=== PATIENT | male | born 1945 | race Caucasian/White ===

== ENCOUNTER 2018-07-12 11:50 | Inpatient (IN) | payer OTHER ==
[~2018-07-12] VITALS: Ht 177.8 cm; Wt 88.6 kg
--- NOTE | ~2018-07-12 | MORECARE ---
CASE MANAGEMENT DISCHARGE SUMMARY PATIENT: LIAM ACOSTA UNIT: [id number] ADM DATE: 07/12/18 AGE: 73 : 45 SEX: M ROOM/BED: D.2133 AUTHOR: EDUARDO DENNY PHYSICIAN: REFERRING PHYSICIAN: RYAN RAMIREZ MD DATE OF SERVICE: 07/15/18 Discharge Plan Patient Name: LIAM ACOSTA Facility: [facility]:[place] : 1945 Planned Disposition: Home with Home Health Anticipated Discharge Date: 07/15/18 Discharge Date: Expected LOS: 3 Initial Reviewer: [id number] Initial Review Date: 07/15/2018 Generated: 07/15/18 5:29 pm Comments DCP- Discharge Planning Updated by [email or web address]: Viviana Keyes on 07/15/18 3:[address] Patient Name: LIAM ACOSTA Admission Status: ER Accout number: [id number] Admission Date: 07-12-2018 : 1945 Admission Diagnosis:CEREBRAL INFARCTION, UNSPECIFIED Attending: RYAN RAMIREZ Current LOS: 3 Anticipated DC Date: 07-15-2018 Planned Disposition: Home with Home Health Primary Insurance: [employer] Discharge Planning Comments: CM MET WITH PATIENT AND (JULIEN) REGARDING D/C NEEDS AND PLANS. STATED THEY ARE DISCHARGING TODAY AND THEIR DAUGHTER IN LAW (BEVERLEY) WILL BE DRIVING THEM HOME. STATED THEY LIVE IN A CAM[place] AND THAT THEY ARE NO STEPS TO ENTER IT. PATIENT HAS A WHEELCHAIR AND WALKER AT HOME. PATIENTS PCP IS DR. RAMIREZ AND PHARMACY IS [facility]. PATIENTS SIGNED THE SYED FORM FOR [facility]. CM CONTACTED [facility] AND THEY STATED THEY WOULD ACCEPT PATIENT. THE [facility] WAS SERVED. CM WILL CONTINUE TO FOLLOW PATIENT WITH D/C NEEDS AND PLANS. [facility]CP [facility] [address] () [phone] Bilingual Case Manager: Viviana Keyes DCPIA - Discharge Planning Initial Assessment Updated by [id number]: Viviana Keyes on 07/15/18 4:07 pm * Is the patient Alert and Oriented? Yes * How many steps to enter\exit or inside your home? * PCP DR. RAMIREZ * Pharmacy [facility] * Preadmission Environment Home with Family * ADLs Partial Dependent * Partial ADLs (Assistance needed) Medication Management * Equipment Shower Chair Walker Wheelchair * List name and contact numbers for known caregivers / representatives who currently or will assist patient after discharge: JULIEN () [phone] * Verbal permission to speak to the caregivers and representatives has been obtained from the patient. Yes * Community resources currently utilized None * Additional services required to return to the preadmission environment? Yes * Can the patient safely return to the preadmission environment? Yes * Has this patient been hospitalized within the prior 30 days at any hospital? No Last DP export: 07/15/18 3:15 Patient Name: LIAM ACOSTA Page 85768 at 1629 All edits/amendments must be made on the electronic document DICTATION DATE: 07/15/181628 SPECIAL DIET COOK: ANTONELLA 07/15/181628 RPT#: [id number] PA DATE: STATUS: ADM IN [facility] [address] [place] [address] END OF REPORT
--- NOTE | ~2018-07-12 | MORECARE ---
CASE MANAGEMENT DISCHARGE SUMMARY PATIENT: LIAM ACOSTA UNIT: [id number] ADM DATE: 07/12/18 AGE: 73 : 45 SEX: M ROOM/BED: D.2133 AUTHOR: DENISHA,DOC PHYSICIAN: REFERRING PHYSICIAN: RYAN RAMIREZ MD DATE OF SERVICE: 07/16/18 Discharge Plan Patient Name: LIAM ACOSTA Facility: [facility]:[place] : 1945 Planned Disposition: Home with Home Health Anticipated Discharge Date: 07/15/18 Discharge Date: 07/15/2018 Expected LOS: 3 Initial Reviewer: [email or web address] Initial Review Date: 07/15/2018 Generated: 07/16/18 11:10 am Comments DCP- Discharge Planning Updated by [id number]: Darrius Vivar on 07/15/18 3:[address] Patient Name: LIAM ACOSTA Admission Status: ER Accout number: [id number] Admission Date: 07-12-2018 : 1945 Admission Diagnosis:CEREBRAL INFARCTION, UNSPECIFIED Attending: RYAN RAMIREZ Current LOS: 3 Anticipated DC Date: 07-15-2018 Planned Disposition: Home with Home Health Primary Insurance: [employer] Discharge Planning Comments: CM MET WITH PATIENT AND (JULIEN) REGARDING D/C NEEDS AND PLANS. STATED THEY ARE DISCHARGING TODAY AND THEIR DAUGHTER IN LAW (BEVERLEY) WILL BE DRIVING THEM HOME. STATED THEY LIVE IN A [place] AND THAT THEY ARE NO STEPS TO ENTER IT. PATIENT HAS A WHEELCHAIR AND WALKER AT HOME. PATIENTS PCP IS DR. RAMIREZ AND PHARMACY IS [facility]. PATIENTS SIGNED THE SYED FORM FOR [facility]. CM CONTACTED [facility] AND THEY STATED THEY WOULD ACCEPT PATIENT. THE [facility] WAS SERVED. CM WILL CONTINUE TO FOLLOW PATIENT WITH D/C NEEDS AND PLANS. [facility] [address] () [phone] Material Requisitioner: Viviana Keyes Appended by Darrius Vivar on 07/15/2018 16:49 CLOTHING PRESSER: CM FAXED HOME HEALTH REFERRAL AND DISCHARGE INFORMATION TO [facility] AT [phone]. TRAY CULVER MANAGEMENT DCPIA - Discharge Planning Initial Assessment Updated by [id number]: Viviana Keyes on 07/15/18 4:07 pm * Is the patient Alert and Oriented? Yes * How many steps to enter\exit or inside your home? * PCP DR. RAMIREZ * Pharmacy [facility] [address] * Preadmission Environment Home with Family * ADLs Partial Dependent * Partial ADLs (Assistance needed) Medication Management * Equipment Shower Chair Walker Wheelchair * List name and contact numbers for known caregivers / representatives who currently or will assist patient after discharge: JULIEN () [phone] * Verbal permission to speak to the caregivers and representatives has been obtained from the patient. Yes * Community resources currently utilized None * Additional services required to return to the preadmission environment? Yes * Can the patient safely return to the preadmission environment? Yes * Has this patient been hospitalized within the prior 30 days at any hospital? No Coverage Notice Reviewer: [id number] - Viviana Keyes Notice Issued Date-Time: 07/15/2018 16:25 Notice Type: IM Discharge Notice Notice Delivered To: Patient Relationship to Patient: Investigation Lieutenant Name: Delivery Method: HAND - Hand Delivered Pao Days: Prior Verbal Notification: Recipient Understood Notice: Yes Recipient Signature: Yes Med Rec Note Co-signed by Attending: Coverage Notice Comment: Last DP export: 07/15/18 3:51 Patient Name: LIAM ACOSTA Page 10601 at 1010 All edits/amendments must be made on the electronic document DICTATION DATE: 07/16/18 1009 DIVE SUPERINTENDENT: ANTONELLA 07/16/18 1009 RPT#: [id number] DC DATE:07/15/18 STATUS: DIS IN [facility] [address] [place] [address] END OF REPORT
--- NOTE | ~2018-07-12 | MORECARE ---
CASE MANAGEMENT DISCHARGE SUMMARY PATIENT: LIAM ACOSTA UNIT: [id number] ADM DATE: 07/12/18 AGE: 73 : 45 SEX: M ROOM/BED: D.2133 AUTHOR: DENISHA,DOC PHYSICIAN: REFERRING PHYSICIAN: RYAN RAMIREZ MD DATE OF SERVICE: 07/16/18 Discharge Plan Patient Name: LIAM ACOSTA Facility: [facility]:[place] : 1945 Planned Disposition: Home with Home Health Anticipated Discharge Date: 07/15/18 Discharge Date: 07/15/2018 Expected LOS: 3 Initial Reviewer: [email or web address] Initial Review Date: 07/15/2018 Generated: 07/16/18 2:28 pm Comments DCP- Discharge Planning Updated by [email or web address]: Darrius Vivar on 07/16/18 12:[address] Patient Name: LIAM ACOSTA Encounter No: [id number] : 1945 Primary Insurance: [email or web address] Anticipated DC Date: 07-15-2018 Planned Disposition: Home with Home Health External Planned Provider: [facility] DCP follow-up note: CM RECEIVED CALL FROM BRIAN OF [facility] WHO INFORMED THEY ARE GOING TO ADMIT PT FOR HOME HEALTH TODAY AND THAT THE PTS' SPOUSE CALLED AND INFORMED THEM THAT SHE CANNOT TAKE CARE OF PT AT HOME AND WANTS PT IN REHAB. BRIAN WILL CALL AND NOTIFY DR. RAMIREZ. CM CALLED PT'S , JULIEN, , WHO INFORMED CM THAT SHE NEEDS PT TO GO TO [facility] UNTIL HE IS STRONG ENOUGH TO GO HOME AND THAT SHE DID NOT UNDERSTAND THAT LAST NIGHT WHEN SHE BROUGHT PT HOME. JULIEN HAS NO PREFERENCE ON NURSING REHAB FACILITY IN [place]. CM EXPLAINED THAT PT HAS MANAGED MEDICARE AND CM WOULD SEND TO FACILITIES THAT MAY BE IN INSURANCE NETWORK AND HAVE THEM CONTACT HER AT HOME. CM CALLED NELLA OF [facility], THEY ARE NOT IN NETWORK WITH PT'S INSURANCE. CM FAXED REFERRALS TO [facility], [facility] AND [facility] CM NOTIFIED BRIAN AT [facility] TO CONTACT PT AND SPOUSE AT HOME TO DISCUSS REHAB ADMISSION. HOME HEALTH TO ADMIT PT TODAY AND WILL FOLLOW UP WITH PCP, DR. RAMIREZ. TRAY Culver DCP- Discharge Planning Updated by [email or web address]: Darrius Vivar on 07/15/18 3:[address] Patient Name: LIAM ACOSTA Admission Status: ER Accout number: [id number] Admission Date: 07-12-2018 : 1945 Admission Diagnosis:CEREBRAL INFARCTION, UNSPECIFIED Attending: RYAN RAMIREZ Current LOS: 3 Anticipated DC Date: 07-15-2018 Planned Disposition: Home with Home Health Primary Insurance: [employer] Discharge Planning Comments: CM MET WITH PATIENT AND (JULIEN) REGARDING D/C NEEDS AND PLANS. STATED THEY ARE DISCHARGING TODAY AND THEIR DAUGHTER IN LAW (EBVERLEY) WILL BE DRIVING THEM HOME. STATED THEY LIVE IN A [place] AND THAT THEY ARE NO STEPS TO ENTER IT. PATIENT HAS A WHEELCHAIR AND WALKER AT HOME. PATIENTS PCP IS DR. RAMIREZ AND PHARMACY IS [facility]. PATIENTS SIGNED THE SYED FORM FOR [facility]. CM CONTACTED [facility] AND THEY STATED THEY WOULD ACCEPT PATIENT. THE [facility] WAS SERVED. CM WILL CONTINUE TO FOLLOW PATIENT WITH D/C NEEDS AND PLANS. [facility]CP [facility] [address] () [phone] Drywall Worker: Viivana Keyes Appended by Darrius Vivar on 07/15/2018 16:49 ACCESS NURSE: CM FAXED HOME HEALTH REFERRAL AND DISCHARGE INFORMATION TO [facility] AT [phone]. TRAY CULVER DCPIA - Discharge Planning Initial Assessment Updated by [id number]: Viviana Keyes on 07/15/18 4:07 pm * Is the patient Alert and Oriented? Yes * How many steps to enter\exit or inside your home? * PCP DR. RAMIREZ * Pharmacy [facility] [address] * Preadmission Environment Home with Family * ADLs Partial Dependent * Partial ADLs (Assistance needed) Medication Management * Equipment Shower Chair Walker Wheelchair * List name and contact numbers for known caregivers / representatives who currently or will assist patient after discharge: JULIEN () [phone] * Verbal permission to speak to the caregivers and representatives has been obtained from the patient. Yes * Community resources currently utilized None * Additional services required to return to the preadmission environment? Yes * Can the patient safely return to the preadmission environment? Yes * Has this patient been hospitalized within the prior 30 days at any hospital? No Coverage Notice Reviewer: [id number] Lissa Keyes Notice Issued Date-Time: 07/15/2018 16:25 Notice Type: IM Discharge Notice Notice Delivered To: Patient Relationship to Patient: Size Worker Name: Delivery Method: HAND - Hand Delivered Pao Days: Prior Verbal Notification: Recipient Understood Notice: Yes Recipient Signature: Yes Med Rec Note Co-signed by Attending: Coverage Notice Comment: Last DP export: 07/16/18 12:12 Patient Name: LIAM ACOSTA Page 49549 at 1328 All edits/amendments must be made on the electronic document DICTATION DATE: 07/16/18 1327 SPIRITUAL COUNSELOR: ANTONELLA 07/16/18 1327 RPT#: [id number] DC DATE:07/15/18 STATUS: DIS IN [facility] [address] [place] [address] END OF REPORT
--- NOTE | ~2018-07-12 | HP ---
PATIENT: LIAM ACOSTA MEDICAL RECORD: [id number] ACCOUNT: [id number] LOCATION:[address] : [birth year] ADMISSION DATE: 07/12/18 PCP: RYAN RAMIREZ HISTORY AND PHYSICAL EXAMINATION DATE OF ADMISSION: 07/12/2018 CHIEF COMPLAINT: Weakness, slurred speech, difficulty holding things in the left hand. HISTORY OF PRESENT ILLNESS: This is a 73-year-old white male with a history of hypertension and some reflux and prostate cancer who was just seen by Dr. Ramirez for a physical last Friday. He then left there and went to [facility] and got a flu shot 2 days later. Family noticed that he was having accidents with loss of bowel and bladder. He had generalized weakness. He was slurring his speech and had difficulty holding things in his left hand (he is left handed), had increased confusion and difficulty following commands. They brought him into the hospital today where his lab was fairly unremarkable. A CT of the head showed a small area of attenuation in the right parietal lobe consistent with a possible stroke of undetermined age. MRI of the brain showed multiple small foci of acute to subacute ischemic areas in the right frontal, parietal, and temporal lobes. He is admitted for stroke. PAST MEDICAL AND SURGICAL HISTORY: Hypertension, reflux, prostate cancer, traumatic loss of right thumb due to an old field injury at age 18. PAST SURGICAL HISTORY: Left total hip arthroplasty. ALLERGIES: None. HOME MEDICATIONS: Lasix 40 mg a day, metoprolol 50 mg twice a day, losartan 100 mg a day, aspirin 81 mg but not taking regularly. HABITS: No tobacco, alcohol or drugs. SOCIAL HISTORY: and retired. FAMILY HISTORY: Father in his early 70s of prostate cancer. Mother around age 70 due to cirrhosis. REVIEW OF SYSTEMS: GENERAL: states he has lost 5 or 6 pounds over the last few weeks to months. HEENT: No particular sinus or allergy problems. RESPIRATORY: No history of emphysema or asthma. CARDIAC: No known coronary artery disease. GASTROINTESTINAL: He has had some reflux. GENITOURINARY: History of prostate cancer treated with radiation therapy many years ago. MUSCULOSKELETAL: He has had arthritis and replacement of left hip. NEUROLOGIC: No migraines or seizures. No history of strokes. PSYCHIATRIC: Denies depression or melancholia. PHYSICAL EXAMINATION: VITAL SIGNS: Temperature 99.2, pulse 68, respirations 14, blood pressure HISTORY AND PHYSICAL [id number] LIAM ACOSTA 132/81, and O2 sat 99%. GENERAL: He is awake and alert. Family at bedside. SKIN: Warm and dry. HEENT: Generally unremarkable. NECK: Supple. No JVD or bruit. HEART: Regular rate and rhythm without murmur. LUNGS: Fairly clear. ABDOMEN: Soft. EXTREMITIES: No edema. NEUROLOGIC: He has a little weakness in the left hand and arm. There is no pronator drift to the left arm but does have decreased cartographic drafter compared to the right hand, left leg is a little weak compared to the right on his tested by straight leg raises versus resistance. LABORATORY DATA: CBC with a white count of 5600, hemoglobin 14.3, platelets number 151,000. Basic metabolic panel is all okay except potassium a little low at 3.2, glucose is 96, total bilirubin 1.89. Otherwise, other liver functions are all normal. CT of the head, small area of attenuation in the right parietal lobe. MRI of the brain shows multiple small foci of acute/subacute ischemic areas in the right frontal, parietal, and temporal lobes. Carotid ultrasound showed no significant stenosis over 50%. ASSESSMENT: 1. Would be right-sided stroke with embolic shower with multiple areas of ischemia. 2. History of hypertension. PLAN: We will check echocardiogram, will check lipid profile, clear him on telemetry. Order physical therapy, occupational therapy, and speech therapy. Will start a full aspirin every day. Other tests and procedures as warranted. TRANSINT:[id number] Voice Confirmation ID: [id number] DOCUMENT ID: [id number] BLANCA RANGEL MD at 0856 CC: [id number] DICTATION DATE: 07/12/18 184 RAIL FILLER: 07/12/182058 ADM IN [facility] [address] [facility] [place] [address]
--- NOTE | ~2018-07-12 | MORECARE ---
CASE MANAGEMENT DISCHARGE SUMMARY PATIENT: LIAM ACOSTA DOYLE UNIT: [id number] ADM DATE: 07/12/18 AGE: 73 : 45 SEX: M ROOM/BED: D.2133 AUTHOR: EDUARDO DENNY PHYSICIAN: REFERRING PHYSICIAN: RYAN RAMIREZ MD DATE OF SERVICE: 07/15/18 Discharge Plan Patient Name: LIAM ACOSTA [facility] [facility] 1945 Planned Disposition: Home with Home Health Anticipated Discharge Date: 07/15/18 Discharge Date: Expected LOS: 3 Initial Reviewer: [email or web address] Initial Review Date: 07/15/2018 Generated: 07/15/18 5:14 pm DCPIA - Discharge Planning Initial Assessment Updated by [email or web address]: Viviana Keyes on 07/15/18 4:07 pm * Is the patient Alert and Oriented? Yes * How many steps to enter\exit or inside your home? * PCP DR. RAMIREZ * Pharmacy [facility] [address] * Preadmission Environment Home with Family * ADLs Partial Dependent * Partial ADLs (Assistance needed) Medication Management * Equipment Shower Chair Walker Wheelchair * List name and contact numbers for known caregivers / representatives who currently or will assist patient after discharge: JULIEN () [phone] * Verbal permission to speak to the caregivers and representatives has been obtained from the patient. Yes * Community resources currently utilized None * Additional services required to return to the preadmission environment? Yes * Can the patient safely return to the preadmission environment? Yes * Has this patient been hospitalized within the prior 30 days at any hospital? No Patient Name: LIAM ACOSTA Page 58258 at 1615 All edits/amendments must be made on the electronic document DICTATION DATE: 07/15/181613 AUTOMOBILE REPOSSESSOR: ANTONELLA 07/15/181613 RPT#: [id number] DC DATE: STATUS: ADM IN [facility] [address] [place] [address] END OF REPORT
--- NOTE | ~2018-07-12 | MORECARE ---
CASE MANAGEMENT DISCHARGE SUMMARY PATIENT: LIAM ACOSTA UNIT: [id number] ADM DATE: 07/12/18 AGE: 73 : 45 SEX: M ROOM/BED: D.2133 AUTHOR: DENISHA,DOC PHYSICIAN: REFERRING PHYSICIAN: RYAN RAMIREZ MD DATE OF SERVICE: 07/16/18 Discharge Plan Patient Name: LIAM ACOSTA Facility: [facility]:[place] : 1945 Planned Disposition: Home with Home Health Anticipated Discharge Date: 07/15/18 Discharge Date: 07/15/2018 Expected LOS: 3 Initial Reviewer: [email or web address] Initial Review Date: 07/15/2018 Generated: 07/16/18 2:12 pm Comments DCP- Discharge Planning Updated by [email or web address]: Darrius Vivar on 07/15/18 3:[address] Patient Name: LIAM ACOSTA Admission Status: ER Accout number: [id number] Admission Date: 07-12-2018 : 1945 Admission Diagnosis:CEREBRAL INFARCTION, UNSPECIFIED Attending: RYAN RAMIREZ Current LOS: 3 Anticipated DC Date: 07-15-2018 Planned Disposition: Home with Home Health Primary Insurance: [employer] Discharge Planning Comments: CM MET WITH PATIENT AND (JULIEN) REGARDING D/C NEEDS AND PLANS. STATED THEY ARE DISCHARGING TODAY AND THEIR DAUGHTER IN LAW (BEVERLEY) WILL BE DRIVING THEM HOME. STATED THEY LIVE IN A [place] AND THAT THEY ARE NO STEPS TO ENTER IT. PATIENT HAS A WHEELCHAIR AND WALKER AT HOME. PATIENTS PCP IS DR. RAMIREZ AND PHARMACY IS [facility]. PATIENTS SIGNED THE SYED FORM FOR [facility]. CM CONTACTED [facility] AND THEY STATED THEY WOULD ACCEPT PATIENT. THE [facility] WAS SERVED. CM WILL CONTINUE TO FOLLOW PATIENT WITH D/C NEEDS AND PLANS. [facility] [address] () [phone] Title Insurance Agent: Viviana Keyes Appended by Darrius Vivar on 07/15/2018 16:49 STEAMTABLE WORKER: CM FAXED HOME HEALTH REFERRAL AND DISCHARGE INFORMATION TO [facility] AT [phone]. TRAY CULVER MANAGEMENT DCPIA - Discharge Planning Initial Assessment Updated by [id number]: Viviana Keyes on 07/15/18 4:07 pm * Is the patient Alert and Oriented? Yes * How many steps to enter\exit or inside your home? * PCP DR. RAMIREZ * [facility]acy [facility] [address] * Preadmission Environment Home with Family * ADLs Partial Dependent * Partial ADLs (Assistance needed) Medication Management * Equipment Shower Chair Walker Wheelchair * List name and contact numbers for known caregivers / representatives who currently or will assist patient after discharge: JULIEN () [phone] * Verbal permission to speak to the caregivers and representatives has been obtained from the patient. Yes * Community resources currently utilized None * Additional services required to return to the preadmission environment? Yes * Can the patient safely return to the preadmission environment? Yes * Has this patient been hospitalized within the prior 30 days at any hospital? No External Providers External Provider: [facility] Next Contact Date: 07/16/2018 Service Request Date: Service Type: Resolution: Reviewer: Comments: External Provider[facility] Next Contact Date: 07/16/2018 Service Request Date: Service Type: Resolution: Reviewer: Comments: External Provider: [facility] Next Contact Date: 07/16/2018 Service Request Date: Service Type: Resolution: Reviewer: Comments: Coverage Notice Reviewer: [email or web address] Lissa Keyes Notice Issued Date-Time: 07/15/2018 16:25 Notice Type: IM Discharge Notice Notice Delivered To: Patient Relationship to Patient: Senior Investigator Name: Delivery Method: HAND - Hand Delivered Pao Days: Prior Verbal Notification: Recipient Understood Notice: Yes Recipient Signature: Yes Med Rec Note Co-signed by Attending: Coverage Notice Comment: Last DP export: 07/16/18 9:10 Patient Name: LIAM ACOSTA Page 11666 at 1312 All edits/amendments must be made on the electronic document DICTATION DATE: 07/16/18 1312 CREDIT COLLECTIONS ANALYST: ANTONELLA 07/16/18 1312 RPT#: [id number] DC DATE:07/15/18 STATUS: DIS IN [facility] [address] [facility] [place] [address] END OF REPORT
--- NOTE | ~2018-07-12 | MORECARE ---
CASE MANAGEMENT DISCHARGE SUMMARY PATIENT: LIAM ACOSTA UNIT: [id number] ADM DATE: 07/12/18 AGE: 73 : [birth year] SEX: M ROOM/BED: D.2133 AUTHOR: EDUARDO DENNY PHYSICIAN: REFERRING PHYSICIAN: RYAN RAMIREZ MD DATE OF SERVICE: 07/15/18 Discharge Plan Patient Name: LIAM ACOSTA Facility: [facility]:[place] : 1945 Planned Disposition: Home with Home Health Anticipated Discharge Date: 07/15/18 Discharge Date: Expected LOS: 3 Initial Reviewer: [email or web address] Initial Review Date: 07/15/2018 Generated: 07/15/18 5:51 pm Comments DCP- Discharge Planning Updated by [email or web address]: Darrius Gonzalez on 07/15/18 3:[address] Patient Name: LIAM ACOSTA Admission Status: ER Accout number: [id number] Admission Date: 07-12-2018 : 1945 Admission Diagnosis:CEREBRAL INFARCTION, UNSPECIFIED Attending: RYAN RAMIREZ Current LOS: 3 Anticipated DC Date: 07-15-2018 Planned Disposition: Home with Home Health Primary Insurance: [employer] Discharge Planning Comments: CM MET WITH PATIENT AND (JULIEN) REGARDING D/C NEEDS AND PLANS. STATED THEY ARE DISCHARGING TODAY AND THEIR DAUGHTER IN LAW (BEVERLEY) WILL BE DRIVING THEM HOME. STATED THEY LIVE IN A [place] AND THAT THEY ARE NO STEPS TO ENTER IT. PATIENT HAS A WHEELCHAIR AND WALKER AT HOME. PATIENTS PCP IS DR. RAMIREZ AND PHARMACY IS [facility]. PATIENTS SIGNED THE SYED FORM FOR [facility]. CM CONTACTED [facility] AND THEY STATED THEY WOULD ACCEPT PATIENT. THE [facility] WAS SERVED. CM WILL CONTINUE TO FOLLOW PATIENT WITH D/C NEEDS AND PLANS. PCP [facility] [address] JULIEN () [phone] Drilling Inspector: Viviana Keyes Appended by Darrius Gonzalez on 07/15/2018 16:49 TECHNICAL SUPPORT PROFESSIONAL: CM FAXED HOME HEALTH REFERRAL AND DISCHARGE INFORMATION TO [facility] AT [phone]. DARRIUS GONZALEZ, CASE MANAGEMENT DCPIA - Discharge Planning Initial Assessment Updated by [email or web address]: Viviana Keyes on 07/15/18 4:07 pm * Is the patient Alert and Oriented? Yes * How many steps to enter\exit or inside your home? * PCP DR. RAMIREZ * Pharmacy [facility] [address] * Preadmission Environment Home with Family * ADLs Partial Dependent * Partial ADLs (Assistance needed) Medication Management * Equipment Shower Chair Walker Wheelchair * List name and contact numbers for known caregivers / representatives who currently or will assist patient after discharge: JULIEN () [phone] * Verbal permission to speak to the caregivers and representatives has been obtained from the patient. Yes * Community resources currently utilized None * Additional services required to return to the preadmission environment? Yes * Can the patient safely return to the preadmission environment? Yes * Has this patient been hospitalized within the prior 30 days at any hospital? No External Providers [facility] Next Contact Date: 07/15/2018 Service Request Date: Service Type: Resolution: Reviewer: Comments: Coverage Notice Reviewer: [email or web address] Lissa Keyes Notice Issued Date-Time: 07/15/2018 16:25 Notice Type: IM Discharge Notice Notice Delivered To: Patient Relationship to Patient: Supervisor Model Making Name: Delivery Method: HAND - Hand Delivered Pao Days: Prior Verbal Notification: Recipient Understood Notice: Yes Recipient Signature: Yes Med Rec Note Co-signed by Attending: Coverage Notice Comment: Last DP export: 07/15/18 3:29 Patient Name: LIAM ACOSTA Page 19644 at 1652 All edits/amendments must be made on the electronic document DICTATION DATE: 07/15/181650 CARRIAGE DOGGER: ANTONELLA 07/15/181650 RPT#: [id number] DC DATE: STATUS: ADM IN [facility] [address] [place] [address] END OF REPORT
--- NOTE | ~2018-07-12 | EC ---
PATIENT:LIAM ACOSTA DATE OF SERVICE: 07/12/18 SEX: M MEDICAL RECORD: [id number] DATE OF : [birth year] LOCATION:D.M2 D.213 AGE OF PATIENT: 73 ADMISSION DATE: 07/12/18 REFERRING PHYSICIAN: INTERPRETING PHYSICIAN: JARED HARDY MD ECHOCARDIOGRAM REPORT ECHO CHARGES 4 ECHO COMPLETE Date: 07/12/18 CLINICAL DIAGNOSIS: CVA HX OF AFIB/HTN ECHOCARDIOGRAPHIC MEASUREMENTS (adult normal given) AC root (d.<3.7cm) 4.0 cm LV Septum d (<1.2 cm> 1.5 cm Valve Excursion 1.9 cm LV Septum (systole) 2.4 cm Left Atria (s.<4.0cm> 4.4 cm LVPW d(<1.2cm) 1.9 cm RV (d.<2.3cm) 3.9 cm LVPW (sytole) 2.5 cm LV diastole(<5.6CM) 5.3 cm MV E-F(>70mm/sec) cm LV systole 3.3 cm LVOT Diameter 1.8 cm MV exc.(>10mm) cm Est.ejection fraction (50-75%) % DOPPLER: LVIT cm/sec A 110 cm/sec E 58.0 cm/sec LA cm/sec RVSP 20 mmHg LVOT 129 cm/sec AOP1/2T m/s Asc. Ao 180 cm/sec RVOT 60 cm/sec RA cm/sec PA 107 cm/sec AV Gradient Peak 12.98mmHg AV Mean 7.62 mmHg AV Area 2.2 cm MV Gradient Peak 6.63 mmHg MV Mean 1.65 mmHg MV Area cm COMMENTS: Specimen Accessioner: 2 [facility] [employer] [place] Technician: 3 Dr. Jaime TAPE# PACS Pericardial Effusion N DATE OF SERVICE: Adequate 2D, color flow, spectral Doppler, and M-Mode. LVH is present. LV internal dimension is normal. Wall motion is normal. EF is greater than or equal to 55%. Aortic valve is tricuspid. No evidence of stenosis by Doppler interrogation. Left atrium is dilated at 4.4 cm. Mitral valve shows no prolapse. Trace MR. Right sided chambers grossly normal. Trace TR. TRANSINT:[id number] Voice Confirmation ID: [id number] DOCUMENT ID: [id number] ECHOCARDIOGRAM REPORT [id number] LIAM ACOSTA GREGORY A MD at 1546 CC: [id number] DICTATION DATE: 07/13/18 1012 DIRECTOR OF LABOR AND DELIVERY: 07/13/18 1054 ADM IN [facility] [address] [place] [place] [id number]
[2018-07-12] MEDS ORDERED: COZAAR100 MG PO (11:54)
[2018-07-12] MEDS ORDERED: LASIX40 MG (11:54)
[2018-07-12] MEDS ORDERED: METOPROLOL TART50 MG PO (11:55)
[2018-07-12 12:49] LABS: BASOPHILS 0.9 % (0-2); EOSINOPHILS 3.6 % (0-7); HEMATOCRIT 40.6 % (42.0-54.0); HEMOGLOBIN 14.3 g/dL (13.5-17.5); IMMATURE GRANULOCYTES 0.2 % (0-5); LYMPHOCYTES 23.4 % (15-50); MCH 30.8 pg (26.0-34.0); MCHC 35.2 g/dL (31.0-37.0); MCV 87.5 fL (80.0-100.0); MEAN PLATELET VOLUME 10.3 fL (7.4-10.4); MONOCYTES 8.7 % (2-11); NEUTROPHILS 63.2 % (40-80); PLATELET COUNT 151 10x3/uL (130-400); RBC 4.64 10x6/uL (4.20-6.10); RDW 12.7 % (11.5-14.5); WBC 5.6 10x3/uL (4.8-10.8)
[2018-07-12 13:15] VITALS: BP 130/88
[2018-07-12 13:35] LABS: ALBUMIN 3.1 g/dL (3.4-5.0); ANION GAP 13.4 mmol/L (8-16); BILIRUBIN - TOTAL 1.89 mg/dL (0.2-1.3); CALCIUM 8.7 mg/dL (8.5-10.1); CARBON DIOXIDE 26.8 mmol/L (21.0-32.0); CREATININE - SERUM 1.2 mg/dL (0.6-1.3); POTASSIUM - SERUM 3.2 mmol/L (3.5-5.1); PROTEIN - SERUM 6.6 g/dL (6.4-8.2)
[2018-07-12 17:20] VITALS: BMI 27.3
[2018-07-12 20:30] VITALS: BP 130/89
[2018-07-13 00:30] VITALS: BP 156/102
[2018-07-13 04:30] VITALS: BP 134/79
[2018-07-13 06:07] LABS: EOSINOPHILS 3.7 % (0-7); HEMATOCRIT 38.6 % (42.0-54.0); HEMOGLOBIN 13.2 g/dL (13.5-17.5); IMMATURE GRANULOCYTES 0.2 % (0-5); LYMPHOCYTES 30.2 % (15-50); MCHC 34.2 g/dL (31.0-37.0); MCV 87.7 fL (80.0-100.0); MEAN PLATELET VOLUME 10.8 fL (7.4-10.4); MONOCYTES 10.6 % (2-11); NEUTROPHILS 54.3 % (40-80); PLATELET COUNT 143 10x3/uL (130-400); RDW 12.7 % (11.5-14.5); WBC 5.9 10x3/uL (4.8-10.8)
[2018-07-13 06:37] LABS: ANION GAP 12.7 mmol/L (8-16); CALCIUM 8.7 mg/dL (8.5-10.1); CARBON DIOXIDE 27.3 mmol/L (21.0-32.0); CHOL - HDL RATIO 5.6 ratio (2.3-4.9); CREATININE - SERUM 1.1 mg/dL (0.6-1.3); LDL-HDL RATIO 3.7 ratio (1.5-3.5)
[2018-07-13 08:24] VITALS: BP 118/58
[2018-07-13 10:59] VITALS: BP 123/64
[2018-07-13 13:42] VITALS: Ht 177.8 cm; Wt 88.6 kg
[2018-07-13 15:55] VITALS: BP 118/62
[2018-07-13 20:00] VITALS: BP 121/67
[2018-07-13] MEDS ORDERED: LASIX40 MG PO (21:01)
[2018-07-14] VITALS: BP 131/90
[2018-07-14 04:00] VITALS: BP 152/90
[2018-07-14 05:32] LABS: BASOPHILS 1.2 % (0-2); EOSINOPHILS 4.1 % (0-7); HEMATOCRIT 37.7 % (42.0-54.0); HEMOGLOBIN 13.6 g/dL (13.5-17.5); IMMATURE GRANULOCYTES 0.2 % (0-5); LYMPHOCYTES 33.3 % (15-50); MCH 32.1 pg (26.0-34.0); MCHC 36.1 g/dL (31.0-37.0); MCV 88.9 fL (80.0-100.0); MEAN PLATELET VOLUME 10.6 fL (7.4-10.4); MONOCYTES 9.3 % (2-11); NEUTROPHILS 51.9 % (40-80); PLATELET COUNT 131 10x3/uL (130-400); RBC 4.24 10x6/uL (4.20-6.10); RDW 12.9 % (11.5-14.5); WBC 5.6 10x3/uL (4.8-10.8)
[2018-07-14 05:56] LABS: ANION GAP 12.3 mmol/L (8-16); BILIRUBIN - TOTAL 0.92 mg/dL (0.2-1.3); CALCIUM 8.2 mg/dL (8.5-10.1); CARBON DIOXIDE 28.9 mmol/L (21.0-32.0); CREATININE - SERUM 1.1 mg/dL (0.6-1.3); POTASSIUM - SERUM 3.2 mmol/L (3.5-5.1); PROTEIN - SERUM 6.4 g/dL (6.4-8.2)
[2018-07-14 08:05] VITALS: BP 147/84
[2018-07-14 11:21] VITALS: BP 142/78
[2018-07-14 16:50] VITALS: BP 138/74
[2018-07-14 21:02] VITALS: BP 137/80
[2018-07-15 01:14] VITALS: BP 137/94
[2018-07-15 05:42] LABS: BASOPHILS 0.5 % (0-2); EOSINOPHILS 5.1 % (0-7); HEMATOCRIT 38.8 % (42.0-54.0); HEMOGLOBIN 13.3 g/dL (13.5-17.5); IMMATURE GRANULOCYTES 0.2 % (0-5); LYMPHOCYTES 30.9 % (15-50); MCH 30.4 pg (26.0-34.0); MCHC 34.3 g/dL (31.0-37.0); MCV 88.8 fL (80.0-100.0); MEAN PLATELET VOLUME 10.6 fL (7.4-10.4); MONOCYTES 8.3 % (2-11); PLATELET COUNT 142 10x3/uL (130-400); RBC 4.37 10x6/uL (4.20-6.10); RDW 12.6 % (11.5-14.5); WBC 6.3 10x3/uL (4.8-10.8)
[2018-07-15 05:54] VITALS: BP 156/92
[2018-07-15 06:42] LABS: ALKALINE PHOSPHATASE 96 U/L (46-116); CALC OSMOLALITY 281 mosm/kg (275-300); CALCIUM 8.6 mg/dL (8.5-10.1); CARBON DIOXIDE 26.9 mmol/L (21.0-32.0); CHLORIDE - SERUM 106 mmol/L (98-107); CREATININE - SERUM 0.9 mg/dL (0.6-1.3); GLUCOSE 88 mg/dL (74-106); POTASSIUM - SERUM 3.5 mmol/L (3.5-5.1); PROTEIN - SERUM 6.2 g/dL (6.4-8.2); SODIUM 142 mmol/L (136-145); UREA NITROGEN 13 mg/dL (7-18); eGFR NON AFRICAN AMERICAN 88 mL/min (90-120)
[2018-07-15 06:43] LABS: ALT (SGPT) 9 U/L (10-68)
[2018-07-15 08:44] VITALS: BP 141/87
[2018-07-15 13:07] VITALS: BP 145/95
[2018-07-15] MEDS ORDERED: ASPIRIN325 MG PO (14:08)
[2018-07-15] MEDS ORDERED: COZAAR50 MG PO (14:08)
== END 2018-07-15 19:40 | disposition home health service (06) | DRG 65 ==
LOC: D.ER 11:50 → D.M2 13:14 → D.EDHOLD 13:14 → D.M2 14:12
PROVIDERS: Emergency Medicine; Family Medicine
DX: I63.9 Cerebral infarction, unspecified (principal); G81.94 Hemiplegia, unspecified affecting left nondominant side; K52.0 Gastroenteritis and colitis due to radiation; R47.81 Slurred speech; K21.9 Gastro-esophageal reflux disease without esophagitis; I10 Essential (primary) hypertension; Z85.46 Personal history of malignant neoplasm of prostate; R40.2363 Coma scale, best motor response, obeys commands, at hospital admission; R40.2143 Coma scale, eyes open, spontaneous, at hospital admission; R40.2243 Coma scale, best verbal response, confused conversation, at hospital admission

== ENCOUNTER 2018-07-17 17:54 | Inpatient (IN) | payer MEDICARE ==
[~2018-07-17] VITALS: Ht 177.8 cm; Wt 83.9 kg
[~2018-07-17 17:54] MED LIST: ASPIRIN325 MG PO; COZAAR100 MG PO; COZAAR50 MG PO; LASIX40 MG; LASIX40 MG PO; METOPROLOL TART50 MG PO
[2018-07-17 18:13] VITALS: BP 182/101; BMI 26.6
[2018-07-17 19:00] VITALS: BP 182/101
[2018-07-18 07:10] LABS: BASOPHILS 0.6 % (0-2); EOSINOPHILS 4.3 % (0-7); HEMATOCRIT 44.6 % (42.0-54.0); HEMOGLOBIN 15.5 g/dL (13.5-17.5); IMMATURE GRANULOCYTES 0.3 % (0-5); LYMPHOCYTES 20.6 % (15-50); MCH 30.8 pg (26.0-34.0); MCHC 34.8 g/dL (31.0-37.0); MCV 88.5 fL (80.0-100.0); MEAN PLATELET VOLUME 10.4 fL (7.4-10.4); MONOCYTES 10.3 % (2-11); NEUTROPHILS 63.9 % (40-80); PLATELET COUNT 153 10x3/uL (130-400); RBC 5.04 10x6/uL (4.20-6.10); RDW 12.8 % (11.5-14.5); WBC 7.9 10x3/uL (4.8-10.8)
[2018-07-18 07:27] LABS: CALC OSMOLALITY 282 mosm/kg (275-300); CALCIUM 9.1 mg/dL (8.5-10.1); CARBON DIOXIDE 27.5 mmol/L (21.0-32.0); CHLORIDE - SERUM 106 mmol/L (98-107); CREATININE - SERUM 0.8 mg/dL (0.6-1.3); GLUCOSE 99 mg/dL (74-106); POTASSIUM - SERUM 3.8 mmol/L (3.5-5.1); SODIUM 141 mmol/L (136-145); UREA NITROGEN 17 mg/dL (7-18); eGFR NON AFRICAN AMERICAN > 90 mL/min (90-120)
[2018-07-18 08:44] VITALS: BP 169/98
[2018-07-18 09:32] VITALS: Ht 177.8 cm; Wt 83.9 kg
[2018-07-18 12:39] VITALS: BP 153/94
[2018-07-18 21:55] VITALS: BP 131/76
[2018-07-19 08:00] VITALS: BP 136/73
[2018-07-19 20:38] VITALS: BP 138/75
[2018-07-20 06:55] LABS: BASOPHILS 0.7 % (0-2); EOSINOPHILS 6.4 % (0-7); HEMATOCRIT 40.5 % (42.0-54.0); HEMOGLOBIN 13.7 g/dL (13.5-17.5); IMMATURE GRANULOCYTES 0.2 % (0-5); MCH 30.2 pg (26.0-34.0); MCHC 33.8 g/dL (31.0-37.0); MCV 89.4 fL (80.0-100.0); MEAN PLATELET VOLUME 10.7 fL (7.4-10.4); MONOCYTES 13.9 % (2-11); NEUTROPHILS 56.8 % (40-80); PLATELET COUNT 134 10x3/uL (130-400); RBC 4.53 10x6/uL (4.20-6.10); RDW 12.8 % (11.5-14.5); WBC 4.5 10x3/uL (4.8-10.8)
[2018-07-20 07:15] LABS: CALC OSMOLALITY 292 mosm/kg (275-300); CALCIUM 8.5 mg/dL (8.5-10.1); CARBON DIOXIDE 26.2 mmol/L (21.0-32.0); CHLORIDE - SERUM 111 mmol/L (98-107); CREATININE - SERUM 0.9 mg/dL (0.6-1.3); GLUCOSE 92 mg/dL (74-106); POTASSIUM - SERUM 3.7 mmol/L (3.5-5.1); SODIUM 146 mmol/L (136-145); UREA NITROGEN 17 mg/dL (7-18); eGFR NON AFRICAN AMERICAN 88 mL/min (90-120)
[2018-07-20 08:00] VITALS: BP 147/98
[2018-07-20 19:02] VITALS: BP 161/85
[2018-07-21 07:55] VITALS: BP 175/98
[2018-07-21 19:42] VITALS: BP 153/86
[2018-07-22 06:10] LABS: BASOPHILS 0.6 % (0-2); EOSINOPHILS 5.8 % (0-7); HEMATOCRIT 39.8 % (42.0-54.0); HEMOGLOBIN 13.5 g/dL (13.5-17.5); IMMATURE GRANULOCYTES 0.2 % (0-5); LYMPHOCYTES 25.4 % (15-50); MCH 30.4 pg (26.0-34.0); MCHC 33.9 g/dL (31.0-37.0); MCV 89.6 fL (80.0-100.0); MEAN PLATELET VOLUME 10.3 fL (7.4-10.4); MONOCYTES 10.9 % (2-11); NEUTROPHILS 57.1 % (40-80); PLATELET COUNT 145 10x3/uL (130-400); RBC 4.44 10x6/uL (4.20-6.10); RDW 12.8 % (11.5-14.5); WBC 5.3 10x3/uL (4.8-10.8)
[2018-07-22 07:45] LABS: CHLORIDE - SERUM 110 mmol/L (98-107); POTASSIUM - SERUM 3.6 mmol/L (3.5-5.1); SODIUM 145 mmol/L (136-145)
[2018-07-22 08:00] VITALS: BP 141/86
[2018-07-22 08:00] LABS: CALC OSMOLALITY 289 mosm/kg (275-300); CALCIUM 8.4 mg/dL (8.5-10.1); CARBON DIOXIDE 24.4 mmol/L (21.0-32.0); CREATININE - SERUM 0.9 mg/dL (0.6-1.3); GLUCOSE 96 mg/dL (74-106); UREA NITROGEN 14 mg/dL (7-18); eGFR NON AFRICAN AMERICAN 88 mL/min (90-120)
[2018-07-22 19:45] VITALS: BP 138/83
[2018-07-23 08:00] VITALS: BP 150/74
[2018-07-23 20:18] VITALS: BP 152/87
[2018-07-24 07:19] LABS: BASOPHILS 0.6 % (0-2); EOSINOPHILS 4.8 % (0-7); HEMATOCRIT 39.2 % (42.0-54.0); HEMOGLOBIN 13.4 g/dL (13.5-17.5); LYMPHOCYTES 22.2 % (15-50); MCH 30.4 pg (26.0-34.0); MCHC 34.2 g/dL (31.0-37.0); MCV 88.9 fL (80.0-100.0); MEAN PLATELET VOLUME 9.7 fL (7.4-10.4); MONOCYTES 9.1 % (2-11); NEUTROPHILS 63.3 % (40-80); PLATELET COUNT 143 10x3/uL (130-400); RBC 4.41 10x6/uL (4.20-6.10); RDW 12.8 % (11.5-14.5); WBC 5.4 10x3/uL (4.8-10.8)
[2018-07-24 07:33] LABS: CALC OSMOLALITY 287 mosm/kg (275-300); CALCIUM 8.5 mg/dL (8.5-10.1); CHLORIDE - SERUM 109 mmol/L (98-107); CREATININE - SERUM 0.9 mg/dL (0.6-1.3); GLUCOSE 94 mg/dL (74-106); POTASSIUM - SERUM 3.7 mmol/L (3.5-5.1); SODIUM 144 mmol/L (136-145); UREA NITROGEN 15 mg/dL (7-18); eGFR NON AFRICAN AMERICAN 88 mL/min (90-120)
[2018-07-24 08:00] VITALS: BP 152/101
[2018-07-24 19:24] VITALS: BP 145/86
[2018-07-25 08:16] VITALS: BP 141/75
[2018-07-25 20:00] VITALS: BP 153/78
[2018-07-26 08:00] VITALS: BP 156/82
[2018-07-26 21:17] VITALS: BP 138/69
[2018-07-27 06:05] LABS: BASOPHILS 0.3 % (0-2); EOSINOPHILS 5.2 % (0-7); HEMOGLOBIN 13.6 g/dL (13.5-17.5); IMMATURE GRANULOCYTES 0.2 % (0-5); LYMPHOCYTES 18.8 % (15-50); MCH 30.2 pg (26.0-34.0); MCV 88.9 fL (80.0-100.0); MEAN PLATELET VOLUME 10.1 fL (7.4-10.4); MONOCYTES 8.5 % (2-11); PLATELET COUNT 159 10x3/uL (130-400); RDW 12.8 % (11.5-14.5); WBC 6.5 10x3/uL (4.8-10.8)
[2018-07-27 06:14] LABS: CALC OSMOLALITY 287 mosm/kg (275-300); CALCIUM 8.4 mg/dL (8.5-10.1); CARBON DIOXIDE 27.2 mmol/L (21.0-32.0); CHLORIDE - SERUM 108 mmol/L (98-107); CREATININE - SERUM 0.9 mg/dL (0.6-1.3); GLUCOSE 102 mg/dL (74-106); POTASSIUM - SERUM 3.5 mmol/L (3.5-5.1); SODIUM 144 mmol/L (136-145); UREA NITROGEN 16 mg/dL (7-18); eGFR NON AFRICAN AMERICAN 88 mL/min (90-120)
[2018-07-27 08:22] VITALS: BP 142/84
[2018-07-27 19:44] VITALS: BP 151/74
[2018-07-28 07:05] LABS: BASOPHILS 0.3 % (0-2); EOSINOPHILS 5.3 % (0-7); HEMATOCRIT 40.4 % (42.0-54.0); HEMOGLOBIN 13.7 g/dL (13.5-17.5); IMMATURE GRANULOCYTES 0.2 % (0-5); LYMPHOCYTES 22.4 % (15-50); MCH 30.3 pg (26.0-34.0); MCHC 33.9 g/dL (31.0-37.0); MCV 89.4 fL (80.0-100.0); MEAN PLATELET VOLUME 10.1 fL (7.4-10.4); MONOCYTES 8.8 % (2-11); PLATELET COUNT 168 10x3/uL (130-400); RBC 4.52 10x6/uL (4.20-6.10); RDW 12.8 % (11.5-14.5); WBC 6.4 10x3/uL (4.8-10.8)
[2018-07-28 07:12] LABS: CALC OSMOLALITY 291 mosm/kg (275-300); CALCIUM 8.3 mg/dL (8.5-10.1); CARBON DIOXIDE 26.7 mmol/L (21.0-32.0); CHLORIDE - SERUM 110 mmol/L (98-107); CREATININE - SERUM 0.8 mg/dL (0.6-1.3); GLUCOSE 85 mg/dL (74-106); POTASSIUM - SERUM 3.4 mmol/L (3.5-5.1); SODIUM 146 mmol/L (136-145); UREA NITROGEN 18 mg/dL (7-18); eGFR NON AFRICAN AMERICAN > 90 mL/min (90-120)
[2018-07-28 08:00] VITALS: BP 151/96
[2018-07-28 19:00] VITALS: BP 168/91
[2018-07-29 08:00] VITALS: BP 154/82
[2018-07-29 22:22] VITALS: BP 151/79
[2018-07-30 08:21] VITALS: BP 134/77
[2018-07-30 20:00] VITALS: BP 149/76
[2018-07-31 07:10] LABS: BASOPHILS 0.4 % (0-2); EOSINOPHILS 4.8 % (0-7); HEMATOCRIT 37.9 % (42.0-54.0); IMMATURE GRANULOCYTES 0.1 % (0-5); LYMPHOCYTES 21.4 % (15-50); MCH 30.4 pg (26.0-34.0); MCHC 34.3 g/dL (31.0-37.0); MCV 88.8 fL (80.0-100.0); MEAN PLATELET VOLUME 10.4 fL (7.4-10.4); MONOCYTES 10.6 % (2-11); NEUTROPHILS 62.7 % (40-80); PLATELET COUNT 142 10x3/uL (130-400); RBC 4.27 10x6/uL (4.20-6.10); RDW 12.9 % (11.5-14.5); WBC 6.9 10x3/uL (4.8-10.8)
[2018-07-31 07:23] LABS: CALC OSMOLALITY 284 mosm/kg (275-300); CALCIUM 8.2 mg/dL (8.5-10.1); CHLORIDE - SERUM 108 mmol/L (98-107); CREATININE - SERUM 0.9 mg/dL (0.6-1.3); GLUCOSE 96 mg/dL (74-106); POTASSIUM - SERUM 3.7 mmol/L (3.5-5.1); SODIUM 142 mmol/L (136-145); UREA NITROGEN 19 mg/dL (7-18); eGFR NON AFRICAN AMERICAN 88 mL/min (90-120)
[2018-07-31 20:45] VITALS: BP 129/79
[2018-08-01 23:17] VITALS: BP 144/83
[2018-08-02 08:09] VITALS: BP 149/79
[2018-08-03 00:16] VITALS: BP 149/89
[2018-08-03 07:40] LABS: EOSINOPHILS 5.5 % (0-7); HEMOGLOBIN 13.4 g/dL (13.5-17.5); IMMATURE GRANULOCYTES 0.2 % (0-5); LYMPHOCYTES 22.7 % (15-50); MCH 29.9 pg (26.0-34.0); MCHC 33.5 g/dL (31.0-37.0); MCV 89.3 fL (80.0-100.0); MEAN PLATELET VOLUME 10.5 fL (7.4-10.4); MONOCYTES 10.9 % (2-11); NEUTROPHILS 59.7 % (40-80); PLATELET COUNT 156 10x3/uL (130-400); RBC 4.48 10x6/uL (4.20-6.10); RDW 12.8 % (11.5-14.5)
[2018-08-03 07:45] LABS: CALC OSMOLALITY 285 mosm/kg (275-300); CALCIUM 8.2 mg/dL (8.5-10.1); CARBON DIOXIDE 24.6 mmol/L (21.0-32.0); CHLORIDE - SERUM 108 mmol/L (98-107); CREATININE - SERUM 0.9 mg/dL (0.6-1.3); GLUCOSE 95 mg/dL (74-106); POTASSIUM - SERUM 3.4 mmol/L (3.5-5.1); SODIUM 143 mmol/L (136-145); UREA NITROGEN 15 mg/dL (7-18); eGFR NON AFRICAN AMERICAN 88 mL/min (90-120)
[2018-08-03 07:58] VITALS: BP 135/67
[2018-08-03 19:00] VITALS: BP 159/74
[2018-08-04 08:00] VITALS: BP 130/90
[2018-08-04] MEDS ORDERED: PROTONIX40 MG PO (09:08)
[2018-08-04] MEDS ORDERED: MUCINEX600 MG PO (09:08)
[2018-08-04] MEDS ORDERED: NORVASC5 MG PO (09:08)
[2018-08-04] MEDS ORDERED: K-DUR20 MEQ PO (09:09)
--- NOTE | 2018-08-05 19:53 | RHP ---
PATIENT: LIAM ACOSTA MEDICAL RECORD: [id number] ACCOUNT: [id number] LOCATION:[facility] : [birth year] ADMISSION DATE: 07/17/18 REHABILITATION HISTORY AND PHYSICAL EXAMINATION POST ADMISSION PHYSICIAN EXAMINATION POST-ADMISSION PHYSICAL EXAMINATION AND HISTORY AND PHYSICAL DATE OF ADMISSION: 07/17/2018 ADMITTING DIAGNOSIS: CVA with right brain involvement, left body involvement with multiple small foci of subacute ischemia in the right frontal, parietal, and temporal lobes. HISTORY OF PRESENT ILLNESS: The patient admitted to inpatient rehab for a CVA with ucxxysal-ua-yztkj ischemia in the right frontal, parietal, and temporal lobes. He has got dysarthria. 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 He is a 73-year-old gentleman with hypertension, reflux, and prostate cancer. He was seen by his PCP after acute hospitalization on 07/12. He was having no complications. He had a flu shot a couple days later. The family had been noticing that he was having some bowel and bladder incontinence, it was a new issue, slurred speech and having difficulty with his dominant left hand, starting having some increased confusion, difficulty following commands. He was brought to the ED. He did have an MRI that showed multiple small foci of vmmet-iy-fegllqrr ischemia in the right frontal, parietal, and temporal lobes. He was placed in the hospital. He was receiving PT and OT services, he was noted to continue this. The patient's wanted to have the patient discharged home and they did on 07/16. On 07/17, the patient's contacted her physician's office and said that was a mistake. He was unable to get around. He really needed some type of therapy before returning home. He was moderately independent with the use of a single point cane for mobility and was independent with ADLs prior to his CVA. He is currently mod assist to max assist with ADLs and mod assist to total assist for mobility. He has dysarthria, left hand apraxia, new-onset bowel and bladder incontinence, weakness left more than right, impaired mobility. He is a high fall risk and has self-care deficits. These are all barriers for him going home with home health at this time. He and his plan on him to return home hopefully at his prior level of functioning or better if possible. Comorbidities in this patient include CVA, dysarthria, left hand apraxia, hypertension, CVA, colitis, history of prostate cancer, radiation therapy in the past, and prostatectomy. PAST MEDICAL HISTORY: Significant for hypertension, irregular heartbeat at times, acid reflux, prostate cancer, traumatic loss of the right thumb due to an old field injury, and chronic back pain. PAST SURGICAL HISTORY: Includes a left hip total arthroscopy. ALLERGIES: He has got no known drug allergies. CURRENT MEDICATIONS: Include Cozaar 100 mg daily, furosemide 40 mg daily, aspirin 325 mg daily, and metoprolol 50 mg b.i.d. HABITS: No current alcohol or tobacco use. FAMILY HISTORY: Noncontributory. HISTORY AND PHYSICAL [id number] LIAM ACOSTA SOCIAL HISTORY: The patient hopes to return back home and get back to his prior level of functioning. REVIEW OF SYSTEMS: GENERAL: Does complain of weakness, mainly one sided. HEENT: Denies cold, cough, or congestion. CARDIOVASCULAR: Denies chest pain. PHYSICAL EXAMINATION: VITAL SIGNS: Stable, afebrile. GENERAL: A very friendly gentleman, in no acute distress, alert upon exam. HEENT: Normocephalic and atraumatic. Mucosa moist. NECK: Supple. No lymphadenopathy. LUNGS: Clear at this time. HEART: Regular rate and rhythm. No murmurs, rubs, or gallops. ABDOMEN: Benign. NEUROLOGIC: He does have noted weakness on the left compared to right. LABORATORY DATA: His sodium is 141, potassium is 3.8, BUN and creatinine of 17 and 0.8, and blood sugar is noted to be 99. White count 7.9, H&H of 15 and 45, and platelet count is 153. ASSESSMENT: This is a 73-year-old gentleman admitted with a CVA with noted left body involvement. The patient has potential to make improvement. We will institute the following multidisciplinary therapies including, but not limited to physical, occupational, respiratory, speech, nutritional services, prosthetics and orthotics. Given his complex medical conditions and risks for more complications, rehabilitation services cannot be provided at a low level of care such as a long term facility. PLAN: 1. Admit to [facility] for intensive inpatient therapy to include the following disciplines: A. Physical therapy to improve gait, all transfer skills and bed mobility to a modified independent level. B. Occupational therapy to improve activities of daily living to a modified independent level. C. Case management to assist with discharge planning and placement options. D. Nutrition to assist with nutritional needs. E. Rehabilitation nursing to assist in monitoring the patient's underlying medical conditions and to assist with any type of bowel or bladder management. 2. The patient's current medications and medical care will be continued. 3. The patient will be placed on standard fall precautions. 4. I am going to go ahead and add some Norvasc to his current medications along with his losartan because of his elevated blood pressures. 5. I am going to follow him up in the a.m. or Friday a.m. We will watch his blood pressures closely. TRANSINT:[id number] Voice Confirmation ID: [id number] DOCUMENT ID: [id number] 07/30/2018 Edited for celine SALAS. JOSUE notes whether there has been none or any medical/functional change since admission: HISTORY AND PHYSICAL [id number] LIAM ACOSTA - No chance since preadmission screen. JOSUE attests patient continues to be appropriate for IRF: - Continues to be appropriate. KALLI DIANA MD at 1953 CC: [id number] DICTATION DATE: 07/18/18 1220 BALLOON TESTER: 07/18/18 1320 DIS IN 08/04/[id number] [place] [address]
== END 2018-08-04 17:37 | disposition home health service (06) | DRG 57 ==
LOC: D.REHAB 17:54
PROVIDERS: ADMIT Emergency Medicine
DX: I69.90 Unspecified sequelae of unspecified cerebrovascular disease (principal); I10 Essential (primary) hypertension; R47.1 Dysarthria and anarthria; R48.2 Apraxia; K52.9 Noninfective gastroenteritis and colitis, unspecified; K21.9 Gastro-esophageal reflux disease without esophagitis; Z85.46 Personal history of malignant neoplasm of prostate

== ENCOUNTER 2018-11-17 11:17 | Outpatient (CLI) | payer OTHER, MEDICAID ==
[~2018-11-17] VITALS: Ht 175.3 cm; Wt 85.5 kg
--- NOTE | ~2018-11-17 | HEMODYNAMI ---
PATIENT:LIAM ACOSTA SR MEDICAL RECORD: [id number] : 45 LOCATION:[facility] ADMISSION DATE: 11/17/18 Generatedon:11/17/201814:31 Patient name: LIAM ACOSTA Patient #: [id number] SSN: : 1945 Date of study: 11/17/2018 Page: Of Hemodynamic Procedure Report Patient Data Patient Demographics Procedure consent was obtained First Name: LIAM Gender: Male Last Name: DAVE Suffix: [facility] Initial: D : 1945 Patient #: [id number] Age: 73 year(s) Race: Unknown Additional ID: [id number] Contact details Address: [address] [place] [address] [place] State: [place] City: [facility] Zip code: [address] Past Medical History Allergies: No known allergies Admission Admission Data Admission Date: 11/17/2018 Admission Time: 11:17 Admit Source: Other Procedure Procedure Types Cath Procedure Diagnostic Procedure LHC LHC w/Coronaries Sedation Charges Moderate Sedation up to 45 minutes PCI Procedure PTCA PTCA Initial Procedure Description Procedure Date Procedure Date: 11/17/2018 Procedure Start Time: 13:37 Procedure End Time: 14:31 Procedure Staff Name Function Charlie Olivares MD Performing Physician Kiya Mariscal RT Monitor Dion Alejandra RT Scrub Edin Lawson RN Concrete Buildings Assembler Lisa Cid RN Concrete Buildings Assembler Delilah Rizvi RT Monitor Procedure Data Cath Procedure Fluoroscopy Diagnostic fluoroscopy Total fluoroscopy Time: time: 17.4 min 17.4 min Diagnostic fluoroscopy Total fluoroscopy dose: dose: 1935 mGy 1935 mGy Contrast Material Contrast Material Type Amount (ml) Isovue 300 115 Entry Location Entry Primary Successful Side Size Upsize 1 Upsize Entry Closure Russell ccessful Closure Location (Fr) (Fr) 2 (Fr) Remarks Device Remarks Femoral Right 5 Fr 6 Fr 7 Fr Exoseal artery Mid-Length Long Estimated blood loss: 10 ml Diagnostic catheters Device Type Used For End Catheter Placement MULTIPACK JL 4.0 5Fr Left Coronary catheter Angiography MULTIPACK 3DRC 5Fr Right Coronary catheter Angiography MULTIPACK Pigtail 5 Fr LV Angiography catheter MULTIPACK 3DRC 5Fr Right Coronary catheter Angiography Procedure Complications No complications Procedure Medications Medication Administration Route Dosage Oxygen etCO2 Nasal cannula 2 l/min Lidocaine 2% added to field 20 Heparin Flush Bag added to field 2 bags (1000units/500ml NS) 0.9% NaCl I.V. 100 ml/hr Versed I.V. 1 mg Fentanyl I.V. 50 mcg Versed I.V. 0.5 mg Fentanyl I.V. 25 mcg Heparin Bolus I.V. 5000 units Integrilin (Bolus I.V. 7.9 ml 2mg/ml) Integrilin (Bolus wasted 2.1 ml 2mg/ml) Plavix P.O. 600 mg Hemodynamics Rest Heart Rate: 71 (bpm) Snapshots Pre Cath Intra NCS Post Cath Vital Signs Time Heart Resp SPO2 etCO2 NIBP (mmHg) Rhythm Pain Sedation Rate (ipm) (%) (mmHg) Status Level (bpm) 13:16:26 67 21 98 19.5 155/100(133) NSR 0 (11) 10(A) , No pain 13:20:42 78 11 97 24 149/93(109) NSR 0 (11) 10(A) , No pain 13:24:54 70 33 98 0 142/99(114) NSR 0 (11) 10(A) , No pain 13:29:07 69 13 98 27.7 138/88(125) NSR 0 (11) 10(A) , No pain 13:33:21 67 18 99 0 141/81(100) NSR 0 (11) 9(A) , No pain 13:37:38 62 10 99 27.7 136/78(112) NSR 0 (11) 9(A) , No pain 13:41:52 64 11 100 17.2 132/77(102) NSR 0 (11) 9(A) , No pain 13:46:06 64 10 100 27.7 130/70(107) NSR 0 (11) 9(A) , No pain 13:50:19 65 11 100 16.5 131/68(116) NSR 0 (11) 9(A) , No pain 13:54:32 66 10 100 26.2 123/77(98) NSR 0 (11) 9(A) , No pain 13:58:41 64 11 100 12 122/75(103) NSR 0 (11) 9(A) , No pain 14:02:51 62 17 100 11.2 127/73(103) NSR 0 (11) 9(A) , No pain 14:07:01 62 11 100 23.2 130/81(101) NSR 0 (11) 9(A) , No pain 14:11:11 66 15 100 9.7 131/82(98) NSR 0 (11) 9(A) , No pain 14:15:23 60 11 100 24.7 131/80(97) NSR 0 (11) 9(A) , No pain 14:19:35 61 12 100 0 123/79(94) NSR 0 (11) 9(A) , No pain 14:23:42 61 12 100 18.7 135/82(99) NSR 0 (11) 9(A) , No pain 14:27:52 63 11 100 19.5 133/90(107) NSR 0 (11) 10(A) , No pain Medications Time Medication Route Dose Verified Delivered Reason Notes Effectiveness by by 13:16:42 Oxygen etCO2 2 Charlie Gonzalez used for Nasal l/min St Lonnie Cid RN procedure cannula 13:16:49 Lidocaine 2% added 20ml Charlie Guerra for local to vial [facility] anesthetic field MD DIMAS 13:16:56 Heparin Flush added 2 Charlie Charlie used for Bag to bags [facility] procedure (1000units/500ml field MD DIMAS NS) 13:17:04 0.9% NaCl I.V. 100 Charlie Gonzalez Per physician ml/hr St Lonnie Cid RN, MD 13:29:36 Versed I.V. 1 mg Edin Edin for sedation Renny Lawson RN RN 13:29:46 Fentanyl I.V. 50 Edin Edin for sedation mcg Renny Lawson RN RN 13:39:23 Versed I.V. 0.5 Edin Edin for sedation mg Lorjeramie Lawson RN RN 13:39:32 Fentanyl I.V. 25 Edin Edin for sedation mcg Lorjeramie Lawson RN RN 13:49:08 Heparin Bolus I.V. 5000 Edin Edin for units Lorigan Renny anticoagulation RN RN 13:49:28 Integrilin I.V. 7.9 Edin Edin for (Bolus 2mg/ml) ml Renny Lawson antiplatelet RN RN therapy 13:49:45 Integrilin wasted 2.1 Edin Edin to sharp's (Bolus 2mg/ml) ml Renny Lawson RN RN 14:28:03 Plavix P.O. 600 Edin Edin for mg Renny Lawson antiplatelet RN RN therapy Procedure Log Time Note 12:56:02 Informed consent obtained and on chart 12:56:07 Admit Source: Other 12:56:34 Diagnostic Cath status Elective 12:56:35 Time tracking: Regular hours (M-F 7:00 - 5:00) 12:56:38 Plan of Care:Hemodynamics will remain stable., Cardiac rhythm will remain stable., Comfort level will be maintained., Respiratory function will remain adequate., Patient/ family verbilizes understanding of procedure., Procedure tolerated without complication., Recovers from procedure without complications.. 12:57:06 H&P Date Dictated: 11/04/2018 Within 30 days and on chart., H&P Addendum completed by physician on day of procedure. (MUST COMPLETE FOR ALL OUTPATIENTS). 13:02:10 Dion Alejandra RT(R) sent for patient. Start room use. 13:08:59 Patient received from Pre/Post Procedure Room to CCL 2 Alert and oriented. Tansferred to table in Supine position. 13:09:00 Warm blankets applied, and luis hugger turned on for patient comfort. 13:09:01 Correct patient and procedure confirmed by team. 13:09:02 ECG and BP/O2 sat monitors applied to patient. 13:15:14 Vital chart was started 13:15:18 Rhythm: sinus rhythm 13:15:19 Full Disclosure recording started 13:15:21 Pre-procedure instructions explained to patient. 13:15:22 Pre-op teaching completed and patient verbalized understanding. 13:15:25 Family in patients room. 13:15:28 Patient NPO since Midnight. 13:15:40 Patient allergic to No known allergies 13:15:43 Is the patient allergic to Iodine/contrast media? No. 13:16:21 Is patient on blood thinner?No 13:16:29 Patient diabetic? No. 13:16:35 Previous problem with sedation/anesthesia? No ? 13:16:39 Snore? No 13:16:40 Sleep apnea? No 13:16:41 Deviated septum? No 13:16:42 Oxygen 2 l/min etCO2 Nasal cannula was administered by Lisa Cid RN; used for procedure; 13:16:42 Opens mouth fully? Yes 13:16:43 Sticks out tongue? Yes 13:16:45 Airway obstruction? No ? 13:16:49 Lidocaine 2% 20ml vial added to field was administered by Charlie Olivares MD; for local anesthetic; 13:16:49 Dentures? Yes In 13:16:53 Pre procedure: right dorsailis pedis pulse 1+ Palpable, but thready & weak; easily obliterated 13:16:56 Heparin Flush Bag (1000units/500ml NS) 2 bags added to field was administered by Charlie Olivares MD; used for procedure; 13:16:57 Patient pain scale 0/10 ?. 13:17:04 0.9% NaCl 100 ml/hr I.V. was administered by Lisa Cid RN; Per physician; 13:17:05 IV patent on arrival in left forearm with 0.9% NaCl at [facility]. 13:17:07 Lab results completed and on chart. 13:17:10 Right groin area was prepped with chlora-prep and draped in sterile fashion 13:17:24 Alarms reviewed by R. N. 13:17:25 Sharps counted by scrub and verified by R.N. 13:17:27 Use device set Femoral Dx 13:17:28 ACIST Syringe (40647) opened to sterile field. 13:17:29 Bag Decanter (2002) opened to sterile field. 13:17:29 Medline Cath Pack ([id number]) opened to sterile field. 13:17:30 DIAGNOSTIC WIRE .035 260cm J wire (680042) opened to sterile field. 13:17:31 ACIST Hand Control (87461) opened to sterile field. 13:17:32 ACIST Manifold (54210) opened to sterile field. 13:17:32 DIAGNOSTIC Multipack 5Fr catheter set (IN4661) opened to sterile field. 13:17:34 Tegaderm 4 x 4 (1626W) opened to sterile field. 13:17:35 SHEATH 5FR Carson (FXH427) opened to sterile field. 13:21:33 Baseline sample Acquired. 13:27:49 Final Timeout: patient, procedure, and site verified with staff and physician. All members of the team are in agreement. 13:27:51 Right groin site verified by team. 13:27:56 Maximum allowable Isovue 300 dose 300ml. Physician notified. (300ml for normal creatinines. For patients with creatinine of 1.7 or higher multiply weight(kg) x 5 divided by creatinine.) 13:27:59 Fire Safety Assessment: A--An alcohol-based skin anteseptic being used preoperatively., C--Open oxygen or nitrous oxide is being used., D--An ESU, laser, or fiber-optic light is being used. 13:28:03 Physical assessment completed. ASA score P 3 - A patient with severe systemic disease as per Charlie Olivares MD. 13:28:06 Sedation plan: IV Moderate Sedation Medication:Versed, Fentanyl 13:29:36 Versed 1 mg I.V. was administered by Edin Lawson RN; for sedation; 13:29:46 Fentanyl 50 mcg I.V. was administered by Edin Lawson RN; for sedation; 13:31:13 Zero performed for pressure channel P1 13:37:14 Procedure started. 13:37:18 Local anesthetic to right femoral artery with Lidocaine 2% by Charlie Olivares MD.INITIAL ACCESS ONLY 13:38:09 A 5 Fr sheath was inserted into the Right Femoral artery 13:38:44 SHEATH 6FR Brite Tip 35cm ([id number]) opened to sterile field. 13:39:18 Sheath upsized to a 6 Fr Mid-Length. 13:39:23 Versed 0.5 mg I.V. was administered by Edin Lawson RN; for sedation; 13:39:32 Fentanyl 25 mcg I.V. was administered by Edin Lawson RN; for sedation; 13:40:03 A MULTIPACK JL 4.0 5Fr catheter was advanced over the wire and used for Left Coronary Angiography. 13:42:58 Catheter removed. 13:43:07 A MULTIPACK 3DRC 5Fr catheter was advanced over the wire and used for Right Coronary Angiography. 13:43:52 Catheter removed. 13:43:56 Use device set ANTONY PCI 13:43:57 SHEATH 6FR Carson (NNN674) opened to sterile field. 13:44:02 INFLATOR Merit Ishmaelk (TP9253) opened to sterile field. 13:44:05 WHISPER 300cm guide wire ([id number]) opened to sterile field. 13:44:10 GUIDE 6FR HS I catheter (LA6HSI) opened to sterile field. 13:44:23 A MULTIPACK Pigtail 5 Fr catheter was advanced over the wire and used for LV Angiography. removed; unable to cross valve 13:48:38 6 Fr HS I guide catheter was inserted over the wire 13:49:08 Heparin Bolus 5000 units I.V. was administered by Edin Lawson RN; for anticoagulation; 13:49:28 Integrilin (Bolus 2mg/ml) 7.9 ml I.V. was administered by Edin Lawson RN; for antiplatelet therapy; 13:49:45 Integrilin (Bolus 2mg/ml) 2.1 ml wasted was administered by Edin Lawson RN; to sharp's; 13:51:16 WHISPER wire advanced. 13:54:01 The EMERGE OTW 3.0 x 15 balloon ([id number]) was advanced and then removed because of failure to cross lesion 13:58:03 The EMERGE OTW 1.5 x 15 balloon ([id number]) was advanced and then removed because of failure to cross lesion 13:58:33 Wire removed. 13:58:34 Guide catheter removed. 13:58:48 Sheath upsized to a 7 Fr Long. 14:00:34 SHEATH 7FR Destination (RSR04) opened to sterile field. 14:01:23 CHOICE PT Extra Support J 300cm guide wire ([id number]) opened to sterile field. 14:01:41 GUIDE 7FR AR 1.0 catheter (GI0RZ39) opened to sterile field. 14:01:52 7 Fr AR 1.0 guide catheter was inserted over the wire 14:04:51 CHOICE PT ES wire advanced. 14:06:55 The EMERGE OTW 1.5 x 15 balloon ([id number]) was advanced and then removed because of failure to cross lesion 14:07:00 Wire removed. 14:07:01 Guide catheter removed. 14:07:52 7 Fr HS II guide catheter was inserted over the wire 14:09:18 CHOICE PT ES wire advanced. 14:12:19 Inflate balloon Inflation number: 1 A EUPHORA 1.5 x 20 Balloon ([id number]) was prepped and advanced across the Mid RCA, then inflated to 12 BEATRICE for 0:17 (min:sec). 14:12:43 Inflation number: 2 The EUPHORA 1.5 x 20 Balloon ([id number]) was reinflated across the Mid RCA, to 12 BEATRICE for 0:08 (min:sec). 14:13:23 Inflation number: 3 The EUPHORA 1.5 x 20 Balloon ([id number]) was reinflated across the Mid RCA, to 12 BEATRICE for 0:26 (min:sec). 14:14:07 Inflation number: 4 The EUPHORA 1.5 x 20 Balloon ([id number]) was reinflated across the Mid RCA, to 12 BEATRICE for 0:27 (min:sec). 14:14:29 Balloon removed over the wire. 14:17:29 Inflate balloon Inflation number: 5 A EMERGE OTW 3.0 x 15 balloon ([id number]) was prepped and advanced across the Mid RCA, then inflated to 10 BEATRICE for 0:24 (min:sec). 14:17:56 Inflation number: 6 The EMERGE OTW 3.0 x 15 balloon ([id number]) was reinflated across the Mid RCA, to 10 BEATRICE for 0:15 (min:sec). 14:18:53 Balloon removed over the wire. 14:18:53 Wire removed. 14:19:01 Guide catheter removed. 14:19:33 A MULTIPACK 3DRC 5Fr catheter was advanced over the wire and used for Right Coronary Angiography. 14:21:19 Catheter removed. 14:21:25 SHEATH 7FR Carson (YRL770) opened to sterile field. 14:21:27 EXOSEAL 7Fr (EX700) opened to sterile field. 14:21:42 Sheath removed intact; hemostasis achieved with Exoseal to the Right Femoral artery. 14:21:54 Procedure ended.(Physican Out) 14:22:01 Fluoroscopy time 17.40 minutes. 14:22:06 Flurop Dose total: 1935 14:22:06 Fluoroscopy dose: 1935 mGy 14:22:15 Contrast amount:Isovue 300 115ml. 14:22:16 Sharps counted by scrub and verified by R.N. 14:22:19 Insertion/operative site no bleeding no hematoma. 14:22: Post-op/insertion site Right Femoral artery dressed using a 4 x 4 and Tegaderm. 14:22:25 Post right femoral artery:stable, clean and dry 14:22: Post Procedure Pulses reassessed and unchanged 14::28 Post-procedure physical assessment completed. ASA score P 3 - A patient with severe systemic disease as per Charlie Olivares MD. 14:: Post procedure rhythm: unchanged. 14::37 Estimated blood loss: 10 ml 14::38 Post procedure instruction explained to patient.Patient verbalizes understanding. 14::38 Patient needs reinforcement of post procedure teaching. 14:23:23 Procedure type changed to Cath procedure, Diagnostic procedure, LHC, LHC w/Coronaries, Sedation Charges, Moderate Sedation up to 45 minutes, PCI procedure, PTCA, PTCA Initial 14::28 Procedure Complication : No complications 14:24:02 See physician's report for complete and final results. 14:26: Procedure and supply charges have been captured, reviewed, submitted and are correct. 14:28:03 Plavix 600 mg P.O. was administered by Edin Lawson RN; for antiplatelet therapy; 14:31: Vital chart was stopped 14:31:03 Report given to Pre/Post Procedure Room. 14:31:06 Patient transfered to Pre/Post Procedure Room with Stretcher. 14:31:17 Procedure ended. 14:31:17 Full Disclosure recording stopped 14:31:21 End room use (Document Last) Intervention Summary Intervention Notes Time ActionType Lesion and Equipment Action# Pressure Duration Attributes Used 13:54:01 Discard EMERGE OTW Balloon 3.0 x 15 balloon ([id number]) 13:58:03 Discard EMERGE OTW Balloon 1.5 x 15 balloon ([id number]) 14:06:55 Discard EMERGE OTW Balloon 1.5 x 15 balloon ([id number]) 14:12:19 Inflate Mid RCA EUPHORA 1.5 1 12 00:17 balloon x 20 Balloon ([id number]) 14:12:43 Reinflate Mid RCA EUPHORA 1.5 2 12 00:08 balloon x 20 Balloon ([id number]) 14:13:23 Reinflate Mid RCA EUPHORA 1.5 3 12 00:26 balloon x 20 Balloon ([id number]) 14:14:07 Reinflate Mid RCA EUPHORA 1.5 4 12 00:27 balloon x 20 Balloon ([id number]) 14:17:29 Inflate Mid RCA EMERGE OTW 5 10 00:24 balloon 3.0 x 15 balloon ([id number]) 14:17:56 Reinflate Mid RCA EMERGE OTW 6 10 00:15 balloon 3.0 x 15 balloon ([id number]) Device Usage Item Name Manufacture Quantity Catalog Number Hospital Part Current Min imal Lot# / Charge Number Stock Stock Serial# Code ACIST Acist 1 13755 350524 481112 551701 20 Syringe Medical (90818) Systems Inc Bag Decanter Microtek 1 037796 86640 378106 5 () Medical Inc. Medline Cath Medline 1 [id number] 930838 55724 860056 5 Pack ([id number]) DIAGNOSTIC St Farooq 1 646775 539026 519304 316695 30 WIRE .035 260cm J wire (167066) ACIST Hand Acist 1 26415 806419 469895 117043 5 Control Medical (62354) Systems Inc ACIST Acist 1 26921 679975 187391 053805 5 Manifold Medical (07000) Systems Inc DIAGNOSTIC Cardinal 1 AR6341 286744 84458 475294 30 Multipack Health 5Fr catheter set (CH4031) Tegaderm 4 x 3M 1 1626W 786551 506269 392502 5 4 (1626W) SHEATH 5FR Terumo 1 GAH743 022223 572195 527336 5 Carson (SDH661) SHEATH 6FR Cardinal 1 [id number] 206330 295965 531520 1 Brite Tip Health 35cm (844249K) MULTIPACK JL Cardinal 1 775828 5 4.0 5Fr Health catheter MULTIPACK Cardinal 1 994152 5 3DRC 5Fr Health catheter SHEATH 6FR Terumo 1 DPN957 387365 136658 353300 40 Carson (TDE180) INFLATOR Merit 1 DY2825 989689 706175 475990 15 [facility] Medical BasixCompak (ME3873) WHISPER Raymundo 1 [id number] 142739 001830 965963 5 300cm guide Vascular wire (9349366RS) GUIDE 6FR HS Medtronic 1 LA6HSI 299812 34709 614696 1 I catheter (LA6HSI) MULTIPACK Cardinal 1 001240 5 Pigtail 5 Fr Health catheter EMERGE OTW Holland 1 [id number] 736857 571146 379239 5 [id number] 3.0 x 15 Scientific balloon ([id number]) EMERGE OTW Holland 1 [id number] 241915 118655 276455 5 [id number] 1.5 x 15 Scientific balloon ([id number]) SHEATH 7FR Terumo 1 RSR04 260522 765145 313925 5 Destination (RSR04) CHOICE PT Holland 1 [id number] 675064 281447 442070 5 Extra Scientific Support J 300cm guide wire ([id number]) GUIDE 7FR AR Medtronic 1 QB3RT69 850735 064422 273845 0 1.0 catheter (GT8JK19) EUPHORA 1.5 Medtronic 1 VSS3139V 319942 198686 435563 5 [id number] x 20 Balloon ([id number]) SHEATH 7FR Terumo 1 DQD418 155676 458535 886481 5 Carson (COP945) EXOSEAL 7Fr Cardinal 1 EX700 831237 031087 692116 5 (EX700) Health Signature Audit [place] Stage Time Signature Unsigned Intra-Procedure 11/17/2018 Delilah 2:31:33 PM Counts RT(R) Signatures Monitor : Kiya Mariscal Signature : RT Date : Time : Monitor : Delilah Signature : Counts RT Date : Time : [place] [address] [place] [address]
[~2018-11-17 11:17] MED LIST changes: +K-DUR20 MEQ PO; +MUCINEX600 MG PO; +NORVASC5 MG PO; +PROTONIX40 MG PO
[2018-11-17 11:51] VITALS: BP 145/78; Ht 175.3 cm; Wt 85.5 kg
[2018-11-17 12:07] LABS: BASOPHILS 0.9 % (0-2); EOSINOPHILS 4.5 % (0-7); HEMATOCRIT 43.7 % (42.0-54.0); HEMOGLOBIN 15.1 g/dL (13.5-17.5); IMMATURE GRANULOCYTES 0.1 % (0-5); LYMPHOCYTES 24.3 % (15-50); MCHC 34.6 g/dL (31.0-37.0); MCV 89.7 fL (80.0-100.0); MEAN PLATELET VOLUME 10.6 fL (7.4-10.4); MONOCYTES 8.5 % (2-11); NEUTROPHILS 61.7 % (40-80); PLATELET COUNT 185 10x3/uL (130-400); RBC 4.87 10x6/uL (4.20-6.10); RDW 13.2 % (11.5-14.5); WBC 7.8 10x3/uL (4.8-10.8)
[2018-11-17 12:53] LABS: CALC OSMOLALITY 279 mosm/kg (275-300); CALCIUM 8.9 mg/dL (8.5-10.1); CHLORIDE - SERUM 107 mmol/L (98-107); CREATININE - SERUM 0.9 mg/dL (0.6-1.3); GLUCOSE 87 mg/dL (74-106); POTASSIUM - SERUM 5.7 mmol/L (3.5-5.1); SODIUM 140 mmol/L (136-145); UREA NITROGEN 17 mg/dL (7-18); eGFR NON AFRICAN AMERICAN 88 mL/min (90-120)
[2018-11-17] MEDS ORDERED: BAYER CHEWABLE81 MG PO (14:40)
[2018-11-17] MEDS ORDERED: PLAVIX75 MG PO (14:40)
--- NOTE | 2018-11-17 14:43 | NUR ---
PT ARRIVED BY STRETCHER. PLACED ON MONITOR. RIGHT GROIN DRESSING C/D/I. NO S/S OF HEMATOMA NOTED. FAMILY AT BEDSIDE. DR. JUAREZ ROUNDED AND SPOKE WITH PT'S FAMILY. UPDATED THEM ON PT'S STATUS.
--- NOTE | 2018-11-17 15:00 | NUR ---
RIGHT GROIN DRESSING C/D/I. NO S/S OF HEMATOMA NOTED. VSS. FAMILY AT BEDSIDE. PT RESTING COMFORTABLY.
--- NOTE | 2018-11-17 15:30 | NUR ---
PT RESTING COMFORTABLY. RIGHT GROIN DRESSING C/D/I. NO S/S OF HEMATOMA NOTED. VSS. DENIES PAIN/NAUSEA AT THIS TIME.
--- NOTE | 2018-11-17 16:01 | NUR ---
PT RESTING COMFORTABLY AT THIS TIME. VSS. RIGHT GROIN DRESSING C/D/I. NO S/S OF HEMATOMA NOTED. FAMILY AT BEDSIDE. CALL LIGHT WITHIN REACH.
--- NOTE | 2018-11-17 16:30 | NUR ---
RIGHT GROIN DRESSING C/D/I. NO S/S OF HEMATOMA NOTED. VSS. FAMILY AT BEDSIDE.
--- NOTE | 2018-11-17 17:00 | NUR ---
PT VOIDED IN URINAL WITHOUT DIFFICULTY. CLEAR YELLOW URINE NOTED. RIGHT GROIN DRESSING C/D/I. NO S/S OF HEMATOMA NOTED. VSS.
--- NOTE | 2018-11-17 17:40 | NUR ---
PT'S HEAD OF BED INC TO 30 DEGREES. PT TOLERATED WELL. RIGHT GROIN DRESSING C/D/I. NO S/S OF HEMATOMA NOTED. PT SET UP WITH SANDWICH TRAY AND DRINK. DENIES NAUSEA AND PAIN. VSS. WILL CONTINUE TO MONITOR.
--- NOTE | 2018-11-17 18:20 | NUR ---
LEFT FA PIV D/C'D WITH CATH TIP INTACT. PT TOLERATED WELL. FAMILY AT BEDSIDE. PT INSTRUCTED TO GET DRESSED. RIGHT GROIN DRESSING C/D/I. NO S/S OF HEMATOMA NOTED.
--- NOTE | 2018-11-17 18:30 | NUR ---
DISCUSSED DISCHARGE INSTRUCTIONS WITH PT AND PT'S FAMILY. THEY VOICED UNDERSTANDING. RIGHT GROIN DRESSING C/D/I. NO S/S OF HEMATOMA NOTED.
--- NOTE | 2018-11-17 18:35 | NUR ---
PT TAKEN OUT TO VEHICLE BY WHEELCHAIR. NO S/S OF DISTRESS NOTED. ALL BELONGINGS AND PAPERWORK IN HAND.
--- NOTE | 2018-11-18 13:33 | OP ---
PATIENT NAME: LIAM ACOSTA SR MEDICAL RECORD: [id number] :45 LOCATION:[facility] ADMISSION DATE: SURGEON: JARED HARDY MD DATE OF OPERATION: 11/17/2018 PROCEDURE: Left heart catheterization, selective coronary angiography plus PTCA, right femoral artery approach. CATHETERS: A 5-Turkish sheath, 5/4 left and right Hitesh, we used also 6-Turkish sheath and 7-Turkish sheath, 7-Turkish and 6-Turkish guides. FINDINGS: Left ventriculography in 30-degree DUVAL view not performed. Unable to perform due to secondary to tortuosity across the valve. LEFT MAIN: Left main is free of disease. LAD: Has a diffuse distal stenosis not amenable to percutaneous intervention. CIRCUMFLEX: Circumflex codominant system, free of disease. RIGHT CORONARY ARTERY: Has a highly calcific subtotal area in its mid portion, attempt intervention momentarily. DESCRIPTION OF PROCEDURE: A 5-Turkish sheath was exchanged for a 6- and 7-Turkish sheath. Guide catheter, due to tortuosity, despite using a long sheath, was suboptimal at best. We were able to place a wire across the tightly occluded area and inflate with a 1.5 Euphora, 3.0 Riverside balloon; however, unable to deploy stent due to calcification likely guide support. Residual will be managed medically. TRANSINT:[id number] Voice Confirmation ID: [id number] DOCUMENT ID: [id number] JARED HARDY MD at 1333 CC: [id number] DICTATION DATE: 11/17/18 1422 LPC: 11/17/18 1544 [facility] CLI 11/17/18 [place] [address] [place] [address]
== END 2018-11-17 18:35 | disposition home or self-care (01) ==
LOC: D.CATH 11:17
PROVIDERS: ATTEND Internal Medicine Interventional Cardiology
DX: I25.110 Atherosclerotic heart disease of native coronary artery with unstable angina pectoris (principal)

== ENCOUNTER 2019-07-04 08:21 | Inpatient (IN) | payer OTHER, MEDICAID ==
[~2019-07-04] VITALS: Ht 175.3 cm; Wt 75.2 kg
[~2019-07-04 08:21] MED LIST changes: +BAYER CHEWABLE81 MG PO; +PLAVIX75 MG PO
[2019-07-04 08:46] LABS: BASOPHILS 0.1 % (0-2); EOSINOPHILS 0.1 % (0-7); HEMATOCRIT 42.4 % (42.0-54.0); HEMOGLOBIN 14.5 g/dL (13.5-17.5); IMMATURE GRANULOCYTES 0.3 % (0-5); MCH 30.5 pg (26.0-34.0); MCHC 34.2 g/dL (31.0-37.0); MCV 89.1 fL (80.0-100.0); MEAN PLATELET VOLUME 9.9 fL (7.4-10.4); MONOCYTES 11.2 % (2-11); NEUTROPHILS 79.3 % (40-80); PLATELET COUNT 174 10x3/uL (130-400); RBC 4.76 10x6/uL (4.20-6.10); RDW 12.8 % (11.5-14.5); WBC 16.6 10x3/uL (4.8-10.8)
--- NOTE | 2019-07-04 08:52 | NUR ---
RETURNED FROM CT;
[2019-07-04] MEDS ORDERED: BAYER CHEWABLE81 MG PO (08:53)
[2019-07-04 08:54] LABS: APTT 34.6 SECONDS (22.8-39.4); INR 1.16 (0.85-1.17); PROTIME 14.3 SECONDS (11.6-15.0)
[2019-07-04] MEDS ORDERED: OXYBUTYNIN CHLOR5 M1 PO (08:54)
[2019-07-04 08:57] LABS: CALC OSMOLALITY 280 mosm/kg (275-300); CALCIUM 9.6 mg/dL (8.5-10.1); CHLORIDE - SERUM 102 mmol/L (98-107); CREATININE - SERUM 1.2 mg/dL (0.6-1.3); GLUCOSE 116 mg/dL (74-106); POTASSIUM - SERUM 3.7 mmol/L (3.5-5.1); SODIUM 139 mmol/L (136-145); UREA NITROGEN 18 mg/dL (7-18); eGFR NON AFRICAN AMERICAN 63 mL/min (90-120)
[2019-07-04 09:17] LABS: ALBUMIN 3.3 g/dL (3.4-5.0); ALKALINE PHOSPHATASE 140 U/L (46-116); ALT (SGPT) 16 U/L (10-68); BILIRUBIN - TOTAL 2.65 mg/dL (0.2-1.3); CKMB 0.1 U/L (0.0-3.6); CREATINE KINASE 47 UL (21-232); MAGNESIUM - SERUM 1.8 mg/dL (1.8-2.4); PROTEIN - SERUM 7.3 g/dL (6.4-8.2); THYROID STIMULATING HORMONE 1.43 uIU/mL (0.36-3.74)
[2019-07-04 09:19] LABS: APPEARANCE HAZY (CLEAR); BILIRUBIN NEGATIVE (NEGATIVE); COLOR YELLOW (YELLOW); GLUCOSE NEGATIVE (NEGATIVE); KETONE NEGATIVE (NEGATIVE); NITRITE NEGATIVE (NEGATIVE); PROTEIN 2+ mg/dL (NEGATIVE); SPECIFIC GRAVITY 1.025 (1.005-1.020); UROBILINOGEN NORMAL (NORMAL)
[2019-07-04 09:22] LABS: RED CELLS - URINE 0-5 /hpf (0-5); WHITE CELLS - URINE 0-5 /hpf (NEGATIVE)
[2019-07-04 09:23] LABS: TROPONIN-I < 0.017 ng/mL (0.000-0.060)
[2019-07-04 09:23] LABS: AMORPHOUS SEDIMENT >1+ /lpf (NONE SEEN); BACTERIA FEW /hpf (NEGATIVE); EPITHELIAL CELLS 0-5 /hpf (0-5)
[2019-07-04 09:54] VITALS: BP 104/68
[2019-07-04 19:29] VITALS: BP 147/83; BMI 17.7
[2019-07-04 20:00] VITALS: BP 126/84
[2019-07-05 04:00] VITALS: BP 121/40
--- NOTE | 2019-07-05 07:10 | NUR ---
PT RESTING IN BED. NO SIGNS OF DISTRESS. IV TO LEFT AC PATENT NO REDNESS OR TENDERNESS. ON 2L NC. ON TELEMETRY [address] ST. ALL FALL PRECAUTIONS IN PLACE. DENIES ANY FURTHER NEED AT THIS TIME. CALL LIGHT IN REACH. BED LOW POSITION. FAMILY AT BEDSIDE ATH THIS TIME.
[2019-07-05 08:20] VITALS: BP 133/83
[2019-07-05 12:03] VITALS: BP 115/85
--- NOTE | 2019-07-05 12:51 | NUR ---
I have reviewed this patient and I concur with the Shift Assessment completed by the Licensed Practical Nurse today this shift.
[2019-07-05 13:16] VITALS: BMI 17.7
[2019-07-05 17:04] VITALS: BP 116/86
[2019-07-05 20:00] VITALS: BP 140/65
[2019-07-05 21:22] VITALS: Ht 175.3 cm; Wt 75.2 kg
[2019-07-06] VITALS (11 sets, daily range): BP systolic 95–123; BP diastolic 52–85
--- NOTE | 2019-07-06 02:54 | NUR ---
PT RESTING IN BED. EYES CLOSED. NO SIGNS OF DISTRESS. BREATHING EVEN AND UNLABORED. IV SITE. LT FA DRESSING CLEAN DRY AND ITNACT. NO SIGNS OF INFECTION. BOWEL SOUNDS ACTIVE. LUNG SOUNDS WHEEZING EXPIRATORY. TELE MONTIOR ON 160 WITH PACS. NO LOWER LEG SWELLING PESENT. WILL CONTINUE PLAN OF CARE. CALL LIGHT IN REACH. BED LOWERED AND LOCKED. BREEZY ALARM ON. BED RAILS UPX2.
--- NOTE | 2019-07-06 05:50 | NUR ---
I have reviewed this patient and I concur with the Shift Assessment completed by the Licensed Practical Nurse today this shift.
--- NOTE | 2019-07-06 07:05 | NUR ---
PATIENT CONFUSED, RESTING IN BED. FAMILY AT BEDSIDE. BREEZY ALARM ON. NPO AFTER MIDNIGHT, SCHEDULED FOR LAP LESA THIS AM. RIGHT SIDED WEAKNESS. HICCUPS FREQUENTLY. ON 2L O2, NC. IV TO LEFT FOREARM, D5 1/2NS @ 30ML/HR. SITE PATENT WITHOUT REDNESS OR SWELLING. ON TELEMETRY SR 92 WITH PACS. DENIES ANY NEEDS AT THIS TIME. CALL LIGHT IN REACH. WILL CONTINUE TO MONITOR.
--- NOTE | 2019-07-06 12:56 | NUR ---
I have reviewed this patient and I concur with the Shift Assessment completed by the Licensed Practical Nurse today this shift.
[2019-07-06 14:50] LABS: BASOPHILS 0.2 % (0-2); EOSINOPHILS 2.4 % (0-7); HEMATOCRIT 35.8 % (42.0-54.0); HEMOGLOBIN 12.1 g/dL (13.5-17.5); IMMATURE GRANULOCYTES 0.4 % (0-5); LYMPHOCYTES 7.6 % (15-50); MCH 29.9 pg (26.0-34.0); MCHC 33.8 g/dL (31.0-37.0); MCV 88.4 fL (80.0-100.0); MEAN PLATELET VOLUME 10.5 fL (7.4-10.4); MONOCYTES 9.9 % (2-11); NEUTROPHILS 79.5 % (40-80); RBC 4.05 10x6/uL (4.20-6.10); RDW 12.9 % (11.5-14.5); WBC 9.4 10x3/uL (4.8-10.8)
[2019-07-06 14:51] LABS: PLATELET COUNT 116 10x3/uL (130-400)
[2019-07-06 15:02] LABS: ANION GAP 5.6 mmol/L (8-16); CARBON DIOXIDE 31.9 mmol/L (21.0-32.0); CREATININE - SERUM 1.1 mg/dL (0.6-1.3)
[2019-07-06 15:05] LABS: POTASSIUM - SERUM 2.5 mmol/L (3.5-5.1)
--- NOTE | 2019-07-06 17:52 | NUR ---
ALERT AND ORIENTED, RESTING IN BED WITH EYES OPEN. NO C/O PAIN. NO S/S OF ACUTE DISTRESS NOTED. DENIES ANY NEEDS AT THIS TIME. CALL LIGHT IN REACH. WILL CONTINUE TO MONITOR.
--- NOTE | 2019-07-06 18:39 | NUR ---
CHANGED DRESSINGS TO BLE PER PHYSICIAN ORDERS.
--- NOTE | 2019-07-06 22:00 | NUR ---
PT ARRIVED BACK TO THE FLOOR FROM SURGERY. ALERT WITH SOME CONFUSION. VITAL SIGNS STABLE. WILL CONTINUE PLAN OF CARE. CALL LIGHT IN REACH. BED LOWERED AND LOCKED. BED RAILS UPX3. BREEZY ALARM ON.
[2019-07-06 22:54] LABS: BASOPHILS 0.1 % (0-2); EOSINOPHILS 2.8 % (0-7); HEMATOCRIT 34.5 % (42.0-54.0); HEMOGLOBIN 11.4 g/dL (13.5-17.5); IMMATURE GRANULOCYTES 0.3 % (0-5); LYMPHOCYTES 3.4 % (15-50); MCH 29.8 pg (26.0-34.0); MCV 90.1 fL (80.0-100.0); MEAN PLATELET VOLUME 10.6 fL (7.4-10.4); MONOCYTES 13.3 % (2-11); NEUTROPHILS 80.1 % (40-80); PLATELET COUNT 115 10x3/uL (130-400); RBC 3.83 10x6/uL (4.20-6.10); WBC 7.4 10x3/uL (4.8-10.8)
[2019-07-07] VITALS (7 sets, daily range): BP systolic 107–183; BP diastolic 56–97
--- NOTE | 2019-07-07 01:49 | NUR ---
PT RESTING IN BED. EYES CLOSED. NO SIGNS OF DISTRESS. BREATHING EVEN AND UNLABORED. IV SITE LT FA DRESSING CLEAN DRY AND INTACT. IV SITE RT HAND DRESSING CLEAN DRY AND INTACT. BOWEL SOUNDS ACTIVE. ABD INCISIONS PRESENT. CLEAN DRY AND INTACT. CHERYL DRAIN RT LOWER ABD. NO LOWER LEG SWELLING PRESENT. WILL CONTINUE PLAN OF CARE. CALL LIGHT IN REACH. BED RAILS UPX3. BREEZY ALARM ON.
[2019-07-07 04:44] LABS: BASOPHILS 0 % (0-2); EOSINOPHILS 0.7 % (0-7); HEMATOCRIT 33.8 % (42.0-54.0); HEMOGLOBIN 11.4 g/dL (13.5-17.5); IMMATURE GRANULOCYTES 0.4 % (0-5); LYMPHOCYTES 4.8 % (15-50); MCH 29.8 pg (26.0-34.0); MCHC 33.7 g/dL (31.0-37.0); MCV 88.5 fL (80.0-100.0); MEAN PLATELET VOLUME 10.6 fL (7.4-10.4); MONOCYTES 12.7 % (2-11); NEUTROPHILS 81.4 % (40-80); PLATELET COUNT 117 10x3/uL (130-400); RBC 3.82 10x6/uL (4.20-6.10); WBC 7.2 10x3/uL (4.8-10.8)
[2019-07-07 05:16] LABS: ALBUMIN 1.8 g/dL (3.4-5.0); BILIRUBIN - TOTAL 1.36 mg/dL (0.2-1.3); CALCIUM 7.9 mg/dL (8.5-10.1); CREATININE - SERUM 1.1 mg/dL (0.6-1.3); MAGNESIUM - SERUM 1.8 mg/dL (1.8-2.4); PHOSPHOROUS 1.6 mg/dL (2.5-4.9); PROTEIN - SERUM 5.8 g/dL (6.4-8.2)
[2019-07-07 05:35] LABS: ANION GAP 9.3 mmol/L (8-16); POTASSIUM - SERUM 3.3 mmol/L (3.5-5.1)
[2019-07-07 05:37] LABS: TROPONIN-I 0.701 ng/mL (0.000-0.060)
--- NOTE | 2019-07-07 06:50 | NUR ---
ALERT AND RESTING IN BED WITH EYES OPEN. NO C/O PAIN. NO S/S OF ACUTE DISTRESS NOTED. POD #1 LAP LESA, 4 LAP SITES WITH BANDAIDS, CHERYL DRAIN TO RIGHT SIDE. ON 2L O2, NC. IV'S TO RIGHT HAND AND LEFT WRIST, NS INFUSING @ 100ML/HR. ON TELEMETRY 127 ST. ELEVATED TROPONIN THIS AM, POTASSIUM 3.3 AND PHOSPHORUS 1.6. FOLLOWING ELECTROLYTE PROTOCOL. DENIES ANY NEEDS AT THIS TIME. CALL LIGHT IN REACH. WILL CONTINUE TO MONITOR.
--- NOTE | 2019-07-07 07:30 | NUR ---
I have reviewed this patient and I concur with the Shift Assessment completed by the Licensed Practical Nurse today this shift.
--- NOTE | 2019-07-07 07:43 | HP ---
PATIENT: LIAM ACOSTA MEDICAL RECORD: [id number] ACCOUNT: [id number] LOCATION:D.MS Reid2218 : 45 ADMISSION DATE: 07/04/19 PCP: RYAN RAMIREZ HISTORY AND PHYSICAL EXAMINATION REASON FOR ADMISSION: Vomiting, abdominal pain. HISTORY OF PRESENT ILLNESS: The patient is a 74-year-old male who is followed by Dr. Gonzalez Ramirez. The patient's said that he saw his urologist, Dr. Jj at [facility] on 07/02/2019 for in-office cystoscopy. He has been evaluating his bladder for carcinoma in situ and he has been completing a BCG chemotherapy regimen. One day before admission, the patient developed onset of nausea and recurrent vomiting. He complained of upper and lower abdominal pain as well. He had no diarrhea, hematemesis, or hematochezia. His said he did not have fever or cough. He presented to the Emergency Room today for these symptoms. The patient also incurred a CVA in June of last year with right-sided CVA, dysarthria, left hand apraxia, lower extremity weakness on the left. CT at that time showed ischemia in the right frontal, parietal, and temporal lobes. Echo showed dilated left atrium with a 4.4 cm diameter. The patient as well has history of heart disease, had a cardiac cath in October of this year showing diffuse distal stenosis, not amiable to PTCA and LAD and a calcified subtotal mid RCA lesion that could not be seen due to calcification. He has been treated medically. The patient's says that he has some dementia since his stroke and confusion, but that she has noticed if he eats anything fried or greasy, he develops some nausea and bloating. PAST MEDICAL HISTORY: Two-vessel CAD treated medically, LAE, right frontoparietal temporal lobe infarct in June of 2018, left-sided weakness. He passed a swallow eval at that time. 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 History of prostate cancer approximately 15 years ago post-radiation therapy, essential hypertension, traumatic loss of his right thumb during an old field injury at age 18, osteoarthritis, dementia, headaches. PAST SURGICAL HISTORY: He had left total hip arthroplasty remotely. FAMILY HISTORY: Father in his early 70s from prostate cancer. One brother with prostate cancer. Mother around age 70 due to cirrhosis of the liver, cause unknown. SOCIAL HISTORY: He is and has a daughter living here with him. He is originally from [place] and he worked at [employer] for years. REVIEW OF SYSTEMS: CONSTITUTIONAL: No recent fever, fatigue, or weight loss. HEENT: No recent visual change, sinus congestion, sore throat. Does have trouble hearing. Has intermittent headaches since his stroke. RESPIRATORY: Has intermittent cough, nothing productive and has not noted to have productive sputum recently. CARDIAC: No exertional rest chest pain, claudication, or edema. GASTROINTESTINAL: Has nausea intermittently after eating, has had vomiting several times yesterday without obvious aspiration or choking. No change in stools or blood per rectum. HISTORY AND PHYSICAL [id number] LIAM ACOSTA SR GENITOURINARY: He has mild incontinence. He has had an E. coli UTI earlier this year that was sensitive to cephalexin and Rocephin. MUSCULOSKELETAL: Chronic arthritis of hips and knees. NEUROLOGIC: Still has trouble with some left-sided weakness, confusion, and headaches. Does not have to walk with assisting device. PSYCHIATRIC: Denies depression. HOME MEDICATIONS: Cozaar 100 mg a day, Lopressor 50 mg b.i.d., Norvasc 5 mg a day, aspirin 81 mg a day, Lasix 40 mg p.o. q.a.m., potassium chloride, K-Dur 20 mEq p.o. b.i.d., Protonix 40 mg a day, oxybutynin ER 10 mg daily. Also, recent BCG bladder treatments. ALLERGIES: None mentioned. PHYSICAL EXAMINATION: GENERAL: A 74-year-old male at this time, in no acute distress, but mildly confused, which is his baseline. VITAL SIGNS: Heart rate 113 and regular, respirations are 18, blood pressure 104/60 with a sat of 96% on room air, temperature 98 degrees Fahrenheit. GENERAL: The patient is alert and oriented. HEENT: Eyes are clear. Oropharynx unremarkable. No icterus noted. NECK: Supple, without bruits or masses. CHEST: Distant breath sounds bilaterally. No wheeze or rales. HEART: Regular rate and rhythm. ABDOMEN: Soft, minimally tender right lower and 2+ in the right upper quadrant without rebound. Bowel sounds are active. GENITOURINARY: Deferred. EXTREMITIES: A scar over his left hip from previous replacement. Crepitus in both knees. No peripheral edema. INTEGUMENT: No rash. LABORATORY DATA: Urinalysis shows a pH of 5, specific gravity 1.025, 2+ protein, few bacteria. CBC: White count 30043 with left shift, H&H 14.5 and 42.4 respectively. INR is 1.16. Electrolytes are normal. Creatinine is 1.2. Glucose 116, nonfasting. Bilirubin is 2.65, AST and ALT are normal. Alkaline phosphatase mildly elevated at 140. Cardiac enzymes are negative PSA 0.29. TSH 1.43. DIAGNOSTIC DATA: CT of the abdomen and pelvis showed ill-defined basilar reticular opacities in the lower lobes, but no pleural effusion. Gallbladder is mildly hydropic and stranding in the right upper quadrant, common bile duct was not dilated. There is 8 x 10 cm cyst in the superior pole of the right kidney without septation, marked sigmoid diverticulosis without diverticulitis noted. ASSESSMENT: 1. Abdominal pain, probable acalculous cholecystitis. 2. Leukocytosis secondary to 1. 3. Carcinoma in situ of the bladder under BCG treatment currently. 4. Remote prostate cancer post-radiation therapy. 4. Essential hypertension. 5. Coronary artery disease, treated medically, asymptomatic. 6. Essential hypertension, GERD, remote CVA with mild left-sided weakness and dementia. PLAN: The patient will be admitted on clear liquid diet. His blood and urine HISTORY AND PHYSICAL [id number] LIAM ACOSTA SR has been cultured in the ED. He has been placed on IV Rocephin and Zithromax. The chest x-ray does not clinically suggestive of pneumonia, but will reevaluate. Dr. Rosas from general surgery has been consulted concerning his potential cholecystitis. We will obtain ultrasound of the gallbladder and if unremarkable, bifida scan. I discussed diagnosis, treatment plans with the patient's spouse and daughter. TRANSINT:[id number] Voice Confirmation ID: [id number] DOCUMENT ID: [id number] ZARA WHITMORE MD at 0743 CC: [id number] DICTATION DATE: 07/04/19 1311 HOME PERFORMANCE CONSULTANT: 07/04/19 1456 ADM IN [place] [id number] [place] [address]
--- NOTE | 2019-07-07 10:26 | NUR ---
I have reviewed this patient and I concur with the Shift Assessment completed by the Licensed Practical Nurse today this shift.
--- NOTE | 2019-07-07 10:38 | NUR ---
TRANSFER FROM MS. GR GTT STARTED. TELEMETRY UCAF, HR 118. WILL CONT. PLAN OF CARE.
--- NOTE | 2019-07-07 11:05 | OP ---
PATIENT NAME: LIAM ACOSTA SR MEDICAL RECORD: [id number] :45 LOCATION:D.M2 D.2119 ADMISSION DATE:07/04/19 SURGEON: BARBER CONDE MD DATE OF OPERATION: 07/06/2019 PREOPERATIVE DIAGNOSES: 1. Acute cholecystitis. 2. Abnormal liver function tests. POSTOPERATIVE DIAGNOSES: 1. Acute gangrenous cholecystitis. 2. Elevated liver function tests. PROCEDURES: 1. Laparoscopic cholecystectomy. 2. A 14-gauge core needle liver biopsy. SURGEON: Barber Conde MD SANDSTONE INSPECTOR REPAIRER: None. BLOOD LOSS: 200 cc. ANESTHESIA: General. COMPLICATIONS: None. The risks, possible complications, and alternatives to the procedure were explained to the patient. He elects to proceed. The discussion specifically included, but was not limited to, bleeding requiring an emergency reoperation, infection, intestinal injury, and the possibility of an open procedure. The indication for the liver biopsy was elevated liver function tests. OPERATIVE COURSE: The patient was conveyed to the operating room electively on 07/06/2019. General anesthesia was induced by the anesthesia staff. The abdomen was sterilely prepped and draped. A transverse incision was accomplished in the left upper quadrant. A Veress needle was inserted through the skin abrahan into the peritoneal cavity. CO2 insufflation was begun. Once a sufficient pneumoperitoneum had been achieved, a 5-mm trocar was inserted in the right upper quadrant. Under direct internal vision utilizing a television camera, a 5-mm trocar was inserted in the left upper quadrant and another 5-mm trocar was inserted far laterally in the right upper quadrant. A 12-mm trocar was inserted through an incision at the umbilicus. During insertion of the Veress needle and all trocars, there appeared to have been no injury to the bowels, any intraperitoneal or retroperitoneal structures. An abdominal survey was undertaken. There was omentum overlying the gallbladder in the right upper quadrant and I was able to bluntly dissect this away from a gangrenous gallbladder. I grasped the gallbladder and retracted it cephalad and it tore immediately. This was going to prevent me from performing an intraoperative cholangiogram, which I had planned on. I then percutaneously accessed the right upper quadrant utilizing a 14-gauge core biopsy device. Cores were obtained over the convexity of the liver. The OPERATIVE REPORT [id number] LIAM ACOSTA SR biopsy sites were made hemostatic with electrocautery. I grasped the gallbladder and retracted it cephalad. Blunt dissection was begun in the triangle of Calot. Two cystic arteries and one cystic duct were identified. These were clipped multiply and divided between clips. I then excised the gallbladder from its bed in the liver. It was placed within a bag retrieval device and was withdrawn through the umbilical fascia defect. The 12-mm trocar was placed and the abdomen reinsufflated. I irrigated and aspirated the right upper quadrant. There was no bleeding. I added fibrillar as well as Toñito to the gallbladder fossa for additional hemostasis. Due to the amount of inflammation and due to the operative findings, I placed a 10-Mauritanian fully fluted closed suction drainage system through the lateral most trocar site. The 12-mm trocar was removed and the fascia there was closed with a Doe-Mynor suture closure device and 0 Vicryl sutures. All trocars were removed and the abdomen desufflated. The drain was sutured to skin with 4-0 nylon. The skin at the umbilicus was closed with interrupted 4-0 Vicryl Rapide sutures. The other skin incisions were closed with interrupted intracuticular 3-0 Vicryls. Benzoin and Steri-Strips were applied. The patient was then extubated and conveyed to post-anesthesia care unit where he was in stable condition. He will be continued on intravenous antibiotics. TRANSINT:[id number] Voice Confirmation ID: [id number] DOCUMENT ID: [id number] BARBER CONDE MD at 1105 CC: [id number] DICTATION DATE: 07/06/192151 REGISTERED NURSE CARDIAC: 07/07/19 0009 ADM IN [facility] [address] [id number]
--- NOTE | 2019-07-07 19:24 | NUR ---
RECEIVED BEDSIDE REPORT. PATIENT IS PLEASANTLY CONFUSED, RESTING COMFORTABLY IN BED. RESPIRATIONS ARE EVEN AND UNLABORED. PATIENT IS CURRENTLY RECEIVING SCHEDULED BREATHING TREATMENT. NO S/S OF DISTRESS. NO C/O PAIN. CALL LIGHT WITHIN REACH. WILL CPOC.
--- NOTE | 2019-07-07 22:30 | NUR ---
PATIENT GIVEN BATH AND LINENS CHANGED.
[2019-07-08] VITALS: BP 133/80
--- NOTE | 2019-07-08 02:24 | NUR ---
PATIENT RESTING IN BED. RESPIRATIONS AR EVEN AND UNLABORED. NO S/S OF DISTRESS. NO C/O PAIN. CALL LIGHT WITHIN REACH. WILL CPOC.
[2019-07-08 05:50] LABS: BASOPHILS 0.1 % (0-2); EOSINOPHILS 1.1 % (0-7); HEMATOCRIT 37.8 % (42.0-54.0); HEMOGLOBIN 12.8 g/dL (13.5-17.5); IMMATURE GRANULOCYTES 0.4 % (0-5); LYMPHOCYTES 6.8 % (15-50); MCH 29.9 pg (26.0-34.0); MCHC 33.9 g/dL (31.0-37.0); MCV 88.3 fL (80.0-100.0); MEAN PLATELET VOLUME 10.2 fL (7.4-10.4); NEUTROPHILS 76.6 % (40-80); RBC 4.28 10x6/uL (4.20-6.10)
[2019-07-08 06:07] LABS: PLATELET COUNT 172 10x3/uL (130-400); WBC 11.6 10x3/uL (4.8-10.8)
[2019-07-08 06:20] LABS: ALBUMIN 1.9 g/dL (3.4-5.0); ALKALINE PHOSPHATASE 102 U/L (46-116); ALT (SGPT) 28 U/L (10-68); BILIRUBIN - TOTAL 1.03 mg/dL (0.2-1.3); CALC OSMOLALITY 274 mosm/kg (275-300); CALCIUM 8.5 mg/dL (8.5-10.1); CARBON DIOXIDE 27.2 mmol/L (21.0-32.0); CHLORIDE - SERUM 101 mmol/L (98-107); CREATININE - SERUM 0.9 mg/dL (0.6-1.3); GLUCOSE 106 mg/dL (74-106); POTASSIUM - SERUM 3.4 mmol/L (3.5-5.1); PROTEIN - SERUM 6.3 g/dL (6.4-8.2); SODIUM 137 mmol/L (136-145); UREA NITROGEN 14 mg/dL (7-18); eGFR NON AFRICAN AMERICAN 88 mL/min (90-120)
--- NOTE | 2019-07-08 06:31 | NUR ---
PAGED DR. CONDE D/T PATIENT PARTIALLY PULLING OUT CHERYL DRAIN. DR. CONDE RETURNED PAGE AND IS GOING TO COME LOOK AT IT.
[2019-07-08 08:19] VITALS: BP 129/74
--- NOTE | 2019-07-08 10:40 | EC ---
PATIENT:LIAM ACOSTA SR DATE OF SERVICE: 07/04/19 SEX: M MEDICAL RECORD: [id number] DATE OF : 45 LOCATION:D. D.211 AGE OF PATIENT: 74 ADMISSION DATE: 07/04/19 REFERRING PHYSICIAN: INTERPRETING PHYSICIAN: SARAH VELAZQUEZ MD ECHOCARDIOGRAM REPORT ECHO CHARGES 4 ECHO COMPLETE Date: 07/07/19 CLINICAL DIAGNOSIS: AFIB ECHOCARDIOGRAPHIC MEASUREMENTS (adult normal given) AC root (d.<3.7cm) 4.0 cm LV Septum d (<1.2 cm> 1.6 cm Valve Excursion 1.5 cm LV Septum (systole) 1.6 cm Left Atria (s.<4.0cm> 3.8 cm LVPW d(<1.2cm) 1.9 cm RV (d.<2.3cm) 3.9 cm LVPW (sytole) 1.9 cm LV diastole(<5.6CM) 4.1 cm MV E-F(>70mm/sec) cm LV systole 2.7 cm LVOT Diameter 1.7 cm MV exc.(>10mm) cm Est.ejection fraction (50-75%) % DOPPLER: LVIT cm/sec A 154.0cm/sec E cm/sec LA cm/sec RVSP 24 mmHg LVOT 97.0 cm/sec AOP1/2T m/s Asc. Ao 153 cm/sec RVOT 98 cm/sec RA cm/sec PA 132 cm/sec AV Gradient Peak 9.41 mmHg AV Mean 6.13 mmHg AV Area 1.0 cm MV Gradient Peak 9.77 mmHg MV Mean 3.24 mmHg MV Area cm COMMENTS: Remelt Furnace Expediter: Elza MOY Structural Steel Worker Helper: 1 Dr. Velazquez TAPE# PACS Pericardial Effusion N DATE OF SERVICE: 07/07/2019 FINDINGS: 1. Left ventricular chamber size is within normal limits. Left ventricular systolic function is normal. Overall ejection fraction estimated at 60%. 2. Left atrium, right atrium and right ventricular chamber sizes are within normal limits. 3. Valvular structures have normal structure and motion. 4. Doppler interrogation reveals mild mitral regurgitation, mild tricuspid regurgitation, no other valvular insufficiency or stenosis. Pulmonary systolic ECHOCARDIOGRAM REPORT [id number] LIAM ACOSTA SR pressure is normal estimated at 24 mmHg. 5. No evidence of pericardial effusion or left ventricular thrombus. 6. The patient was in atrial fibrillation during the study. TRANSINT:[id number] Voice Confirmation ID: [id number] DOCUMENT ID: [id number] SARAH VELAZQUEZ MD at 1040 CC: [id number] DICTATION DATE: 07/07/191704 SUPERVISOR ROD PLACING: 07/08/19 0237 ADM IN [facility] [address] [id number]
[2019-07-08 12:30] VITALS: BP 124/84
--- NOTE | 2019-07-08 13:35 | NUR ---
Nutrition Follow-up: Family reports that he ate fairly well this AM; she assists in feeding him and believes he could benefit from ST/PT. Thickened liquids at home. POD 2 lap w[place]ka. Diet: Regular, Thickened Liquids No new wt (last wt - 120# on 07/05) Last recorded BM: 07/05 Labs noted: K+ 3.4, Alb 1.9 Meds noted: Lasix, KCl, Pepcid -Rec ST/PT eval. -Offer nutrition supplements. -Need new wt. -RD following.
--- NOTE | 2019-07-08 15:10 | NUR ---
NUHAG CHANGED TO SITE.
[2019-07-08 15:31] VITALS: BP 115/81
--- NOTE | 2019-07-08 19:16 | NUR ---
RECEIVED BEDSIDE REPORT. PATIENT IS RESTING COMFORTABLY IN BED. RESPIRATIONS ARE EVEN AND UNLABVORED. NO S/S OF DISTRESS. NO C/O PAIN. CALL LIGHT WITHIN REACH. DENIES NEEDS AT THIS TIME. WILL CPOC.
[2019-07-08 20:00] VITALS: BP 106/76
[2019-07-08 23:00] VITALS: BP 121/82
--- NOTE | 2019-07-09 02:27 | NUR ---
PATIENT APPEARS TO BE SLEEPING. RESPIRATIONS ARE EVEN ANDUNLABORED. NO S/S OF DISTRESS. NO C/OPAIN. CALL LIGHT WITHIN REACH. WILL CPOC.
[2019-07-09 04:00] VITALS: BP 103/72
[2019-07-09 06:39] LABS: ALBUMIN 1.7 g/dL (3.4-5.0); ALKALINE PHOSPHATASE 94 U/L (46-116); ALT (SGPT) 27 U/L (10-68); BILIRUBIN - TOTAL 0.52 mg/dL (0.2-1.3); CALC OSMOLALITY 283 mosm/kg (275-300); CARBON DIOXIDE 27.5 mmol/L (21.0-32.0); CHLORIDE - SERUM 101 mmol/L (98-107); CREATININE - SERUM 0.9 mg/dL (0.6-1.3); GLUCOSE 108 mg/dL (74-106); POTASSIUM - SERUM 3.4 mmol/L (3.5-5.1); PROTEIN - SERUM 5.1 g/dL (6.4-8.2); SODIUM 138 mmol/L (136-145); eGFR NON AFRICAN AMERICAN 88 mL/min (90-120)
[2019-07-09 06:51] LABS: BASOPHILS 0.2 % (0-2); EOSINOPHILS 1.4 % (0-7); HEMATOCRIT 34.8 % (42.0-54.0); HEMOGLOBIN 11.6 g/dL (13.5-17.5); IMMATURE GRANULOCYTES 0.5 % (0-5); LYMPHOCYTES 12.3 % (15-50); MCH 29.4 pg (26.0-34.0); MCHC 33.3 g/dL (31.0-37.0); MCV 88.3 fL (80.0-100.0); MEAN PLATELET VOLUME 10.8 fL (7.4-10.4); NEUTROPHILS 71.6 % (40-80); RBC 3.94 10x6/uL (4.20-6.10); RDW 13.1 % (11.5-14.5); WBC 13.1 10x3/uL (4.8-10.8)
[2019-07-09 06:58] LABS: PLATELET COUNT 252 10x3/uL (130-400)
[2019-07-09 07:00] LABS: UREA NITROGEN 33 mg/dL (7-18)
--- NOTE | 2019-07-09 07:43 | NUR ---
ASSESSMENT DONE. DENIES NEEDS
[2019-07-09 09:13] VITALS: BP 117/67
[2019-07-09 09:39] VITALS: BP 123/65
--- NOTE | 2019-07-09 14:13 | NUR ---
I have reviewed this patient and I concur with the Shift Assessment completed by the Licensed Practical Nurse today this shift.
--- NOTE | 2019-07-09 14:18 | MORECARE ---
CASE MANAGEMENT DISCHARGE SUMMARY PATIENT: LIAM ACOSTA UNIT: [id number] ADM DATE: 07/04/19 AGE: 74 : 45 SEX: M ROOM/BED: D.2119 AUTHOR: EDUARDO DENNY PHYSICIAN: REFERRING PHYSICIAN: RYAN RAMIREZ MD DATE OF SERVICE: 07/09/19 Discharge Plan Patient Name: LIAM ACOSTA [facility] [facility] 1945 Planned Disposition: Inpatient Rehab Anticipated Discharge Date: Discharge Date: Expected LOS: Initial Reviewer: [email or web address] Initial Review Date: 07/09/2019 Generated: 07/09/19 3:18 pm Patient Name: LIAM ACOSTA Page [id number] at 1418 All edits/amendments must be made on the electronic document DICTATION DATE: 07/09/191417 BUSINESS RISK CONSULTANT: ANTONELLA 07/09/191417 RPT#: [id number] DC DATE: STATUS: ADM IN [facility] [address] [place] [address] END OF REPORT
--- NOTE | 2019-07-09 14:28 | MORECARE ---
CASE MANAGEMENT DISCHARGE SUMMARY PATIENT: LIAM ACOSTA UNIT: [id number] ADM DATE: 07/04/19 AGE: 74 : 45 SEX: M ROOM/BED: D.2119 AUTHOR: EDUARDO DENNY PHYSICIAN: REFERRING PHYSICIAN: RYAN RAMIREZ MD DATE OF SERVICE: 07/09/19 Discharge Plan Patient Name: LIAM ACOSTA Facility: [facility]:[place] : 1945 Planned Disposition: Inpatient Rehab Anticipated Discharge Date: Discharge Date: Expected LOS: Initial Reviewer: [email or web address] Initial Review Date: 07/09/2019 Generated: 07/09/19 3:28 pm DCPIA - Discharge Planning Initial Assessment Updated by [email or web address]: Darrius Vivar on 07/09/19 2:25 pm * Is the patient Alert and Oriented? Yes * How many steps to enter\exit or inside your home? * PCP DR. RAMIREZ * Pharmacy [facility] [address] * Preadmission Environment Home with Family * ADLs Partial Dependent * Partial ADLs (Assistance needed) Medication Management * Equipment Cane Walker * Other Equipment NO MEDICAL EQUIPMENT PROVIDER * List name and contact numbers for known caregivers / representatives who currently or will assist patient after discharge: ZIGGY ACOSTA, SON, UJLIEN ACOSTA, , * Verbal permission to speak to the caregivers and representatives has been obtained from the patient. N/A * Community resources currently utilized None * Please name any agencies selected above. NONE * Additional services required to return to the preadmission environment? Yes * Can the patient safely return to the preadmission environment? Yes * Has this patient been hospitalized within the prior 30 days at any hospital? No Coverage Notice Reviewer: [id number] - Darrius Vivar Notice Issued Date-Time: 07/09/2019 9:10 Notice Type: IM Discharge Notice Notice Delivered To: Patient Relationship to Patient: Diamond Powder Mixer Name: Delivery Method: HAND - Hand Delivered Pao Days: Prior Verbal Notification: Recipient Understood Notice: Yes Recipient Signature: Yes Med Rec Note Co-signed by Attending: Coverage Notice Comment: Last DP export: 07/09/19 1:18 Patient Name: LIAM ACOSTA Page [phone] at 1428 All edits/amendments must be made on the electronic document DICTATION DATE: 07/09/191427 ELECTRONIC SYSTEMS TECHNICIAN: ANTONELLA 07/09/191427 RPT#: [id number] DC DATE: STATUS: ADM IN [facility] [address] [place] [address] END OF REPORT
--- NOTE | 2019-07-09 14:28 | NUR ---
Rehab Note- Acute Inpatient Rehab prescreen order received. The patient has [employer] insurance and will require a PreAuth prior to an inpatient acute rehab stay. He has a pending OT & PT Eval that will be needed for the PReAuth process. Will follow at this time, will begin PreAuth when evals are completed to see the patient's physical mobility. Thank you for this referral! Cary Faria RN Clinical Liaison, [facility] Rehab
--- NOTE | 2019-07-09 14:38 | MORECARE ---
CASE MANAGEMENT DISCHARGE SUMMARY PATIENT: LIAM ACOSTA UNIT: [id number] ADM DATE: 07/04/19 AGE: 74 : 45 SEX: M ROOM/BED: D.2119 AUTHOR: DENISHADOC PHYSICIAN: REFERRING PHYSICIAN: RYAN RAMIREZ MD DATE OF SERVICE: 07/09/19 Discharge Plan Patient Name: LIAM ACOSTA Facility: [facility]:[place] : 1945 Planned Disposition: Inpatient Rehab Anticipated Discharge Date: Discharge Date: Expected LOS: Initial Reviewer: [email or web address] Initial Review Date: 07/09/2019 Generated: 07/09/19 3:38 pm DCPIA - Discharge Planning Initial Assessment Updated by GEORGE: Darrius Vivar on 07/09/19 2:32 pm * Is the patient Alert and Oriented? Yes * How many steps to enter\exit or inside your home? * PCP DR. RAMIREZ * Pharmacy [facility] ON [address] * Preadmission Environment Home with Family * ADLs Partial Dependent * Partial ADLs (Assistance needed) Medication Management * Equipment Cane Walker * Other Equipment NO MEDICAL EQUIPMENT PROVIDER * List name and contact numbers for known caregivers / representatives who currently or will assist patient after discharge: ZIGGY ACOSTA, SON, JULIEN ACOSTA, , * Verbal permission to speak to the caregivers and representatives has been obtained from the patient. N/A * Community resources currently utilized Private Duty Care * Please name any agencies selected above. [facility], SAF[employer]Y DEPOSIT BOXES CUSTODIAN, 5 DAYS 2 HOURS PER DAY; WEEKENDS 5 HOURS PER DAY * Additional services required to return to the preadmission environment? Yes * Can the patient safely return to the preadmission environment? Yes * Has this patient been hospitalized within the prior 30 days at any hospital? No Coverage Notice Reviewer: [id number] - Darrius Vivar Notice Issued Date-Time: 07/09/2019 9:10 Notice Type: IM Discharge Notice Notice Delivered To: Patient Relationship to Patient: Home Aide Name: Delivery Method: HAND - Hand Delivered Pao Days: Prior Verbal Notification: Recipient Understood Notice: Yes Recipient Signature: Yes Med Rec Note Co-signed by Attending: Coverage Notice Comment: Last DP export: 07/09/19 1:28 Patient Name: LIAM ACOSTA Page 92710 at 1438 All edits/amendments must be made on the electronic document DICTATION DATE: 07/09/191437 PSYCHOPAEDIC NURSE: ANTONELLA 07/09/191437 RPT#: [id number] DC DATE: STATUS: ADM IN [facility] [address] [place] [address] END OF REPORT
--- NOTE | 2019-07-09 14:48 | MORECARE ---
CASE MANAGEMENT DISCHARGE SUMMARY PATIENT: LIAM ACOSTA UNIT: [id number] ADM DATE: 07/04/19 AGE: 74 : 45 SEX: M ROOM/BED: D.6247 AUTHOR: EDUARDO DENNY PHYSICIAN: REFERRING PHYSICIAN: RYAN RAMIREZ MD DATE OF SERVICE: 07/09/19 Discharge Plan Patient Name: LIAM ACOSTA [facility] : 1945 Planned Disposition: Inpatient Rehab Anticipated Discharge Date: Discharge Date: Expected LOS: Initial Reviewer: [id number] Initial Review Date: 07/09/2019 Generated: 07/09/19 3:48 pm Comments DCP- Discharge Planning Updated by [id number]: Darrius Vivar on 07/09/19 1:[address] Patient Name: LIAM ACOSTA Admission Status: ER Accout number: [id number] Admission Date: 07-04-2019 : 1945 Admission Diagnosis: Attending: RYAN RAMIREZ Current LOS: 5 Anticipated DC Date: Planned Disposition: Inpatient Rehab Primary Insurance: [employer] PLANNED EXTERNAL PROVIDER: [facility] Discharge Planning Comments: CM MET WITH PT AND SPOUSE IN ROOM TO DISCUSS DISCHARGE PLANNING AND NEEDS. PT DID NOT SPEAK BUT WAS AWAKE DURING MEETING. PT'S SPOUSE PT LIVING AT HOME DEPENDENTLY WITH SPOUSE WHO ASSISTS WITH MEDICATIONS. PT HAS BEEN BECOMING INCREASINGLY WEAK AT HOME AND SPOUSE REPORTS PT WILL NEED REHAB TO GO HOME. PT HAS CANE AND STANDARD WALKER WITH NO MEDICAL EQUIPMENT PROVIDER PREFERENCE. PT HAS [facility] THROUGH MEDICAID 2 HOURS ON WEEKDAYS AND 5 HOURS ON WEEKEND DAYS. CM DISCUSSED AVAILABILITY OF HOME HEALTH, REHAB SERVICES AND MEDICAL EQUIPMENT. PT'S SPOUSE WOULD KLIKE PT CONSIDERED FOR REHAB AT [place] HE HAS BEEN THERE IN THE PAST AN RECEIVED GOOD REHAB. SPOUSE TO PICK PT UP FOR DISCHARGE HOME. IMPORTANT MESSAGE FROM MEDICARE PROVIDED AND EXPLAINED. ORDER FOR PT, OT AND INPATIENT REHAB PRESCREEN OBTAINED FROM DR. RAMIREZ. CM WAITING THERAPY EVALUATIONS WELL REHAB PRESCEENING BY [facility]. Predatory Animal Trapper: Darrius Vivar DCPIA - Discharge Planning Initial Assessment Updated by [id number]: Darrius Vivar on 07/09/19 2:32 pm * Is the patient Alert and Oriented? Yes * How many steps to enter\exit or inside your home? * PCP DR. RAMIREZ * Pharmacy [facility] * Preadmission Environment Home with Family * ADLs Partial Dependent * Partial ADLs (Assistance needed) Medication Management * Equipment Cane Walker * Other Equipment NO MEDICAL EQUIPMENT PROVIDER * List name and contact numbers for known caregivers / representatives who currently or will assist patient after discharge: ZIGGY ACOSTA, SON, JULIEN ACOSTA, , * Verbal permission to speak to the caregivers and representatives has been obtained from the patient. N/A * Community resources currently utilized Private Duty Care * Please name any agencies selected above. [facility], [employer]OUGH [employer], 5 DAYS 2 HOURS PER DAY; WEEKENDS 5 HOURS PER DAY * Additional services required to return to the preadmission environment? Yes * Can the patient safely return to the preadmission environment? Yes * Has this patient been hospitalized within the prior 30 days at any hospital? No Coverage Notice Reviewer: [id number] Lissa Vivar Notice Issued Date-Time: 07/09/2019 9:10 Notice Type: IM Discharge Notice Notice Delivered To: Patient Relationship to Patient: Sash Clamp Operator Name: Delivery Method: HAND - Hand Delivered Pao Days: Prior Verbal Notification: Recipient Understood Notice: Yes Recipient Signature: Yes Med Rec Note Co-signed by Attending: Coverage Notice Comment: Last DP export: 07/09/19 1:38 Patient Name: LIAM ACOSTA Page [id number] at 1448 All edits/amendments must be made on the electronic document DICTATION DATE: 07/09/191447 TRANSLITERATOR: ANTONELLA 07/09/19 1448 RPT#: [id number] DC DATE: STATUS: ADM IN [facility] [address] [place] [address] END OF REPORT
--- NOTE | 2019-07-09 14:57 | MORECARE ---
CASE MANAGEMENT DISCHARGE SUMMARY PATIENT: LIAM ACOSTA UNIT: [id number] ADM DATE: 07/04/19 AGE: 74 : 45 SEX: M ROOM/BED: D.8748 AUTHOR: EDUARDO DENNY PHYSICIAN: REFERRING PHYSICIAN: RYAN RAMIREZ MD DATE OF SERVICE: 07/09/19 Discharge Plan Patient Name: LIAM ACOSTA [facility] [facility] 1945 Planned Disposition: Inpatient Rehab Anticipated Discharge Date: Discharge Date: Expected LOS: Initial Reviewer: [id number] Initial Review Date: 07/09/2019 Generated: 07/09/19 3:57 pm Comments DCP- Discharge Planning Updated by [email or web address]: Darrius Vivar on 07/09/19 1:[address] Patient Name: LIAM ACOSTA Admission Status: ER Accout number: [id number] Admission Date: 07-04-2019 : 1945 Admission Diagnosis: Attending: RYAN RAMIREZ Current LOS: 5 Anticipated DC Date: Planned Disposition: Inpatient Rehab Primary Insurance: [employer] PLANNED EXTERNAL PROVIDER: [facility] INPAT[facility] REH[facility] Discharge Planning Comments: CM MET WITH PT AND SPOUSE IN ROOM TO DISCUSS DISCHARGE PLANNING AND NEEDS. PT DID NOT SPEAK BUT WAS AWAKE DURING MEETING. PT'S SPOUSE PT LIVING AT HOME DEPENDENTLY WITH SPOUSE WHO ASSISTS WITH MEDICATIONS. PT HAS BEEN BECOMING INCREASINGLY WEAK AT HOME AND SPOUSE REPORTS PT WILL NEED REHAB TO GO HOME. PT HAS CANE AND STANDARD WALKER WITH NO MEDICAL EQUIPMENT PROVIDER PREFERENCE. PT HAS [facility] THROUGH MEDICAID 2 HOURS ON WEEKDAYS AND 5 HOURS ON WEEKEND DAYS. CM DISCUSSED AVAILABILITY OF HOME HEALTH, REHAB SERVICES AND MEDICAL EQUIPMENT. PT'S SPOUSE WOULD LIKE PT CONSIDERED FOR REHAB AT [place] HE HAS BEEN THERE IN THE PAST AN RECEIVED GOOD REHAB. SPOUSE TO PICK PT UP FOR DISCHARGE HOME. IMPORTANT MESSAGE FROM MEDICARE PROVIDED AND EXPLAINED. ORDER FOR PT, OT AND INPATIENT REHAB PRESCREEN OBTAINED FROM DR. RAMIREZ. CM WAITING THERAPY EVALUATIONS WELL REHAB PRESCEENING BY [facility]. Litigation Services Manager: Darrius Vivar DCPIA - Discharge Planning Initial Assessment Updated by [email or web address]: Darrius Vivar on 07/09/19 2:32 pm * Is the patient Alert and Oriented? Yes * How many steps to enter\exit or inside your home? * PCP DR. RAMIREZ * Pharmacy [facility] * Preadmission Environment Home with Family * ADLs Partial Dependent * Partial ADLs (Assistance needed) Medication Management * Equipment Cane Walker * Other Equipment NO MEDICAL EQUIPMENT PROVIDER * List name and contact numbers for known caregivers / representatives who currently or will assist patient after discharge: ZIGGY ACOSTA, SON, JULIEN ACOSTA, , * Verbal permission to speak to the caregivers and representatives has been obtained from the patient. N/A * Community resources currently utilized Private Duty Care * Please name any agencies selected above. [facility], [employer], 5 DAYS 2 HOURS PER DAY; WEEKENDS 5 HOURS PER DAY * Additional services required to return to the preadmission environment? Yes * Can the patient safely return to the preadmission environment? Yes * Has this patient been hospitalized within the prior 30 days at any hospital? No Coverage Notice Reviewer: [id number] Lissa Vivar Notice Issued Date-Time: 07/09/2019 9:10 Notice Type: IM Discharge Notice Notice Delivered To: Patient Relationship to Patient: Facilities Maintenance Assistant Name: Delivery Method: HAND - Hand Delivered Pao Days: Prior Verbal Notification: Recipient Understood Notice: Yes Recipient Signature: Yes Med Rec Note Co-signed by Attending: Coverage Notice Comment: Last DP export: 07/09/19 1:48 Patient Name: LIAM ACOSTA Page 31965 at 1457 All edits/amendments must be made on the electronic document DICTATION DATE: 07/09/191456 DIMENSION MILL WORKER: ANTONELLA 07/09/191456 RPT#: [id number] DC DATE: STATUS: ADM IN [facility] [address] [place] [address] END OF REPORT
[2019-07-09 15:54] VITALS: BP 113/61
--- NOTE | 2019-07-09 16:50 | NUR ---
WITHOUT CHANGES OR DISTRESS NOTED AT THIS TIME.
[2019-07-09 17:52] VITALS: BP 137/82
[2019-07-09 20:00] VITALS: BP 103/79
--- NOTE | 2019-07-09 20:07 | NUR ---
RECEIVED REPORT, WILL ASSUME CARE OF PT, PT DENIES ANY NEEDS AT THIS TIME, BED IS LOW, SRX2, CALL LIGHT IN REACH, WILL CONTINUE PLAN OF CARE
--- NOTE | 2019-07-09 22:53 | NUR ---
ASSISTED EQUIPMENT MAINTENANCE TECHNICIAN WITH BATH/LINEN CHANGE
[2019-07-10] VITALS (7 sets, daily range): BP systolic 107–135; BP diastolic 60–76
--- NOTE | 2019-07-10 02:18 | NUR ---
I have reviewed this patient and I concur with the Shift Assessment completed by the Licensed Practical Nurse today this shift.
[2019-07-10 04:56] LABS: BASOPHILS 0.1 % (0-2); EOSINOPHILS 0.5 % (0-7); HEMATOCRIT 33.8 % (42.0-54.0); HEMOGLOBIN 11.1 g/dL (13.5-17.5); IMMATURE GRANULOCYTES 0.5 % (0-5); LYMPHOCYTES 11.5 % (15-50); MCH 29.4 pg (26.0-34.0); MCHC 32.8 g/dL (31.0-37.0); MCV 89.4 fL (80.0-100.0); MEAN PLATELET VOLUME 10.2 fL (7.4-10.4); MONOCYTES 13.9 % (2-11); NEUTROPHILS 73.5 % (40-80); PLATELET COUNT 267 10x3/uL (130-400); RBC 3.78 10x6/uL (4.20-6.10); RDW 13.3 % (11.5-14.5)
[2019-07-10 05:19] LABS: ALBUMIN 1.6 g/dL (3.4-5.0); ALKALINE PHOSPHATASE 88 U/L (46-116); ALT (SGPT) 23 U/L (10-68); BILIRUBIN - TOTAL 0.45 mg/dL (0.2-1.3); CALC OSMOLALITY 289 mosm/kg (275-300); CALCIUM 8.2 mg/dL (8.5-10.1); CARBON DIOXIDE 27.4 mmol/L (21.0-32.0); CHLORIDE - SERUM 105 mmol/L (98-107); CREATININE - SERUM 0.9 mg/dL (0.6-1.3); GLUCOSE 119 mg/dL (74-106); POTASSIUM - SERUM 3.3 mmol/L (3.5-5.1); PROTEIN - SERUM 5.5 g/dL (6.4-8.2); SODIUM 140 mmol/L (136-145); UREA NITROGEN 40 mg/dL (7-18); eGFR NON AFRICAN AMERICAN 88 mL/min (90-120)
--- NOTE | 2019-07-10 07:15 | NUR ---
RECEIVED PT IN BED EYES CLOSED RESP UNLABORED NAD NOTED
--- NOTE | 2019-07-10 19:36 | NUR ---
RECEIVED REPORT, WILL ASSUME CARE OF PT, SLEEPING, NO DISTRESS NOTICED AT THIS TIME, BED IS LOW, SRX2, CALL LIGHT IN REACH, BED ALARM IS ON, WILL CONTINUE PLAN OF CARE
--- NOTE | 2019-07-11 01:06 | NUR ---
PT PULLED CHERYL DRAIN OUT, PLACED DRESSING ON SITE
--- NOTE | 2019-07-11 01:44 | NUR ---
I have reviewed this patient and I concur with the Shift Assessment completed by the Licensed Practical Nurse today this shift.
[2019-07-11 04:00] VITALS: BP 118/82
[2019-07-11 06:36] LABS: BASOPHILS 0.2 % (0-2); EOSINOPHILS 0.4 % (0-7); HEMATOCRIT 32.9 % (42.0-54.0); HEMOGLOBIN 10.8 g/dL (13.5-17.5); IMMATURE GRANULOCYTES 0.5 % (0-5); LYMPHOCYTES 9.9 % (15-50); MCH 29.6 pg (26.0-34.0); MCHC 32.8 g/dL (31.0-37.0); MCV 90.1 fL (80.0-100.0); MEAN PLATELET VOLUME 10.2 fL (7.4-10.4); MONOCYTES 9.4 % (2-11); NEUTROPHILS 79.6 % (40-80); PLATELET COUNT 292 10x3/uL (130-400); RBC 3.65 10x6/uL (4.20-6.10); RDW 13.4 % (11.5-14.5)
[2019-07-11 06:49] LABS: CALC OSMOLALITY 285 mosm/kg (275-300); CALCIUM 8.6 mg/dL (8.5-10.1); CARBON DIOXIDE 26.5 mmol/L (21.0-32.0); CHLORIDE - SERUM 106 mmol/L (98-107); CREATININE - SERUM 0.8 mg/dL (0.6-1.3); GLUCOSE 107 mg/dL (74-106); POTASSIUM - SERUM 3.4 mmol/L (3.5-5.1); SODIUM 141 mmol/L (136-145); eGFR NON AFRICAN AMERICAN > 90 mL/min (90-120)
[2019-07-11 06:50] LABS: UREA NITROGEN 26 mg/dL (7-18)
[2019-07-11 09:00] VITALS: BP 118/78
[2019-07-11 13:04] VITALS: BP 115/83
[2019-07-11 17:42] VITALS: BP 103/62
--- NOTE | 2019-07-11 17:44 | NUR ---
RECEIVED REPORT, WILL ASSUME CARE OF PT, VISITING WITH FAMILY, DENIES ANY NEEDS AT THIS TIME, BED IS LOW, SRX2, CALL LIGHT IN REACH, WILL CONTINUE PLAN OF CARE
[2019-07-11 20:45] VITALS: BP 106/55
[2019-07-12] VITALS (7 sets, daily range): BP systolic 99–131; BP diastolic 60–77
--- NOTE | 2019-07-12 01:07 | NUR ---
PT HAD BM-REIKI PRACTITIONER GIVING BEDBATH/LINEN CHANGE
--- NOTE | 2019-07-12 04:22 | NUR ---
I have reviewed this patient and I concur with the Shift Assessment completed by the Licensed Practical Nurse today this shift.
[2019-07-12 05:33] LABS: BASOPHILS 0 % (0-2); EOSINOPHILS 0.4 % (0-7); HEMOGLOBIN 10.4 g/dL (13.5-17.5); IMMATURE GRANULOCYTES 0.4 % (0-5); LYMPHOCYTES 8.7 % (15-50); MCH 29.5 pg (26.0-34.0); MCHC 32.5 g/dL (31.0-37.0); MCV 90.9 fL (80.0-100.0); MONOCYTES 8.9 % (2-11); NEUTROPHILS 81.6 % (40-80); PLATELET COUNT 344 10x3/uL (130-400); RBC 3.52 10x6/uL (4.20-6.10); RDW 13.8 % (11.5-14.5); WBC 12.9 10x3/uL (4.8-10.8)
[2019-07-12 05:47] LABS: CALC OSMOLALITY 287 mosm/kg (275-300); CALCIUM 8.3 mg/dL (8.5-10.1); CARBON DIOXIDE 26.7 mmol/L (21.0-32.0); CHLORIDE - SERUM 108 mmol/L (98-107); CREATININE - SERUM 0.8 mg/dL (0.6-1.3); GLUCOSE 118 mg/dL (74-106); POTASSIUM - SERUM 3.4 mmol/L (3.5-5.1); SODIUM 142 mmol/L (136-145); UREA NITROGEN 23 mg/dL (7-18); eGFR NON AFRICAN AMERICAN > 90 mL/min (90-120)
--- NOTE | 2019-07-12 07:20 | NUR ---
RECIEVE REPORT. CONFUSED. SPOUSE AT BEDSIDE. CARDIZEM INFUSING ORDERED. 98 CONTROLLED AFIB ON TELEMETRY. NO SIGNS OF DISTRESS. CONTINUE PLAN OF CARE AND SAFETY PRECAUTIONS.
--- NOTE | 2019-07-12 11:38 | MORECARE ---
CASE MANAGEMENT DISCHARGE SUMMARY PATIENT: LIAM ACOSTA UNIT: [id number] ADM DATE: 07/04/19 AGE: 74 : 45 SEX: M ROOM/BED: D.6298 AUTHOR: EDUARDO DENNY PHYSICIAN: REFERRING PHYSICIAN: RYAN RAMIREZ MD DATE OF SERVICE: 07/12/19 Discharge Plan Patient Name: LIAM ACOSTA [facility] : 1945 Planned Disposition: Inpatient Rehab Anticipated Discharge Date: Discharge Date: Expected LOS: Initial Reviewer: [id number] Initial Review Date: 07/09/2019 Generated: 07/12/19 12:37 pm Comments DCP- Discharge Planning Updated by [email or web address]: Darrius Vivar on 07/09/19 1:[address] Patient Name: LIAM ACOSTA Admission Status: ER Accout number: [id number] Admission Date: 07-04-2019 : 1945 Admission Diagnosis: Attending: RYAN RAMIREZ Current LOS: 5 Anticipated DC Date: Planned Disposition: Inpatient Rehab Primary Insurance: [employer] PLANNED EXTERNAL PROVIDER: [facility] Discharge Planning Comments: CM MET WITH PT AND SPOUSE IN ROOM TO DISCUSS DISCHARGE PLANNING AND NEEDS. PT DID NOT SPEAK BUT WAS AWAKE DURING MEETING. PT'S SPOUSE PT LIVING AT HOME DEPENDENTLY WITH SPOUSE WHO ASSISTS WITH MEDICATIONS. PT HAS BEEN BECOMING INCREASINGLY WEAK AT HOME AND SPOUSE REPORTS PT WILL NEED REHAB TO GO HOME. PT HAS CANE AND STANDARD WALKER WITH NO MEDICAL EQUIPMENT PROVIDER PREFERENCE. PT HAS [facility] THROUGH MEDICAID 2 HOURS ON WEEKDAYS AND 5 HOURS ON WEEKEND DAYS. CM DISCUSSED AVAILABILITY OF HOME HEALTH, REHAB SERVICES AND MEDICAL EQUIPMENT. PT'S SPOUSE WOULD LIKE PT CONSIDERED FOR REHAB AT [place] HE HAS BEEN THERE IN THE PAST AN RECEIVED GOOD REHAB. SPOUSE TO PICK PT UP FOR DISCHARGE HOME. IMPORTANT MESSAGE FROM MEDICARE PROVIDED AND EXPLAINED. ORDER FOR PT, OT AND INPATIENT REHAB PRESCREEN OBTAINED FROM DR. RAMIREZ. CM WAITING THERAPY EVALUATIONS WELL REHAB PRESCEENING BY [facility]. Career Based Intervention Coordinator: Darrius Vivar DCPIA - Discharge Planning Initial Assessment Updated by [id number]: Darrius Vivar on 07/09/19 2:32 pm * Is the patient Alert and Oriented? Yes * How many steps to enter\exit or inside your home? * PCP DR. RAMIREZ * Pharmacy [facility] [address] * Preadmission Environment Home with Family * ADLs Partial Dependent * Partial ADLs (Assistance needed) Medication Management * Equipment Cane Walker * Other Equipment NO MEDICAL EQUIPMENT PROVIDER * List name and contact numbers for known caregivers / representatives who currently or will assist patient after discharge: ZIGGY ACOSTA, SON, JULIEN ACOSTA, , * Verbal permission to speak to the caregivers and representatives has been obtained from the patient. N/A * Community resources currently utilized Private Duty Care * Please name any agencies selected above. [facility], [employer]IS [employer], 5 DAYS 2 HOURS PER DAY; WEEKENDS 5 HOURS PER DAY * Additional services required to return to the preadmission environment? Yes * Can the patient safely return to the preadmission environment? Yes * Has this patient been hospitalized within the prior 30 days at any hospital? No External [facility] Next Contact Date: 07/12/2019 Service Request Date: Service Type: Resolution: Reviewer: Comments: Coverage Notice Reviewer: [id number] Lissa Vivar Notice Issued Date-Time: 07/09/2019 9:10 Notice Type: IM Discharge Notice Notice Delivered To: Patient Relationship to Patient: Nuclear Spectroscopist Name: Delivery Method: HAND - Hand Delivered Pao Days: Prior Verbal Notification: Recipient Understood Notice: Yes Recipient Signature: Yes Med Rec Note Co-signed by Attending: Coverage Notice Comment: Reviewer: [id number] Vivar Notice Issued Date-Time: 07/12/2019 10:10 Notice Type: IM Discharge Notice Notice Delivered To: Family Member Relationship to Patient: Spouse Nuclear Spectroscopist Name: JULIEN ACOSTA Delivery Method: HAND - Hand Delivered Pao Days: Prior Verbal Notification: Recipient Understood Notice: Yes Recipient Signature: Yes Med Rec Note Co-signed by Attending: Coverage Notice Comment: GHUL[facility] DP export: 07/09/19 1:58 Patient Name: LIAM ACOSTA Page 52376 at 1138 All edits/amendments must be made on the electronic document DICTATION DATE: 07/12/19 4619 MECHANOTHERAPIST: DM 07/12/19 1137 RPT#: [id number] DC DATE: STATUS: ADM IN [facility] [address] [place] [address] END OF REPORT
--- NOTE | 2019-07-12 12:00 | MORECARE ---
CASE MANAGEMENT DISCHARGE SUMMARY PATIENT: LIAM ACOSTA UNIT: [id number] ADM DATE: 07/04/19 AGE: 74 : 45 SEX: M ROOM/BED: D.3431 AUTHOR: DENISHA,DOC PHYSICIAN: REFERRING PHYSICIAN: RYAN RAMIREZ MD DATE OF SERVICE: 07/12/19 Discharge Plan Patient Name: LIAM ACOSTA [facility] [facility] 1945 Planned Disposition: Inpatient Rehab Anticipated Discharge Date: Discharge Date: Expected LOS: Initial Reviewer: [id number] Initial Review Date: 07/09/2019 Generated: 07/12/19 1:00 pm Comments DCP- Discharge Planning Updated by [email or web address]: Darrius Vivar on 07/12/19 10:[address] Patient Name: LIAM ACOSTA Encounter No: [id number] : 1945 Primary Insurance: [id number] Anticipated DC Date: Planned Disposition: Inpatient Rehab External Planned Provider: [facility] INPAT[facility] Discharge Planning Comments: CM WAITING OCCUPATIONAL THERAPY EVALUATION WELL REHAB PRESCEENING BY [facility] INPATIENT REH[facility]. CM MET WITH PT AND SPOUSE IN ROOM, PT SLEEPING SOUNDLY. THERAPY NOTES DISCUSSED WITH PT'S SPOUSE, PT IS MAX ASSIST FOR BED MOBILITY, IS NOT STANDING OR WALKING AT THIS TIME. CM DISCUSSED SECOND OPTION FOR REHAB IF INSURNACE WILL NOT AUTHORIZE INPATIENT REHAB AT [place]. LIST OF PROVIDERS DISCUSSED AND PRPOVIDED. PT'S SPOUSE WOULD LIKE REFERRAL TO THE [facility] IT IS CLOSE TO THEIR HOME AND PT'S SPOUSE DOES NOT DRIVE. CHOICE COMPLETED FOR THE [facility]. CM SPOKE TO YAMIL OF INPATIENT REHAB AT [place], PT IS VERY LOW FUNCTIONING WITH PHYSICAL THERAPY. CM NOTIFIED ADAM OF THE [facility], , OF REFERRAL FOR REHAB SERVICES. CM FAXED REFERRAL TO THE [facility] VIA ADAM AT [phone]. CM WAITITING ADMISSION DETERMINATION FROM THE [facility] WELL INSURANCE AUTHORIZATION FOR REHAB SERVICES. Ict Educator: Darrius Vivar DCP- Discharge Planning Updated by [email or web address]: Darrius Vivar on 07/09/19 1:[address] Patient Name: LIAM ACOSTA Admission Status: ER Accout number: [id number] Admission Date: 07-04-2019 : 1945 Admission Diagnosis: Attending: RYAN RAMIREZ Current LOS: 5 Anticipated DC Date: Planned Disposition: Inpatient Rehab Primary Insurance: [employer] PLANNED EXTERNAL PROVIDER: [facility] Discharge Planning Comments: CM MET WITH PT AND SPOUSE IN ROOM TO DISCUSS DISCHARGE PLANNING AND NEEDS. PT DID NOT SPEAK BUT WAS AWAKE DURING MEETING. PT'S SPOUSE PT LIVING AT HOME DEPENDENTLY WITH SPOUSE WHO ASSISTS WITH MEDICATIONS. PT HAS BEEN BECOMING INCREASINGLY WEAK AT HOME AND SPOUSE REPORTS PT WILL NEED REHAB TO GO HOME. PT HAS CANE AND STANDARD WALKER WITH NO MEDICAL EQUIPMENT PROVIDER PREFERENCE. PT HAS [facility] THROUGH MEDICAID 2 HOURS ON WEEKDAYS AND 5 HOURS ON WEEKEND DAYS. CM DISCUSSED AVAILABILITY OF HOME HEALTH, REHAB SERVICES AND MEDICAL EQUIPMENT. PT'S SPOUSE WOULD LIKE PT CONSIDERED FOR REHAB AT [place] HE HAS BEEN THERE IN THE PAST AN RECEIVED GOOD REHAB. SPOUSE TO PICK PT UP FOR DISCHARGE HOME. IMPORTANT MESSAGE FROM MEDICARE PROVIDED AND EXPLAINED. ORDER FOR PT, OT AND INPATIENT REHAB PRESCREEN OBTAINED FROM DR. RAMIREZ. CM WAITING THERAPY EVALUATIONS WELL REHAB PRESCEENING BY [facility]. Ict Educator: Darrius Vivar INPIA - Discharge Planning Initial Assessment Updated by [id number]: Darrius Vivar on 07/09/19 2:32 pm * Is the patient Alert and Oriented? Yes * How many steps to enter\exit or inside your home? * PCP DR. RAMIREZ * Pharmacy [facility] [address] * Preadmission Environment Home with Family * ADLs Partial Dependent * Partial ADLs (Assistance needed) Medication Management * Equipment Cane Walker * Other Equipment NO MEDICAL EQUIPMENT PROVIDER * List name and contact numbers for known caregivers / representatives who currently or will assist patient after discharge: ZIGGY ACOSTA, SON, JULIEN ACOSTA, , * Verbal permission to speak to the caregivers and representatives has been obtained from the patient. N/A * Community resources currently utilized Private Duty Care * Please name any agencies selected above. [facility], [employer], 5 DAYS 2 HOURS PER DAY; WEEKENDS 5 HOURS PER DAY * Additional services required to return to the preadmission environment? Yes * Can the patient safely return to the preadmission environment? Yes * Has this patient been hospitalized within the prior 30 days at any hospital? No Coverage Notice Reviewer: [id number] Vivar Notice Issued Date-Time: 07/09/2019 9:10 Notice Type: IM Discharge Notice Notice Delivered To: Patient Relationship to Patient: Dialysis Chief Equipment Technician Name: Delivery Method: HAND - Hand Delivered Pao Days: Prior Verbal Notification: Recipient Understood Notice: Yes Recipient Signature: Yes Med Rec Note Co-signed by Attending: Coverage Notice Comment: Reviewer: [id number] Vivar Notice Issued Date-Time: 07/12/2019 10:10 Notice Type: Patient Choice Letter Notice Delivered To: Family Member Relationship to Patient: Spouse Dialysis Chief Equipment Technician Name: JULIEN ACOSTA Delivery Method: HAND - Hand Delivered Pao Days: Prior Verbal Notification: Recipient Understood Notice: Yes Recipient Signature: Yes Med Rec Note Co-signed by Attending: Coverage Notice Comment: [facility] Last DP export: 07/12/19 10:38 Patient Name: LIAM ACOSTA Page [id number] at 1200 All edits/amendments must be made on the electronic document DICTATION DATE: 07/12/19 1200 CLAIMS ADJUSTER SUPERVISOR: ANTONELLA 07/12/19 1200 RPT#: [id number] DC DATE: STATUS: ADM IN [facility] [address] [place] [address] END OF REPORT
--- NOTE | 2019-07-12 14:34 | NUR ---
CONFUSED. RESTING IN BED. SPOUSE AND FAMILY MEMBERS AT BEDSIDE. CARDIZEM DRIP INFUSING ORDERED. CONTROLLED AFIB 99 ON TELEMETRY. BED SOILED. BED BATH AND LINEN CHANGE COMPLETE. PHYSICAL THERAPY ARRIVE TO ROOM.
--- NOTE | 2019-07-12 14:45 | MORECARE ---
CASE MANAGEMENT DISCHARGE SUMMARY PATIENT: LIAM ACOSTA UNIT: [id number] ADM DATE: 07/04/19 AGE: 74 : 45 SEX: M ROOM/BED: D.0127 AUTHOR: DENISHA,EDUARDO PHYSICIAN: REFERRING PHYSICIAN: RYAN RAMIREZ MD DATE OF SERVICE: 07/12/19 Discharge Plan Patient Name: LIAM ACOSTA [facility] [facility] 1945 Planned Disposition: Inpatient Rehab Anticipated Discharge Date: Discharge Date: Expected LOS: Initial Reviewer: [email or web address] Initial Review Date: 07/09/2019 Generated: 07/12/19 3:45 pm Comments DCP- Discharge Planning Updated by [id number]: Darrius Vivar on 07/12/19 10:[address] Patient Name: LIAM ACOSTA Encounter No: [id number] : 1945 Primary Insurance: NOVASYSMCR Anticipated DC Date: Planned Disposition: Inpatient Rehab External Planned Provider: [facility] Discharge Planning Comments: CM WAITING OCCUPATIONAL THERAPY EVALUATION [facility] PRESCEENING BY [facility]. CM MET WITH PT AND SPOUSE IN ROOM, PT SLEEPING SOUNDLY. THERAPY NOTES DISCUSSED WITH PT'S SPOUSE, PT IS MAX ASSIST FOR BED MOBILITY, IS NOT STANDING OR WALKING AT THIS TIME. CM DISCUSSED SECOND OPTION FOR REHAB IF INSURNACE WILL NOT AUTHORIZE INPATIENT REHAB AT [place]. LIST OF PROVIDERS DISCUSSED AND PRPOVIDED. PT'S SPOUSE WOULD LIKE REFERRAL TO [facility] IT IS CLOSE TO THEIR HOME AND PT'S SPOUSE DOES NOT DRIVE. CHOICE COMPLETED FOR THE [facility]. CM SPOKE TO YAMIL OF INPATIENT REHAB AT [place], PT IS VERY LOW FUNCTIONING WITH PHYSICAL THERAPY. CM NOTIFIED ADAM OF [facility], , OF REFERRAL FOR REHAB SERVICES. CM FAXED REFERRAL TO [facility] VIA [facility] AT [phone]. CM WAITITING ADMISSION DETERMINATION FROM THE [facility] WELL INSURANCE AUTHORIZATION FOR REHAB SERVICES. K 9 Police Officer: Darrius Vivar DCP- Discharge Planning Updated by [id number]: Darrius Vivar on 07/09/19 1:[address] Patient Name: LIAM ACOSTA Admission Status: ER Accout number: [id number] Admission Date: 07-04-2019 : 1945 Admission Diagnosis: Attending: RYAN RAMIREZ Current LOS: 5 Anticipated DC Date: Planned Disposition: Inpatient Rehab Primary Insurance: [employer] PLANNED EXTERNAL PROVIDER: [facility] Discharge Planning Comments: CM MET WITH PT AND SPOUSE IN ROOM TO DISCUSS DISCHARGE PLANNING AND NEEDS. PT DID NOT SPEAK BUT WAS AWAKE DURING MEETING. PT'S SPOUSE PT LIVING AT HOME DEPENDENTLY WITH SPOUSE WHO ASSISTS WITH MEDICATIONS. PT HAS BEEN BECOMING INCREASINGLY WEAK AT HOME AND SPOUSE REPORTS PT WILL NEED REHAB TO GO HOME. PT HAS CANE AND STANDARD WALKER WITH NO MEDICAL EQUIPMENT PROVIDER PREFERENCE. PT HAS [facility] THROUGH MEDICAID 2 HOURS ON WEEKDAYS AND 5 HOURS ON WEEKEND DAYS. CM DISCUSSED AVAILABILITY OF HOME HEALTH, REHAB SERVICES AND MEDICAL EQUIPMENT. PT'S SPOUSE WOULD LIKE PT CONSIDERED FOR REHAB AT [place] HE HAS BEEN THERE IN THE PAST AN RECEIVED GOOD REHAB. SPOUSE TO PICK PT UP FOR DISCHARGE HOME. IMPORTANT MESSAGE FROM MED[employer]ARE PROVIDED AND EXPLAINED. ORDER FOR PT, OT AND INPATIENT REHAB PRESCREEN OBTAINED FROM DR. RAMIREZ. CM WAITING THERAPY EVALUATIONS [facility] PRESCEENING BY [facility]. K 9 Police Officer: Darrius Vivar DEPIA - Discharge Planning Initial Assessment Updated by [id number]: Darrius Vivar on 07/09/19 2:32 pm * Is the patient Alert and Oriented? Yes * How many steps to enter\exit or inside your home? * PCP DR. RAMIREZ * Pharmacy [facility] [address] * Preadmission Environment Home with Family * ADLs Partial Dependent * Partial ADLs (Assistance needed) Medication Management * Equipment Cane Walker * Other Equipment NO MEDICAL EQUIPMENT PROVIDER * List name and contact numbers for known caregivers / representatives who currently or will assist patient after discharge: ZIGGY ACOSTA, SON, JULIEN ACOSTA, , * Verbal permission to speak to the caregivers and representatives has been obtained from the patient. N/A * Community resources currently utilized Private Duty Care * Please name any agencies selected above. [employer], CUSTOMER RETENTION REPRESENTATIVE, 5 DAYS 2 HOURS PER DAY; WEEKENDS 5 HOURS PER DAY * Additional services required to return to the preadmission environment? Yes * Can the patient safely return to the preadmission environment? Yes * Has this patient been hospitalized within the prior 30 days at any hospital? No Coverage Notice Reviewer: [id number] Vivar Notice Issued Date-Time: 07/09/2019 9:10 Notice Type: IM Discharge Notice Notice Delivered To: Patient Relationship to Patient: Distribution Estimator Name: Delivery Method: HAND - Hand Delivered Pao Days: Prior Verbal Notification: Recipient Understood Notice: Yes Recipient Signature: Yes Med Rec Note Co-signed by Attending: Coverage Notice Comment: Reviewer: [id number] Vivar Notice Issued Date-Time: 07/12/2019 10:10 Notice Type: Patient Choice Letter Notice Delivered To: Family Member Relationship to Patient: Spouse Distribution Estimator Name: JULIEN ACOSTA Delivery Method: HAND - Hand Delivered Pao Days: Prior Verbal Notification: Recipient Understood Notice: Yes Recipient Signature: Yes Med Rec Note Co-signed by Attending: Coverage Notice Comment: [place] Last DP export: 07/12/19 11:00 Patient Name: LIAM ACOSTA Page [id number] at 1445 All edits/amendments must be made on the electronic document DICTATION DATE: 07/12/19 144 SHOPFITTER: ANTONELLA 07/12/19 1444 RPT#: [id number] DC DATE: STATUS: ADM IN [facility] [address] [place] [address] END OF REPORT
--- NOTE | 2019-07-12 15:42 | NUR ---
OT NOTE: PT COMPLETED SIT TO STAND WITH MOD A X2. PT COMPLETED BED MOB WITH MOD A. PT REQUIRED TOTAL A WITH LB HYGIENE. THANK YOU,YOAN MEYER
--- NOTE | 2019-07-12 15:55 | NUR ---
Nutrition Follow-up: Spoke with Ceci (nurse manager presentation) this AM re: pt's difficulty eating meat. Advised to get ST eval. Noted ST eval done this afternoon; they rec puree with nectar thick liquids. Diet: Regular, Puree, [place] Thick Liquids Wt: 182# (176# on 07/09) Labs/Meds reviewed -Continue current diet as tolerated/per ST. -Offer nutrition supplements. -Monitor wt. -RD following.
--- NOTE | 2019-07-12 20:01 | NUR ---
RECEIVED BEDSIDE REPORT. PATIENT ALERT AND ORIENTED TO SELF. RESPIRATIONS ARE EVEN AND UNLABORED. NO S/S OF DISTRESS. NO C/O PAIN. CALL LIGHT WITHIN REACH. WILL CPOC.
[2019-07-13] VITALS: BP 109/71
[2019-07-13 04:30] VITALS: BP 129/78
[2019-07-13 07:00] LABS: BASOPHILS 0 % (0-2); EOSINOPHILS 0.2 % (0-7); HEMATOCRIT 34.3 % (42.0-54.0); HEMOGLOBIN 10.7 g/dL (13.5-17.5); IMMATURE GRANULOCYTES 0.3 % (0-5); LYMPHOCYTES 9.4 % (15-50); MCH 29.4 pg (26.0-34.0); MCHC 31.2 g/dL (31.0-37.0); MEAN PLATELET VOLUME 9.9 fL (7.4-10.4); MONOCYTES 10.2 % (2-11); NEUTROPHILS 79.9 % (40-80); PLATELET COUNT 369 10x3/uL (130-400); RBC 3.64 10x6/uL (4.20-6.10); RDW 13.9 % (11.5-14.5); WBC 11.6 10x3/uL (4.8-10.8)
--- NOTE | 2019-07-13 07:20 | NUR ---
RECIEVE REPORT. ALERT AND CONFUSED. SPOUSE AT BEDSIDE. UNCONTROLLED AFIB 104 ON TELEMETRY. DENIES ANY NEEDS AT THIS TIME. CONTINUE PLAN OF CARE AND SAFETY PRECAUTIONS.
[2019-07-13 07:22] LABS: MCV 94.2 fL (80.0-100.0)
[2019-07-13 07:23] LABS: CALC OSMOLALITY 292 mosm/kg (275-300); CALCIUM 8.4 mg/dL (8.5-10.1); CHLORIDE - SERUM 110 mmol/L (98-107); CREATININE - SERUM 0.9 mg/dL (0.6-1.3); GLUCOSE 104 mg/dL (74-106); POTASSIUM - SERUM 3.9 mmol/L (3.5-5.1); SODIUM 145 mmol/L (136-145); UREA NITROGEN 25 mg/dL (7-18); eGFR NON AFRICAN AMERICAN 88 mL/min (90-120)
[2019-07-13 10:09] VITALS: BP 117/81
--- NOTE | 2019-07-13 13:21 | NUR ---
OT NOTE: PT CONTINUES WITH EXPLOSIVE DIARRHEA. WITH ASSIST OF TEAM DRIVER, PT WAS CLEANED UP AND LINENS CHANGED; ASSISTED PT TO EOB SITTING WITH MAX ASSIST; SITTING BALANCE FAIR; SIT TO STAND WITH MOD ASSIST; WHILE IN STANDING, PT INCONT OF BOWEL AND BLADDER. MAX ASSIST TO SUPINE; MAX ASSIST WITH ALL ADLS. DIFFICULTY FOLLOWING 1 STEP COMMANDS. RENARD HERRMANN, OTR/L
--- NOTE | 2019-07-13 13:29 | NUR ---
CONFUSED. PHYSICAL THERAPY ASSIST TO STANDING POSITION MAX ASSIST. BEDBATH AND LINEN CHANGE COMPLETE. DENIES ANY NEEDS. CONTINUE PLAN OF CARE AND SAFETY PRECAUTIONS.
[2019-07-13 14:12] VITALS: BP 128/74
--- NOTE | 2019-07-13 18:10 | NUR ---
OT NOTE: PT REQUIRED MAX A FOR BED MOB TASKS. PT REQUIRED TOTAL A FOR LB HYGIENE TASKS. THANK YOU,YOAN MEYER
[2019-07-13 19:00] VITALS: BP 99/63
--- NOTE | 2019-07-13 19:50 | NUR ---
EVENING ROUNDS COMPLETED. VSS, ALERT BUT CONFUSED. PT HAD A BM ACCIDENT. HELP CLEAN PT UP AND PROVIDED FRESH LINEN AND GOWN. 02 @ 4L. CARDIZEM @ 5MLS/HR. UNCONTROLLED A-FIB ON MONITOR. DRESSING ABD C/D/I. PT DENIES ANY FURTHER NEEDS AT THIS TIME. BED ALARM ON. WILL CTM.
[2019-07-13 20:00] VITALS: BP 109/70
[2019-07-14 01:21] VITALS: BP 113/71
--- NOTE | 2019-07-14 02:23 | NUR ---
PT CONVERTED TO SINUS RYTHM, HR 81. WILL CTM.
[2019-07-14 04:00] VITALS: BP 106/65
[2019-07-14 05:36] LABS: BASOPHILS 0 % (0-2); EOSINOPHILS 0.7 % (0-7); HEMATOCRIT 31.6 % (42.0-54.0); IMMATURE GRANULOCYTES 0.3 % (0-5); LYMPHOCYTES 9.1 % (15-50); MCH 29.3 pg (26.0-34.0); MCHC 31.6 g/dL (31.0-37.0); MCV 92.7 fL (80.0-100.0); MEAN PLATELET VOLUME 10.2 fL (7.4-10.4); MONOCYTES 11.6 % (2-11); NEUTROPHILS 78.3 % (40-80); PLATELET COUNT 355 10x3/uL (130-400); RBC 3.41 10x6/uL (4.20-6.10); RDW 14.1 % (11.5-14.5); WBC 9.6 10x3/uL (4.8-10.8)
[2019-07-14 05:53] LABS: CALC OSMOLALITY 293 mosm/kg (275-300); CALCIUM 7.6 mg/dL (8.5-10.1); CARBON DIOXIDE 29.8 mmol/L (21.0-32.0); CHLORIDE - SERUM 109 mmol/L (98-107); CREATININE - SERUM 0.8 mg/dL (0.6-1.3); GLUCOSE 106 mg/dL (74-106); POTASSIUM - SERUM 3.5 mmol/L (3.5-5.1); SODIUM 145 mmol/L (136-145); UREA NITROGEN 26 mg/dL (7-18); eGFR NON AFRICAN AMERICAN > 90 mL/min (90-120)
[2019-07-14 08:00] VITALS: BP 114/63
--- NOTE | 2019-07-14 08:26 | NUR ---
AM MEDS GIVEN AT THIS TIME. PT HAD NO TROUBLE SWALLOWING PILLS. PT A/O X2, RESP EVEN AND NONLABORED ON 3L. RT FA, INFUSING CARDIZEM AT 10CC/HR. PT DENIES ANY NEEDS AT THIS TIME. CALL LIGHT IN REACH, BED ALARM ON, FAMILY AT BEDSIDE,NAD NOTED,W ILL CONTINUE TO MONITOR.
--- NOTE | 2019-07-14 13:32 | NUR ---
PT RESTING COMFORTABLY WITH EYES CLOSED, NAD NOTED, FAMILY AT BEDSIDE, CALL LIGHT IN REACH, NAD NOTED, WILL CONTINUE TO MONITOR.
--- NOTE | 2019-07-14 13:38 | NUR ---
OT NOTE: PT SLIGHTLY MORE VERBAL TODAY. ABLE TO FOLLOW MOST 1 STEP COMMANDS, HOWEVER, UNABLE TO REMEMBER PAST APPROX 1 MIN. BED MOB WITH MOD ASSIST; SITTING BALANCE ON EOB IS FAIR; MAX ASSIST TO LEOBARDO BRIEF, SOCKS, AND GOWN...MOD ASSIST TO WASH FACE WITH CLOTH. TRANSFERRED FROM BED TO CHAIR WITH MOD ASSIST X 2. TOLERATED SITTING UP IN CHAIR FOR APPROX 2 HRS. PT VERY WEAK UPON RETURN TRANSFER TO BED. MAX ASSIST X 2 WITH TRANSFER FROM CHAIR TO BED; MAX ASSIST TO REPOSITION IN BED. RENARD HERRMANN, OTR/L
--- NOTE | 2019-07-14 13:40 | NUR ---
Nutrition Follow-up: Family reports eating well since put on puree. Diet: Regular, Pureed with [place] Thick Liquids No new wt - daily wts ordered Last BM: 07/14 Labs noted: K+ 3.5, Ca 7.6 Meds noted: Lasix, KCl, Pepcid -Continue current diet as tolerated. -+Ensure with meals. -Need new wt. -RD following.
--- NOTE | 2019-07-14 16:47 | MORECARE ---
CASE MANAGEMENT DISCHARGE SUMMARY PATIENT: LIAM ACOSTA UNIT: [id number] ADM DATE: 07/04/19 AGE: 74 : 45 SEX: M ROOM/BED: D.4309 AUTHOR: DENISHA,DOC PHYSICIAN: REFERRING PHYSICIAN: RYAN RAMIREZ MD DATE OF SERVICE: 07/14/19 Discharge Plan Patient Name: LIAM ACOSTA [facility] [facility] 1945 Planned Disposition: Longterm Facility Anticipated Discharge Date: 07/15/19 Discharge Date: Expected LOS: 11 Initial Reviewer: [id number] Initial Review Date: 07/09/2019 Generated: 07/14/19 5:46 pm Comments DCP- Discharge Planning Updated by [id number]: Darrius Vivar on 07/14/19 3:[address] Patient Name: LIAM ACOSTA Encounter No: [id number] : 1945 Primary Insurance: NOVASYSMCR Anticipated DC Date: 07-15-2019 Planned Disposition: Longterm Facility External Planned Provider: [facility], MEDICARE REHAB BED DCP follow-up note: CM SPOKE TO ANÍBAL OF INPATIENT REHAB AT [place], PT IS STILL VERY LOW FUNCTIONING WITH PHYSICAL THERAPY AND RECOMMENDS [facility]. . CM NOTIFIED ADAM OF [facility], , OF REFERRAL FOR REHAB SERVICES. ADAM DID NOT RECEIVE FAX PREVIOUSLY. CM FAXED REFERRAL TO [facility] VIA ADAM AT [phone]. CM WAITITING ADMISSION DETERMINATION FROM THE [facility] WELL INSURANCE AUTHORIZATION FOR REHAB SERVICES. Hydroelectric Station Operator Chief: Darrius Vivar DCP- Discharge Planning Updated by [id number]: Darrius Vivar on 07/12/19 10:[address] Patient Name: LIAM ACOSTA Encounter No: [id number] : 1945 Primary Insurance: NOVASYSMCR Anticipated DC Date: Planned Disposition: Inpatient Rehab External Planned Provider: INPATIENT REHAB Discharge Planning Comments: CM WAITING OCCUPATIONAL THERAPY EVALUATION [facility]AB PRESCEENING BY INPATIENT REHAB. CM MET WITH PT AND SPOUSE IN ROOM, PT SLEEPING SOUNDLY. THERAPY NOTES DISCUSSED WITH PT'S SPOUSE, PT IS MAX ASSIST FOR BED MOBILITY, IS NOT STANDING OR WALKING AT THIS TIME. CM DISCUSSED SECOND OPTION FOR REHAB IF INSURNACE WILL NOT AUTHORIZE INPATIENT REHAB AT [place]. LIST OF PROVIDERS DISCUSSED AND PRPOVIDED. PT'S SPOUSE WOULD LIKE REFERRAL TO [facility] IT IS CLOSE TO THEIR HOME AND PT'S SPOUSE DOES NOT DRIVE. CHOICE COMPLETED FOR THE [facility]. CM SPOKE TO YAMIL OF INPATIENT REHAB AT [place], PT IS VERY LOW FUNCTIONING WITH PHYSICAL THERAPY. CM NOTIFIED ADAM OF [facility], , OF REFERRAL FOR REHAB SERVICES. CM FAXED REFERRAL TO [facility] [address] [address] AT [phone]. CM WAITITING ADMISSION DETERMINATION FROM THE [facility] WELL INSURANCE AUTHORIZATION FOR REHAB SERVICES. Hydroelectric Station Operator Chief: Darrius Vivar DCP- Discharge Planning Updated by [id number]: Darrius Vivar on 07/09/19 1:[address] Patient Name: LIAM ACOSTA Admission Status: ER Accout number: [id number] Admission Date: 07-04-2019 : 1945 Admission Diagnosis: Attending: RYAN RAMIREZ Current LOS: 5 Anticipated DC Date: Planned Disposition: Inpatient Rehab Primary Insurance: [employer] PLANNED EXTERNAL PROVIDER: INPATIENT REHAB Discharge Planning Comments: CM MET WITH PT AND SPOUSE IN ROOM TO DISCUSS DISCHARGE PLANNING AND NEEDS. PT DID NOT SPEAK BUT WAS AWAKE DURING MEETING. PT'S SPOUSE PT LIVING AT HOME DEPENDENTLY WITH SPOUSE WHO ASSISTS WITH MEDICATIONS. PT HAS BEEN BECOMING INCREASINGLY WEAK AT HOME AND SPOUSE REPORTS PT WILL NEED REHAB TO GO HOME. PT HAS CANE AND STANDARD WALKER WITH NO MEDICAL EQUIPMENT PROVIDER PREFERENCE. PT HAS [facility] THROUGH MEDICAID 2 HOURS ON WEEKDAYS AND 5 HOURS ON WEEKEND DAYS. CM DISCUSSED AVAILABILITY OF HOME HEALTH, REHAB SERVICES AND MEDICAL EQUIPMENT. PT'S SPOUSE WOULD LIKE PT CONSIDERED FOR REHAB AT [place] HE HAS BEEN THERE IN THE PAST AN RECEIVED GOOD REHAB. SPOUSE TO PICK PT UP FOR DISCHARGE HOME. IMPORTANT MESSAGE FROM MEDICARE PROVIDED AND EXPLAINED. ORDER FOR PT, OT AND INPATIENT REHAB PRESCREEN OBTAINED FROM DR. RAMIREZ. CM WAITING THERAPY EVALUATIONS [facility]AB PRESCEENING BY INPATIENT REHAB. Hydroelectric Station Operator Chief: Darrius Vivar DCPIA - Discharge Planning Initial Assessment Updated by [id number]: Darrius Vivar on 07/09/19 2:32 pm * Is the patient Alert and Oriented? Yes * How many steps to enter\exit or inside your home? * PCP DR. RAMIREZ * Pharmacy [facility] [address] * Preadmission Environment Home with Family * ADLs Partial Dependent * Partial ADLs (Assistance needed) Medication Management * Equipment Cane Walker * Other Equipment NO MEDICAL EQUIPMENT PROVIDER * List name and contact numbers for known caregivers / representatives who currently or will assist patient after discharge: ZIGGY ACOSTA, SON, JULIEN ACOSTA, , * Verbal permission to speak to the caregivers and representatives has been obtained from the patient. N/A * Community resources currently utilized Private Duty Care * Please name any agencies selected above. [facility], TERMINAL SUPERINTENDENT, 5 DAYS 2 HOURS PER DAY; WEEKENDS 5 HOURS PER DAY * Additional services required to return to the preadmission environment? Yes * Can the patient safely return to the preadmission environment? Yes * Has this patient been hospitalized within the prior 30 days at any hospital? No Coverage Notice Reviewer: [id number] Lissa Vivar Notice Issued Date-Time: 07/09/2019 9:10 Notice Type: IM Discharge Notice Notice Delivered To: Patient Relationship to Patient: Pulmonary Function Technologist Name: Delivery Method: HAND - Hand Delivered Pao Days: Prior Verbal Notification: Recipient Understood Notice: Yes Recipient Signature: Yes Med Rec Note Co-signed by Attending: Coverage Notice Comment: Reviewer: [id number] Vivar Notice Issued Date-Time: 07/12/2019 10:10 Notice Type: Patient Choice Letter Notice Delivered To: Family Member Relationship to Patient: Spouse Pulmonary Function Technologist Name: JULIEN ACOSTA Delivery Method: HAND - Hand Delivered Pao Days: Prior Verbal Notification: Recipient Understood Notice: Yes Recipient Signature: Yes Med Rec Note Co-signed by Attending: Coverage Notice Comment: LUIS Oakley DP export: 07/12/19 1:45 Patient Name: LIAM ACOSTA Page 52380 at 1647 All edits/amendments must be made on the electronic document DICTATION DATE: 07/14/191645 INFORMATION TECHNOLOGY INTERNSHIP: ANTONELLA 07/14/191645 RPT#: [id number] DE DATE: STATUS: ADM IN [address] [place] [address] END OF REPORT
[2019-07-14 17:16] VITALS: BP 118/79
--- NOTE | 2019-07-14 19:25 | NUR ---
RECEIVED BEDSIDE REPORT. PATIENT IS ALERT AND PLEASANTLY CONFUSED. RESPIRATIONS ARE EVEN AND UNLABORED. NO S/S OF DISTRESS. NO C/OPAIN. CALL LIGHT WITHIN REACH. WILL CPOC.
[2019-07-14 20:00] VITALS: BP 126/72
[2019-07-15] VITALS: BP 107/56
[2019-07-15 04:00] VITALS: BP 117/75
--- NOTE | 2019-07-15 07:10 | NUR ---
REPORT RECEVED FROM STRUCTURAL ENGINEER AND PATIENT CARE ASSUMED. PATIENT LAYING IN BED ON LT SIDE WITH EYES CLOSED AND BREATHING EVENLY. WILL CONTINUE WITH PLAN OF CARE. SR UP X 2 BED IN LOW POSITION AND CALL LIGHT IN REACH.
[2019-07-15 07:16] LABS: HEMATOCRIT 34.3 % (42.0-54.0); HEMOGLOBIN 10.9 g/dL (13.5-17.5); MCH 29.5 pg (26.0-34.0); MCHC 31.8 g/dL (31.0-37.0); MCV 92.7 fL (80.0-100.0); MEAN PLATELET VOLUME 11.1 fL (7.4-10.4); PLATELET COUNT 339 10x3/uL (130-400); RDW 14.1 % (11.5-14.5)
[2019-07-15 07:18] LABS: WBC 13.2 10x3/uL (4.8-10.8)
[2019-07-15 07:55] LABS: ANION GAP 9.2 mmol/L (8-16); CALCIUM 8.4 mg/dL (8.5-10.1); CARBON DIOXIDE 30.9 mmol/L (21.0-32.0); POTASSIUM - SERUM 3.1 mmol/L (3.5-5.1)
[2019-07-15 07:56] LABS: CREATININE - SERUM 1.1 mg/dL (0.6-1.3)
[2019-07-15 10:02] LABS: EOSINOPHILS 3 % (0-7); LYMPHOCYTES 10 % (15-50); MONOCYTES 9 % (2-11); NEUTROPHILS 76 % (40-80); PLATELET ESTIMATE INCREASED; PLATELET MORPHOLOGY PLT CLUMPS PRESENT; POIKILOCYTOSIS OCC
[2019-07-15 10:39] VITALS: BP 108/69
[2019-07-15 13:19] VITALS: BP 110/84
--- NOTE | 2019-07-15 14:35 | NUR ---
PATIENT HAS HAD MULTIPLE LIQUID STOOLS TODAY. PATIENT ALWAYS CLEANED WITH LINENS CHANGED. ORDER RECEIVED FOR C DIFF. SPECIMEN COLLECTED . PATIENT IS OTHERWISE STABLE AND VSS. PATIENT DENIES ANY NEEDS OR PAIN. WILL CONTINUE TO MONITOR. SR UP X 2 BED IN LOW POSITION AND CALL LIGHT IN REACH.
--- NOTE | 2019-07-15 16:07 | NUR ---
POTASIUM RE-DRAW RETURNED AT 3.0. MEDICATED PER MAR WITH KDUR 40 MEQ.
--- NOTE | 2019-07-15 17:03 | MORECARE ---
CASE MANAGEMENT DISCHARGE SUMMARY PATIENT: LIAM ACOSTA UNIT: [id number] ADM DATE: 07/04/19 AGE: 74 : 45 SEX: M ROOM/BED: D.8059 AUTHOR: DENISHA,DOC PHYSICIAN: REFERRING PHYSICIAN: RYAN RAMIREZ MD DATE OF SERVICE: 07/15/19 Discharge Plan Patient Name: LIAM ACOSTA [facility] [facility] 1945 Planned Disposition: Longterm Facility Anticipated Discharge Date: 07/19/19 Discharge Date: Expected LOS: 15 Initial Reviewer: [id number] Initial Review Date: 07/09/2019 Generated: 07/15/19 6:02 pm Comments DCP- Discharge Planning Updated by [email or web address]: Darrius Vivar on 07/14/19 3:[address] Patient Name: LIAM ACOSTA Encounter No: [id number] : 1945 Primary Insurance: NOVASYSMCR Anticipated DC Date: 07-15-2019 Planned Disposition: Longterm Facility External Planned Provider: [facility], MEDICARE REHAB BED DCP follow-up note: CM SPOKE TO ANÍBAL OF INPATIENT REHAB AT [place], PT IS STILL VERY LOW FUNCTIONING WITH PHYSICAL THERAPY AND RECOMMENDS [facility]. . CM NOTIFIED ADAM OF [facility], , OF REFERRAL FOR REHAB SERVICES. ADAM DID NOT RECEIVE FAX PREVIOUSLY. CM FAXED REFERRAL TO [facility] VIA [facility] AT [phone]. CM WAITITING ADMISSION DETERMINATION FROM [facility] WELL INSURANCE AUTHORIZATION FOR REHAB SERVICES. Supervisor Parking Lot: Darrius Vivar DCP- Discharge Planning Updated by [id number]: Darrius Vivar on 07/12/19 10:[address] Patient Name: LIAM ACOSTA Encounter No: [id number] : 1945 Primary Insurance: NOVASYSMCR Anticipated DC Date: Planned Disposition: Inpatient Rehab External Planned Provider: [facility] Discharge Planning Comments: CM WAITING OCCUPATIONAL THERAPY EVALUATION [facility] PRESCEENING BY [facility]. CM MET WITH PT AND SPOUSE IN ROOM, PT SLEEPING SOUNDLY. THERAPY NOTES DISCUSSED WITH PT'S SPOUSE, PT IS MAX ASSIST FOR BED MOBILITY, IS NOT STANDING OR WALKING AT THIS TIME. CM DISCUSSED SECOND OPTION FOR REHAB IF INSURNACE WILL NOT AUTHORIZE INPATIENT REHAB AT [place]. LIST OF PROVIDERS DISCUSSED AND PRPOVIDED. PT'S SPOUSE WOULD LIKE REFERRAL TO [facility] IT IS CLOSE TO THEIR HOME AND PT'S SPOUSE DOES NOT DRIVE. CHOICE COMPLETED FOR [facility]. CM SPOKE TO YAMIL OF INPATIENT REHAB AT [place], PT IS VERY LOW FUNCTIONING WITH PHYSICAL THERAPY. CM NOTIFIED ADAM OF [facility], , OF REFERRAL FOR REHAB SERVICES. CM FAXED REFERRAL TO [facility] VIA [address] AT [phone]. CM WAITITING ADMISSION DETERMINATION FROM [facility] WELL INSURANCE AUTHORIZATION FOR REHAB SERVICES. Supervisor Parking Lot: Darrius Vivar DCP- Discharge Planning Updated by [id number]: Darrius Vivar on 07/09/19 1:[address] Patient Name: LIAM ACOSTA Admission Status: ER Accout number: [id number] Admission Date: 07-04-2019 : 1945 Admission Diagnosis: Attending: RYAN RAMIREZ Current LOS: 5 Anticipated DC Date: Planned Disposition: Inpatient Rehab Primary Insurance: [employer] PLANNED EXTERNAL PROVIDER: [facility] Discharge Planning Comments: CM MET WITH PT AND SPOUSE IN ROOM TO DISCUSS DISCHARGE PLANNING AND NEEDS. PT DID NOT SPEAK BUT WAS AWAKE DURING MEETING. PT'S SPOUSE PT LIVING AT HOME DEPENDENTLY WITH SPOUSE WHO ASSISTS WITH MEDICATIONS. PT HAS BEEN BECOMING INCREASINGLY WEAK AT HOME AND SPOUSE REPORTS PT WILL NEED REHAB TO GO HOME. PT HAS CANE AND STANDARD WALKER WITH NO MEDICAL EQUIPMENT PROVIDER PREFERENCE. PT HAS [facility] THROUGH MEDICAID 2 HOURS ON WEEKDAYS AND 5 HOURS ON WEEKEND DAYS. CM DISCUSSED AVAILABILITY OF HOME HEALTH, REHAB SERVICES AND MEDICAL EQUIPMENT. PT'S SPOUSE WOULD LIKE PT CONSIDERED FOR REHAB AT [place] HE HAS BEEN THERE IN THE PAST AN RECEIVED GOOD REHAB. SPOUSE TO PICK PT UP FOR DISCHARGE HOME. IMPORTANT MESSAGE FROM [employer]ICARE PROVIDED AND EXPLAINED. ORDER FOR PT, OT AND INPATIENT REHAB PRESCREEN OBTAINED FROM DR. RAMIREZ. CM WAITING THERAPY EVALUATIONS [facility] PRESCEENING BY [facility]. Supervisor Parking Lot: Darrius Vivar DCPIA - Discharge Planning Initial Assessment Updated by [id number]: Darrius Vivar on 07/09/19 2:32 pm * Is the patient Alert and Oriented? Yes * How many steps to enter\exit or inside your home? * PCP DR. RAMIREZ * Pharmacy [facility] ON [address] * Preadmission Environment Home with Family * ADLs Partial Dependent * Partial ADLs (Assistance needed) Medication Management * Equipment Cane Walker * Other Equipment NO MEDICAL EQUIPMENT PROVIDER * List name and contact numbers for known caregivers / representatives who currently or will assist patient after discharge: ZIGGY ACOSTA, SON, JULIEN ACOSTA, , * Verbal permission to speak to the caregivers and representatives has been obtained from the patient. N/A * Community resources currently utilized Private Duty Care * Please name any agencies selected above. [facility], [employer], 5 DAYS 2 HOURS PER DAY; WEEKENDS 5 HOURS PER DAY * Additional services required to return to the preadmission environment? Yes * Can the patient safely return to the preadmission environment? Yes * Has this patient been hospitalized within the prior 30 days at any hospital? No Coverage Notice Reviewer: [id number] Lissa Vivar Notice Issued Date-Time: 07/09/2019 9:10 Notice Type: IM Discharge Notice Notice Delivered To: Patient Relationship to Patient: Privacy Attorney Name: Delivery Method: HAND - Hand Delivered Pao Days: Prior Verbal Notification: Recipient Understood Notice: Yes Recipient Signature: Yes Med Rec Note Co-signed by Attending: Coverage Notice Comment: Reviewer: [id number] Lissa Vivar Notice Issued Date-Time: 07/12/2019 10:10 Notice Type: Patient Choice Letter Notice Delivered To: Family Member Relationship to Patient: Spouse Privacy Attorney Name: JULIEN ACOSTA Delivery Method: HAND - Hand Delivered Pao Days: Prior Verbal Notification: Recipient Understood Notice: Yes Recipient Signature: Yes Med Rec Note Co-signed by Attending: Coverage Notice Comment: THE BRANDEE Oakley DP export: 07/14/19 3:47 Patient Name: LIAM ACOSTA Page 53944 at 1703 All edits/amendments must be made on the electronic document DICTATION DATE: 07/15/191701 MACHINIST BRAKE: ANTONELLA 07/15/191701 RPT#: [id number] IN DATE: STATUS: ADM IN [facility] [address] [place] [address] END OF REPORT
--- NOTE | 2019-07-15 17:11 | MORECARE ---
CASE MANAGEMENT DISCHARGE SUMMARY PATIENT: LIAM ACOSTA UNIT: [id number] ADM DATE: 07/04/19 AGE: 74 : 45 SEX: M ROOM/BED: D.6829 AUTHOR: EDUARDO DENNY PHYSICIAN: REFERRING PHYSICIAN: RYAN RAMIREZ MD DATE OF SERVICE: 07/15/19 Discharge Plan Patient Name: LIAM ACOSTA Facility: [facility]:[place] : 1945 Planned Disposition: [facility] Facility Anticipated Discharge Date: 07/19/19 Discharge Date: Expected LOS: 15 Initial Reviewer: [id number] Initial Review Date: 07/09/2019 Generated: 07/15/19 6:11 pm Comments DCP- Discharge Planning Updated by [id number]: Darrius Vivar on 07/15/19 4:[address] Patient Name: LIAM ACOSTA Encounter No: [id number] : 1945 Primary Insurance: NOVASYSMCR Anticipated DC Date: 07-19-2019 Planned Disposition: [facility] Facility External Planned Provider: [facility], MEDICARE REHAB BED DCP follow-up note: CM RECEIVED MESSAGE THAT THE [facility] IS OUT OF NETWORK WITH PT'S INSURANCE. CM SPOKE TO PT AND SPOUSE IN ROOM, DISCUSSED OPTIONS, PROVIDED LISTING OF AVAILABLE SKILLED REHABS IN [place]. PT'S ASKED THAT REFERRALS BE SENT TO [facility]. IMPORTANT MESSAGE FROM MEDICARE PROVIDED AND EXPLAINED. CM VERIFIED THESE FACILITIES ARE IN NETWORK WITH PT'S INSURANCE PER B[employer]ITA ORELLANA [facility] [employer] THAT REPRESENTS THESE FACILITIES. CHOICE SIGNED. BONITA ADVISED THAT PT'S INSURANCE CAN TAKE "UP TO A FEW DAYS TO AUTHORIZE SERVICES." CM TO SEND REFERRALS FOR REHAB TO [facility] SOON POSSIBLE. TRAY Dong DCP- Discharge Planning Updated by [id number]: Darrius Vivar on 07/14/19 3:[address] Patient Name: LIAM ACOSTA Encounter No: [id number] : 1945 Primary Insurance: NOVASYSMCR Anticipated DC Date: 07-15-2019 Planned Disposition: [facility] Facility External Planned Provider: [facility], MEDICARE REHAB BED DCP follow-up note: CM SPOKE TO ANÍBAL OF INPATIENT REHAB AT [place], PT IS STILL VERY LOW FUNCTIONING WITH PHYSICAL THERAPY AND RECOMMENDS [facility] RE[facility]. . CM NOTIFIED ADAM OF [facility], , OF REFERRAL FOR REHAB SERVICES. ADAM DID NOT RECEIVE FAX PREVIOUSLY. CM FAXED REFERRAL TO [facility] VIA ADAM AT [phone]. CM WAITITING ADMISSION DETERMINATION FROM [facility] WELL INSURANCE AUTHORIZATION FOR REHAB SERVICES. Actuarial Science Professor: Darrius Vivar DCP- Discharge Planning Updated by [id number]: Darrius Vivar on 07/12/19 10:[address] Patient Name: LIAM ACOSTA Encounter No: [id number] : 1945 Primary Insurance: NOVASYSMCR Anticipated DC Date: Planned Disposition: Inpatient Rehab External Planned Provider: [facility] IN[facility]IENT [facility] Discharge Planning Comments: CM WAITING OCCUPATIONAL THERAPY EVALUATION [facility] PRESCEENING BY [facility]. CM MET WITH PT AND SPOUSE IN ROOM, PT SLEEPING SOUNDLY. THERAPY NOTES DISCUSSED WITH PT'S SPOUSE, PT IS MAX ASSIST FOR BED MOBILITY, IS NOT STANDING OR WALKING AT THIS TIME. CM DISCUSSED SECOND OPTION FOR REHAB IF INSURNACE WILL NOT AUTHORIZE INPATIENT REHAB AT [place]. LIST OF PROVIDERS DISCUSSED AND PRPOVIDED. PT'S SPOUSE WOULD LIKE REFERRAL TO [facility] IT IS CLOSE TO THEIR HOME AND PT'S SPOUSE DOES NOT DRIVE. CHOICE COMPLETED FOR [facility]. CM SPOKE TO YAMIL OF INPATIENT REHAB AT [place], PT IS VERY LOW FUNCTIONING WITH PHYSICAL THERAPY. CM NOTIFIED ADAM OF [facility], , OF REFERRAL FOR REHAB SERVICES. CM FAXED REFERRAL TO [facility] VIA ADAM AT [phone]. CM WAITITING ADMISSION DETERMINATION FROM [facility] WELL INSURANCE AUTHORIZATION FOR REHAB SERVICES. Actuarial Science Professor: Darrius Vivar DCP- Discharge Planning Updated by [id number]: Darrius Vivar on 07/09/19 1:[address] Patient Name: LIAM ACOSTA Admission Status: ER Accout number: [id number] Admission Date: 07-04-2019 : 1945 Admission Diagnosis: Attending: RYAN RAMIREZ Current LOS: 5 Anticipated DC Date: Planned Disposition: Inpatient Rehab Primary Insurance: [employer] PLANNED EXTERNAL PROVIDER: [facility] IN[facility] Discharge Planning Comments: CM MET WITH PT AND SPOUSE IN ROOM TO DISCUSS DISCHARGE PLANNING AND NEEDS. PT DID NOT SPEAK BUT WAS AWAKE DURING MEETING. PT'S SPOUSE PT LIVING AT HOME DEPENDENTLY WITH SPOUSE WHO ASSISTS WITH MEDICATIONS. PT HAS BEEN BECOMING INCREASINGLY WEAK AT HOME AND SPOUSE REPORTS PT WILL NEED REHAB TO GO HOME. PT HAS CANE AND STANDARD WALKER WITH NO MEDICAL EQUIPMENT PROVIDER PREFERENCE. PT HAS [facility] THROUGH MEDICAID 2 HOURS ON WEEKDAYS AND 5 HOURS ON WEEKEND DAYS. CM DISCUSSED AVAILABILITY OF HOME HEALTH, REHAB SERVICES AND MEDICAL EQUIPMENT. PT'S SPOUSE WOULD LIKE PT CONSIDERED FOR REHAB AT [place] HE HAS BEEN THERE IN THE PAST AN RECEIVED GOOD REHAB. SPOUSE TO PICK PT UP FOR DISCHARGE HOME. IMPORTANT MESSAGE FROM MEDICARE PROVIDED AND EXPLAINED. ORDER FOR PT, OT AND INPATIENT REHAB PRESCREEN OBTAINED FROM DR. RAMIREZ. CM WAITING THERAPY EVALUATIONS [facility] PRESCEENING BY [facility]. Actuarial Science Professor: Darrius Vivar DCPIA - Discharge Planning Initial Assessment Updated by [id number]: Darrius Vivar on 07/09/19 2:32 pm * Is the patient Alert and Oriented? Yes * How many steps to enter\\exit or inside your home? * PCP DR. RAMIREZ * Pharmacy [facility] [address] * Preadmission Environment Home with Family * ADLs Partial Dependent * Partial ADLs (Assistance needed) Medication Management * Equipment Cane Walker * Other Equipment NO MEDICAL EQUIPMENT PROVIDER * List name and contact numbers for known caregivers / representatives who currently or will assist patient after discharge: ZIGGY ACOSTA, SON, JULIEN ACOSTA, , * Verbal permission to speak to the caregivers and representatives has been obtained from the patient. N/A * Community resources currently utilized Private Duty Care * Please name any agencies selected above. [employer], [employer]MANCE [employer]OV[employer] DIRECT[employer], 5 DAYS 2 HOURS PER DAY; WEEKENDS 5 HOURS PER DAY * Additional services required to return to the preadmission environment? Yes * Can the patient safely return to the preadmission environment? Yes * Has this patient been hospitalized within the prior 30 days at any hospital? No Coverage Notice Reviewer: [id number] Vivar Notice Issued Date-Time: 07/09/2019 9:10 Notice Type: IM Discharge Notice Notice Delivered To: Patient Relationship to Patient: Subway Train Operator Name: Delivery Method: HAND - Hand Delivered Pao Days: Prior Verbal Notification: Recipient Understood Notice: Yes Recipient Signature: Yes Med Rec Note Co-signed by Attending: Coverage Notice Comment: Reviewer: GEORGE Vivar Notice Issued Date-Time: 07/12/2019 10:10 Notice Type: Patient Choice Letter Notice Delivered To: Family Member Relationship to Patient: Spouse Subway Train Operator Name: JULIEN ACOSTA Delivery Method: HAND - Hand Delivered Pao Days: Prior Verbal Notification: Recipient Understood Notice: Yes Recipient Signature: Yes Med Rec Note Co-signed by Attending: Coverage Notice Comment: GHULAM IRVIN Reviewer: GEORGE Vivar Notice Issued Date-Time: 07/15/2019 12:20 Notice Type: IM Discharge Notice Notice Delivered To: Family Member Relationship to Patient: Spouse Subway Train Operator Name: JULIEN ACOSTA Delivery Method: HAND - Hand Delivered Pao Days: Prior Verbal Notification: Recipient Understood Notice: Yes Recipient Signature: Yes Med Rec Note Co-signed by Attending: Coverage Notice Comment: Reviewer: GEORGE Vivar Notice Issued Date-Time: 07/15/2019 12:20 Notice Type: Patient Choice Letter Notice Delivered To: Family Member Relationship to Patient: Spouse Subway Train Operator Name: JULIEN ACOSTA Delivery Method: HAND - Hand Delivered Pao Days: Prior Verbal Notification: Recipient Understood Notice: Yes Recipient Signature: Yes Med Rec Note Co-signed by Attending: Coverage Notice Comment: GERMAN TINOCO AND KELLY ATKINSON Last DP export: 07/15/19 4:03 Patient Name: LIAM ACOSTA Page 53317 at 1711 All edits/amendments must be made on the electronic document DICTATION DATE: 07/15/191710 GLUE LINE OPERATOR: ANTONELLA 07/15/191710 RPT#: [id number] OK DATE: STATUS: ADM IN [facility] [address] [place] [address] END OF REPORT
[2019-07-15 18:10] VITALS: BP 116/72
--- NOTE | 2019-07-15 18:26 | MORECARE ---
CASE MANAGEMENT DISCHARGE SUMMARY PATIENT: LIAM ACOSTA UNIT: [id number] ADM DATE: 07/04/19 AGE: 74 : 45 SEX: M ROOM/BED: D.5314 AUTHOR: DENISHA,DOC PHYSICIAN: REFERRING PHYSICIAN: RYAN RAMIREZ MD DATE OF SERVICE: 07/15/19 Discharge Plan Patient Name: LIAM ACOSTA Facility: [facility]:[place] : 1945 Planned Disposition: [facility] Facility Anticipated Discharge Date: 07/19/19 Discharge Date: Expected LOS: 15 Initial Reviewer: [id number] Initial Review Date: 07/09/2019 Generated: 07/15/19 7:26 pm Comments DCP- Discharge Planning Updated by [id number]: Darrius Gonzalez on 07/15/19 5:[address] Patient Name: LIAM ACOSTA Encounter No: [id number] : 1945 Primary Insurance: N[employer]ASYSMCR Anticipated DC Date: 07-19-2019 Planned Disposition: [facility] Facility External Planned Provider: [facility], MEDICARE REHAB BED DCP follow-up note: CM RECEIVED MESSAGE THAT [facility] IS OUT OF NETWORK WITH PT'S INSURANCE. CM SPOKE TO PT AND SPOUSE IN ROOM, DISCUSSED OPTIONS, PROVIDED LISTING OF AVAILABLE SKILLED REHABS IN [place]. PT'S ASKED THAT REFERRALS BE SENT TO [facility], [facility] AND [facility]. IMPORTANT MESSAGE FROM MEDICARE PROVIDED AND EXPLAINED. CM VERIFIED THESE FACILITIES ARE IN NETWORK WITH PT'S INSURANCE PER BONITA ORELLANA OF [facility] THAT REPRESENTS THESE FACILITIES. CHOICE SIGNED. BONITA ADVISED THAT PT'S INSURANCE CAN TAKE "UP TO A FEW DAYS TO AUTHORIZE SERVICES." CM TO SEND REFERRALS FOR REHAB TO [facility], [facility] AND [facility] SOON POSSIBLE. Darrius Gonzalez, CASE MANAGEMENT Appended by Darrius Gonzalez on 07/15/2019 18:24 GOLF BALL WINDER: CM FAXED REFERRAL TO BONITA ORELLANA OF [facility], FOR [facility], [facility] AND [facility] REHAB. CM NOTIFED BONITA OF REFERRAL AT [phone]. CM WAITING ADMISSION DETERMINATIONS FROM [facility], [facility] AND [facility] REHAB WELL INSURANCE DETERMINATION FOR REHAB SERVICES. GIANCARLO GONZALEZ, CASE MANAGEMENT DCP- Discharge Planning Updated by [id number]: Darrius Gonzalez on 07/14/19 3:[address] Patient Name: LIAM ACOSTA Encounter No: [id number] : 1945 Primary Insurance: NOVASYCR Anticipated DC Date: 07-15-2019 Planned Disposition: [facility] Facility External Planned Provider: [facility], MEDICARE REHAB BED DCP follow-up note: CM SPOKE TO ANÍBAL OF INPATIENT REHAB AT [place], PT IS STILL VERY LOW FUNCTIONING WITH PHYSICAL THERAPY AND RECOMMENDS [facility] REHAB. . CM NOTIFIED ADAM OF [facility], , OF REFERRAL FOR REHAB SERVICES. ADAM DID NOT RECEIVE FAX PREVIOUSLY. CM FAXED REFERRAL TO [facility] VIA ADAM AT [phone]. CM WAITITING ADMISSION DETERMINATION FROM [facility] WELL INSURANCE AUTHORIZATION FOR REHAB SERVICES. Tearer: Darrius Gonzalez DCP- Discharge Planning Updated by [id number]: Darrius Gonzalez on 07/12/19 10:[address] Patient Name: LIAM ACOSTA Encounter No: [id number] : 1945 Primary [facility] Anticipated DC Date: Planned Disposition: Inpatient Rehab External Planned Provider: [facility] INPAT[facility] Discharge Planning Comments: CM WAITING OCCUPATIONAL THERAPY EVALUATION [facility] RE[facility]AB PRESCEENING BY [facility]PAT[facility]. CM MET WITH PT AND SPOUSE IN ROOM, PT SLEEPING SOUNDLY. THERAPY NOTES DISCUSSED WITH PT'S SPOUSE, PT IS MAX ASSIST FOR BED MOBILITY, IS NOT STANDING OR WALKING AT THIS TIME. CM DISCUSSED SECOND OPTION FOR REHAB IF INSURNACE WILL NOT AUTHORIZE INPATIENT REHAB AT [place]. LIST OF PROVIDERS DISCUSSED AND PRPOVIDED. PT'S SPOUSE WOULD LIKE REFERRAL TO [facility] IT IS CLOSE TO THEIR HOME AND PT'S SPOUSE DOES NOT DRIVE. CHOICE COMPLETED FOR [facility]. CM SPOKE TO YAMIL OF INPATIENT REHAB AT [place], PT IS VERY LOW FUNCTIONING WITH PHYSICAL THERAPY. CM NOTIFIED ADAM OF [facility], , OF REFERRAL FOR REHAB SERVICES. CM FAXED REFERRAL TO [facility] VIA ADAM AT [phone]. CM WAITITING ADMISSION DETERMINATION FROM [facility] WELL INSURANCE AUTHORIZATION FOR REHAB SERVICES. Tearer: Darrius Gonzalez DCP- Discharge Planning Updated by [id number]: Darrius Gonzalez on 07/09/19 1:[address] Patient Name: LIAM ACOSTA Admission Status: ER Accout number: [id number] Admission Date: 07-04-2019 : 1945 Admission Diagnosis: Attending: RYAN RAMIREZ Current LOS: 5 Anticipated DC Date: Planned Disposition: Inpatient Rehab Primary Insurance: [employer] PLANNED EXTERNAL PROVIDER: [facility] INPAT[facility] Discharge Planning Comments: CM MET WITH PT AND SPOUSE IN ROOM TO DISCUSS DISCHARGE PLANNING AND NEEDS. PT DID NOT SPEAK BUT WAS AWAKE DURING MEETING. PT'S SPOUSE PT LIVING AT HOME DEPENDENTLY WITH SPOUSE WHO ASSISTS WITH MEDICATIONS. PT HAS BEEN BECOMING INCREASINGLY WEAK AT HOME AND SPOUSE REPORTS PT WILL NEED REHAB TO GO HOME. PT HAS CANE AND STANDARD WALKER WITH NO MEDICAL EQUIPMENT PROVIDER PREFERENCE. PT HAS [employer] [facility] THROUGH MEDICAID 2 HOURS ON WEEKDAYS AND 5 HOURS ON WEEKEND DAYS. CM DISCUSSED AVAILABILITY OF HOME HEALTH, REHAB SERVICES AND MEDICAL EQUIPMENT. PT'S SPOUSE WOULD LIKE PT CONSIDERED FOR REHAB AT [place] HE HAS BEEN THERE IN THE PAST AN RECEIVED GOOD REHAB. SPOUSE TO PICK PT UP FOR DISCHARGE HOME. IMPORTANT MESSAGE FROM MEDICARE PROVIDED AND EXPLAINED. ORDER FOR PT, OT AND INPATIENT REHAB PRESCREEN OBTAINED FROM DR. RAMIREZ. CM WAITING THERAPY EVALUATIONS [facility] REHAB PRESCEENING BY [facility]PAT[facility]. Tearer: Darrius Gonzalez DCPIA - Discharge Planning Initial Assessment Updated by [id number]: Darrius Gonzalez on 07/09/19 2:32 pm * Is the patient Alert and Oriented? Yes * How many steps to enter\\exit or inside your home? * PCP DR. RAMIREZ * Pharmacy [facility] [address] * Preadmission Environment Home with Family * ADLs Partial Dependent * Partial ADLs (Assistance needed) Medication Management * Equipment Cane Walker * Other Equipment NO MEDICAL EQUIPMENT PROVIDER * List name and contact numbers for known caregivers / representatives who currently or will assist patient after discharge: ZIGGY ACOSTA, SON, JULIEN ACOSTA, , * Verbal permission to speak to the caregivers and representatives has been obtained from the patient. N/A * Community resources currently utilized Private Duty Care * Please name any agencies selected above. [employer], [employer], 5 DAYS 2 HOURS PER DAY; WEEKENDS 5 HOURS PER DAY * Additional services required to return to the preadmission environment? Yes * Can the patient safely return to the preadmission environment? Yes * Has this patient been hospitalized within the prior 30 days at any hospital? No External Providers External Provider: [facility] Next Contact Date: 07/16/2019 Service Request Date: Service Type: Resolution: Reviewer: Comments: Coverage Notice Reviewer: [id number] Gonzalez Notice Issued Date-Time: 07/09/2019 9:10 Notice Type: IM Discharge Notice Notice Delivered To: Patient Relationship to Patient: Breast Trimmer Name: Delivery Method: HAND - Hand Delivered Pao Days: Prior Verbal Notification: Recipient Understood Notice: Yes Recipient Signature: Yes Med Rec Note Co-signed by Attending: Coverage Notice Comment: Reviewer: GEORGE Gonzalez Notice Issued Date-Time: 07/12/2019 10:10 Notice Type: Patient Choice Letter Notice Delivered To: Family Member Relationship to Patient: Spouse Breast Trimmer Name: JULIEN ACOSTA Delivery Method: HAND - Hand Delivered Pao Days: Prior Verbal Notification: Recipient Understood Notice: Yes Recipient Signature: Yes Med Rec Note Co-signed by Attending: Coverage Notice Comment: GHULAM IRVIN Reviewer: [id number] Gonzalez Notice Issued Date-Time: 07/15/2019 12:20 Notice Type: IM Discharge Notice Notice Delivered To: Family Member Relationship to Patient: Spouse Breast Trimmer Name: JULIEN ACOSTA Delivery Method: HAND - Hand Delivered Pao Days: Prior Verbal Notification: Recipient Understood Notice: Yes Recipient Signature: Yes Med Rec Note Co-signed by Attending: Coverage Notice Comment: Reviewer: [id number] Gonzalez Notice Issued Date-Time: 07/15/2019 12:20 Notice Type: Patient Choice Letter Notice Delivered To: Family Member Relationship to Patient: Spouse Breast Trimmer Name: JULIEN ACOSTA Delivery Method: HAND - Hand Delivered Pao Days: Prior Verbal Notification: Recipient Understood Notice: Yes Recipient Signature: Yes Med Rec Note Co-signed by Attending: Coverage Notice Comment: ZAKI TINOCO Last DP export: 07/15/19 4:11 Patient Name: LIAM ACOSTA Page [id number] at 1826 All edits/amendments must be made on the electronic document DICTATION DATE: 07/15/191825 ENGINEERING LAB TECHNICIAN: ANTONELLA 07/15/191825 RPT#: [id number] DC DATE: STATUS: ADM IN [facility] [address] [place] [address] END OF REPORT
--- NOTE | 2019-07-15 19:51 | NUR ---
RECEIVED BEDSIDE REPORT. PATIENT IS ALERT AND ORIENTED X 2, RESTING COMFORTALY IN BED. RESPIRATIONS ARE EVEN AND UNLABORED. NO S/S OF DISTRESS. NO C/O PAIN. CALL LIGHT WITHIN REACH. WILL CPOC.
[2019-07-15 20:00] VITALS: BP 112/70
--- NOTE | 2019-07-15 22:27 | NUR ---
PATIENT REMOVED HIS IV. NEW IV RIGHT WRIST.
[2019-07-16] VITALS: BP 114/72
[2019-07-16 04:00] VITALS: BP 111/72
--- NOTE | 2019-07-16 08:48 | NUR ---
PT IN ROOM. PATIENT UP TO BS CHAIR. CALL LIGHT IN REACH. IN ROOM. WILL CONTINUE TO MONITOR.
[2019-07-16 09:06] VITALS: BP 120/80
--- NOTE | 2019-07-16 10:30 | NUR ---
PATIENT BACK TO BED WITH PT ASSISTANCE. P[ATIENT IS STABLE AND VSS. PATIENT DENIES ANY NEEDS OR PAIN. WILL CONTINUE TO MONITOR. SR UP X 2 BED IN LOW POSITION AND CALL LIGHT IN REACH. AT BS.
--- NOTE | 2019-07-16 11:23 | NUR ---
OT NOTE: PT DOING MUCH BETTER TODAY. PT WAS ABLE TO PERFORM BED MOB WITH MOD ASSIST; SITTING BALANCE WAS FAIR; ABLE TO STAND WITH MIN/MOD ASSIST WITH WALKER AND WAS ABLE TO TAKE APPROX 5 STEPS TODAY. PT ALSO AWARE THAT HE HAD AN EPISODE OF INCONTINENCE, WHICH HE HAS PREVIOUSLY BEEN UNAWARE. REQUIRED MAX ASSIST WITH TOILET HYGIENE; MAX ASSIST TO LEOBARDO AND DOFF BRIEF. PT WITH IMPROVEMENT IN STRENGTH AND TRUNK CONTROL NOTED TODAY. PT MORE VERBALLY RESPONSIVE. RENARD HERRMANN,OTR/L [phone]
--- NOTE | 2019-07-16 12:07 | MORECARE ---
CASE MANAGEMENT DISCHARGE SUMMARY PATIENT: LIAM ACOSTA UNIT: [id number] ADM DATE: 07/04/19 AGE: 74 : 45 SEX: M ROOM/BED: D.6988 AUTHOR: EDUARDO DENNY PHYSICIAN: REFERRING PHYSICIAN: RYAN RAMIREZ MD DATE OF SERVICE: 07/16/19 Discharge Plan Patient Name: LIAM ACOSTA Facility: [facility]:[place] : 1945 Planned Disposition: Jail Facility Anticipated Discharge Date: 07/19/19 Discharge Date: Expected LOS: 15 Initial Reviewer: [id number] Initial Review Date: 07/09/2019 Generated: 07/16/19 1:07 pm Comments DCP- Discharge Planning Updated by [id number]: Darrius Gonzalez on 07/16/19 11:[address] Patient Name: LIAM ACOSTA Encounter No: [id number] : 1945 Primary Insurance: NOVASYSMCR Anticipated DC Date: 07-19-2019 Planned Disposition: Jail Facility External Planned Provider: [facility], MEDICARE REHAB BED DCP follow-up note: CM FAXED REFERRAL UPDATE TO [facility], FOR [facility], [facility] AND [facility] RE[facility]. CM NOTIFED BONITA OF REFERRAL AT [phone]. CM RECEIVED CALL FROM JUAN OF [facility] WHO IS PROCESSING FOR REHAB ADMISSION. SHE WILL HAVE TO CHECK WITH INSURANCE WELL PT'S CANCER TREATMENT DOCTOR; CM SPOKE TO PT'S WHO REPORTS PT IS PENDING THREE MORE CANCER TREATMENTS AFTER THE FIRST OF THE YEAR, PT IS NOT ON ORAL CANCER MEDICATIONS. JUAN OF [facility] NOTIFIED. CM WAITING ADMISSION DETERMINATIONS FROM [facility], [facility] AND [facility] REHAB WELL INSURANCE DETERMINATION FOR REHAB SERVICES. GIANCARLO GONZALEZ, CASE MANAGEMENT DCP- Discharge Planning Updated by [id number]: Darrius Gonzalez on 07/15/19 5:[address] Patient Name: LIAM ACOSTA Encounter No: [id number] : 1945 Primary Insurance: NOVASYSMCR Anticipated DC Date: 07-19-2019 Planned Disposition: Jail Facility External Planned [facility] REHAB BED DCP follow-up note: CM RECEIVED MESSAGE THAT [facility] IS OUT OF NETWORK WITH PT'S INSURANCE. CM SPOKE TO PT AND SPOUSE IN ROOM, DISCUSSED OPTIONS, PROVIDED LISTING OF AVAILABLE SKILLED REHABS IN [place]. PT'S ASKED THAT REFERRALS BE SENT TO [facility], [facility] AND [facility]. IMPORTANT MESSAGE FROM MEDICARE PROVIDED AND EXPLAINED. CM VERIFIED THESE FACILITIES ARE IN NETWORK WITH PT'S INSURANCE PER [facility] THAT REPRESENTS THESE FACILITIES. CHOICE SIGNED. BOINTA ADVISED THAT PT'S INSURANCE CAN TAKE "UP TO A FEW DAYS TO AUTHORIZE SERVICES." CM TO SEND REFERRALS FOR REHAB TO [facility], [facility] AND [facility] SOON POSSIBLE. Darrius Gonzalez, CASE MANAGEMENT Appended by Darrius Gonzalez on 07/15/2019 18:24 RETAIL EQUIPMENT ASSOCIATE: CM FAXED REFERRAL TO [facility]ITA [facility], FOR [facility]. CM NOTIFED BONITA OF REFERRAL AT [phone]. CM WAITING ADMISSION DETERMINATIONS FROM [facility], [facility] REHAB WELL INSURANCE DETERMINATION FOR REHAB SERVICES. GIANCARLO GONZALEZ, CASE MANAGEMENT DCP- Discharge Planning Updated by [id number]: Darrius Gonzalez on 07/14/19 3:[address] Patient Name: LIAM ACOSTA Encounter No: [id number] : 1945 Primary Insurance: NOVASYSMCR Anticipated DC Date: 07-15-2019 Planned Disposition: Jail Facility External Planned Provider: [facility], MEDICARE REHAB BED DCP follow-up note: CM SPOKE TO ANÍBAL OF INPATIENT REHAB AT [facility], PT IS STILL VERY LOW FUNCTIONING WITH PHYSICAL THERAPY AND RECOMMENDS SNF REHAB. . CM NOTIFIED ADAM OF [facility], , OF REFERRAL FOR REHAB SERVICES. ADAM DID NOT RECEIVE FAX PREVIOUSLY. CM FAXED REFERRAL TO [facility] VIA ADAM AT [phone]. CM WAITITING ADMISSION DETERMINATION FROM [facility] WELL INSURANCE AUTHORIZATION FOR REHAB SERVICES. Sales And Marketing Manager: Darrius Gonzalez DCP- Discharge Planning Updated by [id number]: Darrius Gonzalez on 07/12/19 10:[address] Patient Name: LIAM ACOSTA Encounter No: [id number] : 1945 Primary Insurance: NOVASYSMCR Anticipated DC Date: Planned Disposition: Inpatient Rehab External Planned Provider: [facility] Discharge Planning Comments: CM WAITING OCCUPATIONAL THERAPY EVALUATION WELL REHAB PRESCEENING BY [facility]. CM MET WITH PT AND SPOUSE IN ROOM, PT SLEEPING SOUNDLY. THERAPY NOTES DISCUSSED WITH PT'S SPOUSE, PT IS MAX ASSIST FOR BED MOBILITY, IS NOT STANDING OR WALKING AT THIS TIME. CM DISCUSSED SECOND OPTION FOR REHAB IF INSURNACE WILL NOT AUTHORIZE INPATIENT REHAB AT [facility]. LIST OF PROVIDERS DISCUSSED AND PRPOVIDED. PT'S SPOUSE WOULD LIKE REFERRAL TO [facility] IT IS CLOSE TO THEIR HOME AND PT'S SPOUSE DOES NOT DRIVE. CHOICE COMPLETED FOR [facility]. CM SPOKE TO YAMIL OF INPATIENT REHAB AT [facility], PT IS VERY LOW FUNCTIONING WITH PHYSICAL THERAPY. CM NOTIFIED ADAM OF [facility], , OF REFERRAL FOR REHAB SERVICES. CM FAXED REFERRAL TO [facility] VIA [employer] AT [phone]. CM WAITITING ADMISSION DETERMINATION FROM [facility] WELL INSURANCE AUTHORIZATION FOR REHAB SERVICES. Sales And Marketing Manager: Darrius Gonzalez DCP- Discharge Planning Updated by [id number]: Darrius Gonzalez on 07/09/19 1:[address] Patient Name: LIAM ACOSTA Admission Status: ER Accout number: [id number] Admission Date: 07-04-2019 : 1945 Admission Diagnosis: Attending: RYAN RAMIREZ Current LOS: 5 Anticipated DC Date: Planned Disposition: Inpatient Rehab Primary Insurance: NOVASYTidewayCR PLANNED EXTERNAL PROVIDER: [facility] Discharge Planning Comments: CM MET WITH PT AND SPOUSE IN ROOM TO DISCUSS DISCHARGE PLANNING AND NEEDS. PT DID NOT SPEAK BUT WAS AWAKE DURING MEETING. PT'S SPOUSE PT LIVING AT HOME DEPENDENTLY WITH SPOUSE WHO ASSISTS WITH MEDICATIONS. PT HAS BEEN BECOMING INCREASINGLY WEAK AT HOME AND SPOUSE REPORTS PT WILL NEED REHAB TO GO HOME. PT HAS CANE AND STANDARD WALKER WITH NO MEDICAL EQUIPMENT PROVIDER PREFERENCE. PT HAS [facility] THROUGH MEDICAID 2 HOURS ON WEEKDAYS AND 5 HOURS ON WEEKEND DAYS. CM DISCUSSED AVAILABILITY OF HOME HEALTH, REHAB SERVICES AND MEDICAL EQUIPMENT. PT'S SPOUSE WOULD LIKE PT CONSIDERED FOR REHAB AT [facility] HE HAS BEEN THERE IN THE PAST AN RECEIVED GOOD REHAB. SPOUSE TO PICK PT UP FOR DISCHARGE HOME. IMPORTANT MESSAGE FROM MEDICARE PROVIDED AND EXPLAINED. ORDER FOR PT, OT AND INPATIENT REHAB PRESCREEN OBTAINED FROM DR. RAMIREZ. CM WAITING THERAPY EVALUATIONS [facility] REHAB PRESCEENING BY [facility]. Sales And Marketing Manager: Darrius Gonzalez DCPIA - Discharge Planning Initial Assessment Updated by [id number]: Darrius Gonzalez on 07/09/19 2:32 pm * Is the patient Alert and Oriented? Yes * How many steps to enter\\exit or inside your home? * PCP DR. RAMIREZ * [facility] * Preadmission Environment Home with Family * ADLs Partial Dependent * Partial ADLs (Assistance needed) Medication Management * Equipment Cane Walker * Other Equipment NO MEDICAL EQUIPMENT PROVIDER * List name and contact numbers for known caregivers / representatives who currently or will assist patient after discharge: ZIGGY ACOSTA, SON, JULIEN ACOSTA, , * Verbal permission to speak to the caregivers and representatives has been obtained from the patient. N/A * Community resources currently utilized Private Duty Care * Please name any agencies selected above. [facility], ELECTRIC BRAIN WAVE EQUIPMENT MECHANIC, 5 DAYS 2 HOURS PER DAY; WEEKENDS 5 HOURS PER DAY * Additional services required to return to the preadmission environment? Yes * Can the patient safely return to the preadmission environment? Yes * Has this patient been hospitalized within the prior 30 days at any hospital? No Coverage Notice Reviewer: [id number] Lissa Gonzalez Notice Issued Date-Time: 07/09/2019 9:10 Notice Type: IM Discharge Notice Notice Delivered To: Patient Relationship to Patient: Senior Property Manager Name: Delivery Method: HAND - Hand Delivered Pao Days: Prior Verbal Notification: Recipient Understood Notice: Yes Recipient Signature: Yes Med Rec Note Co-signed by Attending: Coverage Notice Comment: Reviewer: [id number] Gonzalez Notice Issued Date-Time: 07/12/2019 10:10 Notice Type: Patient Choice Letter Notice Delivered To: Family Member Relationship to Patient: Spouse Senior Property Manager Name: JULIEN ACOSTA Delivery Method: HAND - Hand Delivered Pao Days: Prior Verbal Notification: Recipient Understood Notice: Yes Recipient Signature: Yes Med Rec Note Co-signed by Attending: Coverage Notice Comment: GHULAM IRVIN Reviewer: [id number] Lissa Gonzalez Notice Issued Date-Time: 07/15/2019 12:20 Notice Type: IM Discharge Notice Notice Delivered To: Family Member Relationship to Patient: Spouse Senior Property Manager Name: JULIEN ACOSTA Delivery Method: HAND - Hand Delivered Pao Days: Prior Verbal Notification: Recipient Understood Notice: Yes Recipient Signature: Yes Med Rec Note Co-signed by Attending: Coverage Notice Comment: Reviewer: [id number] Gonzalez Notice Issued Date-Time: 07/15/2019 12:20 Notice Type: Patient Choice Letter Notice Delivered To: Family Member Relationship to Patient: Spouse Senior Property Manager Name: JULIEN ACOSTA Delivery Method: HAND - Hand Delivered Pao Days: Prior Verbal Notification: Recipient Understood Notice: Yes Recipient Signature: Yes Med Rec Note Co-signed by Attending: Coverage Notice Comment: GERMAN TINOCO AND KELLY ATKINSON Last DP export: 07/15/19 5:26 Patient Name: LIAM ACOSTA Page [id number] at 1207 All edits/amendments must be made on the electronic document DICTATION DATE: 07/16/19 1207 CARBON PLANT GRINDER: ANTONELLA 07/16/19 1207 RPT#: [id number] DC DATE: STATUS: ADM IN [facility] [place] [address] [place] [address] END OF REPORT
--- NOTE | 2019-07-16 15:21 | NUR ---
PATIENT RESTING QUIETLY WITH EYES CLOSED AND BREATHING EVENLY. AT BS. WILL CONTINUE TO MONITOR. SR UP X 2 BED IN LOW POSITION AND CALL LIGHT IN REACH.
[2019-07-16 17:19] VITALS: BP 119/73
--- NOTE | 2019-07-16 18:36 | NUR ---
PATIENT LAYING IN BED RESTING COMFORTABLY. PATIENT IS STABLE AND VSS. PATIENT DENIES ANY NEEDS OR PAIN. WILL CONTINUE WITH PLAN OF CARE. SR UP X 2 BED IN LOW POSITION AND CALL LIGHT IN REACH.
--- NOTE | 2019-07-16 19:30 | NUR ---
REPORT AND INITIAL ROUNDS COMPLETED. PT RESTING IN BED. NO DISTRESS. CPOC.
[2019-07-16 20:30] VITALS: BP 122/84
--- NOTE | 2019-07-16 21:02 | NUR ---
BEDTIME MEDS GIVEN.
[2019-07-17 00:30] VITALS: BP 124/83
[2019-07-17 05:14] LABS: BASOPHILS 0.2 % (0-2); HEMATOCRIT 31.6 % (42.0-54.0); IMMATURE GRANULOCYTES 0.6 % (0-5); LYMPHOCYTES 10.4 % (15-50); MCHC 31.6 g/dL (31.0-37.0); MCV 91.6 fL (80.0-100.0); MEAN PLATELET VOLUME 10.3 fL (7.4-10.4); MONOCYTES 10.4 % (2-11); NEUTROPHILS 77.4 % (40-80); PLATELET COUNT 392 10x3/uL (130-400); RBC 3.45 10x6/uL (4.20-6.10); RDW 13.6 % (11.5-14.5); WBC 11.1 10x3/uL (4.8-10.8)
[2019-07-17 05:20] LABS: CALC OSMOLALITY 282 mosm/kg (275-300); CARBON DIOXIDE 30.4 mmol/L (21.0-32.0); CHLORIDE - SERUM 105 mmol/L (98-107); CREATININE - SERUM 0.9 mg/dL (0.6-1.3); GLUCOSE 109 mg/dL (74-106); POTASSIUM - SERUM 3.5 mmol/L (3.5-5.1); SODIUM 140 mmol/L (136-145); UREA NITROGEN 21 mg/dL (7-18); eGFR NON AFRICAN AMERICAN 88 mL/min (90-120)
--- NOTE | 2019-07-17 06:40 | NUR ---
PT RESTING IN BED WITH NO DISTRESS. NO CHANGE FROM INITIAL SHIFT ASSESSMENT. CPOC. REPORT TO ONCOMING SHIFT.
[2019-07-17 06:42] VITALS: BP 109/71
--- NOTE | 2019-07-17 07:10 | NUR ---
REPORT RECEIVED FROM RUBBER THREAD SPOOLER AND PATIENT CARE ASSUMED. PATIENT LAYING IN BED ON BACK AWAKE AND ALERT. PATIENT IS STABLE AND VSS. PATIENT DENIES ANY NEEDS OR PAIN. WILL CONTINUE WITH PLAN OF CARE. SR UP X 2 BED IN LOW POSITION AND CALL LIGHT IN REACH. N
[2019-07-17 08:06] VITALS: BP 104/71
--- NOTE | 2019-07-17 10:37 | NUR ---
PATIENT CONTINUES TO HAVE LOOSE, WATERY STOOLS. PATIENT HAS BEEN CLEANED AND COMPLETE LINEN CHANGE TWICE. ADDITIONAL ORDER RECEIVED FOR STOOL C DIFF TOXIN. LOOSE LIQUID STOOL SPECIMEN COLLECTED AND SUBMITTED TO LAB. THIS NURSE CALLED LAB WHEN NOTE IN THE COMPUTER NOT RECEIVED IN THE LAB SPOKE WITH QUINCY IN THE LAB. THIS NURSE WAS TOLD THAT SPECIMEN DID NOT MEET CRITERIA. THIS NURSE QUESTIONED THAT STATEMENT REPEATEDLY DUE TO THE SPECIMEN BEING LOOSE AND LIQUIDY. THE CRITIERIA ON LAB PAGE STATES STOOL HAS TO BE LOOSE OR WATERY. I EXPLAINED THAT THIS IS THE SECOND SPECIMEN SUBMITTED AND THAT PATIENT HAS HAD LOOSE, WATERY FOUL SMELLING STOOLS FOR 4 DAYS AND PLEASE TEST IT. THIS NURSE WAS TOLD THAT DR RAMIREZ WOULD NEED TO DOCUMENT THAT EVEN IF STOOL DOES NOT MEET CRITERIA SPECIMEN WILL BE TESTED AND THIS NURSE WAS INFORMED THAT ANOTHER SPECIMEN WOULD HAVE TO BE SUBMITTED DUE TO THE FACT THAT SPECIMEN HAS BEEN THROWN AWAY. I WILL INFORM DR ALVAREZ WHEN HE MAKES ROUNDS TODAY.
[2019-07-17 11:33] VITALS: BP 122/81
--- NOTE | 2019-07-17 15:25 | NUR ---
PATIENT LAYING IN BED ON BACK WITH HOB ELEVATED 30 DEGREES. PATIENT IS VISITNG WITH FAMILY THAT IS BS. PATIENT IS STABLE AND VSS. PATIENT DENIES ANY NEEDS OR PAIN. WILL CONTINUE TO MONITOR. SR UP X 2 BED IN LOW POSITION AND CALL LIGHT IN REACH.
[2019-07-17 15:31] VITALS: BP 116/73
--- NOTE | 2019-07-17 18:39 | NUR ---
PATIENT RESTING COMFORTABLY IN BED VISITING WITH . PATIENT IS STABLE AND VSS. PATIENT DENIES ANY NEEDS OR PAIN. WILL CONTINUE TO MONITOR, SR UP X2 BED IN LOW POSITION AND CALL LIGHT IN REACH.
--- NOTE | 2019-07-17 20:19 | NUR ---
REPORT AND INITIAL ROUNDS COMPLETED. PRESENT AT BEGINNING OF SHIFT AND HAS NOW LEFT. PT RESTING WITH EYES CLOSED. SR PER TELEMETRY. O2 @ 3L/NC WITH NONLABORED RESPIRATIONS. SALINE LOCK TO RIGHT WRIST. STOOL SPECIMAN COLLECTED ON DAYSHI WAS NEGATIVE FOR CDIFF. PT REMAINS INCONTINENT OF BOWEL AND BLADDER. CURRENTLY CLEAN AND DRY. BED ALARM. CALL LIGHT IN REACH.
[2019-07-18 00:26] VITALS: BP 116/79
--- NOTE | 2019-07-18 02:19 | NUR ---
PT HAS BEEN CLEANED UP X 2 FOR EPISODES OF BM INCONTINENCE. SKIN CARE PROVIDED. PT NOW CLEAN/DRY AND RESTING. FALL PRECAUTIONS IN PLACE. CPOC.
[2019-07-18 05:11] LABS: BASOPHILS 0.1 % (0-2); EOSINOPHILS 0.7 % (0-7); HEMATOCRIT 30.4 % (42.0-54.0); HEMOGLOBIN 9.5 g/dL (13.5-17.5); IMMATURE GRANULOCYTES 0.7 % (0-5); LYMPHOCYTES 9.7 % (15-50); MCH 28.9 pg (26.0-34.0); MCHC 31.3 g/dL (31.0-37.0); MCV 92.4 fL (80.0-100.0); MEAN PLATELET VOLUME 10.4 fL (7.4-10.4); MONOCYTES 10.9 % (2-11); NEUTROPHILS 77.9 % (40-80); PLATELET COUNT 362 10x3/uL (130-400); RBC 3.29 10x6/uL (4.20-6.10); RDW 13.7 % (11.5-14.5)
[2019-07-18 05:38] LABS: CALC OSMOLALITY 278 mosm/kg (275-300); CALCIUM 7.9 mg/dL (8.5-10.1); CARBON DIOXIDE 26.2 mmol/L (21.0-32.0); CHLORIDE - SERUM 104 mmol/L (98-107); CREATININE - SERUM 0.8 mg/dL (0.6-1.3); GLUCOSE 95 mg/dL (74-106); POTASSIUM - SERUM 3.7 mmol/L (3.5-5.1); SODIUM 138 mmol/L (136-145); UREA NITROGEN 20 mg/dL (7-18); eGFR NON AFRICAN AMERICAN > 90 mL/min (90-120)
--- NOTE | 2019-07-18 07:20 | NUR ---
RECIEVE REPORT. RESTING IN BED WITH EYES CLOSED. O2 @ 3LNC. NO SIGNS OF DISTRESS. CONTINUE PLAN OF CARE AND SAFETY PRECAUTIONS.
[2019-07-18 10:28] VITALS: BP 131/76
[2019-07-18 14:02] VITALS: BP 141/72
--- NOTE | 2019-07-18 14:27 | NUR ---
OT NOTE: SEVERAL ATTEMPTS TO SEE PT TODAY. PT VERY LETHARGIC. RESISTANT TO SIT UP ON EOB. HAD PT PUT IN LOWER DENTURES, HOWEVER, AFTER 4 ATTEMPTS, PT LEFT THEM HANGING OUT OF MOUTH. REPLACED AND ALSO WASHED PTS FACE, HE WAS UNABLE TO PERFORM THIS TASK. ROLLING SIDE TO SIDE WITH MAX ASSIST TODAY. PT HAS BEEN MUCH MORE ALERT AND AGREEABLE TO SIT UP IN CHAIR.. PT REFUSED TODAY. WILL RE ATTEMPT TOMORROW. RENARD HERRMANN, OTR/L
[2019-07-18 17:10] VITALS: BP 130/74
--- NOTE | 2019-07-18 17:15 | NUR ---
CONFUSED. LINENS SOILED. BED BATH AND LINEN CHANGE COMPLETE. SINUS RYTHM ON TELEMETRY. DENIES ANY NEEDS AT THIS TIME. CONTINUE PLAN OF CARE AND SAFETY PRECAUTIONS.
--- NOTE | 2019-07-18 19:15 | NUR ---
RECEIVED REPORT, WILL ASSUME CARE OF PT, SPILLED DRINK ON BLANKET, CHANGED BLANKET, DENIES ANY OTHER NEEDS AT THIS TIME, BED IS LOW, SRX2, CALL LIGHT IN REACH, WILL CONTINUE PLAN OF CARE
[2019-07-18 20:29] VITALS: BP 127/86
--- NOTE | 2019-07-18 21:00 | NUR ---
ASSISTED STEAM FITTER SUPERVISOR MAINTENANCE TO CLEAN PT UP
[2019-07-19 00:30] VITALS: BP 127/70
--- NOTE | 2019-07-19 01:29 | NUR ---
I have reviewed this patient and I concur with the Shift Assessment completed by the Licensed Practical Nurse today this shift.
--- NOTE | 2019-07-19 01:30 | NUR ---
I have reviewed this patient and I concur with the Shift Assessment completed by the Licensed Practical Nurse today this shift.
[2019-07-19 04:03] VITALS: BP 119/65
[2019-07-19 06:03] LABS: BASOPHILS 0.1 % (0-2); EOSINOPHILS 0.5 % (0-7); HEMATOCRIT 30.3 % (42.0-54.0); HEMOGLOBIN 9.6 g/dL (13.5-17.5); IMMATURE GRANULOCYTES 0.4 % (0-5); LYMPHOCYTES 6.3 % (15-50); MCH 28.8 pg (26.0-34.0); MCHC 31.7 g/dL (31.0-37.0); MEAN PLATELET VOLUME 10.1 fL (7.4-10.4); MONOCYTES 9.8 % (2-11); NEUTROPHILS 82.9 % (40-80); PLATELET COUNT 345 10x3/uL (130-400); RBC 3.33 10x6/uL (4.20-6.10); RDW 13.7 % (11.5-14.5); WBC 15.4 10x3/uL (4.8-10.8)
[2019-07-19 06:27] LABS: CALC OSMOLALITY 279 mosm/kg (275-300); CALCIUM 7.8 mg/dL (8.5-10.1); CARBON DIOXIDE 29.1 mmol/L (21.0-32.0); CHLORIDE - SERUM 105 mmol/L (98-107); CREATININE - SERUM 0.8 mg/dL (0.6-1.3); GLUCOSE 98 mg/dL (74-106); POTASSIUM - SERUM 3.8 mmol/L (3.5-5.1); SODIUM 139 mmol/L (136-145); UREA NITROGEN 17 mg/dL (7-18); eGFR NON AFRICAN AMERICAN > 90 mL/min (90-120)
--- NOTE | 2019-07-19 07:20 | NUR ---
RECIEVE REPORT. RESTING IN BED WITH EYES CLOSED. NO SIGNS OF DISTRESS. SINUS RYTHM 89 ON TELEMETRY. CONTINUE PLAN OF CARE AND SAFETY PRECAUTIONS.
[2019-07-19 08:17] VITALS: BP 112/63
--- NOTE | 2019-07-19 09:20 | MORECARE ---
CASE MANAGEMENT DISCHARGE SUMMARY PATIENT: LIAM ACOSTA UNIT: [id number] ADM DATE: 07/04/19 AGE: 74 : 45 SEX: M ROOM/BED: D.8053 AUTHOR: EDUARDO DENNY PHYSICIAN: REFERRING PHYSICIAN: RYAN RAMIREZ MD DATE OF SERVICE: 07/19/19 Discharge Plan Patient Name: LIAM ACOSTA Facility: [facility]:[place] : 1945 Planned Disposition: Senior Care Facility Anticipated Discharge Date: 07/19/19 Discharge Date: Expected LOS: 15 Initial Reviewer: [id number] Initial Review Date: 07/09/2019 Generated: 07/19/19 10:19 am Comments DCP- Discharge Planning Updated by [id number]: Darrius Gonzalez on 07/16/19 11:[address] Patient Name: LIAM ACOSTA Encounter No: [id number] : 1945 Primary Insurance: NOVASYSMCR Anticipated DC Date: 07-19-2019 Planned Disposition: Senior Care Facility External Planned Provider: [facility], MEDICARE REHAB BED DCP follow-up note: CM FAXED REFERRAL UPDATE TO BONITA ORELLANA [facility], FOR [facility], [facility] AND [facility] REHAB. CM NOTIFED BONITA OF REFERRAL AT [phone]. CM RECEIVED CALL FROM JUAN OF [facility] WHO IS PROCESSING FOR REHAB ADMISSION. SHE WILL HAVE TO CHECK WITH INSURANCE WELL PT'S CANCER TREATMENT DOCTOR; CM SPOKE TO PT'S WHO REPORTS PT IS PENDING THREE MORE CANCER TREATMENTS AFTER THE FIRST OF THE YEAR, PT IS NOT ON ORAL CANCER MEDICATIONS. JUAN OF [facility] NOTIFIED. CM WAITING ADMISSION DETERMINATIONS FROM [facility], [facility] AND [facility] REHAB WELL INSURANCE DETERMINATION FOR REHAB SERVICES. GIANCARLO GONZALEZ, CASE MANAGEMENT DCP- Discharge Planning Updated by [id number]: Darrius Gonzalez on 07/15/19 5:[address] Patient Name: LIAM ACOSTA Encounter No: [id number] : 1945 Primary Insurance: NOVASYSMCR Anticipated DC Date: 07-19-2019 Planned Disposition: Senior Care Facility External [facility] DCP follow-up note: CM RECEIVED MESSAGE THAT [facility] IS OUT OF NETWORK WITH PT'S INSURANCE. CM SPOKE TO PT AND SPOUSE IN ROOM, DISCUSSED OPTIONS, PROVIDED LISTING OF AVAILABLE SKILLED REHABS IN [place]. PT'S ASKED THAT REFERRALS BE SENT TO [facility], [facility] AND [place]. IMPORTANT MESSAGE FROM MEDICARE PROVIDED AND EXPLAINED. CM VERIFIED THESE FACILITIES ARE IN NETWORK WITH PT'S INSURANCE PER BONITA ORELLANA [facility] THAT REPRESENTS THESE FACILITIES. CHOICE SIGNED. BONITA ADVISED THAT PT'S INSURANCE CAN TAKE "UP TO A FEW DAYS TO AUTHORIZE SERVICES." CM TO SEND REFERRALS FOR REHAB TO [facility], [facility] AND [facility] SOON POSSIBLE. Darrius Gonzalez, CASE MANAGEMENT Appended by Darrius Gonzalez on 07/15/2019 18:24 STEAM GIGGER: CM FAXED REFERRAL TO BONITA ORELLANA [facility], FOR [facility], [facility] REHAB. CM NOTIFED BONITA OF REFERRAL AT [phone]. CM WAITING ADMISSION DETERMINATIONS FROM [facility], [facility] REHAB WELL INSURANCE DETERMINATION FOR REHAB SERVICES. GIANCARLO GONZALEZ, CASE MANAGEMENT DCP- Discharge Planning Updated by [id number]: Darrius Gonzalez on 07/14/19 3:[address] Patient Name: LIAM ACOSTA Encounter No: [id number] : 1945 Primary Insurance: NOVASYSMCR Anticipated DC Date: 07-15-2019 Planned Disposition: Senior Care Facility External Planned Provider: [facility], MEDICARE REHAB BED DCP follow-up note: CM SPOKE TO ANÍBAL OF INPATIENT REHAB AT [place], PT IS STILL VERY LOW FUNCTIONING WITH PHYSICAL THERAPY AND RECOMMENDS PRISON REHAB. . CM NOTIFIED ADAM OF [facility], , OF REFERRAL FOR REHAB SERVICES. ADAM DID NOT RECEIVE FAX PREVIOUSLY. CM FAXED REFERRAL TO [facility] VIA ADAM AT [phone]. CM WAITITING ADMISSION DETERMINATION FROM [facility] WELL INSURANCE AUTHORIZATION FOR REHAB SERVICES. Servicenow Administrator Developer: Darrius Gonzalez DCP- Discharge Planning Updated by [id number]: Darrius Gonzalez on 07/12/19 10:[address] Patient Name: LIAM ACOSTA Encounter No: [id number] : 1945 Primary Insurance: NOVASYSMCR Anticipated DC Date: Planned Disposition: Inpatient Rehab External Planned Provider: [facility] Discharge Planning Comments: CM WAITING OCCUPATIONAL THERAPY EVALUATION WELL REHAB PRESCEENING BY [facility] INPATIENT RE[facility]. CM MET WITH PT AND SPOUSE IN ROOM, PT SLEEPING SOUNDLY. THERAPY NOTES DISCUSSED WITH PT'S SPOUSE, PT IS MAX ASSIST FOR BED MOBILITY, IS NOT STANDING OR WALKING AT THIS TIME. CM DISCUSSED SECOND OPTION FOR REHAB IF INSURNACE WILL NOT AUTHORIZE INPATIENT REHAB AT [place]. LIST OF PROVIDERS DISCUSSED AND PRPOVIDED. PT'S SPOUSE WOULD LIKE REFERRAL TO [facility] IT IS CLOSE TO THEIR HOME AND PT'S SPOUSE DOES NOT DRIVE. CHOICE COMPLETED FOR [facility]. CM SPOKE TO YAMIL OF INPATIENT REHAB AT [place], PT IS VERY LOW FUNCTIONING WITH PHYSICAL THERAPY. CM NOTIFIED ADAM OF [facility], , OF REFERRAL FOR REHAB SERVICES. CM FAXED REFERRAL TO [facility] VIA [employer] AT [phone]. CM WAITITING ADMISSION DETERMINATION FROM [facility] WELL INSURANCE AUTHORIZATION FOR REHAB SERVICES. Servicenow Administrator Developer: Darrius Gonzalez DCP- Discharge Planning Updated by [id number]: Darrius Gonzalez on 07/09/19 1:[address] Patient Name: LIAM ACOSTA Admission Status: ER Accout number: [id number] Admission Date: 07-04-2019 : 1945 Admission Diagnosis: Attending: RYAN RAMIREZ Current LOS: 5 Anticipated DC Date: Planned Disposition: Inpatient Rehab Primary Insurance: NOVASYTownWizardCR PLANNED EXTERNAL PROVIDER: [facility] Discharge Planning Comments: CM MET WITH PT AND SPOUSE IN ROOM TO DISCUSS DISCHARGE PLANNING AND NEEDS. PT DID NOT SPEAK BUT WAS AWAKE DURING MEETING. PT'S SPOUSE PT LIVING AT HOME DEPENDENTLY WITH SPOUSE WHO ASSISTS WITH MEDICATIONS. PT HAS BEEN BECOMING INCREASINGLY WEAK AT HOME AND SPOUSE REPORTS PT WILL NEED REHAB TO GO HOME. PT HAS CANE AND STANDARD WALKER WITH NO MEDICAL EQUIPMENT PROVIDER PREFERENCE. PT HAS [facility] THROUGH MEDICAID 2 HOURS ON WEEKDAYS AND 5 HOURS ON WEEKEND DAYS. CM DISCUSSED AVAILABILITY OF HOME HEALTH, REHAB SERVICES AND MEDICAL EQUIPMENT. PT'S SPOUSE WOULD LIKE PT CONSIDERED FOR REHAB AT [facility] HE HAS BEEN THERE IN THE PAST AN RECEIVED GOOD REHAB. SPOUSE TO PICK PT UP FOR DISCHARGE HOME. IMPORTANT MESSAGE FROM MEDICARE PROVIDED AND EXPLAINED. ORDER FOR PT, OT AND INPATIENT REHAB PRESCREEN OBTAINED FROM DR. RAMIREZ. CM WAITING THERAPY EVALUATIONS WELL REHAB PRESCEENING BY [facility] INPAT[facility]. Servicenow Administrator Developer: Darrius Gonzalez DCPIA - Discharge Planning Initial Assessment Updated by [id number]: Darrius Gonzalez on 07/09/19 2:32 pm * Is the patient Alert and Oriented? Yes * How many steps to enter\\exit or inside your home? * PCP DR. RAMIREZ * Pharmacy [facility] [address] * Preadmission Environment Home with Family * ADLs Partial Dependent * Partial ADLs (Assistance needed) Medication Management * Equipment Cane Walker * Other Equipment NO MEDICAL EQUIPMENT PROVIDER * List name and contact numbers for known caregivers / representatives who currently or will assist patient after discharge: ZIGGY ACOSTA, SON, JULIEN ACOSTA, , * Verbal permission to speak to the caregivers and representatives has been obtained from the patient. N/A * Community resources currently utilized Private Duty Care * Please name any agencies selected above. [facility], [employer], 5 DAYS 2 HOURS PER DAY; WEEKENDS 5 HOURS PER DAY * Additional services required to return to the preadmission environment? Yes * Can the patient safely return to the preadmission environment? Yes * Has this patient been hospitalized within the prior 30 days at any hospital? No Coverage Notice Reviewer: [id number] Lissa Gonzalez Notice Issued Date-Time: 07/09/2019 9:10 Notice Type: IM Discharge Notice Notice Delivered To: Patient Relationship to Patient: Supervisor Grips Name: Delivery Method: HAND - Hand Delivered Pao Days: Prior Verbal Notification: Recipient Understood Notice: Yes Recipient Signature: Yes Med Rec Note Co-signed by Attending: Coverage Notice Comment: Reviewer: [id number] Gonzalez Notice Issued Date-Time: 07/12/2019 10:10 Notice Type: Patient Choice Letter Notice Delivered To: Family Member Relationship to Patient: Spouse Supervisor Grips Name: JULIEN ACOSTA Delivery Method: HAND - Hand Delivered Pao Days: Prior Verbal Notification: Recipient Understood Notice: Yes Recipient Signature: Yes Med Rec Note Co-signed by Attending: Coverage Notice Comment: GHULAM IRVIN Reviewer: [id number] Lissa Gonzalez Notice Issued Date-Time: 07/15/2019 12:20 Notice Type: IM Discharge Notice Notice Delivered To: Family Member Relationship to Patient: Spouse Supervisor Grips Name: JULIEN ACOSTA Delivery Method: HAND - Hand Delivered Pao Days: Prior Verbal Notification: Recipient Understood Notice: Yes Recipient Signature: Yes Med Rec Note Co-signed by Attending: Coverage Notice Comment: Reviewer: [id number] Gonzlaez Notice Issued Date-Time: 07/15/2019 12:20 Notice Type: Patient Choice Letter Notice Delivered To: Family Member Relationship to Patient: Spouse Supervisor Grips Name: JULIEN ACOSTA Delivery Method: HAND - Hand Delivered Pao Days: Prior Verbal Notification: Recipient Understood Notice: Yes Recipient Signature: Yes Med Rec Note Co-signed by Attending: Coverage Notice Comment: GERMAN TINOCO AND KELLY ATKINSON Last DP export: 07/16/19 11:07 Patient Name: LIAM ACOSTA Page 48099 at 0920 All edits/amendments must be made on the electronic document DICTATION DATE: 07/19/19918 WATERPROOF COATING MACHINE TENDER: ANTONELLA 07/19/19918 RPT#: [id number] DC DATE: STATUS: ADM IN [facility] [address] [place] [address] END OF REPORT
[2019-07-19 12:00] VITALS: BP 119/67
--- NOTE | 2019-07-19 12:21 | NUR ---
OT NOTE: PT WAS ALERT THIS AM, HOWEVER, SLOW TO RESPOND TO COMMANDS. ALLOWED PT TIME TO ATTEMPT TO GET TO EOB WITHOUT ASSIST, HOWEVER, HE WAS UNABLE TO INITIATE TASK. REQUIRED MAX ASSIST FOR SUPINE TO SIT; CGA FOR EOB SITTING. ABLE TO WASH FACE WITH CLOTH WITH ASSIST, BUT WOULD NOT ATTEMPT OTHER GROOMING TASKS. SIT TO STAND WITH MOD ASSIST X 2. ATTEMPTED TO AMB TO DOOR, HOWEVER, PT ONLY ABLE TO GO A FEW FT TO CHAIR WITH MAX ASSIST. ALLOWED PT TO REST FOR SEVERAL MIN HE WAS SOB. SIT TO STAND FROM CHAIR WITH MOD ASSIST X 2; MOD ASSIST TO MAINTAIN STATIC STANDING WITH WALKER WHILE PERINEAL CARE WAS PERFORMED. PT CONTINUES TO HAVE DIARRHEA.. MAX ASSIST WITH TOILET HYGIENE; MAX ASSIST TO LEOBARDO/DOFF BRIEF AND SOCKS. ALLOWED PT TO REST AGAIN BEFORE ATTEMPTING AMB TO BED. PT WAS WEAK AND FINALLY THERAPISTS HAD TO DRAG HIM OVER TO BED BECAUSE HE COULD NOT ADVANCE FEET ANY MORE. INITIALLY ATTEMPTING TO PHYSICALLY MOBILIZE L LE, BUT FINALLY REQUIRED MAX X 2 FOR TRANSFER BACK TO BED AND MAX X 2 FOR BED MOB. PT DEFINITELY MORE WEAK THAN PREVIOUS TMT SESSIONS. [phone] RENARD HERRMANN, OTR/L
--- NOTE | 2019-07-19 14:48 | NUR ---
Nutrition Follow-up: reports pt not eating well. Noted ST upgraded diet to mech soft (ground meat with gravy). Drinking 2-3 Ensure/day. Ate ~50% of breakfast this AM. Noted diarrhea over the weekend. -CDT. Diet: Regular, Mech Soft (ground meat with gravy), Ensure TID PO intake: 0-75% Wt: 165.5# (down from 176# on 07/10) Labs noted: Ca 7.8 Meds noted: Lasix, KCl, Pepcid, Florajen 3 -Rec appetite stimulant; may consider Procalamine. -Monitor wt. -RD following.
[2019-07-19 15:45] VITALS: BP 121/64
--- NOTE | 2019-07-19 19:23 | NUR ---
RECEIVED BEDSIDE REPORT. PATIENT IS ALERT AND PLEASANTLY CONFUSED, RESTING COMFORTABLY IN BED. RESPIRATIONS ARE EVEN AND UNLABORED. NO S/S OF DISTRESS. NO C/O PAIN. NEEDS MET CALL LIGHT WITHIN REACH. WILL CPOC.
[2019-07-19 20:00] VITALS: BP 115/73
--- NOTE | 2019-07-19 23:58 | NUR ---
PATIENT APPEARS TO BE SLEEPING. RESPIRATIONS ARE EVEN AND UNLABORED. NO S/S OF DISTRESS. CALL LIGHT WITHIN REACH. WILL CPOC.
[2019-07-20 00:09] VITALS: BP 134/63
--- NOTE | 2019-07-20 02:01 | NUR ---
PATIENT APPEARS TO BE SLEEPING. RESPIRATIONS ARE EVEN AND UNLABORED. NO S/S OF DISTRESS. CALL LIGHT WITHIN REACH. WILL CPOC.
[2019-07-20 04:00] VITALS: BP 121/65
[2019-07-20 06:02] LABS: BASOPHILS 0.1 % (0-2); EOSINOPHILS 0.7 % (0-7); HEMATOCRIT 28.6 % (42.0-54.0); HEMOGLOBIN 9.2 g/dL (13.5-17.5); IMMATURE GRANULOCYTES 0.4 % (0-5); LYMPHOCYTES 7.7 % (15-50); MCH 28.9 pg (26.0-34.0); MCHC 32.2 g/dL (31.0-37.0); MCV 89.9 fL (80.0-100.0); MEAN PLATELET VOLUME 9.9 fL (7.4-10.4); MONOCYTES 8.3 % (2-11); NEUTROPHILS 82.8 % (40-80); PLATELET COUNT 355 10x3/uL (130-400); RBC 3.18 10x6/uL (4.20-6.10); RDW 13.7 % (11.5-14.5); WBC 14.3 10x3/uL (4.8-10.8)
[2019-07-20 06:19] LABS: CALC OSMOLALITY 275 mosm/kg (275-300); CALCIUM 7.8 mg/dL (8.5-10.1); CARBON DIOXIDE 24.9 mmol/L (21.0-32.0); CHLORIDE - SERUM 105 mmol/L (98-107); CREATININE - SERUM 0.8 mg/dL (0.6-1.3); GLUCOSE 101 mg/dL (74-106); POTASSIUM - SERUM 3.5 mmol/L (3.5-5.1); SODIUM 137 mmol/L (136-145); UREA NITROGEN 18 mg/dL (7-18); eGFR NON AFRICAN AMERICAN > 90 mL/min (90-120)
[2019-07-20 09:19] VITALS: BP 122/72
[2019-07-20 12:13] VITALS: BP 112/58
--- NOTE | 2019-07-20 13:14 | MORECARE ---
CASE MANAGEMENT DISCHARGE SUMMARY PATIENT: LIAM ACOSTA UNIT: [id number] ADM DATE: 07/04/19 AGE: 74 : 45 SEX: M ROOM/BED: D.2069 AUTHOR: EDUARDO DENNY PHYSICIAN: REFERRING PHYSICIAN: RYAN RAMIREZ MD DATE OF SERVICE: 07/20/19 Discharge Plan Patient Name: LIAM ACOSTA Facility: [facility]:[place] : 1945 Planned Disposition: Correction Facility Anticipated Discharge Date: 07/19/19 Discharge Date: Expected LOS: 15 Initial Reviewer: [id number] Initial Review Date: 07/09/2019 Generated: 07/20/19 2:13 pm Comments DCP- Discharge Planning Updated by [id number]: Darrius Gonzalez on 07/20/19 12:[address] Patient Name: LIAM ACOSTA Encounter No: [id number] : 1945 Primary Insurance: NOVASYSMCR Anticipated DC Date: 07-19-2019 Planned Disposition: Correction Facility External [facility] DCP follow-up note: CM FAXED REFERRAL UPDATE TO BONITA ORELLANA [facility], [facility]. CM WAITING ADMISSION DETERMINATIONS FROM [facility] WELL INSURANCE DETERMINATION FOR REHAB SERVICES. GIANCARLO GONZALEZ, CASE MANAGEMENT DCP- Discharge Planning Updated by [id number]: Darrius Gonzalez on 07/16/19 11:[address] Patient Name: LIAM ACOSTA Encounter No: [id number] : 1945 Primary Insurance: NOVASYSMCR Anticipated DC Date: 07-19-2019 Planned Disposition: Correction Facility External [facility]ED DCP follow-up note: CM FAXED REFERRAL UPDATE TO B[facility]ITA [facility]LLANA [facility], [facility]. CM NOTIFED BONITA OF REFERRAL AT [phone]. CM RECEIVED CALL FROM [facility]AN OF [facility] WHO IS PROCESSING FOR REHAB ADMISSION. SHE WILL HAVE TO CHECK WITH INSURANCE WELL PT'S CANCER TREATMENT DOCTOR; CM SPOKE TO PT'S WHO REPORTS PT IS PENDING THREE MORE CANCER TREATMENTS AFTER THE FIRST OF THE YEAR, PT IS NOT ON ORAL CANCER MEDICATIONS. [facility] NOTIFIED. CM WAITING ADMISSION DETERMINATIONS FROM [facility] WELL INSURANCE DETERMINATION FOR REHAB SERVICES. TRAY SCHERER MANAGEMENT DCP- Discharge Planning Updated by [id number]: Darrius Gonzalez on 07/15/19 5:[address] Patient Name: LIAM ACOSTA Encounter No: [id number] : 1945 Primary Insurance: NOVASYSMCR Anticipated DC Date: 07-19-2019 Planned Disposition: Correction Facility External Planned Provider: [facility], MEDICARE REHAB BED DCP follow-up note: CM RECEIVED MESSAGE THAT THE [facility] IS OUT OF NETWORK WITH PT'S INSURANCE. CM SPOKE TO PT AND SPOUSE IN ROOM, DISCUSSED OPTIONS, PROVIDED LISTING OF AVAILABLE SKILLED REHABS IN [place]. PT'S ASKED THAT RE[facility]ERRALS [facility] SENT [facility]. IMPORTANT MESSAGE FROM MEDICARE PROVIDED AND EXPLAINED. CM VERIFIED THESE FACILITIES ARE IN NETWORK WITH PT'S INSURANCE PER BONITA O[facility]LLANA [facility] THAT REPRESENTS THESE FACILITIES. CHOICE SIGNED. BONITA ADVISED THAT PT'S INSURANCE CAN TAKE "UP TO A FEW DAYS TO AUTHORIZE SERVICES." CM TO SEND REFERRALS FOR REHAB TO [facility] SOON POSSIBLE. Darrius Gonzalez, CASE MANAGEMENT Appended by Darrius Gonzalez on 07/15/2019 18:24 DRUM BUILDER: CM FAXED REFERRAL TO B[facility]ITA [facility]LL[facility], [facility]. CM NOTIFED BONITA OF REFERRAL AT [phone]. CM WAITING ADMISSION DETERMINATIONS FROM [facility] WELL INSURANCE DETERMINATION FOR REHAB SERVICES. TRAY SCHERER DCP- Discharge Planning Updated by [id number]: Darrius Gonzalez on 07/14/19 3:[address] Patient Name: LIAM ACOSTA Encounter No: [id number] : 1945 Primary Insurance: NOVASYQuantum Secure Anticipated DC Date: 07-15-2019 Planned Disposition: Correction Facility External Planned Provider: [facility], MEDICARE REHAB BED DCP follow-up note: CM SPOKE TO ANÍBAL OF INPATIENT REHAB AT [place], PT IS STILL VERY LOW FUNCTIONING WITH PHYSICAL THERAPY AND RECOMMENDS [facility] HOME REHAB. . CM NOTIFIED ADAM OF [facility], , OF REFERRAL FOR REHAB SERVICES. ADAM DID NOT RECEIVE FAX PREVIOUSLY. CM FAXED REFERRAL TO [facility] VIA ADAM AT [phone]. CM WAITITING ADMISSION DETERMINATION FROM THE [facility] WELL INSURANCE AUTHORIZATION FOR REHAB SERVICES. Pecan Huller: Darrius Gonzalez DCP- Discharge Planning Updated by [id number]: Darrius Gonzalez on 07/12/19 10:[address] Patient Name: LIAM ACOSTA Encounter No: [id number] : 1945 Primary Insurance: NOVASYCR Anticipated DC Date: Planned Disposition: Inpatient Rehab External Planned Provider: [facility] INPAT[facility] Discharge Planning Comments: CM WAITING OCCUPATIONAL THERAPY EVALUATION WELL REHAB PRESCEENING BY [facility] INPATIENT REHAB. CM MET WITH PT AND SPOUSE IN ROOM, PT SLEEPING SOUNDLY. THERAPY NOTES DISCUSSED WITH PT'S SPOUSE, PT IS MAX ASSIST FOR BED MOBILITY, IS NOT STANDING OR WALKING AT THIS TIME. CM DISCUSSED SECOND OPTION FOR REHAB IF INSURNACE WILL NOT AUTHORIZE INPATIENT REHAB AT [place]. LIST OF PROVIDERS DISCUSSED AND PRPOVIDED. PT'S SPOUSE WOULD LIKE REFERRAL TO THE [facility] IT IS CLOSE TO THEIR HOME AND PT'S SPOUSE DOES NOT DRIVE. CHOICE COMPLETED FOR THE [facility]. CM SPOKE TO YAMIL OF INPATIENT REHAB AT [place], PT IS VERY LOW FUNCTIONING WITH PHYSICAL THERAPY. CM NOTIFIED ADAM OF THE [facility], , OF REFERRAL FOR REHAB SERVICES. CM FAXED REFERRAL TO [facility] VIA ADAM AT [phone]. CM WAITITING ADMISSION DETERMINATION FROM THE [facility] WELL INSURANCE AUTHORIZATION FOR REHAB SERVICES. Pecan Huller: Darrius Gonzalez DCP- Discharge Planning Updated by [id number]: Darrius Gonzalez on 07/09/19 1:[address] Patient Name: LIAM ACOSTA Admission Status: ER Accout number: [id number] Admission Date: 07-04-2019 : 1945 Admission Diagnosis: Attending: RYAN RAMIREZ Current LOS: 5 Anticipated DC Date: Planned Disposition: Inpatient Rehab Primary Insurance: [employer] PLANNED EXTERNAL PROVIDER: [facility] INPAT[facility] REH[facility] Discharge Planning Comments: CM MET WITH PT AND SPOUSE IN ROOM TO DISCUSS DISCHARGE PLANNING AND NEEDS. PT DID NOT SPEAK BUT WAS AWAKE DURING MEETING. PT'S SPOUSE PT LIVING AT HOME DEPENDENTLY WITH SPOUSE WHO ASSISTS WITH MEDICATIONS. PT HAS BEEN BECOMING INCREASINGLY WEAK AT HOME AND SPOUSE REPORTS PT WILL NEED REHAB TO GO HOME. PT HAS CANE AND STANDARD WALKER WITH NO MEDICAL EQUIPMENT PROVIDER PREFERENCE. PT HAS [facility] THROUGH MEDICAID 2 HOURS ON WEEKDAYS AND 5 HOURS ON WEEKEND DAYS. CM DISCUSSED AVAILABILITY OF HOME HEALTH, REHAB SERVICES AND MEDICAL EQUIPMENT. PT'S SPOUSE WOULD LIKE PT CONSIDERED FOR REHAB AT [place] HE HAS BEEN THERE IN THE PAST AN RECEIVED GOOD REHAB. SPOUSE TO PICK PT UP FOR DISCHARGE HOME. IMPORTANT MESSAGE FROM MEDICARE PROVIDED AND EXPLAINED. ORDER FOR PT, OT AND INPATIENT REHAB PRESCREEN OBTAINED FROM DR. RAMIREZ. CM WAITING THERAPY EVALUATIONS WELL REHAB PRESCEENING BY [facility] INPATIENT REH[facility]. Pecan Huller: Darrius Gonzalez DCPIA - Discharge Planning Initial Assessment Updated by [id number]: Darrius Gonzalez on 07/09/19 2:32 pm * Is the patient Alert and Oriented? Yes * How many steps to enter\\exit or inside your home? * PCP DR. RAMIREZ * Pharmacy [facility] [address] * Preadmission Environment Home with Family * ADLs Partial Dependent * Partial ADLs (Assistance needed) Medication Management * Equipment Cane Walker * Other Equipment NO MEDICAL EQUIPMENT PROVIDER * List name and contact numbers for known caregivers / representatives who currently or will assist patient after discharge: ZIGGY ACOSTA, SON, JULIEN ACOSTA, , * Verbal permission to speak to the caregivers and representatives has been obtained from the patient. N/A * Community resources currently utilized Private Duty Care * Please name any agencies selected above. [facility], [employer], 5 DAYS 2 HOURS PER DAY; WEEKENDS 5 HOURS PER DAY * Additional services required to return to the preadmission environment? Yes * Can the patient safely return to the preadmission environment? Yes * Has this patient been hospitalized within the prior 30 days at any hospital? No Coverage Notice Reviewer: GEORGE Gonzalez Notice Issued Date-Time: 07/09/2019 9:10 Notice Type: IM Discharge Notice Notice Delivered To: Patient Relationship to Patient: Assistant Branch Operations Manager Name: Delivery Method: HAND - Hand Delivered Pao Days: Prior Verbal Notification: Recipient Understood Notice: Yes Recipient Signature: Yes Med Rec Note Co-signed by Attending: Coverage Notice Comment: Reviewer: GEORGE Gonzalez Notice Issued Date-Time: 07/12/2019 10:10 Notice Type: Patient Choice Letter Notice Delivered To: Family Member Relationship to Patient: Spouse Assistant Branch Operations Manager Name: JULIEN ACOSTA Delivery Method: HAND - Hand Delivered Pao Days: Prior Verbal Notification: Recipient Understood Notice: Yes Recipient Signature: Yes Med Rec Note Co-signed by Attending: Coverage Notice Comment: GHULAM IRVIN Reviewer: EGORGE Gonzalez Notice Issued Date-Time: 07/15/2019 12:20 Notice Type: IM Discharge Notice Notice Delivered To: Family Member Relationship to Patient: Spouse Assistant Branch Operations Manager Name: JULIEN ACOSTA Delivery Method: HAND - Hand Delivered Pao Days: Prior Verbal Notification: Recipient Understood Notice: Yes Recipient Signature: Yes Med Rec Note Co-signed by Attending: Coverage Notice Comment: Reviewer: GEORGE Gonzalez Notice Issued Date-Time: 07/15/2019 12:20 Notice Type: Patient Choice Letter Notice Delivered To: Family Member Relationship to Patient: Spouse Assistant Branch Operations Manager Name: JULIEN ACOSTA Delivery Method: HAND - Hand Delivered Pao Days: Prior Verbal Notification: Recipient Understood Notice: Yes Recipient Signature: Yes Med Rec Note Co-signed by Attending: Coverage Notice Comment: ZAKI TINOCO Last DP export: 07/19/19 8:20 Patient Name: LIAM ACOSTA Page 76011 at 1314 All edits/amendments must be made on the electronic document DICTATION DATE: 07/20/19 1313 OCCUPATIONAL MEDICINE SPECIALIST: ANTONELLA 07/20/19 1313 RPT#: [id number] DC DATE: STATUS: ADM IN [facility] [address] [place] [address] END OF REPORT
[2019-07-20 17:43] VITALS: BP 99/48
--- NOTE | 2019-07-20 19:30 | NUR ---
REPORT AND INITIAL ROUNDS COMPLETED. PT RESTING WITH EYES CLOSED. NO DISTRESS. SALINE LOCK TO RIGHT WRIST. NONLABORED RESPIRATIONS ON ROOM AIR. CURRENTLY CLEAN AND DRY. FREQUENT CHECKS DUE TO INCONTINENCE OF BOWEL AND BLADDER. SR PER TELEMETRY. FALL PRECAUTIONS IN PLACE. CPOC.
[2019-07-20 20:00] VITALS: BP 128/80
--- NOTE | 2019-07-20 22:40 | NUR ---
BEDTIME MEDS GIVEN IN APPLESAUCE + NECTAR THICK LIQUIDS. PT TOLERATED WELL. HAS BEEN CLEANED UP X 1 FOR INCONTINENCE OF BOWEL/BLADDER. CPOC. FALL PRECAUTIONS.
[2019-07-21] VITALS: BP 118/81
--- NOTE | 2019-07-21 01:47 | NUR ---
REPEAT INCONTINENCE, CARE PROVIDED. 101/ST PER TELEMETRY. CPOC.
--- NOTE | 2019-07-21 06:33 | NUR ---
COMPLETE LINEN CHANGE AND PERSONAL CARE PROVIDED FOR INCONTINENCE OF BOWEL AND BLADDER. IVF INFUSING. NO CHANGE FROM INITIAL SHIFT ASSESSMENT.
[2019-07-21 06:35] LABS: BASOPHILS 0.1 % (0-2); EOSINOPHILS 0.8 % (0-7); HEMATOCRIT 30.5 % (42.0-54.0); HEMOGLOBIN 9.6 g/dL (13.5-17.5); IMMATURE GRANULOCYTES 0.4 % (0-5); LYMPHOCYTES 7.8 % (15-50); MCH 28.4 pg (26.0-34.0); MCHC 31.5 g/dL (31.0-37.0); MCV 90.2 fL (80.0-100.0); MEAN PLATELET VOLUME 9.9 fL (7.4-10.4); MONOCYTES 9.3 % (2-11); NEUTROPHILS 81.6 % (40-80); PLATELET COUNT 361 10x3/uL (130-400); RBC 3.38 10x6/uL (4.20-6.10); RDW 13.6 % (11.5-14.5); WBC 13.5 10x3/uL (4.8-10.8)
[2019-07-21 06:36] LABS: CALC OSMOLALITY 280 mosm/kg (275-300); CALCIUM 7.8 mg/dL (8.5-10.1); CARBON DIOXIDE 26.8 mmol/L (21.0-32.0); CHLORIDE - SERUM 105 mmol/L (98-107); CREATININE - SERUM 0.7 mg/dL (0.6-1.3); GLUCOSE 107 mg/dL (74-106); POTASSIUM - SERUM 3.6 mmol/L (3.5-5.1); SODIUM 139 mmol/L (136-145); UREA NITROGEN 20 mg/dL (7-18); eGFR NON AFRICAN AMERICAN > 90 mL/min (90-120)
--- NOTE | 2019-07-21 07:15 | NUR ---
RECEIVED PT IN BED EYES CLOSD RESP UNLABORED SKIN W/D NAD NOTED
[2019-07-21 08:07] VITALS: BP 119/68
[2019-07-21 11:05] VITALS: BP 133/86
[2019-07-21 15:16] VITALS: BP 108/48
--- NOTE | 2019-07-21 19:27 | NUR ---
RECEIVED BEDSIDE REPORT. PATIENT IS ALERT AND PLEASANTLY COMFUSED, RESTING COMFORTABLY IN BED. RESPIRATIONS ARE EVEN AND UNLABORED. NO S/S OF DISTRESS. NO C/OPAIN. CALL LIGHT WITHIN REACH. WILL CPOC.
[2019-07-22] VITALS (7 sets, daily range): BP systolic 103–141; BP diastolic 52–77
--- NOTE | 2019-07-22 07:40 | NUR ---
RECEIVED PT IN BED EYES CLOSED RESP UNLABORED SKIN W/D COLOR PALE WILL CONTINUE TO MONITOR NAD NOTED
--- NOTE | 2019-07-22 14:20 | NUR ---
Nutrition Follow-up: Family reports fair PO this AM; 50% per record. Needs staff feeding assistance if family not present; discussed with nurse data entry manager Ceci. Diarrhea improved on Questran per MD. Diet: Regular, Mech Soft (Ground Meat with Gravy), Merom Thick Liquids, Ensure with meals PO intake: 43% avg x 7 meals No new wt; last wt - 165.5# (07/17); daily wts ordered Labs noted: Glu 107, Ca 7.8 Meds noted: Questran, Lasix, KCl, Pepcid -Rec appetite stimulant. -Need new wt. -RD following.
--- NOTE | 2019-07-22 14:48 | NUR ---
OT NOTE: ASSISTED PT BACK TO BED. PT REQUIRED MAX ASSIST FOR SIT TO STAND. ATTEMPTED TO STAND WHILE ELECTRIC BRAIN WAVE EQUIPMENT MECHANIC PERFORMED PERINEAL CARE. PT WITH CONTINUED DIARRHEA... WHILE ELECTRIC BRAIN WAVE EQUIPMENT MECHANIC CLEANING PT, HE CONTINUED TO HAVE DIARRHEA. PT HAS HAD THIS DIARRHEA FOR OVER 2 WKS. ATTEMPTED TO TRANSFER WITH WALKER, HOWEVER, PT KEPT REACHING FOR BED.. ENDED UP REQUIRING MAX ASSIST X 2 FOR TRANSFER TO BED. RENARD HERRMANN, OTR/L 130-150
--- NOTE | 2019-07-22 16:00 | MORECARE ---
CASE MANAGEMENT DISCHARGE SUMMARY PATIENT: LIAM ACOSTA UNIT: [id number] ADM DATE: 07/04/19 AGE: 74 : 45 SEX: M ROOM/BED: D.8534 AUTHOR: DENISHA,EDUARDO PHYSICIAN: REFERRING PHYSICIAN: RYAN RAMIREZ MD DATE OF SERVICE: 07/22/19 Discharge Plan Patient Name: LIAM ACOSTA Facility: [facility]:[place] : 1945 Planned Disposition: Alf Facility Anticipated Discharge Date: 07/19/19 Discharge Date: Expected LOS: 15 Initial Reviewer: [id number] Initial Review Date: 07/09/2019 Generated: 07/22/19 4:59 pm Comments DCP- Discharge Planning Updated by [id number]: Darrius Gonzalez on 07/22/19 2:[address] Patient Name: LIAM ACOSTA Encounter No: [id number] : 1945 Primary Insurance: NOVASYSMCR Anticipated DC Date: 07-19-2019 Planned Disposition: Alf Facility External Planned Provider: [facility], MEDICARE REHAB BED DCP follow-up note: CM FAXED REFERRAL UPDATE TO NATASHA OF [facility], . CM CALLED NATASHA WHO REPORTS HAVING PRE AUTH NUMBER AND IS WATING ON INSURANCE AUTHORIZATION FOR REHAB SERVICES FROM INSURANCE. CM WAITING INSURANCE DETERMINATION FOR REHAB SERVICES. [facility] PLANS TO ACCEPT PENDING INSURANCE AUTHORIZATION. GIANCARLO GONZALEZ CASE MILY DCP- Discharge Planning Updated by [id number]: Darrius Gonzalez on 07/20/19 12:[address] Patient Name: LIAM ACOSTA Encounter No: [id number] : 1945 Primary Insurance: NOVASYSMCR Anticipated DC Date: 07-19-2019 Planned Disposition: Alf Facility External Planned Provider: [facility], MEDICARE REHAB BED DCP follow-up note: CM FAXED REFERRAL UPDATE TO [facility], FOR [facility], [place] [facility]. CM WAITING ADMISSION DETERMINATIONS FROM [facility], [place] AND [facility] WELL INSURANCE DETERMINATION FOR REHAB SERVICES. GIANCARLO GONZALEZ, CASE MANAGEMENT DCP- Discharge Planning Updated by [id number]: Darrius Gonzalez on 07/16/19 11:[address] Patient Name: LIAM ACOSTA Encounter No: [id number] : 1945 Primary Insurance: NOVASYSMCR Anticipated DC Date: 07-19-2019 Planned Disposition: Alf Facility External Planned Provider: [facility], MEDICARE REHAB BED DCP follow-up note: CM FAXED REFERRAL UPDATE TO [facility], FOR [facility], [facility] [facility]. CM NOTIFED BONITA OF REFERRAL AT [phone]. CM RECEIVED CALL FROM JUAN OF [facility] WHO IS PROCESSING FOR REHAB ADMISSION. SHE WILL HAVE TO CHECK WITH INSURANCE WELL PT'S CANCER TREATMENT DOCTOR; CM SPOKE TO PT'S WHO REPORTS PT IS PENDING THREE MORE CANCER TREATMENTS AFTER THE FIRST OF THE YEAR, PT IS NOT ON ORAL CANCER MEDICATIONS. JUAN OF [facility] NOTIFIED. CM WAITING ADMISSION DETERMINATIONS FROM [facility], [facility] [facility] RE[facility] WELL INSURANCE DETERMINATION FOR REHAB SERVICES. GIANCARLO GONZALEZ, CASE MANAGEMENT DCP- Discharge Planning Updated by [id number]: Darrius Gonzalez on 07/15/19 5:[address] Patient Name: LIAM ACOSTA Encounter No: [id number] : 1945 Primary Insurance: NOVASYSMCR Anticipated DC Date: 07-19-2019 Planned Disposition: Alf Facility External Planned Provider: [facility], MEDICARE REHAB BED DCP follow-up note: CM RECEIVED MESSAGE THAT [facility] IS OUT OF NETWORK WITH PT'S INSURANCE. CM SPOKE TO PT AND SPOUSE IN ROOM, DISCUSSED OPTIONS, PROVIDED LISTING OF AVAILABLE SKILLED REHABS IN [place]. PT'S ASKED THAT REFERRALS BE SENT TO [facility] AND [facility]. IMPORTANT MESSAGE FROM MEDICARE PROVIDED AND EXPLAINED. CM VERIFIED THESE FACILITIES ARE IN NETWORK WITH PT'S INSURANCE PER [facility]ITA [facility] THAT REPRESENTS THESE FACILITIES. CHOICE SIGNED. BONITA ADVISED THAT PT'S INSURANCE CAN TAKE "UP TO A FEW DAYS TO AUTHORIZE SERVICES." CM TO SEND REFERRALS FOR REHAB TO [facility] AND [place] SOON POSSIBLE. Darrius Gonzalez, CASE MANAGEMENT Appended by Darrius Gonzalez on 07/15/2019 18:24 ELECTRICAL ENGINEERING DIRECTOR: CM FAXED REFERRAL TO B[facility]ITA [facility], FOR [facility], [facility] [facility] RE[facility]. CM NOTIFED BONITA OF REFERRAL AT [phone]. CM WAITING ADMISSION DETERMINATIONS FROM [facility], [place] [facility] REHAB WELL INSURANCE DETERMINATION FOR REHAB SERVICES. GIANCARLO GONZALEZ, CASE MANAGEMENT DCP- Discharge Planning Updated by [id number]: Darrius Gonzalez on 07/14/19 3:[address] Patient Name: LIAM ACOSTA Encounter No: [id number] : 1945 Primary Insurance: NOVASYSMCR Anticipated DC Date: 07-15-2019 Planned Disposition: Alf Facility External Planned Provider: [facility], MEDICARE REHAB BED DCP follow-up note: CM SPOKE TO ANÍBAL OF INPATIENT REHAB AT [place], PT IS STILL VERY LOW FUNCTIONING WITH PHYSICAL THERAPY AND RECOMMENDS PENITENTIARY REHAB. . CM NOTIFIED ADAM OF [facility], , OF REFERRAL FOR REHAB SERVICES. ADAM DID NOT RECEIVE FAX PREVIOUSLY. CM FAXED REFERRAL TO [facility] VIA ADAM AT [phone]. CM WAITITING ADMISSION DETERMINATION FROM [facility] WELL INSURANCE AUTHORIZATION FOR REHAB SERVICES. Record Searcher: Darrius Gonzalez DCP- Discharge Planning Updated by [id number]: Darrius Gonzalez on 07/12/19 10:[address] Patient Name: LIAM ACOSTA Encounter No: [id number] : 1945 Primary Insurance: NOVASYSMCR Anticipated DC Date: Planned Disposition: Inpatient Rehab External Planned Provider: [facility] Discharge Planning Comments: CM WAITING OCCUPATIONAL THERAPY EVALUATION WELL REHAB PRESCEENING BY [facility]. CM MET WITH PT AND SPOUSE IN ROOM, PT SLEEPING SOUNDLY. THERAPY NOTES DISCUSSED WITH PT'S SPOUSE, PT IS MAX ASSIST FOR BED MOBILITY, IS NOT STANDING OR WALKING AT THIS TIME. CM DISCUSSED SECOND OPTION FOR REHAB IF INSURNACE WILL NOT AUTHORIZE INPATIENT REHAB AT [place]. LIST OF PROVIDERS DISCUSSED AND PRPOVIDED. PT'S SPOUSE WOULD LIKE REFERRAL TO [facility] IT IS CLOSE TO THEIR HOME AND PT'S SPOUSE DOES NOT DRIVE. CHOICE COMPLETED FOR THE [facility]. CM SPOKE TO YAMIL OF INPATIENT REHAB AT [place], PT IS VERY LOW FUNCTIONING WITH PHYSICAL THERAPY. CM NOTIFIED ADAM OF [facility], , OF REFERRAL FOR REHAB SERVICES. CM FAXED REFERRAL TO [facility] VIA ADAM AT [phone]. CM WAITITING ADMISSION DETERMINATION FROM [facility] WELL INSURANCE AUTHORIZATION FOR REHAB SERVICES. Record Searcher: Darrius Gonzalez DCP- Discharge Planning Updated by [id number]: Darrius Gonzalez on 07/09/19 1:[address] Patient Name: LIAM ACOSTA Admission Status: ER Accout number: [id number] Admission Date: 07-04-2019 : 1945 Admission Diagnosis: Attending: RYAN RAMIREZ Current LOS: 5 Anticipated DC Date: Planned Disposition: Inpatient Rehab Primary Insurance: [employer] PLANNED EXTERNAL PROVIDER: [facility] Discharge Planning Comments: CM MET WITH PT AND SPOUSE IN ROOM TO DISCUSS DISCHARGE PLANNING AND NEEDS. PT DID NOT SPEAK BUT WAS AWAKE DURING MEETING. PT'S SPOUSE PT LIVING AT HOME DEPENDENTLY WITH SPOUSE WHO ASSISTS WITH MEDICATIONS. PT HAS BEEN BECOMING INCREASINGLY WEAK AT HOME AND SPOUSE REPORTS PT WILL NEED REHAB TO GO HOME. PT HAS CANE AND STANDARD WALKER WITH NO MEDICAL EQUIPMENT PROVIDER PREFERENCE. PT HAS [facility] THROUGH MEDICAID 2 HOURS ON WEEKDAYS AND 5 HOURS ON WEEKEND DAYS. CM DISCUSSED AVAILABILITY OF HOME HEALTH, REHAB SERVICES AND MEDICAL EQUIPMENT. PT'S SPOUSE WOULD LIKE PT CONSIDERED FOR REHAB AT [place] HE HAS BEEN THERE IN THE PAST AN RECEIVED GOOD REHAB. SPOUSE TO PICK PT UP FOR DISCHARGE HOME. IMPORTANT MESSAGE FROM MEDICARE PROVIDED AND EXPLAINED. ORDER FOR PT, OT AND INPATIENT REHAB PRESCREEN OBTAINED FROM DR. RAMIREZ. CM WAITING THERAPY EVALUATIONS WELL REHAB PRESCEENING BY [facility]. Record Searcher: Darrius Gonzalez DCPIA - Discharge Planning Initial Assessment Updated by [id number]: Darrius Gonzalez on 07/09/19 2:32 pm * Is the patient Alert and Oriented? Yes * How many steps to enter\\exit or inside your home? * PCP DR. RAMIREZ * Pharmacy [facility] * Preadmission Environment Home with Family * ADLs Partial Dependent * Partial ADLs (Assistance needed) Medication Management * Equipment Cane Walker * Other Equipment NO MEDICAL EQUIPMENT PROVIDER * List name and contact numbers for known caregivers / representatives who currently or will assist patient after discharge: ZIGGY ACOSTA, SON, JULIEN ACOSTA, , * Verbal permission to speak to the caregivers and representatives has been obtained from the patient. N/A * Community resources currently utilized Private Duty Care * Please name any agencies selected above. [facility], DRUG ABUSE COUNSEL[facility], 5 DAYS 2 HOURS PER DAY; WEEKENDS 5 HOURS PER DAY * Additional services required to return to the preadmission environment? Yes * Can the patient safely return to the preadmission environment? Yes * Has this patient been hospitalized within the prior 30 days at any hospital? No Coverage Notice Reviewer: [id number] Gonzalez Notice Issued Date-Time: 07/09/2019 9:10 Notice Type: IM Discharge Notice Notice Delivered To: Patient Relationship to Patient: Oss Architect Name: Delivery Method: HAND - Hand Delivered Pao Days: Prior Verbal Notification: Recipient Understood Notice: Yes Recipient Signature: Yes Med Rec Note Co-signed by Attending: Coverage Notice Comment: Reviewer: GEORGE Gonzalez Notice Issued Date-Time: 07/12/2019 10:10 Notice Type: Patient Choice Letter Notice Delivered To: Family Member Relationship to Patient: Spouse Oss Architect Name: JULIEN ACOSTA Delivery Method: HAND - Hand Delivered Pao Days: Prior Verbal Notification: Recipient Understood Notice: Yes Recipient Signature: Yes Med Rec Note Co-signed by Attending: Coverage Notice Comment: GHUALM IRVIN Reviewer: [id number] Gonzalez Notice Issued Date-Time: 07/15/2019 12:20 Notice Type: IM Discharge Notice Notice Delivered To: Family Member Relationship to Patient: Spouse Oss Architect Name: JULIEN ACOSTA Delivery Method: HAND - Hand Delivered Pao Days: Prior Verbal Notification: Recipient Understood Notice: Yes Recipient Signature: Yes Med Rec Note Co-signed by Attending: Coverage Notice Comment: Reviewer: [id number] Gonzalez Notice Issued Date-Time: 07/15/2019 12:20 Notice Type: Patient Choice Letter Notice Delivered To: Family Member Relationship to Patient: Spouse Oss Architect Name: JULIEN ACOSTA Delivery Method: HAND - Hand Delivered Pao Days: Prior Verbal Notification: Recipient Understood Notice: Yes Recipient Signature: Yes Med Rec Note Co-signed by Attending: Coverage Notice Comment: GERMAN TINOCO AND KLELY ATKINSON Last DP export: 07/20/19 12:14 Patient Name: LIAM ACOSTA Page [id number] at 1600 All edits/amendments must be made on the electronic document DICTATION DATE: 07/22/191558 VENEER SHEET REPAIRER: ANTONELLA 07/22/191558 RPT#: [id number] DC DATE: STATUS: ADM IN [facility] [address] [place] [address] END OF REPORT
--- NOTE | 2019-07-22 16:39 | NUR ---
OT NOTE: PT COMPLETED BED TO CHAIR TRANSFER WITH MOD A. PT COMPLETED BED MOB WITH MOD A. PT COMPLETED ORAL HYGIENE WITH SET UP. PT COMPLETED HAIR GROOMING WITH SET UP. PT COMPLETED RUE AROM EX. PT COMPLETED LUE AAROM EXS. [phone] THANK YOU,YOAN MEYER
--- NOTE | 2019-07-22 20:19 | NUR ---
RECEIVED BEDSIDE REPORT. PATIENT IS ALERT AND PLEASANTLY CONFUSED, RESTING COMFORTABLY IN BED. RESPIRATIONS ARE EVEN AND UNLABORED. NO S/S OF DISTRESS. NO C/O PAIN. CALL LIGHT WITHIN REACH. WILL CPOC.
--- NOTE | 2019-07-23 | NUR ---
PATIENT APPEARS TO BE SLEEPING. RESPIRATIONS ARE EVEN AND UNLABORED. NO S/S OF DISTRESS. NO C/OPAIN. CALL LIGHT WITHIN REACH. WILL CPOC.
--- NOTE | 2019-07-23 02:58 | NUR ---
PATIENT APPEARS TO BE SLEPPING. RESPIRATIONS ARE EVEN AND UNLABORED. NO S/S OF STRESS. NO C/OPAIN. CALL LIGHT WITHIN REACH. WILL CPOC.
[2019-07-23 03:50] VITALS: BP 125/66
--- NOTE | 2019-07-23 09:31 | NUR ---
C/O HEART BURN. DR. RAMIREZ NOTIFIED. NEW ORDERS GIVEN.
--- NOTE | 2019-07-23 10:11 | NUR ---
I CALLED AND TALKED TO DR MEDINA FOR DISCHARGE ORDERS THAT GIANCARLO WITH CM RECEIVED FROM [facility].
[2019-07-23 10:13] VITALS: BP 141/66
--- NOTE | 2019-07-23 11:29 | NUR ---
OT NOTE: PT MORE ALERT TODAY. INCREASED ABILITY TO FOLLOW COMMANDS. INCREASED VERBALIZATION TODAY. BED MOB WITH MOD ASSIST. ATTEMPTED TO SIT UP ON EOB, HOWEVER, PT CONTINUALLY HAVING EPPISODES OF DIARRHEA. REQUIRED PERINEAL CARE 3 XS DURING TMT . APPLIED BUTT PAST FOLLOWING THOROUGH CLEANING. RENARD HERRMANN, OTR/L
[2019-07-23] MEDS ORDERED: QUESTRAN LIG1 PACKET PO (12:25)
[2019-07-23] MEDS ORDERED: BETAPACE 120 M120 MG PO (12:26)
[2019-07-23] MEDS ORDERED: CARDIZEM SR90 MG PO (12:27)
--- NOTE | 2019-07-23 13:04 | MORECARE ---
CASE MANAGEMENT DISCHARGE SUMMARY PATIENT: LIAM ACOSTA UNIT: [id number] ADM DATE: 07/04/19 AGE: 74 : 45 SEX: M ROOM/BED: D.8825 AUTHOR: DENISHA,EDUARDO PHYSICIAN: REFERRING PHYSICIAN: RYAN RAMIREZ MD DATE OF SERVICE: 07/23/19 Discharge Plan Patient Name: LIAM ACOSTA Facility: [facility]:[place] : 1945 Planned Disposition: Detention Facility Anticipated Discharge Date: 07/23/19 Discharge Date: Expected LOS: 19 Initial Reviewer: [id number] Initial Review Date: 07/09/2019 Generated: 07/23/19 2:03 pm Comments DCP- Discharge Planning Updated by [id number]: Darrius Gonzalez on 07/22/19 2:[address] Patient Name: LIAM ACOSTA Encounter No: [id number] : 1945 Primary Insurance: NOVASYSMCR Anticipated DC Date: 07-19-2019 Planned Disposition: Detention Facility External Planned Provider: [facility], MEDICARE REHAB BED DCP follow-up note: CM FAXED REFERRAL UPDATE TO NATASHA OF [facility], . CM CALLED NATASHA WHO REPORTS HAVING PRE AUTH NUMBER AND IS WATING ON INSURANCE AUTHORIZATION FOR REHAB SERVICES FROM INSURANCE. CM WAITING INSURANCE DETERMINATION FOR REHAB SERVICES. [facility] PLANS TO ACCEPT PENDING INSURANCE AUTHORIZATION. TRAY SCHERER DCP- Discharge Planning Updated by [id number]: Darrius Gonzalez on 07/20/19 12:[address] Patient Name: LIAM ACOSTA Encounter No: [id number] : 1945 Primary Insurance: NOVASYSMCR Anticipated DC Date: 07-19-2019 Planned Disposition: Detention Facility External Planned Provider: [facility], MEDICARE REHAB BED DCP follow-up note: CM FAXED REFERRAL UPDATE TO B[facility]ITA [facility]LL[facility], FOR [facility], [place] AND [facility] RE[facility]. CM WAITING ADMISSION DETERMINATIONS FROM [facility], [place] AND [facility] REHAB WELL INSURANCE DETERMINATION FOR REHAB SERVICES. GIANCARLO GONZALEZ, CASE MANAGEMENT DCP- Discharge Planning Updated by [id number]: Darrius Gonzalez on 07/16/19 11:[address] Patient Name: LIAM ACOSTA Encounter No: [id number] : 1945 Primary Insurance: NOVASYSMCR Anticipated DC Date: 07-19-2019 Planned Disposition: Detention Facility External Planned Provider: [facility], MEDICARE REHAB BED DCP follow-up note: CM FAXED REFERRAL UPDATE TO B[facility]ITA [facility], FOR [facility], [place] AND [facility] REHAB. CM NOTIFED BONITA OF REFERRAL AT [phone]. CM RECEIVED CALL FROM JUAN OF [facility] WHO IS PROCESSING FOR REHAB ADMISSION. SHE WILL HAVE TO CHECK WITH INSURANCE WELL PT'S CANCER TREATMENT DOCTOR; CM SPOKE TO PT'S WHO REPORTS PT IS PENDING THREE MORE CANCER TREATMENTS AFTER THE FIRST OF THE YEAR, PT IS NOT ON ORAL CANCER MEDICATIONS. JUAN OF [facility] NOTIFIED. CM WAITING ADMISSION DETERMINATIONS FROM [facility], [place] AND [facility] REHAB WELL INSURANCE DETERMINATION FOR REHAB SERVICES. GIANCARLO GONZALEZ, CASE MANAGEMENT DCP- Discharge Planning Updated by [id number]: Darrius Gonzalez on 07/15/19 5:[address] Patient Name: LIAM ACOSTA Encounter No: [id number] : 1945 Primary Insurance: NOVASYSMCR Anticipated DC Date: 07-19-2019 Planned Disposition: Detention Facility External Planned Provider: [facility], MEDICARE REHAB BED DCP follow-up note: CM RECEIVED MESSAGE THAT [facility] IS OUT OF NETWORK WITH PT'S INSURANCE. CM SPOKE TO PT AND SPOUSE IN ROOM, DISCUSSED OPTIONS, PROVIDED LISTING OF AVAILABLE SKILLED REHABS IN [place]. PT'S ASKED THAT REFERRALS BE SENT TO [facility] AND [place]. IMPORTANT MESSAGE FROM MEDICARE PROVIDED AND EXPLAINED. CM VERIFIED THESE FACILITIES ARE IN NETWORK WITH PT'S INSURANCE PER [facility]ITA [facility] THAT REPRESENTS THESE FACILITIES. CHOICE SIGNED. BONITA ADVISED THAT PT'S INSURANCE CAN TAKE "UP TO A FEW DAYS TO AUTHORIZE SERVICES." CM TO SEND REFERRALS FOR REHAB TO [facility] AND [place] SOON POSSIBLE. Darrius Gonzalez, CASE MANAGEMENT Appended by Darrius Gonzalez on 07/15/2019 18:24 HOME RESTORATION SERVICE CLEANER: CM FAXED REFERRAL TO B[facility]ITA [facility]LL[facility], FOR [facility], [place] AND [facility] REHAB. CM NOTIFED BONITA OF REFERRAL AT [phone]. CM WAITING ADMISSION DETERMINATIONS FROM [facility], [place] AND [facility] REHAB WELL INSURANCE DETERMINATION FOR REHAB SERVICES. GIANCARLO GONZALEZ, CASE MANAGEMENT DCP- Discharge Planning Updated by [id number]: Darrius Gonzalez on 07/14/19 3:[address] Patient Name: LIAM ACOSTA Encounter No: [id number] : 1945 Primary Insurance: NOVASYSMCR Anticipated DC Date: 07-15-2019 Planned Disposition: Detention Facility External Planned Provider: [facility], MEDICARE REHAB BED DCP follow-up note: CM SPOKE TO ANÍBAL OF INPATIENT REHAB AT [facility], PT IS STILL VERY LOW FUNCTIONING WITH PHYSICAL THERAPY AND RECOMMENDS ASSISTED REHAB. . CM NOTIFIED ADAM OF [facility], , OF REFERRAL FOR REHAB SERVICES. ADAM DID NOT RECEIVE FAX PREVIOUSLY. CM FAXED REFERRAL TO [facility] VIA ADAM AT [phone]. CM WAITITING ADMISSION DETERMINATION FROM [facility] WELL INSURANCE AUTHORIZATION FOR REHAB SERVICES. Flux Tube Attendant: Darrius Gonzalez DCP- Discharge Planning Updated by [id number]: Darrius Gonzalez on 07/12/19 10:[address] Patient Name: LIAM ACOSTA Encounter No: [id number] : 1945 Primary Insurance: NOVASYSMCR Anticipated DC Date: Planned Disposition: Inpatient Rehab External Planned Provider: [facility] Discharge Planning Comments: CM WAITING OCCUPATIONAL THERAPY EVALUATION WELL REHAB PRESCEENING BY [facility]. CM MET WITH PT AND SPOUSE IN ROOM, PT SLEEPING SOUNDLY. THERAPY NOTES DISCUSSED WITH PT'S SPOUSE, PT IS MAX ASSIST FOR BED MOBILITY, IS NOT STANDING OR WALKING AT THIS TIME. CM DISCUSSED SECOND OPTION FOR REHAB IF INSURNACE WILL NOT AUTHORIZE INPATIENT REHAB AT [facility]. LIST OF PROVIDERS DISCUSSED AND PRPOVIDED. PT'S SPOUSE WOULD LIKE REFERRAL TO [facility] IT IS CLOSE TO THEIR HOME AND PT'S SPOUSE DOES NOT DRIVE. CHOICE COMPLETED FOR [facility]. CM SPOKE TO YAMIL OF INPATIENT REHAB AT [facility], PT IS VERY LOW FUNCTIONING WITH PHYSICAL THERAPY. CM NOTIFIED ADAM OF [facility], , OF REFERRAL FOR REHAB SERVICES. CM FAXED REFERRAL TO [facility] VIA ADAM AT [phone]. CM WAITITING ADMISSION DETERMINATION FROM [facility] WELL INSURANCE AUTHORIZATION FOR REHAB SERVICES. Flux Tube Attendant: Darrius Gonzalez DCP- Discharge Planning Updated by [id number]: Darrius Gonzalez on 07/09/19 1:[address] Patient Name: LIAM ACOSTA Admission Status: ER Accout number: [id number] Admission Date: 07-04-2019 : 1945 Admission Diagnosis: Attending: RYAN RAMIREZ Current LOS: 5 Anticipated DC Date: Planned Disposition: Inpatient Rehab Primary Insurance: [employer] PLANNED EXTERNAL PROVIDER: [facility] Discharge Planning Comments: CM MET WITH PT AND SPOUSE IN ROOM TO DISCUSS DISCHARGE PLANNING AND NEEDS. PT DID NOT SPEAK BUT WAS AWAKE DURING MEETING. PT'S SPOUSE PT LIVING AT HOME DEPENDENTLY WITH SPOUSE WHO ASSISTS WITH MEDICATIONS. PT HAS BEEN BECOMING INCREASINGLY WEAK AT HOME AND SPOUSE REPORTS PT WILL NEED REHAB TO GO HOME. PT HAS CANE AND STANDARD WALKER WITH NO MEDICAL EQUIPMENT PROVIDER PREFERENCE. PT HAS [facility] THROUGH MEDICAID 2 HOURS ON WEEKDAYS AND 5 HOURS ON WEEKEND DAYS. CM DISCUSSED AVAILABILITY OF HOME HEALTH, REHAB SERVICES AND MEDICAL EQUIPMENT. PT'S SPOUSE WOULD LIKE PT CONSIDERED FOR REHAB AT [facility] HE HAS BEEN THERE IN THE PAST AN RECEIVED GOOD REHAB. SPOUSE TO PICK PT UP FOR DISCHARGE HOME. IMPORTANT MESSAGE FROM MEDICARE PROVIDED AND EXPLAINED. ORDER FOR PT, OT AND INPATIENT REHAB PRESCREEN OBTAINED FROM DR. RAMIREZ. CM WAITING THERAPY EVALUATIONS WELL REHAB PRESCEENING BY [facility]. Flux Tube Attendant: Darrius Gonzalez DCPIA - Discharge Planning Initial Assessment Updated by [email or web address]: Darirus Gonzalez on 07/09/19 2:32 pm * Is the patient Alert and Oriented? Yes * How many steps to enter\\exit or inside your home? * PCP DR. RAMIREZ * Pharmacy [facility] * Preadmission Environment Home with Family * ADLs Partial Dependent * Partial ADLs (Assistance needed) Medication Management * Equipment Cane Walker * Other Equipment NO MEDICAL EQUIPMENT PROVIDER * List name and contact numbers for known caregivers / representatives who currently or will assist patient after discharge: ZIGGY ACOSTA, SON, JULIEN ACOSTA, , * Verbal permission to speak to the caregivers and representatives has been obtained from the patient. N/A * Community resources currently utilized Private Duty Care * Please name any agencies selected above. [facility] [place], 5 DAYS 2 HOURS PER DAY; WEEKENDS 5 HOURS PER DAY * Additional services required to return to the preadmission environment? Yes * Can the patient safely return to the preadmission environment? Yes * Has this patient been hospitalized within the prior 30 days at any hospital? No Coverage Notice Reviewer: [id number] Gonzalez Notice Issued Date-Time: 07/09/2019 9:10 Notice Type: IM Discharge Notice Notice Delivered To: Patient Relationship to Patient: Special Assemblies Supervisor Name: Delivery Method: HAND - Hand Delivered Pao Days: Prior Verbal Notification: Recipient Understood Notice: Yes Recipient Signature: Yes Med Rec Note Co-signed by Attending: Coverage Notice Comment: Reviewer: GEORGE Gonzalez Notice Issued Date-Time: 07/12/2019 10:10 Notice Type: Patient Choice Letter Notice Delivered To: Family Member Relationship to Patient: Spouse Special Assemblies Supervisor Name: JULIEN ACOSTA Delivery Method: HAND - Hand Delivered Pao Days: Prior Verbal Notification: Recipient Understood Notice: Yes Recipient Signature: Yes Med Rec Note Co-signed by Attending: Coverage Notice Comment: GHULAM IRVIN Reviewer: [id number] Gonzalez Notice Issued Date-Time: 07/15/2019 12:20 Notice Type: IM Discharge Notice Notice Delivered To: Family Member Relationship to Patient: Spouse Special Assemblies Supervisor Name: JULIEN ACOSTA Delivery Method: HAND - Hand Delivered Pao Days: Prior Verbal Notification: Recipient Understood Notice: Yes Recipient Signature: Yes Med Rec Note Co-signed by Attending: Coverage Notice Comment: Reviewer: [id number] Gonzalez Notice Issued Date-Time: 07/15/2019 12:20 Notice Type: Patient Choice Letter Notice Delivered To: Family Member Relationship to Patient: Spouse Special Assemblies Supervisor Name: JULIEN ACOSTA Delivery Method: HAND - Hand Delivered Pao Days: Prior Verbal Notification: Recipient Understood Notice: Yes Recipient Signature: Yes Med Rec Note Co-signed by Attending: Coverage Notice Comment: ZAKI TINOCO Reviewer: [id number] Lissa Gonzalez Notice Issued Date-Time: 07/23/2019 10:00 Notice Type: IM Discharge Notice Notice Delivered To: Family Member Relationship to Patient: Spouse Special Assemblies Supervisor Name: JULIEN ACOSTA Delivery Method: HAND - Hand Delivered Pao Days: Prior Verbal Notification: Recipient Understood Notice: Yes Recipient Signature: Yes Med Rec Note Co-signed by Attending: Coverage Notice Comment: Last DP export: 07/22/19 3:00 Patient Name: LIAM ACOSTA Page [id number] at 1304 All edits/amendments must be made on the electronic document DICTATION DATE: 07/23/19 1303 MICROFICHE DUPLICATOR: ANTONELLA 07/23/19 1303 RPT#: [id number] DC DATE: STATUS: ADM IN [facility] [address] [place] [address] END OF REPORT
--- NOTE | 2019-07-23 13:11 | MORECARE ---
CASE MANAGEMENT DISCHARGE SUMMARY PATIENT: LIAM ACOSTA UNIT: [id number] ADM DATE: 07/04/19 AGE: 74 : 45 SEX: M ROOM/BED: D.2 AUTHOR: EDUARDO DENNY PHYSICIAN: REFERRING PHYSICIAN: RYAN RAMIREZ MD DATE OF SERVICE: 07/23/19 Discharge Plan Patient Name: LIAM ACOSTA Facility: [facility]:[place] : 1945 Planned Disposition: Intermediate Facility Anticipated Discharge Date: 07/23/19 Discharge Date: Expected LOS: 19 Initial Reviewer: [email or web address] Initial Review Date: 07/09/2019 Generated: 07/23/19 2:11 pm Comments DCP- Discharge Planning Updated by [id number]: Darrius Gonzalez on 07/23/19 12:[address] Patient Name: LIAM ACOSTA Encounter No: [id number] : 1945 Primary Insurance: NOVASYSMCR Anticipated DC Date: 07-23-2019 Planned Disposition: Intermediate Facility External Planned Provider: [facility], MEDICARE REHAB BED DCP follow-up note: CM RECEIVED CALL NATASHA OF [facility], , WHO INFORMED CM THAT AUTH HAS BEEN RECEIVED FROM INSURANCE, FAMILY HAS COMPLETED ADMISSION PAPERWORK AND [facility] WILL BU[facility]ET [facility] PT. CM NOTIFIED PT AND SPOUSE IN ROOM, BOTH IN AGREEMENT WITH PLAN, IMPORTANT MESSAGE FROM MEDICARE PROVIDED AND EXPLAINED. CM NOTIFEID PHYSICIAN SCIENTIST NURSE WHO NOTIFIED DR. RAMIREZ. DISCHARGE RECEIVED. CM FAXED DISCHARGE INFORMATION TO [facility] AT [phone]. NURSE REPORT TO BE CALLED TO [facility] AT [phone]. [facility] TO BUCKET [facility] PT SHORTLY. Darrius Gonzalez CASE MANAGEMENT DCP- Discharge Planning Updated by [email or web address]: Darrius Gonzalez on 07/22/19 2:[address] Patient Name: LIAM ACOSTA Encounter No: [id number] : 1945 Primary Insurance: NOVASYSMCR Anticipated DC Date: 07-19-2019 Planned Disposition: Intermediate Facility External Planned Provider: [facility], MEDICARE REHAB BED DCP follow-up note: CM FAXED REFERRAL UPDATE TO NATASHA OF [facility], . CM CALLED NATASHA WHO REPORTS HAVING PRE AUTH NUMBER AND IS WATING ON INSURANCE AUTHORIZATION FOR REHAB SERVICES FROM INSURANCE. CM WAITING INSURANCE DETERMINATION FOR REHAB SERVICES. [facility] PLANS TO ACCEPT PENDING INSURANCE AUTHORIZATION. GIANCARLO GONZALEZ CASE MANAGEMENT DCP- Discharge Planning Updated by [id number]: Darrius Gonzalez on 07/20/19 12:[address] Patient Name: LIAM ACOSTA Encounter No: [id number] : 1945 Primary Insurance: NOVASYSMCR Anticipated DC Date: 07-19-2019 Planned Disposition: Intermediate Facility External [facility] DCP follow-up note: MICHAEL FAXED REFERRAL UPDATE TO BONITA ORELLANA OF [facility], FOR [facility], [place] AND [facility] RE[facility]. CM WAITING ADMISSION DETERMINATIONS FROM [facility], [place] AND [facility] REHAB WELL INSURANCE DETERMINATION FOR REHAB SERVICES. GIANCARLO GONZALEZ CASE MANAGEMENT DCP- Discharge Planning Updated by [id number]: Darrius Gonzalez on 07/16/19 11:[address] Patient Name: LIAM ACOSTA Encounter No: [id number] : 1945 Primary Insurance: NOVASYSMCR Anticipated DC Date: 07-19-2019 Planned Disposition: Intermediate Facility External [facility] BED DCP follow-up note: CM FAXED REFERRAL UPDATE TO BONITA ORELLANA [facility], FOR [facility], [place] AND [facility] REHAB. CM NOTIFED BONITA OF REFERRAL AT [phone]. CM RECEIVED CALL FROM JUAN OF [facility] WHO IS PROCESSING FOR REHAB ADMISSION. SHE WILL HAVE TO CHECK WITH INSURANCE WELL PT'S CANCER TREATMENT DOCTOR; CM SPOKE TO PT'S WHO REPORTS PT IS PENDING THREE MORE CANCER TREATMENTS AFTER THE FIRST OF THE YEAR, PT IS NOT ON ORAL CANCER MEDICATIONS. JUAN OF [facility] NOTIFIED. CM WAITING ADMISSION DETERMINATIONS FROM [facility], [place] AND [facility] REHAB WELL INSURANCE DETERMINATION FOR REHAB SERVICES. TRAY SCHERER MANAGEMENT DCP- Discharge Planning Updated by [email or web address]: Darrius Gonzalez on 07/15/19 5:[address] Patient Name: LIAM ACOSTA Encounter No: [id number] : 1945 Primary Insurance: NOVASYSMCR Anticipated DC Date: 07-19-2019 Planned Disposition: Intermediate Facility External [facility] DCP follow-up note: CM RECEIVED MESSAGE THAT [facility] IS OUT OF NETWORK WITH PT'S INSURANCE. CM SPOKE TO PT AND SPOUSE IN ROOM, DISCUSSED OPTIONS, PROVIDED LISTING OF AVAILABLE SKILLED REHABS IN [place]. PT'S ASKED THAT REFERRALS BE SENT TO [facility], [facility] AND [place]. IMPORTANT MESSAGE FROM MEDICARE PROVIDED AND EXPLAINED. CM VERIFIED THESE FACILITIES ARE IN NETWORK WITH PT'S INSURANCE PER BONITA ORELLANA [facility] THAT REPRESENTS THESE FACILITIES. CHOICE SIGNED. BONITA ADVISED THAT PT'S INSURANCE CAN TAKE "UP TO A FEW DAYS TO AUTHORIZE SERVICES." CM TO SEND REFERRALS FOR REHAB TO [facility], [facility] AND [place] SOON POSSIBLE. Darrius Gonzalez, CASE MANAGEMENT Appended by Darrius Gonzalez on 07/15/2019 18:24 CAD INTERN: CM FAXED REFERRAL TO BONITA ORELLANA OF [facility], FOR [facility], [place] [facility]. CM NOTIFED BONITA OF REFERRAL AT [phone]. CM WAITING ADMISSION DETERMINATIONS FROM [facility], [place] AND [facility] REHAB WELL INSURANCE DETERMINATION FOR REHAB SERVICES. TRAY SCHERER DCP- Discharge Planning Updated by [email or web address]: Darrius Gonzalez on 07/14/19 3:[address] Patient Name: LIAM ACOSTA Encounter No: [id number] : 1945 Primary Insurance: NOVASYSMCR Anticipated DC Date: 07-15-2019 Planned Disposition: Intermediate Facility External Planned Provider: [facility], MEDICARE REHAB BED DCP follow-up note: CM SPOKE TO ANÍBAL OF INPATIENT REHAB AT [facility], PT IS STILL VERY LOW FUNCTIONING WITH PHYSICAL THERAPY AND RECOMMENDS LONG TERM REHAB. . CM NOTIFIED ADAM OF [facility], , OF REFERRAL FOR REHAB SERVICES. ADAM DID NOT RECEIVE FAX PREVIOUSLY. CM FAXED REFERRAL TO [facility] VIA ADAM AT [phone]. CM WAITITING ADMISSION DETERMINATION FROM [facility] WELL INSURANCE AUTHORIZATION FOR REHAB SERVICES. Vigoureux Printer: Darrius Gonzalez DCP- Discharge Planning Updated by [id number]: Darrius Gonzalez on 07/12/19 10:[address] Patient Name: LIAM ACOSTA Encounter No: [id number] : 1945 Primary Insurance: NOVASYSMCR Anticipated DC Date: Planned Disposition: Inpatient Rehab External Planned Provider: [facility] Discharge Planning Comments: CM WAITING OCCUPATIONAL THERAPY EVALUATION WELL REHAB PRESCEENING BY [facility]. CM MET WITH PT AND SPOUSE IN ROOM, PT SLEEPING SOUNDLY. THERAPY NOTES DISCUSSED WITH PT'S SPOUSE, PT IS MAX ASSIST FOR BED MOBILITY, IS NOT STANDING OR WALKING AT THIS TIME. CM DISCUSSED SECOND OPTION FOR REHAB IF INSURNACE WILL NOT AUTHORIZE INPATIENT REHAB AT [facility]. LIST OF PROVIDERS DISCUSSED AND PRPOVIDED. PT'S SPOUSE WOULD LIKE REFERRAL TO [facility] IT IS CLOSE TO THEIR HOME AND PT'S SPOUSE DOES NOT DRIVE. CHOICE COMPLETED FOR [facility]. CM SPOKE TO YAMIL OF INPATIENT REHAB AT [facility], PT IS VERY LOW FUNCTIONING WITH PHYSICAL THERAPY. CM NOTIFIED ADAM OF [facility], , OF REFERRAL FOR REHAB SERVICES. CM FAXED REFERRAL TO [facility] VIA ADAM AT [phone]. CM WAITITING ADMISSION DETERMINATION FROM [facility] WELL INSURANCE AUTHORIZATION FOR REHAB SERVICES. Vigoureux Printer: Darrius Gonzalez DCP- Discharge Planning Updated by [email or web address]: Darrius Gonzalez on 07/09/19 1:[address] Patient Name: LIAM ACOSTA Admission Status: ER Accout number: [id number] Admission Date: 07-04-2019 : 1945 Admission Diagnosis: Attending: RYAN RAMIREZ Current LOS: 5 Anticipated DC Date: Planned Disposition: Inpatient Rehab Primary Insurance: NOVASYSMCR PLANNED EXTERNAL PROVIDER: [facility] Discharge Planning Comments: CM MET WITH PT AND SPOUSE IN ROOM TO DISCUSS DISCHARGE PLANNING AND NEEDS. PT DID NOT SPEAK BUT WAS AWAKE DURING MEETING. PT'S SPOUSE PT LIVING AT HOME DEPENDENTLY WITH SPOUSE WHO ASSISTS WITH MEDICATIONS. PT HAS BEEN BECOMING INCREASINGLY WEAK AT HOME AND SPOUSE REPORTS PT WILL NEED REHAB TO GO HOME. PT HAS CANE AND STANDARD WALKER WITH NO MEDICAL EQUIPMENT PROVIDER PREFERENCE. PT HAS [facility] THROUGH MEDICAID 2 HOURS ON WEEKDAYS AND 5 HOURS ON WEEKEND DAYS. CM DISCUSSED AVAILABILITY OF HOME HEALTH, REHAB SERVICES AND MEDICAL EQUIPMENT. PT'S SPOUSE WOULD LIKE PT CONSIDERED FOR REHAB AT [facility] HE HAS BEEN THERE IN THE PAST AN RECEIVED GOOD REHAB. SPOUSE TO PICK PT UP FOR DISCHARGE HOME. IMPORTANT MESSAGE FROM MEDICARE PROVIDED AND EXPLAINED. ORDER FOR PT, OT AND INPATIENT REHAB PRESCREEN OBTAINED FROM DR. RAMIREZ. CM WAITING THERAPY EVALUATIONS WELL REHAB PRESCEENING BY [facility]. Vigoureux Printer: Darrius Gonzalez DCPIA - Discharge Planning Initial Assessment Updated by [id number]: Darrius Gonzalez on 07/09/19 2:32 pm * Is the patient Alert and Oriented? Yes * How many steps to enter\\exit or inside your home? * PCP DR. RAMIREZ * Pharmacy [facility] [address] * Preadmission Environment Home with Family * ADLs Partial Dependent * Partial ADLs (Assistance needed) Medication Management * Equipment Cane Walker * Other Equipment NO MEDICAL EQUIPMENT PROVIDER * List name and contact numbers for known caregivers / representatives who currently or will assist patient after discharge: ZIGGY ACOSTA, SON, JULIEN ACOSTA, , * Verbal permission to speak to the caregivers and representatives has been obtained from the patient. N/A * Community resources currently utilized Private Duty Care * Please name any agencies selected above. [facility], TRACK INSPECTING SUPERVISOR, 5 DAYS 2 HOURS PER DAY; WEEKENDS 5 HOURS PER DAY * Additional services required to return to the preadmission environment? Yes * Can the patient safely return to the preadmission environment? Yes * Has this patient been hospitalized within the prior 30 days at any hospital? No Coverage Notice Reviewer: [id number] - Darrius Gonzalez Notice Issued Date-Time: 07/09/2019 9:10 Notice Type: IM Discharge Notice Notice Delivered To: Patient Relationship to Patient: Implementation Technician Name: Delivery Method: HAND - Hand Delivered Pao Days: Prior Verbal Notification: Recipient Understood Notice: Yes Recipient Signature: Yes Med Rec Note Co-signed by Attending: Coverage Notice Comment: Reviewer: GEORGE Gonzalez Notice Issued Date-Time: 07/23/2019 10:00 Notice Type: IM Discharge Notice Notice Delivered To: Family Member Relationship to Patient: Spouse Implementation Technician Name: JULIEN ACOSTA Delivery Method: HAND - Hand Delivered Pao Days: Prior Verbal Notification: Recipient Understood Notice: Yes Recipient Signature: Yes Med Rec Note Co-signed by Attending: Coverage Notice Comment: Reviewer: GEORGE Gonzalez Notice Issued Date-Time: 07/15/2019 12:20 Notice Type: IM Discharge Notice Notice Delivered To: Family Member Relationship to Patient: Spouse Implementation Technician Name: JULIEN ACOSTA Delivery Method: HAND - Hand Delivered Pao Days: Prior Verbal Notification: Recipient Understood Notice: Yes Recipient Signature: Yes Med Rec Note Co-signed by Attending: Coverage Notice Comment: Reviewer: GEORGE Gonzalez Notice Issued Date-Time: 07/15/2019 12:20 Notice Type: Patient Choice Letter Notice Delivered To: Family Member Relationship to Patient: Spouse Implementation Technician Name: JULIEN ACOSTA Delivery Method: HAND - Hand Delivered Pao Days: Prior Verbal Notification: Recipient Understood Notice: Yes Recipient Signature: Yes Med Rec Note Co-signed by Attending: Coverage Notice Comment: ZAKI TINOCO Reviewer: [id number] Gonzalez Notice Issued Date-Time: 07/12/2019 10:10 Notice Type: Patient Choice Letter Notice Delivered To: Family Member Relationship to Patient: Spouse Implementation Technician Name: JULIEN ACOSTA Delivery Method: HAND - Hand Delivered Pao Days: Prior Verbal Notification: Recipient Understood Notice: Yes Recipient Signature: Yes Med Rec Note Co-signed by Attending: Coverage Notice Comment: LUIS Oakley DP export: 07/23/19 12:04 Patient Name: LIAM ACOSTA Page [phone] at 1311 All edits/amendments must be made on the electronic document DICTATION DATE: 07/23/19 1311 RESORT HOUSEKEEPER: ANTONELLA 07/23/19 1311 RPT#: [id number] DC DATE: STATUS: ADM IN [facility] [address] [place] [address] END OF REPORT
--- NOTE | 2019-07-23 13:15 | NUR ---
REPORT CALLED TO [facility].
--- NOTE | 2019-07-23 14:05 | NUR ---
IV AND TELEMETRY DCD. ESCORTED TO [facility] BY W/C.
--- NOTE | 2019-07-23 16:21 | NUR ---
OT NOTE: PT EXHIBITED INCREASED ABILITY TO FOLLOW COMMANDS. PT COMPLETED BED MOB TASKS WITH MIN A. PT REQUIRED TOTAL A FOR LB HYGIENE TASKS. PT COMPLETED BUE AROM..LUE REQUIRED AAROM. PT COMPLETED FACE WASH WITH SET UP. PT STATED HE HAD BEEN ACCEPTED FOR REHAB TODAY. [phone] THANK YOU,YOAN MEYER
== END 2019-07-23 14:05 | DRG 853 ==
LOC: D.ER 08:21 → D.MS 11:37 → D.M2 11:37
PROVIDERS: Emergency Medicine; Surgery; ADMIT Family Medicine; ATTEND Family Medicine
PROC: 0FT44ZZ Resection of Gallbladder, Percutaneous Endoscopic Approach (ICD-10-PCS; principal; 2019-07-06 08:30)
PROC: 0FB03ZX Excision of Liver, Percutaneous Approach, Diagnostic (ICD-10-PCS; 2019-07-06 08:30)
DX: A41.9 Sepsis, unspecified organism (principal); E43 Unspecified severe protein-calorie malnutrition; J81.0 Acute pulmonary edema; K80.00 Calculus of gallbladder with acute cholecystitis without obstruction; Z68.1 Body mass index [BMI] 19.9 or less, adult; I69.352 Hemiplegia and hemiparesis following cerebral infarction affecting left dominant side; I25.10 Atherosclerotic heart disease of native coronary artery without angina pectoris; I10 Essential (primary) hypertension; K21.9 Gastro-esophageal reflux disease without esophagitis; D09.0 Carcinoma in situ of bladder; K82.A1 Gangrene of gallbladder in cholecystitis; I48.91 Unspecified atrial fibrillation; R06.6 Hiccough; F03.90 Unspecified dementia, unspecified severity, without behavioral disturbance, psychotic disturbance, mood disturbance, and anxiety; R79.89 Other specified abnormal findings of blood chemistry; M19.90 Unspecified osteoarthritis, unspecified site

== ENCOUNTER 2019-08-04 14:17 | Inpatient (IN) | payer OTHER, MEDICAID ==
[~2019-08-04] VITALS: Ht 175.3 cm; Wt 88.7 kg
--- NOTE | ~2019-08-04 | HEMODYNAMI ---
PATIENT:LIAM ACOSTA SR MEDICAL RECORD: [id number] : 45 LOCATION:D.TN [id number] ADMISSION DATE: 08/04/19 Generatedon:08/05/201914:21 Patient name: LIAM ACOSTA Patient #: [id number] SSN: : 1945 Date of study: 08/05/2019 Page: Of Hemodynamic Procedure Report Patient Data Patient Demographics Procedure consent was obtained First Name: LIAM Gender: Male Last Name: DAVE Suffix: [facility] Initial: D : 1945 Patient #: [id number] Age: 74 year(s) Race: Unknown Additional ID: [id number] Contact details Address: [address] [place] [address] circle State: [place] City: [facility] [place] [place] Zip code: [address] Past Medical History Allergies Allergen Reaction Date Comments Reported Other allergy 08/05/2019 no known allergies Admission Admission Data Admission Date: 08/04/2019 Admission Time: 18:31 Room #: D.2208 Procedure Procedure Types Cath Procedure Peripheral Cath Diagnostic Procedure Miscellaneous Aspiration/Injection (Joint) Procedure Description Procedure Date Procedure Date: 08/05/2019 Procedure Start Time: 13:58 Procedure Staff Name Function Giovanny West MD Performing Physician Naren Alba RT Monitor DONALD WEISS RT Monitor Procedure Data Cath Procedure Fluoroscopy Diagnostic fluoroscopy Total fluoroscopy Time: 1 time: 1 min min Diagnostic fluoroscopy Total fluoroscopy dose: dose: 17.17 mGy 17.17 mGy Hemodynamics Rest Pre Cath Intra NCS Post Cath Procedure Log Time Note 13:46:19 Naren Alba RT (R) (CV) sent for patient. Start room use. 13:46:31 Patient received from Med/Surg to IR Alert and oriented. Tansferred to table in Supine position. 13:46:34 Signed procedure consent form obtained from patient. 13:46:36 Correct patient and procedure confirmed by team. 13:46:37 Full Disclosure recording started 13:46:38 - 13:46:39 Pre-procedure instructions explained to patient. 13:46:40 Pre-op teaching completed and patient verbalized understanding. 13:47:01 Patient allergic to Other allergyno known allergies 13:47:06 Is patient on blood thinner?Yes 13:47:08 ACC The patient was administered the following blood thiners within the last 24 hours: ACCAspirin 13:52:27 Left groin area was prepped with betadine and draped in sterile fashion 13:52:41 SAFE-T PLUS MYELOGRAM TRAY opened to sterile field. 13:57:37 Physician arrived 13:57:38 --------ALL STOP TIME OUT------ 13:57:40 Final Timeout: patient, procedure, and site verified with staff and physician. All members of the team are in agreement. 13:57:42 Left groin site verified by team. 13:57:50 Sedation plan: Local Anesthetic Medication:Lidocaine 13:58:01 Procedure started. 13:58:07 Local anesthetic to left groin with Lidocaine 1% by Giovanny West MD.INITIAL ACCESS ONLY 14:17:16 Procedure ended.(Physican Out) 14:19:58 Fluoroscopy time 01.00 minutes. 14:20:03 Flurop Dose total: 17.17 14:20:03 Fluoroscopy dose: 17.17 mGy 14:20:11 Procedure and supply charges have been captured, reviewed, submitted an d are correct. Device Usage Item Name Manufacture Quantity Catalog Hospital Part Current Minimal Lot# / Number Charge Number Stock Stock Serial# Code SAFE-T [employer] 1 [id number] PLUS MYELOGRAM TRAY Signature Audit [place] Stage Time Signature Unsigned Intra-Procedure 08/05/2019 DONALD WEISS RT 2:20:56 PM (R) [facility] [address] [place] [address]
[~2019-08-04 14:17] MED LIST changes: +BETAPACE 120 M120 MG PO; +CARDIZEM SR90 MG PO; +OXYBUTYNIN CHLOR5 M1 PO; +QUESTRAN LIG1 PACKET PO
[2019-08-04 14:35] VITALS: BP 94/66
[2019-08-04] MEDS ORDERED: MUCINEX600 MG PO (14:48)
[2019-08-04] MEDS ORDERED: OMEPRAZOLE20 M1 PO (14:49)
[2019-08-04 16:36] LABS: BASOPHILS 0.2 % (0-2); EOSINOPHILS 0.2 % (0-7); HEMATOCRIT 28.2 % (42.0-54.0); HEMOGLOBIN 8.6 g/dL (13.5-17.5); IMMATURE GRANULOCYTES 0.3 % (0-5); LYMPHOCYTES 8.9 % (15-50); MCH 27.7 pg (26.0-34.0); MCHC 30.5 g/dL (31.0-37.0); MCV 90.7 fL (80.0-100.0); MEAN PLATELET VOLUME 9.3 fL (7.4-10.4); MONOCYTES 4.5 % (2-11); NEUTROPHILS 85.9 % (40-80); RBC 3.11 10x6/uL (4.20-6.10); RDW 14.2 % (11.5-14.5); WBC 11.8 10x3/uL (4.8-10.8)
[2019-08-04 16:39] LABS: PLATELET COUNT 240 10x3/uL (130-400)
[2019-08-04 16:49] LABS: CALC OSMOLALITY 281 mosm/kg (275-300); CALCIUM 7.8 mg/dL (8.5-10.1); CARBON DIOXIDE 20.9 mmol/L (21.0-32.0); CHLORIDE - SERUM 105 mmol/L (98-107); CREATININE - SERUM 2.3 mg/dL (0.6-1.3); GLUCOSE 121 mg/dL (74-106); POTASSIUM - SERUM 5.9 mmol/L (3.5-5.1); SODIUM 135 mmol/L (136-145); UREA NITROGEN 44 mg/dL (7-18); eGFR NON AFRICAN AMERICAN 30 mL/min (90-120)
[2019-08-04 16:59] LABS: ALBUMIN 1.2 g/dL (3.4-5.0); ALKALINE PHOSPHATASE 107 U/L (46-116); ALT (SGPT) 11 U/L (10-68); AMYLASE - SERUM 142 U/L (25-115); BILIRUBIN - TOTAL 0.49 mg/dL (0.2-1.3); LIPASE 402 U/L (73-393); TROPONIN-I < 0.017 ng/mL (0.000-0.060)
--- NOTE | 2019-08-04 19:55 | NUR ---
ROCEPHIN INFUSION COMPLETE AT THIS TIME.
[2019-08-04 19:56] VITALS: BP 108/57
--- NOTE | 2019-08-04 21:00 | NUR ---
PT BROUGHT TO FLOOR VIA STRETCHER, TRANSFERED TO BED. ORIENTED TO SELF ONLY, FAMILY AT BEDSIDE. FAMILY ANSWERS HISTORY QUESTIONS AND HAD LIST OF MEDS. STATES PT HAD BEEN HERE FOR [facility] [place] FOR [facility] GALL[facility] THEN DISCHARGED TO [place] [facility] FOR REHAB. STATES THEY DID NOT WORK WITH HIM MUCH GETTING UP, DAUGHTER STATES THEY DID NOT COME BY MUCH TO EVEN TRY BUT STATES WHEN THEY WOULD TRY THAT PT WOULD NOT COOPERATE. STATES HE HAS NOT FELT GOOD AND WOULD NOT EAT ANYTHING AND WAS NOT GETTING UP. STATED THAT IF HE WAS GOING TO DO NOTHING THERE WHY NOT TAKE HIM HOME. AFTER GETTING HOME HE WAS STILL NOT GETTING UP LIKE HE WAS PRIOR TO [facility] [place] AND STATES HIS LEFT HIP HURTS. HE BEGAN GETTING NAUSEOUS AND THROWING UP THAT LAST FEW DAYS. STATES HIS O2 WAS IN THE 70S AT HOME. CURRENTLY PT IS ON 4L/NC. STATES HIS LEFT HIP AND KNEE HURTS. STATES HE TAKES TYLENOL OR IBUPROFEN AT HOME AND IT WORKS FINE. GAVE PT TYLENOL. TOOK WITHOUT DIFFICULTY. IV RIGHT AC WRAPPED WITH KERLEX AND SLEEVE TO KEEP PT FROM PULLING AT IT. INFUSING NS @ 75. BED ALARM ON. FAMILY DENIES NEEDS AT THIS TIME. CL IN REACH, WILL CTM
[2019-08-04 22:35] VITALS: BP 107/63; BMI 22.2
[2019-08-05] VITALS (10 sets, daily range): BP systolic 93–143; BP diastolic 41–77; BMI 22.1
[2019-08-05] MEDS ORDERED: K-DUR20 MEQ PO (02:32)
--- NOTE | 2019-08-05 08:00 | NUR ---
PATIENT LAYING ON BACK. JULIEN IN ROOM. NO NEEDS AT THIS TIME. CL IN REACH. WCTM.
[2019-08-05 09:43] LABS: INR 1.17 (0.85-1.17); PROTIME 14.8 SECONDS (11.6-15.0)
[2019-08-05 09:51] LABS: ANION GAP 14.3 mmol/L (8-16); CALCIUM 7.9 mg/dL (8.5-10.1); CARBON DIOXIDE 22.4 mmol/L (21.0-32.0); CREATININE - SERUM 2.4 mg/dL (0.6-1.3); MAGNESIUM - SERUM 2.1 mg/dL (1.8-2.4); PHOSPHOROUS 5.7 mg/dL (2.5-4.9); POTASSIUM - SERUM 5.7 mmol/L (3.5-5.1)
[2019-08-05 10:47] LABS: BASOPHILS 0.1 % (0-2); EOSINOPHILS 0 % (0-7); HEMATOCRIT 31.2 % (42.0-54.0); HEMOGLOBIN 9.5 g/dL (13.5-17.5); IMMATURE GRANULOCYTES 0.2 % (0-5); MCH 27.2 pg (26.0-34.0); MCHC 30.4 g/dL (31.0-37.0); MCV 89.4 fL (80.0-100.0); MEAN PLATELET VOLUME 9.2 fL (7.4-10.4); MONOCYTES 0.7 % (2-11); PLATELET COUNT 265 10x3/uL (130-400); RBC 3.49 10x6/uL (4.20-6.10); WBC 10.6 10x3/uL (4.8-10.8)
--- NOTE | 2019-08-05 11:48 | NUR ---
PATIENT RESTING WITH EYES CLOSED. NO PAIN AT THIS TIME. CL IN REACH. JULIEN IN ROOM. TM
--- NOTE | 2019-08-05 14:57 | NUR ---
PATIENT BACK FROM PROCEDURE. VS STABLE. JULIEN IN ROOM. CL IN ROOM. TM
--- NOTE | 2019-08-05 19:45 | NUR ---
PT SITTING UP IN BED WITHOUT DISTRESS, AOX4 AT THIS TIME. CONFUSED AT TIMES. IV RIGHT AC SL. O2 4L/NC. DENIES NEEDS AT THIS TIME. BED ALARM ON, CL IN REACH. WILL CTM
[2019-08-05 21:56] LABS: APPEARANCE CLOUDY (CLEAR); COLOR PINK (YELLOW); SPECIFIC GRAVITY 1.015 (1.005-1.020)
[2019-08-05 21:57] LABS: AMORPHOUS SEDIMENT <1+ /lpf (NONE SEEN); BACTERIA FEW /hpf (NEGATIVE); BILIRUBIN NEGATIVE (NEGATIVE); EPITHELIAL CELLS 0-5 /hpf (0-5); GLUCOSE NEGATIVE (NEGATIVE); KETONE NEGATIVE (NEGATIVE); MUCUS <1+ /lpf (NONE SEEN); NITRITE NEGATIVE (NEGATIVE); PROTEIN TRACE mg/dL (NEGATIVE); RED CELLS - URINE 25-50 /hpf (0-5); UROBILINOGEN NORMAL (NORMAL)
[2019-08-06] VITALS: BP 120/67
--- NOTE | 2019-08-06 00:30 | NUR ---
PT HAVING MULTIPLE EPISODES OF DIARRHEA, BROWN AND LIQUID. STATES HE HAS AN UPSET STOMACH. STATES HE IS HAVING PAIN IN LEFT LEG FROM TURNING SO MUCH TO CHANGE PADS UNDERSNEATH HIM. GAVE TYLENOL AND ZOFRAN. DENIES OTHER NEEDS. WILL CTM
[2019-08-06 04:00] VITALS: BP 114/64
[2019-08-06 05:16] LABS: BASOPHILS 0 % (0-2); EOSINOPHILS 0 % (0-7); HEMATOCRIT 28.2 % (42.0-54.0); HEMOGLOBIN 8.8 g/dL (13.5-17.5); IMMATURE GRANULOCYTES 0.5 % (0-5); LYMPHOCYTES 11.6 % (15-50); MCH 27.6 pg (26.0-34.0); MCHC 31.2 g/dL (31.0-37.0); MCV 88.4 fL (80.0-100.0); MEAN PLATELET VOLUME 9.1 fL (7.4-10.4); MONOCYTES 4.8 % (2-11); NEUTROPHILS 83.1 % (40-80); PLATELET COUNT 290 10x3/uL (130-400); RBC 3.19 10x6/uL (4.20-6.10); RDW 14.1 % (11.5-14.5)
[2019-08-06 05:53] LABS: ALBUMIN 1.3 g/dL (3.4-5.0); ANION GAP 18.4 mmol/L (8-16); BILIRUBIN - TOTAL 0.23 mg/dL (0.2-1.3); CALCIUM 7.6 mg/dL (8.5-10.1); CARBON DIOXIDE 18.1 mmol/L (21.0-32.0); CREATININE - SERUM 2.3 mg/dL (0.6-1.3); POTASSIUM - SERUM 5.5 mmol/L (3.5-5.1); PROTEIN - SERUM 6.5 g/dL (6.4-8.2)
--- NOTE | 2019-08-06 07:10 | NUR ---
ALERT AND ORIENTED, RESTING IN BED. FAMILY AT BEDSIDE. NO C/O PAIN. NO S/S OF ACUTE DISTRESS NOTED. DRESSING TO LEFT UPPER GROIN, C/D/I. ON 4L O2, NC. IV TO RIGHT AC, NS INFUSING @ KVO. SITE PATENT WITHOUT REDNESS OR SWELLING. ON TEMPORARY CONTACT ISOLATION TO RULE OUT MRSA. POTASSIUM DOWN TO 5.5 THIS AM. DENIES ANY NEEDS AT THIS TIME. CALL LIGHT IN REACH. WILL CONTINUE TO MONITOR.
[2019-08-06 09:32] VITALS: BP 127/71
[2019-08-06 13:55] VITALS: BP 117/66
[2019-08-06 18:01] VITALS: BP 107/65
--- NOTE | 2019-08-06 18:43 | NUR ---
RESTING IN BED, EYES OPEN. NO C/O PAIN. NO S/S OF ACUTE DISTRESS NOTED. DENIES ANY NEEDS AT THIS TIME. CALL LIGHT IN REACH. WILL CONTINUE TO MONITOR.
[2019-08-06 20:00] VITALS: BP 99/50
[2019-08-07] VITALS: BP 124/70
[2019-08-07 04:00] VITALS: BP 122/71
--- NOTE | 2019-08-07 04:36 | NUR ---
I have reviewed this patient and I concur with the Shift Assessment completed by the Licensed Practical Nurse today this shift.
[2019-08-07 05:41] LABS: BASOPHILS 0 % (0-2); EOSINOPHILS 0.3 % (0-7); HEMATOCRIT 25.2 % (42.0-54.0); HEMOGLOBIN 7.8 g/dL (13.5-17.5); IMMATURE GRANULOCYTES 0.3 % (0-5); LYMPHOCYTES 8.5 % (15-50); MCV 87.2 fL (80.0-100.0); MEAN PLATELET VOLUME 8.8 fL (7.4-10.4); MONOCYTES 7.1 % (2-11); NEUTROPHILS 83.8 % (40-80); PLATELET COUNT 245 10x3/uL (130-400); RBC 2.89 10x6/uL (4.20-6.10); RDW 14.1 % (11.5-14.5); WBC 10.1 10x3/uL (4.8-10.8)
[2019-08-07 05:54] LABS: ALBUMIN 1.2 g/dL (3.4-5.0); BILIRUBIN - TOTAL 0.3 mg/dL (0.2-1.3); CALCIUM 7.3 mg/dL (8.5-10.1); CREATININE - SERUM 2.1 mg/dL (0.6-1.3); PROTEIN - SERUM 6.2 g/dL (6.4-8.2); VANCOMYCIN - RANDOM 9.8 ug/mL (10.0-20.0)
[2019-08-07 05:57] LABS: ANION GAP 10.6 mmol/L (8-16); POTASSIUM - SERUM 4.6 mmol/L (3.5-5.1)
--- NOTE | 2019-08-07 07:10 | NUR ---
ALERT AND ORIENTED, RESTING IN BED WITH EYES OPEN. NO C/O PAIN. NO S/S OF ACUTE DISTRESS NOTED. ON TEMPORARY CONTACT ISOLATION FOR POSSIBLE MRSA. ON 4L O2, NC. DENIES ANY NEEDS AT THIS TIME. CALL LIGHT IN REACH. WILL CONTINUE TO MONITOR.
[2019-08-07 07:50] VITALS: BP 163/76
[2019-08-07 13:24] VITALS: BP 118/82
[2019-08-07 16:43] VITALS: BP 129/65
[2019-08-07 19:30] VITALS: BP 149/90
[2019-08-08 00:30] VITALS: BP 151/87
--- NOTE | 2019-08-08 01:12 | NUR ---
LOLI MAYO WITH NO DISTRESS NOTED. RESP EVEN AND UNALBORED. NO DISTRESS NOTED.INCONTINENT OF B/B WITH CRISTELA CARE GIVEN.CL IN REACH
--- NOTE | 2019-08-08 02:11 | NUR ---
I have reviewed this patient and I concur with the Shift Assessment completed by the Licensed Practical Nurse today this shift.
[2019-08-08 05:11] VITALS: BP 104/63
[2019-08-08 05:58] LABS: BASOPHILS 0 % (0-2); EOSINOPHILS 0.5 % (0-7); HEMATOCRIT 21.1 % (42.0-54.0); IMMATURE GRANULOCYTES 0.4 % (0-5); LYMPHOCYTES 13.3 % (15-50); MCHC 30.8 g/dL (31.0-37.0); MCV 87.6 fL (80.0-100.0); MEAN PLATELET VOLUME 8.7 fL (7.4-10.4); MONOCYTES 8.1 % (2-11); NEUTROPHILS 77.7 % (40-80); RBC 2.41 10x6/uL (4.20-6.10); RDW 14.3 % (11.5-14.5)
[2019-08-08 06:31] LABS: ALBUMIN 0.9 g/dL (3.4-5.0); ANION GAP 9.2 mmol/L (8-16); BILIRUBIN - TOTAL 0.34 mg/dL (0.2-1.3); CALCIUM 7.3 mg/dL (8.5-10.1); CARBON DIOXIDE 23.8 mmol/L (21.0-32.0); CREATININE - SERUM 2.1 mg/dL (0.6-1.3); PROTEIN - SERUM 5.3 g/dL (6.4-8.2); VANCOMYCIN - RANDOM 12.3 ug/mL (10.0-20.0)
[2019-08-08 06:32] LABS: WBC 7.4 10x3/uL (4.8-10.8)
[2019-08-08 06:34] LABS: HEMOGLOBIN 6.5 g/dL (13.5-17.5); PLATELET COUNT 192 10x3/uL (130-400)
[2019-08-08 07:53] VITALS: BP 121/71
--- NOTE | 2019-08-08 09:54 | NUR ---
UNABLE TO GIVE PT VANCOMYCIN WE HAVE NO IV ACCESS AT THIS TIME.
[2019-08-08 12:16] VITALS: BP 131/75
[2019-08-08 17:04] VITALS: BP 133/74
--- NOTE | 2019-08-08 20:30 | NUR ---
2ND UNIT PRBC COMPLETED WITH NO S/S REACTIONS NOTED. AWAKE ALERT.RCL INTACT WITH NO REDNESS OR EDEMA NOTED. NO COMPLAITNS VOICED. CL IN REACH
[2019-08-09 00:42] VITALS: BP 173/78
--- NOTE | 2019-08-09 03:00 | NUR ---
I have reviewed this patient and I concur with the Shift Assessment completed by the Licensed Practical Nurse today this shift.
[2019-08-09 05:12] LABS: BASOPHILS 0 % (0-2); EOSINOPHILS 0.2 % (0-7); HEMATOCRIT 25.2 % (42.0-54.0); IMMATURE GRANULOCYTES 0.2 % (0-5); LYMPHOCYTES 11.6 % (15-50); MCH 27.3 pg (26.0-34.0); MCHC 31.7 g/dL (31.0-37.0); MONOCYTES 7.9 % (2-11); NEUTROPHILS 80.1 % (40-80); PLATELET COUNT 176 10x3/uL (130-400)
[2019-08-09 05:40] VITALS: BP 116/69
[2019-08-09 05:41] LABS: ALBUMIN 0.9 g/dL (3.4-5.0); ANION GAP 10.8 mmol/L (8-16); BILIRUBIN - TOTAL 0.51 mg/dL (0.2-1.3); CALCIUM 7.2 mg/dL (8.5-10.1); CARBON DIOXIDE 24.9 mmol/L (21.0-32.0); CREATININE - SERUM 2.3 mg/dL (0.6-1.3); POTASSIUM - SERUM 3.7 mmol/L (3.5-5.1); PROTEIN - SERUM 5.2 g/dL (6.4-8.2); VANCOMYCIN - RANDOM 9.2 ug/mL (10.0-20.0)
[2019-08-09 05:45] LABS: RBC 2.93 10x6/uL (4.20-6.10); WBC 10.2 10x3/uL (4.8-10.8)
--- NOTE | 2019-08-09 07:58 | NUR ---
AWAKE AND ALERT. ORIENTED X3. NO C/O AT THIS TIME. LUNGS ARE CLEAR BILATERALLY, NO COUGH NOTED. SKIN IS INTACT WTIHOUT REDNESS. RIGHT SUBCLAVIAN PATENT WITHOUT REDNESS AT INSERTION SITE. DENIES NEEDS. SCD'S IN PLACE. AT BEDSIDE. DENIES NEEDS.
[2019-08-09 09:03] VITALS: BP 132/72
--- NOTE | 2019-08-09 09:30 | NUR ---
ASSISTED WITH EATING FL BREAKFAST. TOOK AM MEDS WITHOUT DIFFICULTY. DENIES NEEDS.
--- NOTE | 2019-08-09 12:30 | NUR ---
ASSISTED WITH EATING FL LUNCH. DENIES NEEDS.
[2019-08-09 12:45] VITALS: BP 136/70
[2019-08-09 13:12] LABS: THYROID STIMULATING HORMONE 1.57 uIU/mL (0.36-3.74)
--- NOTE | 2019-08-09 16:03 | NUR ---
RESTING QUIETLY WITH EYES CLOSED. NO NEEDS NOTED.
[2019-08-09 17:21] VITALS: BP 142/72
--- NOTE | 2019-08-09 18:50 | NUR ---
ATE MOST OF SUPPER. ASSISTED WITH MEAL. INCONTINENT OF STOOL. SKIN CARE PER STAFF. BUTT BALM APPLIED TO SCALDED AREA ON ANUS AND COCCYX. DENIES NEEDS.
[2019-08-09 19:30] VITALS: BP 124/66
[2019-08-10 00:30] VITALS: BP 128/72
[2019-08-10 05:30] VITALS: BP 134/70
[2019-08-10 05:43] LABS: BASOPHILS 0.1 % (0-2); EOSINOPHILS 1.8 % (0-7); HEMATOCRIT 24.2 % (42.0-54.0); HEMOGLOBIN 7.6 g/dL (13.5-17.5); IMMATURE GRANULOCYTES 0.4 % (0-5); MCH 27.1 pg (26.0-34.0); MCHC 31.4 g/dL (31.0-37.0); MCV 86.4 fL (80.0-100.0); MEAN PLATELET VOLUME 8.8 fL (7.4-10.4); MONOCYTES 7.4 % (2-11); NEUTROPHILS 74.3 % (40-80); PLATELET COUNT 157 10x3/uL (130-400); RDW 15.1 % (11.5-14.5); WBC 8.2 10x3/uL (4.8-10.8)
[2019-08-10 06:48] LABS: ALBUMIN 0.8 g/dL (3.4-5.0); ANION GAP 9.5 mmol/L (8-16); BILIRUBIN - TOTAL 0.3 mg/dL (0.2-1.3); CARBON DIOXIDE 25.9 mmol/L (21.0-32.0); CREATININE - SERUM 2.2 mg/dL (0.6-1.3); POTASSIUM - SERUM 3.4 mmol/L (3.5-5.1); PROTEIN - SERUM 5.1 g/dL (6.4-8.2); VANCOMYCIN - RANDOM 14.6 ug/mL (10.0-20.0)
--- NOTE | 2019-08-10 07:00 | NUR ---
ALERT AND ORIENTED, RESTING IN BED WITH EYES OPEN. NO C/O PAIN. NO S/S OF ACUTE DISTRESS NOTED. ON CONTACT ISOLATION FOR MRSA. BEDFAST. BREEZY ALARM ON. INCONTINENT OF BOWEL. ON 3L O2, NC. RIGHT SUBCLAVIAN CVL, SODIUM BICARB INFUSING @ 100ML/HR AND NS INFUSING @ 100ML/HR. SITE PATENT WITHOUT REDNESS OR SWELLING. BUE AND BLE EDEMA PRESENT. TURNED FLUIDS DOWN, NOTIFIED ROM GAYLE, 50ML/HR. FAMILY AT BEDSIDE. CRITICAL CALCIUM OF 6.8, NOTIFIED DR. FIGUEROA. POTASSIUM 3.4 THIS AM, ADDED ELECTROLYTE PROTOCOL TO ORDERS PER DR. FIGUEROA. WILL FOLLOW PROTOCOL. H&H 7.6/24.2 THIS AM, DOWN FROM YESTERDAY. NOTIFIED DR. GUAJARDO. DENIES ANY NEEDS AT THIS TIME. CALL LIGHT IN REACH. WILL CONTINUE TO MONITOR.
[2019-08-10 07:12] LABS: CALCIUM 6.8 mg/dL (8.5-10.1)
--- NOTE | 2019-08-10 09:11 | NUR ---
CALLED LAB TO CONFIRM BLOOD READY FOR PATIENT. BLOOD BANK TECH STATED THAT PATIENT'S [facility] HAD 3 HOURS PRIOR TO ORDERS FOR BLOOD. THIS NURSE ASKED IF IT IS OKAY TO TRANSFUSE OR DOES PATIENT NEED TO BE TYPED AND CROSSMATCHED AGAIN, TECH STATED IT WAS FINE TO TRANSFUSE. STEFAN RUTHERFORD CALLED WELL AND SPOKE TO REINFORCING STEEL MACHINE OPERATORETHYLENE OXIDE PANELBOARD OPERATOR, STATED IT WAS OKAY TO TRANSFUSE.
[2019-08-10 09:21] VITALS: BP 145/83
--- NOTE | 2019-08-10 09:55 | NUR ---
UNIT OF PRBC INFUSING. VITALS STABLE. PRE MEDS GIVEN.
--- NOTE | 2019-08-10 11:53 | MORECARE ---
CASE MANAGEMENT DISCHARGE SUMMARY PATIENT: LIAM ACOSTA UNIT: [id number] ADM DATE: 08/04/19 AGE: 74 : 45 SEX: M ROOM/BED: D.2208 AUTHOR: EDUARDO DENNY PHYSICIAN: REFERRING PHYSICIAN: RYAN RAMIREZ MD DATE OF SERVICE: 08/10/19 Discharge Plan Patient Name: LIAM ACOSTA [facility] [facility] 1945 Planned Disposition: Home with Home Health Anticipated Discharge Date: Discharge Date: Expected LOS: Initial Reviewer: [email or web address] Initial Review Date: 08/04/2019 Generated: 08/10/19 12:53 pm Patient Name: LIAM ACOSTA Page [phone] at 1153 All edits/amendments must be made on the electronic document DICTATION DATE: 08/10/19 1153 CONTINUITY TESTER: ANTONELLA 08/10/19 1153 RPT#: [id number] DC DATE: STATUS: ADM IN [facility] [address] [place] [address] END OF REPORT
--- NOTE | 2019-08-10 12:00 | MORECARE ---
CASE MANAGEMENT DISCHARGE SUMMARY PATIENT: LIAM ACOSTA UNIT: [id number] ADM DATE: 08/04/19 AGE: 74 : 45 SEX: M ROOM/BED: D.2208 AUTHOR: EDUARDO DENNY PHYSICIAN: REFERRING PHYSICIAN: RYAN RAMIREZ MD DATE OF SERVICE: 08/10/19 Discharge Plan Patient Name: LIAM ACOSTA [facility] [facility] 1945 Planned Disposition: Home with Home Health Anticipated Discharge Date: Discharge Date: Expected LOS: Initial Reviewer: [email or web address] Initial Review Date: 08/04/2019 Generated: 08/10/19 12:59 pm DCPIA - Discharge Planning Initial Assessment Updated by [email or web address]: Manuela Barton on 08/10/19 11:55 am * Is the patient Alert and Oriented? Yes * PCP JAMES * Pharmacy [facility] [address] [place] * Preadmission Environment Home with Family * ADLs Partial Dependent * Partial ADLs (Assistance needed) Ambulation Bathing Dressing Medication Management Toileting * Equipment Cane Rolling Walker Shower Chair Walker Wheelchair * List name and contact numbers for known caregivers / representatives who currently or will assist patient after discharge: JULIEN ()[phone] * Verbal permission to speak to the caregivers and representatives has been obtained from the patient. Yes * Community resources currently utilized [facility] * Please name any agencies selected above. STEPHAN VALDOVINOS ( DAUGHTER IN LAW, BEVERLEY) HELPS TAKE CARE OF HIM 24 HOURS A WEEK [facility] * Additional services required to return to the preadmission environment? Yes * Has this patient been hospitalized within the prior 30 days at any hospital? Yes Last DP export: 08/10/19 10:53 a Patient Name: LIAM ACOSTA Page 48142 at 1200 All edits/amendments must be made on the electronic document DICTATION DATE: 08/10/19 1159 CNC MILL PROGRAMMER: ANTONELLA 08/10/19 1159 RPT#: [id number] DC DATE: STATUS: ADM IN [facility] [address], [place] [address] END OF REPORT
--- NOTE | 2019-08-10 12:07 | MORECARE ---
CASE MANAGEMENT DISCHARGE SUMMARY PATIENT: LIAM ACOSTA UNIT: [id number] ADM DATE: 08/04/19 AGE: 74 : 45 SEX: M ROOM/BED: D.2208 AUTHOR: DENISHADOC PHYSICIAN: REFERRING PHYSICIAN: RYAN RAMIREZ MD DATE OF SERVICE: 08/10/19 Discharge Plan Patient Name: LIAM ACOSTA Facility: [facility]:[place] : 1945 Planned Disposition: Home with Home Health Anticipated Discharge Date: Discharge Date: Expected LOS: Initial Reviewer: [email or web address] Initial Review Date: 08/04/2019 Generated: 08/10/19 1:07 pm Comments DCP- Discharge Planning Updated by [email or web address]: Manuela Barton on 08/10/19 11:[address] Patient Name: LIAM ACOSTA Admission Status: ER Accout number: [id number] Admission Date: 08-04-2019 : 1945 Admission Diagnosis: Attending: RYAN RAMIREZ Current LOS: 6 Anticipated DC Date: Planned Disposition: Home with Home Health Primary Insurance: [employer] Discharge Planning Comments: CM met with patient/spouse, Nancy to complete initial dc planning assessment. CM educated patient on the CM role and verbal consent given by patient to complete assessment. Patient lives at home in a camper where he is dependent on everything but feeding himself. At discharge patient's plans to return home and feels this is a safe discharge. CM discussed availability of home health, rehab services, and medical equipment. [facility] stated that she checked him out of [place] because "they left him slip out of a wheelchair" She stated that prior to the hospitalization on Jul 04 2019, he was walking and doing a lot for himself, now he needs help with everything. Patient does have a cane, wheelchair, walker and shower chair. She stated that he has [facility] and has "Home Care" that their daughter in law Lina is paid for 24 hours a week to help with the care for him. He has someone with him at all times and his son and daughter in law live up the hill and help with what ever they need. She does not drive, but her grandson and son take her anywhere she needs to go. She plans to take him home with HH and continue their current plan. She thinks it is a safe discharge. I am unsure this this is the safest plan for him, but will speak the MD about it. SYED for [facility] and "Home care/ Elder Care" Signed and placed in chart. CM will continue to follow and will assist as needed with dc plans/needs. Case Management Assistant: Manuela Barton DCPIA - Discharge Planning Initial Assessment Updated by [email or web address]: Manuela Barton on 08/10/19 11:55 am * Is the patient Alert and Oriented? Yes * PCP JAMES * Pharmacy [facility] [place] * Preadmission Environment Home with Family * ADLs Partial Dependent * Partial ADLs (Assistance needed) Ambulation Bathing Dressing Medication Management Toileting * Equipment Cane Rolling Walker Shower Chair Walker Wheelchair * List name and contact numbers for known caregivers / representatives who currently or will assist patient after discharge: NANCY ()[phone] * Verbal permission to speak to the caregivers and representatives has been obtained from the patient. Yes * Community resources currently utilized [facility] * Please name any agencies selected above. STEPHAN VALDOVINOS ( DAUGHTER IN LAW, LINA) HELPS TAKE CARE OF HIM 24 HOURS A WEEK [facility] * Additional services required to return to the preadmission environment? Yes * Has this patient been hospitalized within the prior 30 days at any hospital? Yes Last DP export: 08/10/19 11:00 a Patient Name: LIAM ACOSTA Page 14354 at 1207 All edits/amendments must be made on the electronic document DICTATION DATE: 08/10/19 1207 CASH SHORTAGE INVESTIGATOR: ANTONELLA 08/10/19 1207 RPT#: [id number] DC DATE: STATUS: [facility] [address] [place] [id number] END OF REPORT
--- NOTE | 2019-08-10 12:08 | NUR ---
UNIT OF PRBC INFUSION COMPLETE. FLUSHING LINE. VITALS STABLE.
--- NOTE | 2019-08-10 12:25 | NUR ---
STARTED INFUSION OF SECOND UNIT OF PRBC. VITALS STABLE.
--- NOTE | 2019-08-10 13:09 | NUR ---
FEEDING PATIENT LUNCH. HE IS WITHOUT DISTRESS.ISOLATION MAINTAINED
--- NOTE | 2019-08-10 14:05 | OP ---
PATIENT NAME: LIAM ACOSTA SR MEDICAL RECORD: [id number] :45 LOCATION:D.MS Reid2208 ADMISSION DATE:08/04/19 SURGEON: CHEYENNE KHAN MD DATE OF OPERATION: 08/08/2019 PREOPERATIVE DIAGNOSES: 1. Need for IV access. 2. Niatf-ir-pebnwdt anemia. 3. Infected hip prosthesis. 4. Atrial fibrillation. POSTOPERATIVE DIAGNOSES: 1. Need for IV access. 2. Vwddj-cf-phqlyja anemia. 3. Infected hip prosthesis. 4. Atrial fibrillation. PROCEDURE: Right subclavian vein triple-lumen central venous line placement. SURGEON: Cheyenne Khan MD REPORT OF PROCEDURE: The patient's right chest was prepped and draped in sterile fashion. A 5 cc of 1% lidocaine with epinephrine was infused into the surrounding tissues. A needle was used to cannulate the right subclavian vein and a guidewire was advanced with ease. A dilator was then placed over the wire followed by the triple-lumen catheter. The catheter aspirated nonpulsatile dark blood and flushed easily in all 3 ports. This was sutured into place with 3-0 Prolenes and dressed appropriately. COMPLICATIONS: None. CONDITION: Stable. ANESTHESIA: Local. BLOOD LOSS: Minimal. Procedure done at the bedside. TRANSINT:[id number] Voice Confirmation ID: [id number] DOCUMENT ID: [id number] CHEYENNE KHAN MD at 1405 CC: [id number] DICTATION DATE: 08/08/19 1209 CHILDCARE AIDE: 08/09/19 0034 ADM IN [place] [address] [place] [address]
--- NOTE | 2019-08-10 15:00 | NUR ---
SECOND UNIT OF PRBC INFUSION COMPLETE. VITALS STABLE.
--- NOTE | 2019-08-10 15:04 | NUR ---
NUTRITION F//U PT REMAINS IN ISOLATION. SPOUSE REPORTS PT TOLERATING FULL LIQUID DIET AND ENSURE. PT IS WANTING DIET ADVANCED. ADVISED PT AND SPOUSE TO SPEAK WITH MD WHEN OPPORTUNITY ARISES. RD FOLLOWING
--- NOTE | 2019-08-10 17:15 | NUR ---
OT NOTE: PT COMPLETED HYGIENE TASK WITH SET UP . [phone] THANK YOU, YOAN MEYER
--- NOTE | 2019-08-10 19:15 | NUR ---
ALERT AND ORIENTED, RESTING IN BED. NO C/O PAIN. NO S/S OF ACUTE DISTRESS NOTED. DENIES ANY NEEDS AT THIS TIME. CALL LIGHT IN REACH. WILL CONTINUE TO MONITOR.
[2019-08-10 19:30] VITALS: BP 138/75
[2019-08-11] VITALS (9 sets, daily range): BP systolic 111–163; BP diastolic 71–92
[2019-08-11 09:15] LABS: HEMATOCRIT 26.9 % (42.0-54.0); HEMOGLOBIN 8.5 g/dL (13.5-17.5); MCH 27.2 pg (26.0-34.0); MCHC 31.6 g/dL (31.0-37.0); MCV 85.9 fL (80.0-100.0); MEAN PLATELET VOLUME 9.1 fL (7.4-10.4); RBC 3.13 10x6/uL (4.20-6.10); RDW 15.3 % (11.5-14.5)
[2019-08-11 09:19] LABS: WBC 6.1 10x3/uL (4.8-10.8)
--- NOTE | 2019-08-11 09:26 | NUR ---
ALERT AND ORIENTED. AT BEDSIDE. PATIENT CHANGED D/T BEDDING WET. REDNESS TO BOTTOM BUT BLANCHABLE. BUTT PASTE APPLIED. LUNGS DIMINISHED BILATERALLY. HEART SOUNDS S1 AND S2 HEARD IN ALL BAILEY. BOWEL SOUNDS ACTIVE X 4. RIGHT SUBCLAVIAN LINE C/D/I. TELEMETRY IN PLACE SHOWING 72 NORMAL SINUS ON MONITOR. O2 IN PLACE AT 3L NC. BED LOW. FALL PRECAUTIONS IN PLACE. CALL GRAYSON AND PERSONAL ITEMS IN REACH. WILL CONTINUE TO MONITOR.
--- NOTE | 2019-08-11 13:29 | NUR ---
DRSG CHANGED TO RIGHT SUBCALVIAN PER STERILE PROCEDURE.
--- NOTE | 2019-08-11 15:24 | NUR ---
OT NOTE: PT VERY EDEMATOUS IN B UES. LIMITED ABILITY TO PERFORM ROLLING OR BED MOB SECONDARY TO PAIN IN HIP. RENARD HERRMANN, OTR/L
--- NOTE | 2019-08-11 15:30 | NUR ---
PREOP MEDICATIONS GIVEN PER ORDER.
--- NOTE | 2019-08-11 16:35 | NUR ---
PATIENT RETURNED FROM EGD. VITALS STABLE. HOOKED TO VITALS MACHINE AUTOMATIC Q15MIN. AT BEDSIDE. WILL CONTINUE TO MONITOR.
--- NOTE | 2019-08-11 17:43 | NUR ---
VITALS REMAIN STABLE. DENIES NEEDS. WILL CONTINUE TO MONITOR.
[2019-08-12] VITALS: BP 129/80
--- NOTE | 2019-08-12 01:53 | NUR ---
RESPRATION EVEN AND UNLABORED CALL LIGHT IN REACH.NO S/S OF DISTRESS.
[2019-08-12 04:00] VITALS: BP 158/60
[2019-08-12 05:05] LABS: BASOPHILS 0 % (0-2); EOSINOPHILS 1.7 % (0-7); HEMATOCRIT 27.2 % (42.0-54.0); HEMOGLOBIN 8.6 g/dL (13.5-17.5); IMMATURE GRANULOCYTES 0.4 % (0-5); LYMPHOCYTES 16.4 % (15-50); MCH 27.2 pg (26.0-34.0); MCHC 31.6 g/dL (31.0-37.0); MCV 86.1 fL (80.0-100.0); MEAN PLATELET VOLUME 9.3 fL (7.4-10.4); MONOCYTES 7.8 % (2-11); NEUTROPHILS 73.7 % (40-80); PLATELET COUNT 162 10x3/uL (130-400); RBC 3.16 10x6/uL (4.20-6.10); RDW 15.1 % (11.5-14.5); WBC 7.5 10x3/uL (4.8-10.8)
[2019-08-12 05:23] LABS: ALBUMIN 1.6 g/dL (3.4-5.0); ANION GAP 10.6 mmol/L (8-16); BILIRUBIN - TOTAL 0.99 mg/dL (0.2-1.3); CALCIUM 7.1 mg/dL (8.5-10.1); CARBON DIOXIDE 25.5 mmol/L (21.0-32.0); CREATININE - SERUM 2.4 mg/dL (0.6-1.3); POTASSIUM - SERUM 3.1 mmol/L (3.5-5.1); PROTEIN - SERUM 5.3 g/dL (6.4-8.2); VANCOMYCIN - RANDOM 23.3 ug/mL (10.0-20.0)
--- NOTE | 2019-08-12 07:21 | NUR ---
ALERT AND ORIENTED. AT BEDSIDE. LUNGS DIMINISHED TO BLL. HEART SOUNDS S1 AND S2 HEARD IN ALL BAILEY. BOWEL SOUNDS ACTIVE X 4. O2 IN PLACE AT 3L NC. TELEMETRY IN PLACE SHOWING 90 NORMAL SINUS ON MONITOR. BEDDING CHANGED D/T SOILED. IV TO RIGHT SUBCLAVIAN PATENT. DENIES NEEDS. BED LOW. FALL PRECAUTIONS IN PLACE. CALL GRAYSON AND PERSONAL ITEMS IN REACH. WILL CONTINUE TO MONITOR.
[2019-08-12 08:39] VITALS: BP 149/91
--- NOTE | 2019-08-12 10:28 | NUR ---
PATIENT GIVEN INCENTIVE SPIROMETER PER DR WADE'S REQUEST. EDUCATION PROVIDED. DEMONSTRATED UNDERSTANDING.
[2019-08-12 12:46] VITALS: BP 146/86
--- NOTE | 2019-08-12 13:32 | NUR ---
ATTEMPTED TO CALL DR RAMIREZ TO GET ORDERS FOR FLUIDS FOR PATIENT D/T TWO FLUID ORDERS AND TO NOTIFY OF PO2 LEVEL 48, WELL TO REQUEST ELKINS FOR PATIENT. NO ANSWER AFTER BEING ON HOLD FOR FIVE MINUTES. WILL ATTEMPT AGAIN.
--- NOTE | 2019-08-12 14:00 | NUR ---
ELKINS PLACED PER ORDER AND FLUIDS DC PER ORDER.
[2019-08-12 17:34] VITALS: BP 121/79
--- NOTE | 2019-08-12 17:40 | NUR ---
SMALL AMOUNT OF DRIED BLOOD NOTED TO ELKINS INSERTION SITE. CLEANED AND WILL CONTINUE TO MONITOR. FAMILY AT BEDSIDE. DENIES NEEDS. WILL CONTINUE TO MONITOR.
--- NOTE | 2019-08-12 19:59 | NUR ---
OT NOTE: PT COMPLETED UE AAROM AND POSITIONING TO DECREASE EDEMA. PT COMPLETED BED MOB WITH MOD/MAX A FOR SIDE ROLLING. PT REQUIRED TOTAL A FOR LB HYGIENE. [phone] THANK YOU, YOAN MEYER
[2019-08-12 22:34] VITALS: BP 142/83
[2019-08-13] VITALS (13 sets, daily range): BP systolic 116–156; BP diastolic 79–99
--- NOTE | 2019-08-13 03:11 | NUR ---
REMAINS CONFUSED KEEPS REMOVING O2 N/C. HAS BEED REDIRECTED MULTIBLE TIMES NOT TO PULL ON HIS ELKINS. NO DISTRESS DENIES PAIN. WATER IN REACH AT BEDSIDE. CHECKED OFTEN FOR NEEDS, WANTS AND SAFETY. ALARM IN PLACE AND WORKING.SCD'S IN PLACE. 78 SARA REATHEM ON TELEMETRY.
[2019-08-13 05:38] LABS: BASOPHILS 0 % (0-2); EOSINOPHILS 1.9 % (0-7); HEMATOCRIT 26.6 % (42.0-54.0); HEMOGLOBIN 8.3 g/dL (13.5-17.5); IMMATURE GRANULOCYTES 0.1 % (0-5); LYMPHOCYTES 15.8 % (15-50); MCHC 31.2 g/dL (31.0-37.0); MCV 86.6 fL (80.0-100.0); MEAN PLATELET VOLUME 9.5 fL (7.4-10.4); NEUTROPHILS 76.2 % (40-80); PLATELET COUNT 140 10x3/uL (130-400); RBC 3.07 10x6/uL (4.20-6.10); RDW 15.1 % (11.5-14.5)
[2019-08-13 05:39] LABS: BILIRUBIN - TOTAL 0.8 mg/dL (0.2-1.3); CALCIUM 7.6 mg/dL (8.5-10.1); CARBON DIOXIDE 25.4 mmol/L (21.0-32.0); CREATININE - SERUM 2.7 mg/dL (0.6-1.3); POTASSIUM - SERUM 3.4 mmol/L (3.5-5.1); PROTEIN - SERUM 5.7 g/dL (6.4-8.2); VANCOMYCIN - RANDOM 17.1 ug/mL (10.0-20.0)
[2019-08-13 05:40] LABS: ALBUMIN 2.1 g/dL (3.4-5.0)
--- NOTE | 2019-08-13 07:44 | NUR ---
ALERT AND ORIENTED TO SELF. APPEARS MORE CONFUSED THAN YESTERDAY. STATES "GET THIS TUBE OUT OF ME" IN REGARDS TO ELKINS. REDIRECTED PATIENT. LUNGS WITH CRACKLES THROUGHOUT. HEART SOUNDS S1 AND S2 HEARD IN ALL BAILEY. BOWEL SOUNDS ACTIVE X 4. REDNESS TO BOTTOM BUT BLANCHABLE. BED LOW. FALL PRECAUTIONS IN PLACE. CALL GRAYSON AND PERSONAL ITEMS IN REACH. WILL CONTINUE TO MONITOR.
--- NOTE | 2019-08-13 12:57 | NUR ---
RESTING IN BED. AT BEDSIDE. DENIES NEEDS. WILL CONTINUE TO MONITOR.
--- NOTE | 2019-08-13 14:00 | NUR ---
SODA CLERK IN PATIENT'S ROOM GETTING VITAL SIGNS. O2 SAT 78% ON 5L NC. BIPAP PLACED ON PATIENT. RT INCREASED BIPAP FROM 40% TO 70% TO GET O2 LEVEL TO 94%. ATTEMPTED TO CALL DR RAMIREZ WITH NO ANSWER.
--- NOTE | 2019-08-13 14:02 | NUR ---
PATIENT WITH SWELLING IN BUE AND BLE TO POINT OF STARTING TO WEEP. LETHARGIC.
--- NOTE | 2019-08-13 14:05 | NUR ---
RAPID RESPONSE CALLED. PATIENT TO BE MOVED TO ICU.
[2019-08-13 14:31] LABS: ALBUMIN 2.3 g/dL (3.4-5.0); ANION GAP 12.1 mmol/L (8-16); BILIRUBIN - DIRECT 0.18 mg/dL (0.00-0.30); BILIRUBIN - INDIRECT 0.36 mg/dL (0.00-1.00); BILIRUBIN - TOTAL 0.54 mg/dL (0.2-1.3); CALCIUM 7.4 mg/dL (8.5-10.1); CARBON DIOXIDE 26.8 mmol/L (21.0-32.0); CREATININE - SERUM 2.8 mg/dL (0.6-1.3); POTASSIUM - SERUM 3.9 mmol/L (3.5-5.1); PROTEIN - SERUM 5.6 g/dL (6.4-8.2)
--- NOTE | 2019-08-13 15:45 | NUR ---
REC'D PT TO ICU FROM MED SURG FLOOR/RR. BIPAP 70%. SPO2 97%. ALL MONITORING EQUIPMENT ATTACHED AND ALARMS SET. RENAL CONSULT CALLED TO TOOL SHAPER SETUP OPERATOR PHYSICIAN.
--- NOTE | 2019-08-13 15:57 | NUR ---
CALLED EKG TO DR RAMIREZ. CONSULT ELSLIE. DR NELSON CAME TO ICU AND REVIEWED EKG. NO NEW ORDERS.
--- NOTE | 2019-08-13 20:15 | NUR ---
RESTING QUEITLY WITH NO DISTRESS NOTED. BIPAP ON AT THIS TIME.RESP UNLABORED. IV TO RCL INTACT WITHTOUT REDNESS OR EDEMA NOTED. ELKINS PATIENT AND DRAINING. CL IN REACH
--- NOTE | 2019-08-13 20:19 | NUR ---
JULIEN [phone] DAUGHTER IN LAW BEVERLEY [phone]
--- NOTE | 2019-08-13 22:15 | NUR ---
POSITIONED FOR COMFORT.NO DISTRESS NOTED. CONTINUES ON BIPAP.CL IN REACH
--- NOTE | 2019-08-13 23:58 | NUR ---
AWAKE,ALERT.NO COMPLAITNS VOICED. NO DISTESS NOTED. CDL IN REACH
[2019-08-14] VITALS (22 sets, daily range): BP systolic 108–151; BP diastolic 69–110; Ht 175.3 cm; Wt 88.7 kg
--- NOTE | 2019-08-14 02:50 | NUR ---
TURNED AND POSITIONED FOR COMFORT. NO COMPLAINTS VOICED. CL IN REACH
--- NOTE | 2019-08-14 04:10 | NUR ---
TURNED AND POSITIONED FOR COMFORT. NO DISTRESS NOTED. CONTINUES ON BIPAP. CL IN REACH
--- NOTE | 2019-08-14 04:20 | NUR ---
I have reviewed this patient and I concur with the Shift Assessment completed by the Licensed Practical Nurse today this shift.
--- NOTE | 2019-08-14 05:54 | NUR ---
LINENS CHANGED. TURNED AND POSITIONED FOR COMFORT. BIPAP ON WITHOUT DISTRESS NOTED. CL IN REACH. NO COMPLAINTS VOICED.
[2019-08-14 07:01] LABS: ALBUMIN 2.1 g/dL (3.4-5.0); BILIRUBIN - TOTAL 0.79 mg/dL (0.2-1.3); CALCIUM 7.5 mg/dL (8.5-10.1); CARBON DIOXIDE 25.5 mmol/L (21.0-32.0); CREATININE - SERUM 2.8 mg/dL (0.6-1.3); POTASSIUM - SERUM 3.5 mmol/L (3.5-5.1); PROTEIN - SERUM 5.4 g/dL (6.4-8.2); VANCOMYCIN - RANDOM 18.9 ug/mL (10.0-20.0)
[2019-08-14 07:02] LABS: BASOPHILS 0 % (0-2); EOSINOPHILS 1.6 % (0-7); HEMATOCRIT 23.3 % (42.0-54.0); IMMATURE GRANULOCYTES 0.2 % (0-5); LYMPHOCYTES 17.1 % (15-50); MCH 26.9 pg (26.0-34.0); MCHC 31.3 g/dL (31.0-37.0); MEAN PLATELET VOLUME 9.4 fL (7.4-10.4); MONOCYTES 4.5 % (2-11); NEUTROPHILS 76.6 % (40-80); RBC 2.71 10x6/uL (4.20-6.10); RDW 15.3 % (11.5-14.5)
[2019-08-14 07:03] LABS: WBC 5.6 10x3/uL (4.8-10.8)
[2019-08-14 07:06] LABS: HEMOGLOBIN 7.3 g/dL (13.5-17.5); PLATELET COUNT 106 10x3/uL (130-400)
--- NOTE | 2019-08-14 09:52 | CN ---
PATIENT NAME:LIAM ACOSTA SR MEDICAL RECORD: [id number] : 45 LOCATION:GEOVANNY.2315 ADMIT DATE: 08/04/19 ACCOUNT: [id number] CONSULTING PHYSICIAN: DYLAN JACOBO MD REFERRING PHYSICIAN: RYAN RAMIREZ MD DATE OF CONSULTATION: 08/13/2019 RENAL CONSULTATION Dictating for Dr. Ricki Craig. REASON FOR CONSULTATION: Assistance and recommendations regarding acute kidney injury. HISTORY OF PRESENT ILLNESS: This is a 74-year-old male who has significant comorbid condition, who was admitted to the hospital, has pneumonia, acute hypoxic and hypercapnic respiratory failure on BiPAP treatment with acute kidney injury. The patient has a left hip infection with MRSA and sepsis. The patient had severe malnutrition and is being treated in the ICU with BiPAP therapy. He was transferred from the floor. The patient has a history of atrial fibrillation, anemia, prior hip surgery. The patient had decompensation on the floor and was transferred to the ICU. He is having sepsis, hip infection, and acute kidney injury. He has encephalopathy and is not able to give a good history. History per the records and I discussed with primary care earlier today about his care. Nephrology services covered by Dr. Ricki Craig were consulted to further evaluate and assist with recommendations for this matter. The patient has had cerebrovascular disease with CVA, history of colitis, prostate cancer with radiation treatment, cytotoxic cerebral edema, history of reported hemiparesis affecting the dominant side, and stroke with residual. The patient had bladder cancer, cholecystitis with cholelithiasis, pulmonary edema, severe malnutrition, atrial fibrillation. The patient has a left foot drop, infection of the prosthetic total hip, anemia, and previous prostatectomy. The patient again decompensated on the floor and was transferred to ICU and BiPAP being used. The patient is having progressive respiratory failure with his pneumonia. He was evaluated and examined with nurse present. Blood pressure in the 120s to 140s systolic. Respiration rates are in the upper 80s and 90s. He responds and looks at me, but he is not speaking to me. He is trying to look at me. He is breathing about 35 times a minute. Cardiac, no lift or heave. He has pulses. His left side is edematous - left arm and left leg. I know that he has previous stroke and I am not sure if he was laid on this side or if it just from the previous stroke, but the swelling and pitting edema all the way down to the foot, which is asymmetrical from the right side. ABDOMEN: Soft and is nontender. No significant ecchymosis. He has coarse breath sounds and he has plenty of rales anteriorly. LABORATORY AND DIAGNOSTIC TESTS: Reveal the white cell count 8000, hemoglobin 8.3, and platelet count 15,000. Chemistry reveals a sodium 142, potassium 3.9, chloride 107, bicarbonate 26.8. The BUN is 52 and creatinine 2.8. The glucose is 131. Calculated osmolality 298, calcium 7.4, serum total protein 5.6, albumin 3.3. Creatinine earlier was 2.7. MEDICATIONS: Reviewed include tramadol, scopolamine, metoclopramide, Lactated CONSULT REPORT [id number] LIAM ACOSTA SR Ringer's, Glycopyrrolate, gabapentin, Pepcid, diazepam, Celecoxib, acetaminophen, and furosemide. Imaging reports reveal a CT of the chest, which shows multilobar pneumonia and pulmonary hypertension. There is a right subclavian central venous line graft. Of notice during the hospital stay, the patient's celecoxib has been discontinued and several medications. He is on vancomycin antibiotic support. He has minimal urine output at this time and is in congestive heart failure with respiratory failure and also with pneumonia. IMPRESSIONS: 1. Acute hypoxic hypercapnic respiratory failure requiring BiPAP support. 2. Encephalopathy likely related to the infectious colitis. 3. Anemia. 4. Infected joint. 5. Pneumonia. 6. Acute kidney injury. 7. Protein energy malnutrition, moderate. RECOMMENDATION: Conservative renal care at this time. Hopefully, overnight this will start to open up and improve. It is important to mention he has also had a previous cholecystectomy in the records mentioned and pancolonic diverticulosis. We will continue to follow. TRANSINT:[id number] Voice Confirmation ID: [id number] DOCUMENT ID: [id number] DYLAN JACOBO MD at 0952 CC: RICKI CRAIG MD [id number] DICTATION DATE: 08/13/19 1836 REFRIGERATION PLANT CORK INSULATOR: 08/14/19 0317 ADM IN [facility] [address] [place] [address]
--- NOTE | 2019-08-14 10:04 | NUR ---
FAMILY BEEN IN ROOM TO VISIT, UPDATED ON CARE. PT OFF OF BIPAP AT PRESENT. TO RECEIVE TWO UNITS BLOOD WHEN READY.
--- NOTE | 2019-08-14 13:24 | NUR ---
PT WITH BLOOD TRANSFUSING STILL, NO COMPLAINTS, RESTING QUIETLY. DOING OK OFF BIPAP. PULSE OX 93% ON NC. TURNED PT AND ADJUSTED BED.
--- NOTE | 2019-08-14 15:03 | NUR ---
PT CLEANED, LINENS CHANGED, REPOSITIONED FOR COMFORT. COMPLAINTS OF PAIN TO BOTH HIPS DURING TURNING. STATES HE IS DOING BETTER THOUGH. FAMILY HAS BEEN IN ROOM MULTIPLE TIMES AND DR RAMIREZ DISCUSSED PLAN OF CARE AND PROGNOSIS WITH THEM.
--- NOTE | 2019-08-14 18:59 | MORECARE ---
CASE MANAGEMENT DISCHARGE SUMMARY PATIENT: LIAM ACOSTA UNIT: [id number] ADM DATE: 08/04/19 AGE: 74 : 45 SEX: M ROOM/BED: D.2315 AUTHOR: DENISHA,DOC PHYSICIAN: REFERRING PHYSICIAN: RYAN RAMIREZ MD DATE OF SERVICE: 08/14/19 Discharge Plan Patient Name: LIAM ACOSTA Facility: [facility]:[place] : 1945 Planned Disposition: Home with Home Health Anticipated Discharge Date: Discharge Date: Expected LOS: Initial Reviewer: [email or web address] Initial Review Date: 08/04/2019 Generated: 08/14/19 7:59 pm Comments DCP- Discharge Planning Updated by [id number]: Alem Jay on 08/14/19 5:[address] CM received notice regarding hospice consult. CM contacted family daughter in law Lina Acosta and Nancy (spouse) regarding hospice and whether wanting GIP or home hospice. Family decided they wanted GIP here at [facility]. SYED signed for [facility]. CM notified Crystal with [facility] for evaluation and admit if appropriate. Crystal will evaluate tonight and contact family. CM will continue to follow and assist as needed with discharge planning / needs. DCP- Discharge Planning Updated by [email or web address]: Manuela Barton on 08/10/19 11:[address] Patient Name: LIAM ACOSTA Admission Status: ER Accout number: [id number] Admission Date: 08-04-2019 : 1945 Admission Diagnosis: Attending: RYAN RAMIREZ Current LOS: 6 Anticipated DC Date: Planned Disposition: Home with Home Health Primary Insurance: [employer] Discharge Planning Comments: CM met with patient/spouse, Nancy to complete initial dc planning assessment. CM educated patient on the CM role and verbal consent given by patient to complete assessment. Patient lives at home in a camper where he is dependent on everything but feeding himself. At discharge patient's plans to return home and feels this is a safe discharge. CM discussed availability of home health, rehab services, and medical equipment. Patient was recently discharged from [facility] to [facility]. stated that she checked him out of [place] because "they left him slip out of a wheelchair" She stated that prior to the hospitalization on Jul 04 2019, he was walking and doing a lot for himself, now he needs help with everything. Patient does have a cane, wheelchair, walker and shower chair. She stated that he has [facility] and has "Home Care" that their daughter in law Lina is paid for 24 hours a week to help with the care for him. He has someone with him at all times and his son and daughter in law live up the hill and help with what ever they need. She does not drive, but her grandson and son take her anywhere she needs to go. She plans to take him home with HH and continue their current plan. She thinks it is a safe discharge. I am unsure this this is the safest plan for him, but will speak the MD about it. SYED for [facility] and "Home care/ Elder Care" Signed and placed in chart. CM will continue to follow and will assist as needed with dc plans/needs. Director Of Social Media Marketing: Manuela Barton DCPIA - Discharge Planning Initial Assessment Updated by [email or web address]: Manuela Barton on 08/10/19 11:55 am * Is the patient Alert and Oriented? Yes * PCP JAMES * Pharmacy [facility] * Preadmission Environment Home with Family * ADLs Partial Dependent * Partial ADLs (Assistance needed) Ambulation Bathing Dressing Medication Management Toileting * Equipment Cane Rolling Walker Shower Chair Walker Wheelchair * List name and contact numbers for known caregivers / representatives who currently or will assist patient after discharge: NANCY ()[phone] * Verbal permission to speak to the caregivers and representatives has been obtained from the patient. Yes * Community resources currently utilized [facility] * Please name any agencies selected above. STEPHAN BONIFACIO ( DAUGHTER IN LAW, LINA) HELPS TAKE CARE OF HIM 24 HOURS A WEEK [employer] * Additional services required to return to the preadmission environment? Yes * Has this patient been hospitalized within the prior 30 days at any hospital? Yes Coverage Notice Reviewer: [id number] - Manuela Barton Notice Issued Date-Time: 08/10/2019 11:45 Notice Type: Patient Choice Letter Notice Delivered To: Family Member Relationship to Patient: Spouse Aoc Operations Intelligence Officer Name: [employer]/ elder [employer] Delivery Method: - Pao Days: Prior Verbal Notification: Recipient Understood Notice: Recipient Signature: Med Rec Note Co-signed by Attending: Coverage Notice Comment: Reviewer: [id number] Lissa Jay Notice Issued Date-Time: 08/14/2019 17:40 Notice Type: Patient Choice Letter Notice Delivered To: Family Member Relationship to Patient: Spouse Aoc Operations Intelligence Officer Name: NANCY ACOSTA Delivery Method: PHONE - Phone Pao Days: Prior Verbal Notification: Recipient Understood Notice: Yes Recipient Signature: Yes Med Rec Note Co-signed by Attending: Coverage Notice Comment: Last DP export: 08/10/19 11:07 a Patient Name: LIAM ACOSTA Page 77744 at 1859 All edits/amendments must be made on the electronic document DICTATION DATE: 08/14/191858 HOUSING MANAGEMENT OFFICER: ANTONELLA 08/14/191858 RPT#: [id number] DC DATE: STATUS: ADM IN [facility] [address] [place] [address] END OF REPORT
--- NOTE | 2019-08-14 19:15 | NUR ---
REPORT RECEIVED, SHIFT ASSESSMENT COMPLETE, PT IS ALERT AND ORIENTED, ALL PPP, VSS, CALL LIGHT IN REACH
--- NOTE | 2019-08-14 19:30 | NUR ---
ANXIETY NOTED AT THIS TIME, PRN ATIVAN GIVEN
--- NOTE | 2019-08-14 21:00 | NUR ---
FAMILY AT BEDSIDE, UPDATE GIVEN
--- NOTE | 2019-08-14 23:30 | NUR ---
PT FEELING ANXIOUS AT THIS TIME, PRN ATIVAN GIVEN
[2019-08-15] VITALS (23 sets, daily range): BP systolic 119–162; BP diastolic 79–105
--- NOTE | 2019-08-15 01:00 | NUR ---
PT RESTING COMFORTABLY AT THIS TIME. WILL CON'T TO MONITOR
--- NOTE | 2019-08-15 03:27 | NUR ---
COMPLETE BATH AND LINEN CHANGE, PT TOLERATED WELL
[2019-08-15 04:41] LABS: BASOPHILS 0.1 % (0-2); EOSINOPHILS 1.3 % (0-7); IMMATURE GRANULOCYTES 0.2 % (0-5); MCH 27.7 pg (26.0-34.0); MCHC 31.8 g/dL (31.0-37.0); MONOCYTES 4.8 % (2-11); NEUTROPHILS 79.6 % (40-80)
[2019-08-15 04:42] LABS: HEMATOCRIT 30.8 % (42.0-54.0); HEMOGLOBIN 9.8 g/dL (13.5-17.5); PLATELET COUNT 140 10x3/uL (130-400); RBC 3.54 10x6/uL (4.20-6.10); WBC 8.4 10x3/uL (4.8-10.8)
[2019-08-15 05:01] LABS: ALBUMIN 2.3 g/dL (3.4-5.0); ANION GAP 15.1 mmol/L (8-16); BILIRUBIN - TOTAL 1.18 mg/dL (0.2-1.3); CARBON DIOXIDE 23.8 mmol/L (21.0-32.0); CREATININE - SERUM 3.1 mg/dL (0.6-1.3); POTASSIUM - SERUM 3.9 mmol/L (3.5-5.1); PROTEIN - SERUM 6.1 g/dL (6.4-8.2); VANCOMYCIN - RANDOM 23.3 ug/mL (10.0-20.0)
--- NOTE | 2019-08-15 05:05 | NUR ---
REPOSITIONED FOR COMFORT,
--- NOTE | 2019-08-15 07:15 | NUR ---
REPORT RECEIVED. PT IS RESTING BUT MOANS OUT IN PAIN AT TIMES. PT HAS RIGHT SUBCLAVIAN. HE HAS A ELKINS. ELEVATED BP.
--- NOTE | 2019-08-15 09:15 | NUR ---
HYDRALAZINE PRN ORDERED FOR HTN. PAIN MEDICATION ORDERED. WILL CONTINUE TO MONITOR.
--- NOTE | 2019-08-15 10:40 | NUR ---
CURRENT BP 121/80N AFTER HYDRALAZINE GIVEN. WILL CONTINUE TO MONITOR.
--- NOTE | 2019-08-15 12:15 | NUR ---
DR GUAJARDO IN WITH PT AND PT'S FAMILY.
--- NOTE | 2019-08-15 13:44 | NUR ---
DR FIGUEROA ROUNDED ON PT. NO NEW ORDERS AT THIS TIME.
--- NOTE | 2019-08-15 15:15 | NUR ---
PT RESTING QUIETLY. VSS. WILL CONTINUE TO MONITOR.
--- NOTE | 2019-08-15 16:27 | NUR ---
FAMILY IN WITH PT. UPDATED REGARDING DOCTORS' OPINIONS. STILL DECIDING ON WHETHER TO PUT THE PT ON HOSPICE OR DO COMFORT CARE.
--- NOTE | 2019-08-15 19:25 | NUR ---
REPORT RECEIVED, SHIFT ASSESSMENT COMPLETE, PT IS CONFUSED LYING IN BED, RESTLESS/AGITATED PAIN 6/10 ON SCALE, PRN MED GIVEN, ON 4L HF NC WITH 95% O2 SAT, ALL PPP, VSS, WILL CON'T TO MONITOR
--- NOTE | 2019-08-15 21:15 | NUR ---
FAMILY AT BEDSIDE, UPDATE GIVEN
--- NOTE | 2019-08-15 23:00 | NUR ---
REASSESSMENT COMPLETE, NO CHANGES NOTED, WILL CON'T TO MONITOR
[2019-08-16] VITALS (23 sets, daily range): BP systolic 123–142; BP diastolic 78–94
--- NOTE | 2019-08-16 01:00 | NUR ---
RESTING AT THIS TIME, WILL CON'T TO MONITOR
--- NOTE | 2019-08-16 03:03 | NUR ---
REPOSITIONED FOR COMFORT, WILL CON'T TO MONITOR
[2019-08-16 04:48] LABS: BASOPHILS 0.2 % (0-2); HEMATOCRIT 30.3 % (42.0-54.0); HEMOGLOBIN 9.4 g/dL (13.5-17.5); IMMATURE GRANULOCYTES 0.3 % (0-5); LYMPHOCYTES 14.1 % (15-50); MCH 28.1 pg (26.0-34.0); MEAN PLATELET VOLUME 9.9 fL (7.4-10.4); MONOCYTES 4.3 % (2-11); NEUTROPHILS 79.1 % (40-80); PLATELET COUNT 131 10x3/uL (130-400); RBC 3.35 10x6/uL (4.20-6.10); RDW 15.6 % (11.5-14.5); WBC 6.5 10x3/uL (4.8-10.8)
[2019-08-16 04:54] LABS: MCV 90.4 fL (80.0-100.0)
[2019-08-16 05:04] LABS: ALBUMIN 2.5 g/dL (3.4-5.0); ANION GAP 15.5 mmol/L (8-16); BILIRUBIN - TOTAL 0.92 mg/dL (0.2-1.3); CALCIUM 8.2 mg/dL (8.5-10.1); CARBON DIOXIDE 24.2 mmol/L (21.0-32.0); CREATININE - SERUM 3.2 mg/dL (0.6-1.3); POTASSIUM - SERUM 3.7 mmol/L (3.5-5.1)
--- NOTE | 2019-08-16 05:29 | NUR ---
REPOSITIONED FOR COMFORT,
--- NOTE | 2019-08-16 07:30 | NUR ---
REPORT RECEIVED. PT RESTING QUIETLY AND COMFORTABLY. ELEVATED BP. WILL COVER WITH PRN HYDRALAZINE. PT HAS ELKINS. FAMILY DECIDING IF THEY WILL DO HOSPICE. WILL CONTINUE TO MONITOR.
--- NOTE | 2019-08-16 08:32 | NUR ---
DR GUAJARDO IN WITH PT. NO NEW ORDERS AT THIS TIME.
--- NOTE | 2019-08-16 08:55 | NUR ---
DR ESQUIVEL SPEAKING WITH PT'S AT THIS TIME.
--- NOTE | 2019-08-16 09:20 | NUR ---
PAIN MEDICATION GIVEN D/T PT MOANING FREQUENTLY. PT REPOSITIONED. WILL CONTINUE TO MONITOR.
--- NOTE | 2019-08-16 10:14 | NUR ---
O2 BUMPED UP TO 6L PER LOW O2 SATS.
--- NOTE | 2019-08-16 11:14 | NUR ---
Nutrition follow-up: Pt now in ICU 2/2 breathing issues NPO Not a candidate for surgery 2/2 respiratory status Labs reviewed Family considering hospice. Will need nutrition support started within 24 hours if pt does not go into hospice. RDN following.
--- NOTE | 2019-08-16 12:15 | NUR ---
DR HYDE IN WITH PT AND FAMILY. STILL DEBATING ON HOSPICE.
--- NOTE | 2019-08-16 13:41 | NUR ---
DR RAMIREZ IN WITH PT AND WITH FAMILY.
--- NOTE | 2019-08-16 15:00 | NUR ---
FAMILY WANTS PT TO BE COMFORT CARE. DISCUSSED WITH DR RAMIREZ. SOME MEDICATIONS D/C. WILL CONTINUE TO MONITOR.
--- NOTE | 2019-08-16 15:04 | MORECARE ---
CASE MANAGEMENT DISCHARGE SUMMARY PATIENT: LIAM ACOSTA UNIT: [id number] ADM DATE: 08/04/19 AGE: 74 : 45 SEX: M ROOM/BED: D.2315 AUTHOR: DENISHADOC PHYSICIAN: REFERRING PHYSICIAN: RYAN RAMIREZ MD DATE OF SERVICE: 08/16/19 Discharge Plan Patient Name: LIAM ACOSTA Facility: [facility]:[place] : 1945 Planned Disposition: Home with Home Health Anticipated Discharge Date: Discharge Date: Expected LOS: Initial Reviewer: [email or web address] Initial Review Date: 08/04/2019 Generated: 08/16/19 4:04 pm Comments DCP- Discharge Planning Updated by [id number]: Alem Jay on 08/16/19 1:[address] LATE ENTRY 08/15/19 CRYSTAL WITH [facility] MET WITH FAMILY LAST NIGHT AND FAMILY DECIDED TO POSTPONE HOSPICE AT THIS TIME. DCP- Discharge Planning Updated by [email or web address]: Alem Jay on 08/14/19 5:[address] CM received notice regarding hospice consult. CM contacted family daughter in law Lina Acosta and Nancy (spouse) regarding hospice and whether wanting GIP or home hospice. Family decided they wanted GIP here at [facility]. SYED signed for [facility]. CM notified Crystal with [facility] for evaluation and admit if appropriate. Crystal will evaluate tonight and contact family. CM will continue to follow and assist as needed with discharge planning / needs. DCP- Discharge Planning Updated by [id number]: Manuela Barton on 08/10/19 11:[address] Patient Name: LIAM ACOSTA Admission Status: ER Accout number: [id number] Admission Date: 08-04-2019 : 1945 Admission Diagnosis: Attending: RYAN RAMIREZ Current LOS: 6 Anticipated DC Date: Planned Disposition: Home with Home Health [facility] Discharge Planning Comments: CM met with patient/spouse, Nancy to complete initial dc planning assessment. CM educated patient on the CM role and verbal consent given by patient to complete assessment. Patient lives at home in a camper where he is dependent on everything but feeding himself. At discharge patient's plans to return home and feels this is a safe discharge. CM discussed availability of home health, rehab services, and medical equipment. Patient was recently discharged from [facility] to [facility]. stated that she checked him out of [place] because "they left him slip out of a wheelchair" She stated that prior to the hospitalization on Jul 04 2019, he was walking and doing a lot for himself, now he needs help with everything. Patient does have a cane, wheelchair, walker and shower chair. She stated that he has [facility] and has "Home Care" that their daughter in law Lina is paid for 24 hours a week to help with the care for him. He has someone with him at all times and his son and daughter in law live up the hill and help with what ever they need. She does not drive, but her grandson and son take her anywhere she needs to go. She plans to take him home with and continue their current plan. She thinks it is a safe discharge. I am unsure this this is the safest plan for him, but will speak the MD about it. SYED for [facility] and "Home care/ Elder Care" Signed and placed in chart. CM will continue to follow and will assist as needed with dc plans/needs. Countersinker Balance Screw Hole: Manuela Barton DCPIA - Discharge Planning Initial Assessment Updated by [id number]: Manuela Barton on 08/10/19 11:55 am * Is the patient Alert and Oriented? Yes * PCP JAMES * [facility] * Preadmission Environment Home with Family * ADLs Partial Dependent * Partial ADLs (Assistance needed) Ambulation Bathing Dressing Medication Management Toileting * Equipment Cane Rolling Walker Shower Chair Walker Wheelchair * List name and contact numbers for known caregivers / representatives who currently or will assist patient after discharge: NANCY ()[phone] * Verbal permission to speak to the caregivers and representatives has been obtained from the patient. Yes * Community resources currently utilized [email or web address] * Please name any agencies selected above. [facility] ( DAUGHTER IN LAW, LINA) HELPS TAKE CARE OF HIM 24 HOURS A WEEK [facility] * Additional services required to return to the preadmission environment? Yes * Has this patient been hospitalized within the prior 30 days at any hospital? Yes Coverage Notice Reviewer: [id number] - Manuela Barton Notice Issued Date-Time: 08/10/2019 11:45 Notice Type: Patient Choice Letter Notice Delivered To: Family Member Relationship to Patient: Spouse Wafer Polisher Name: [facility] Delivery Method: - Pao Days: Prior Verbal Notification: Recipient Understood Notice: Recipient Signature: Med Rec Note Co-signed by Attending: Coverage Notice Comment: Reviewer: [id number] - Alem Jay Notice Issued Date-Time: 08/14/2019 17:40 Notice Type: Patient Choice Letter Notice Delivered To: Family Member Relationship to Patient: Spouse Wafer Polisher Name: NANCY ACOSTA Delivery Method: PHONE - Phone Pao Days: Prior Verbal Notification: Recipient Understood Notice: Yes Recipient Signature: Yes Med Rec Note Co-signed by Attending: Coverage Notice Comment: Last DP export: 08/14/19 5:59 p Patient Name: LIAM ACOSTA Page [id number] at 1504 All edits/amendments must be made on the electronic document DICTATION DATE: 08/16/19 1504 GAUGER CHIEF DELIVERY: ANTONELLA 08/16/19 1504 RPT#: [id number] DC DATE: STATUS: ADM IN [facility] [address] [place] [address] END OF REPORT
--- NOTE | 2019-08-16 15:36 | PN ---
PATIENT:LIAM ACOSTA MEDICAL RECORD: [id number] LOCATION:[facility] D.231 ADMISSION DATE: 08/04/19 PROGRESS NOTE DATE OF SERVICE: 08/16/2019 SUBJECTIVE: This is a 74-year-old gentleman who nephrology services were consulted with acute kidney injury. The patient is septic with infected hip. MRSA positive. He has been having pneumonia, being treated in the ICU, anemia status post packed red blood cell transfusions. The patient's mental status and cognition has declined. From when I saw him 3 days ago, his overall prognosis and condition has worsened. He has ongoing problems including pneumonia, septic joint, severe malnutrition, and continued anemia. The patient was evaluated this morning. Records reviewed. His medications include buprenorphine, hydralazine, lorazepam, furosemide IV, albumin, vancomycin, sotalol, diltiazem. OBJECTIVE: Blood pressures in the 140s-150s, heart rate in 80s, afebrile. He is not alert. Exam is essentially unremarkable when I saw him other than his cognition, alertness, and he just seems more frail and weak. His left side edema present, but is declined since I initially evaluated him. Looking at the trending of blood work, it appears that his BUN is climbing and creatinine is up just a bit. He has been hovering in the 2.7-2.8 range and it is above that this morning. His sodium is climbing, it was 147 this morning. His potassium was in the 3 range this morning. IMPRESSION: My impression is; 1. Acute hypoxic hypercapnic respiratory failure, off of BiPAP now per the patient's family recommendations because of comfort. 2. Encephalopathy, likely related to sepsis. 3. Infectious colitis. 4. Septic joint with methicillin-resistant Staphylococcus aureus. 5. Anemia requiring transfusions. 6. Pneumonia. 7. Chronic kidney disease stage III with acute kidney injury. 8. Hypernatremia. 9. Encephalopathy related to sepsis. RECOMMENDATIONS: Comfort care and dying is likely an appropriate choice at this point. The IV Lasix will help him with volume status. It may have to be supplemented with free water IV to support and reduce the hypernatremia effects. For continued sedation and comfort, Ativan in renal failure may be prolong its effects. Not much for us to offer at this time. The patient is very frail-appearing and has multiple comorbid conditions and seems eminent. TRANSINT:[id number] Voice Confirmation ID: [id number] DOCUMENT ID: [id number] PROGRESS NOTE [id number] LIAM ACOSTA SR, DAVID MD at 1536 at 0655 CC: RICKI BERNAL MD [phone] DICTATION DATE: 08/16/19 06 LENS AND FRAMES PRESCRIPTION CLERK: 08/16/19 0841 [facility] [place] [id number] [place] [id number]
--- NOTE | 2019-08-16 17:27 | NUR ---
PT RESTING QUIETLY. VSS. PT REPOSITIONED. WILL CONTINUE TO MONITOR.
[2019-08-17] VITALS (13 sets, daily range): BP systolic 122–138; BP diastolic 71–90
--- NOTE | 2019-08-17 10:19 | NUR ---
0700REPORT RECIEVED AND CARE ASSUMED OF PATIENT.. PT IS REPOSITIONED AT THIS TIME.. CONTACT ISOLATION IN EFFECT.. 0800 FAMILY IN TO SEE PT.. UPDATE GIVEN, DR RASHID IN AND SPOKE WITH THE FAMILY.. 0830 FAMILY STATES THAT THEY DO NOT WANT TO PLACE PATIENT IN HOSPICE THEY WANT TO LEAVE HIM ON COMFORT CARE AND IN THE ICU, THEY WILL TALK WITH DR JAMES PRO HE MAKES ROUNDS 1000 REPOSITIONED ORAL CARE DONE PAIN MED GIVEN.. NOTED THAT ELKINS CATH LEAKING 5 CC STERILE SALINE ADDED TO BULB AT THIS TIME AND LEAKING STOPPED..
--- NOTE | 2019-08-17 15:19 | NUR ---
1200 FAMILY IN TO SEE PT. 1400 PT IS MOANING BUPRENEX GIVEN.. DR RAMIREZ IN TO SEE PT.. SPOKE WITH FAMILY IN UNIT ORDERS RECIEVED TO TRANSFER PT TO FLOOR.. 1520 ROOM OBTAINED ON FLOOR.. 2207 REPORT CALLED
--- NOTE | 2019-08-17 16:25 | NUR ---
1620 PT TRANSPORTED TO M/S 2207 VIA BED
--- NOTE | 2019-08-17 19:20 | NUR ---
LYING IN BED WITH AT BEDSIDE. CONTINUOUS BLADDER IRRIGATION VIA GRAVITY. OUTPUT IS BRIGHT RED. ABLE TO VOICE ALL NEEDS. SHOWS NO S/S OF ANY ACUTE DISTRESS. WILL NOTE ANY CHANGE.
--- NOTE | 2019-08-17 19:20 | NUR ---
LYING IN BED WITH EYES CLOSED, RESTING COMFORTABLY AT THIS TIME. FAMILY AT BEDSIDE. COMFORT MEASURES TO BE TAKEN. WILL NOTE ANY CHANGE.
[2019-08-18] VITALS: BP 113/68
[2019-08-18 04:00] VITALS: BP 136/87
--- NOTE | 2019-08-18 05:08 | NUR ---
I have reviewed this patient and I concur with the Shift Assessment completed by the Licensed Practical Nurse today this shift.
--- NOTE | 2019-08-18 07:30 | NUR ---
PATIENT IN BED WITH EYES CLOSED RESTING QUIETLY. NO DISTRESS AT THIS TIME. ELKINS AND IV INTACT. FAMILY AT BEDSIDE. CALL LIGHT WITHIN REACH.
--- NOTE | 2019-08-18 10:45 | NUR ---
PATIENT IN BED WITH SO SIGNS OF DISTRESS. ELKINS AND IV INTACT. MOUTH BREATHING WITH KUSSMAUL RESPIRATIONS. FAMILY AT BEDSIDE. CALL LIGHT WITHIN REACH.
--- NOTE | 2019-08-18 13:00 | NUR ---
PATIENT IN BED WITH IV INTACT. ELKINS INTACT. FAMILY AT BEDSIDE. CALL LIGHT WITHIN REACH.
--- NOTE | 2019-08-18 21:00 | NUR ---
RESTING IN BED COMFORTABLY WITH NO SIGNS OF DISCOMFORT. UNRESPONSIVE EXCEPT FOR DEEP STIMULI. RT SUBCLAVIAN NOTED WITH DREESING INTACT. LT ARM WEEPING. ELKINS IN PLACE. FAMILY AT BEDSIDE. CONTACT PRECAUTIONS IN PLACE. NO NEEDS NOTED AT THIS TIME. CONTINUE PLAN OF CARE.
[2019-08-19] VITALS: BP 128/86
[2019-08-19 04:00] VITALS: BP 140/87
--- NOTE | 2019-08-19 07:45 | NUR ---
PT RESTING IN BED. NON VERBAL, MOANS TO TACTILE STIMULI. FAMILY AT BEDSIDE. PT DENIES NEEDS AT THIS TIME. O2 @ 5L HIFLO. RIGHT CVL, SALINE LOC. F/C PATENT AND DRAINING. CL WITHIN REACH. ENCOURAGED TO CALL WITH NEEDS. CONTINUE POC
--- NOTE | 2019-08-19 09:50 | NUR ---
PT RESTING IN BED. O2 REMAINS IN PLACE. FAMILY DENIES NEEDS AT THIS TIME. OFFERED TO REPOSITION PT FOR COMFORT. FAMILY DECLINES, STATES"HE IS FINE RIGHT NOW." WILL CONTINUE TO MONITOR AND OFFER CARE.
--- NOTE | 2019-08-19 11:20 | NUR ---
PT RESTING IN BED. REMAINS NON-RESPONSIVE. O2 IN PLACE. FAMILY AT BEDSIDE. DENIES NEEDS AT THIS TIME. CONTINUE TO MONITOR.
--- NOTE | 2019-08-19 13:50 | NUR ---
PT RESTING IN BED. REMAINS NON RESPONSIVE. OFFERED TO REPOSITION PT FOR COMFORT, FAMILY DENIES AT THIS TIME, VOICING THAT "HE IS OK". OFFERED FURTHER SERVICES, DENIED. CL WITHIN REACH. ENCOURAGED TO CALL WITH NEEDS. CONTINUE TO MONITOR.
[2019-08-19 20:00] VITALS: BP 144/97
--- NOTE | 2019-08-19 20:00 | NUR ---
RESTING IN BED COMFORTABLY. NC @5L AND ELKINS IN PLACE. FAMILY AT BEDSIDE. NO NEEDS NOTED AT THIS TIME. CONTINUE PLAN OF CARE.
--- NOTE | 2019-08-19 23:44 | NUR ---
GAVE PRN ATIVAN PER FAMILY'S REQUEST. WILL CONTINUE TO MONITOR.
[2019-08-20] VITALS: BP 145/95
--- NOTE | 2019-08-20 03:40 | NUR ---
DRESSING CHANGE TO THE RT SUBCLAVIAN. SITE IS CLEAN AND FREE OF REDNESS OR SWELLING. PLACED NEW DRESSING OVER SITE. GAVE PRN MEDS FOR DISCOMFORT PER FAMILY'S REQUEST. NO OTHER NEEDS NOTED. CONTINUE PLAN OF CARE.
[2019-08-20 04:00] VITALS: BP 140/97
[2019-08-20 09:16] VITALS: BP 138/91
--- NOTE | 2019-08-20 10:32 | NUR ---
PT RESTING IN BED WITH EYES CLOSED. RESPIRATIONS ARE EVEN AND UNLABORED. NO APPARENT S/S OF DISTRESS/ANXIETY/PAIN NOTED. FAMILY AT BEDSIDE. FAMILY DENY NEEDS AT THIS TIME. PADDING TO LEFT ARM CHANGED. BILATERAL HEELS ELEVATED FOR COMFORT AND TO ASSIST WITH GENERALIZED SWELLING. BILATERAL PEDAL PULSES PALP. PT DOES NOT RESPOND TO VERBAL STIMULI. BED IS IN THE LOWEST POSITION. CALL LIGHT AND BEDSIDE TABLE ARE WITHIN REACH. SIDE RAILS X 2. FAMILY DENY FURTHER NEEDS. WILL CONT TO MONITOR.
--- NOTE | 2019-08-20 11:26 | MORECARE ---
CASE MANAGEMENT DISCHARGE SUMMARY PATIENT: LIAM ACOSTA UNIT: [id number] ADM DATE: 08/04/19 AGE: 74 : 45 SEX: M ROOM/BED: D.2207 AUTHOR: DENISHADOC PHYSICIAN: REFERRING PHYSICIAN: RYAN RAMIREZ MD DATE OF SERVICE: 08/20/19 Discharge Plan Patient Name: LIAM ACOSTA Facility: [facility]:[place] : 1945 Planned Disposition: Home with Home Health Anticipated Discharge Date: Discharge Date: Expected LOS: Initial Reviewer: [email or web address] Initial Review Date: 08/04/2019 Generated: 08/20/19 12:26 pm Comments DCP- Discharge Planning Updated by [id number]: Manuela Barton on 08/20/19 10:[address] SPOKE WITH FAMILIY AT LENGTH AND THEY STILL DO NOT WANT HOSPICE AT THIS POINT THEY ARE HAPPY WITH THE CARE THAT THEY ARE RECEIVING DCP- Discharge Planning Updated by [email or web address]: Alem Jay on 08/16/19 1:[address] LATE ENTRY 08/15/19 CRYSTAL WITH [facility] MET WITH FAMILY LAST NIGHT AND FAMILY DECIDED TO POSTPONE HOSPICE AT THIS TIME. DCP- Discharge Planning Updated by [id number]: Alem Jay on 08/14/19 5:[address] CM received notice regarding hospice consult. CM contacted family daughter in law Lina Acosta and Nancy (spouse) regarding hospice and whether wanting GIP or home hospice. Family decided they wanted GIP here at [facility]. SYED signed for [facility]. CM notified Crystal with [facility] for evaluation and admit if appropriate. Crystal will evaluate tonight and contact family. CM will continue to follow and assist as needed with discharge planning / needs. DCP- Discharge Planning Updated by [email or web address]: Manuela Barton on 08/10/19 11:[address] Patient Name: LIAM ACOSTA Admission Status: ER Accout number: [id number] Admission Date: 08-04-2019 : 1945 Admission Diagnosis: Attending: RYAN RAMIREZ Current LOS: 6 Anticipated DC Date: Planned Disposition: Home with Home Health Primary Insurance: [facility] Discharge Planning Comments: CM met with patient/spouse, Nancy to complete initial dc planning assessment. CM educated patient on the CM role and verbal consent given by patient to complete assessment. Patient lives at home in a camper where he is dependent on everything but feeding himself. At discharge patient's plans to return home and feels this is a safe discharge. CM discussed availability of home health, rehab services, and medical equipment. Patient was recently discharged from [facility] to [facility]. stated that she checked him out of [place] because "they left him slip out of a wheelchair" She stated that prior to the hospitalization on Jul 04 2019, he was walking and doing a lot for himself, now he needs help with everything. Patient does have a cane, wheelchair, walker and shower chair. She stated that he has [facility] and has "Home Care" that their daughter in law Lina is paid for 24 hours a week to help with the care for him. He has someone with him at all times and his son and daughter in law live up the hill and help with what ever they need. She does not drive, but her grandson and son take her anywhere she needs to go. She plans to take him home with HH and continue their current plan. She thinks it is a safe discharge. I am unsure this this is the safest plan for him, but will speak the MD about it. SYED for [facility] and "Home care/ Elder Care" Signed and placed in chart. CM will continue to follow and will assist as needed with dc plans/needs. Property Worker: Manuela Barton DCPIA - Discharge Planning Initial Assessment Updated by [id number]: Manuela Barton on 08/10/19 11:55 am * Is the patient Alert and Oriented? Yes * PCP JAMES * [facility] [address] * Preadmission Environment Home with Family * ADLs Partial Dependent * Partial ADLs (Assistance needed) Ambulation Bathing Dressing Medication Management Toileting * Equipment Cane Rolling Walker Shower Chair Walker Wheelchair * List name and contact numbers for known caregivers / representatives who currently or will assist patient after discharge: NANCY ()[phone] * Verbal permission to speak to the caregivers and representatives has been obtained from the patient. Yes * Community resources currently utilized [facility] * Please name any agencies selected above. [place] [facility] ( DAUGHTER IN LAW, LINA) HELPS TAKE CARE OF HIM 24 HOURS A WEEK [facility] * Additional services required to return to the preadmission environment? Yes * Has this patient been hospitalized within the prior 30 days at any hospital? Yes Coverage Notice Reviewer: [id number] - Manuela Barton Notice Issued Date-Time: 08/10/2019 11:45 Notice Type: Patient Choice Letter Notice Delivered To: Family Member Relationship to Patient: Spouse Food Service Associate Name: [facility] Delivery Method: - Pao Days: Prior Verbal Notification: Recipient Understood Notice: Recipient Signature: Med Rec Note Co-signed by Attending: Coverage Notice Comment: Reviewer: [id number] - Alem Jay Notice Issued Date-Time: 08/14/2019 17:40 Notice Type: Patient Choice Letter Notice Delivered To: Family Member Relationship to Patient: Spouse Food Service Associate Name: NANCY ACOSTA Delivery Method: PHONE - Phone Pao Days: Prior Verbal Notification: Recipient Understood Notice: Yes Recipient Signature: Yes Med Rec Note Co-signed by Attending: Coverage Notice Comment: Last DP export: 08/16/19 2:05 p Patient Name: LIAM ACOSTA Page [phone] at 1126 All edits/amendments must be made on the electronic document DICTATION DATE: 08/20/191125 CAR TOP BOLTER: ANTONELLA 08/20/191125 RPT#: [id number] DC DATE: STATUS: ADM IN [facility] [address] [place] [address] END OF REPORT
[2019-08-20 13:10] VITALS: BP 141/91
--- NOTE | 2019-08-20 13:36 | NUR ---
PT FAMILY REQUESTING MEDICATION FOR PT PAIN. PT FAMILY MEMBERS STATE THAT THE PT IS "ACTING LIKE IT HURTS HIM WHEN HE RELEASES FLUID". PRN MEDICATION ADMINISTERED PER ORDER. SEE EMAR.
--- NOTE | 2019-08-20 15:14 | NUR ---
PT RESTING COMFORTABLY. RESPIRATIONS ARE IRREGULAR AND UNLABORED. FAMILY DENY NEEDS AT THIS TIME. ABSORBENT PADDING TO LUE CHANGED. BED IS IN THE LOWEST POSITION. CALL LIGHT AND BEDSIDE TABLE ARE WITHIN REACH. WILL CONT TO MONITOR.
[2019-08-20 18:04] VITALS: BP 112/72
--- NOTE | 2019-08-20 18:14 | NUR ---
PT WITH MEDIUM SIZED BM. LIQUID AND DARK BROWN. BED BATH GIVEN. CLEAN LINENS PLACED. PT IS RESTING COMFORTABLY. NO APPARENT S/S OF DISTRESS/PAIN/ANXIETY NOTED. PT FAMILY MEMBERS DENY NEEDS. BED IS IN THE LOWEST POSITION. CALL LIGHT AND BEDSIDE TABLE ARE WITHIN REACH. WILL CONT TO MONITOR.
[2019-08-20 20:00] VITALS: BP 85/50
--- NOTE | 2019-08-20 20:15 | NUR ---
PATIENT RESTING COMFORTABLY. RESP SHALLOW.O2 @ 5L PER HIGHFLOW. DOES NOT RESPOND TO STIMULI. FAMILY AT BEDSIDE.
[2019-08-21] VITALS: BP 104/65
--- NOTE | 2019-08-21 00:45 | NUR ---
HAVING FREQUENT LOOSE STOOLS. CLEANED AND POSITIONED FOR COMFORT. ELKINS WITH DARK URINE NOTED. FAMILY REMAINS AT BEDSIDE.
[2019-08-21 04:48] VITALS: BP 114/72
--- NOTE | 2019-08-21 05:18 | NUR ---
I have reviewed this patient and I concur with the Shift Assessment completed by the Licensed Practical Nurse today this shift.
--- NOTE | 2019-08-21 09:00 | NUR ---
PT NONRESPONSIVE WITH FACIAL GRIMACING NOTED AT TIMES. INCONTINENT OF BOWEL WITH ELKINS CATH NOTED WITH SEDEMENT NOTED WITH CHIP URINE. TOTAL ASSIST WITH PERICARE DONE PER EACH INCONT. EPISODE. RESPOSITIONED FOR COMFORT TO RT. SIDE WITH DRESSING APPLIED TO COCCYX WITH SHEER NOTED TO COCCYX. FAMILY PRESENT WITH PAIN MEDICCATION ADMINISTERED NEEDED PER ORDER FOR PAIN. ENCOURAGED FAMILY TO USE CALL LIGHT FOR ASSSIT. EDEMA 3+ NOTED TO BUE AND CRACKLES NOTED TO BLQ POSTERIOR OF LUNGS. HEELS FLOATED. FAMILY APPRECIATIVE OF CARE.
[2019-08-21 09:50] VITALS: BP 143/88
[2019-08-21 13:37] VITALS: BP 124/80
--- NOTE | 2019-08-21 17:24 | MORECARE ---
CASE MANAGEMENT DISCHARGE SUMMARY PATIENT: LIAM ACOSTA UNIT: [id number] ADM DATE: 08/04/19 AGE: 74 : 45 SEX: M ROOM/BED: D.2207 AUTHOR: DENISHA,DOC PHYSICIAN: REFERRING PHYSICIAN: RYAN RAMIREZ MD DATE OF SERVICE: 08/21/19 Discharge Plan Patient Name: LIAM ACOSTA Facility: [facility]:[place] : 1945 Planned Disposition: Home with Home Health Anticipated Discharge Date: Discharge Date: Expected LOS: Initial Reviewer: [email or web address] Initial Review Date: 08/04/2019 Generated: 08/21/19 6:23 pm Comments DCP- Discharge Planning Updated by [email or web address]: Radha Monte on 08/21/19 4:[address] Ramirez spoke with CM regarding [facility] GIP order. Patient's , Nancy Acosta signed the Patient Choice form for [facility]. Spouse states she wants him to stay in the same room here at [facility]ERG[facility]Y TECHNIC[facility]. CM contacted Jodi with [facility], provided required information and will be here to visit with patient and for legal paperwork this afternoon. [facility] which may require prior [facility]. Faxed the order, face sheet, progress notes to the [facility]. A packet of same information was left at the desk with the critical care unit nurse, per Hospice request. Patient's nurse notified of above. CM will follow and assist PRN with DC plans/needs. Patient's spouse voices no other needs at this time. DCP- Discharge Planning Updated by [id number]: Manuela Barton on 08/20/19 10:[address] SPOKE WITH FAMILIY AT LENGTH AND THEY STILL DO NOT WANT HOSPICE AT THIS POINT THEY ARE HAPPY WITH THE CARE THAT THEY ARE RECEIVING DCP- Discharge Planning Updated by [id number]: Alem Jay on 08/16/19 1:[address] LATE ENTRY 08/15/19 CRYSTAL WITH [facility] MET WITH FAMILY LAST NIGHT AND FAMILY DECIDED TO POSTPONE HOSPICE AT THIS TIME. DCP- Discharge Planning Updated by [id number]: Alem Jay on 08/14/19 5:[address] CM received notice regarding hospice consult. CM contacted family daughter in law iLna Acosta and Nancy (spouse) regarding hospice and whether wanting GIP or home hospice. Family decided they wanted GIP here at [facility]. SYED signed for [facility]. CM notified Crystal with [facility] for evaluation and admit if appropriate. Crystal will evaluate tonight and contact family. CM will continue to follow and assist as needed with discharge planning / needs. DCP- Discharge Planning Updated by [email or web address]: Manuela Barton on 08/10/19 11:[address] Patient Name: LIAM ACOSTA Admission Status: ER Accout number: [id number] Admission Date: 08-04-2019 : 1945 Admission Diagnosis: Attending: RYAN RAMIREZ Current LOS: 6 Anticipated DC Date: Planned Disposition: Home with Home Health Primary Insurance: [employer] Discharge Planning Comments: CM met with patient/spouse, Nancy to complete initial dc planning assessment. CM educated patient on the CM role and verbal consent given by patient to complete assessment. Patient lives at home in a camper where he is dependent on everything but feeding himself. At discharge patient's plans to return home and feels this is a safe discharge. CM discussed availability of home health, rehab services, and medical equipment. Patient was recently discharged from [facility] to [facility]. stated that she checked him out of [facility] because "they left him slip out of a wheelchair" She stated that prior to the hospitalization on Jul 04 2019, he was walking and doing a lot for himself, now he needs help with everything. Patient does have a cane, wheelchair, walker and shower chair. She stated that he has [facility] and has "Home Care" that their daughter in law Lina is paid for 24 hours a week to help with the care for him. He has someone with him at all times and his son and daughter in law live up the hill and help with what ever they need. She does not drive, but her grandson and son take her anywhere she needs to go. She plans to take him home with and continue their current plan. She thinks it is a safe discharge. I am unsure this this is the safest plan for him, but will speak the MD about it. SYED for [facility] and "Home care/ Elder Care" Signed and placed in chart. CM will continue to follow and will assist as needed with dc plans/needs. Boxer Operator: Manuela Barton DCPIA - Discharge Planning Initial Assessment Updated by [id number]: Manuela Barton on 08/10/19 11:55 am * Is the patient Alert and Oriented? Yes * PCP JAMES * Pharmacy [facility] [place] * Preadmission Environment Home with Family * ADLs Partial Dependent * Partial ADLs (Assistance needed) Ambulation Bathing Dressing Medication Management Toileting * Equipment Cane Rolling Walker Shower Chair Walker Wheelchair * List name and contact numbers for known caregivers / representatives who currently or will assist patient after discharge: NANCY ()[phone] * Verbal permission to speak to the caregivers and representatives has been obtained from the patient. Yes * Community resources currently utilized [facility] * Please name any agencies selected above. [place] [facility] ( DAUGHTER IN LAW, LINA) HELPS TAKE CARE OF HIM 24 HOURS A WEEK [facility] * Additional services required to return to the preadmission environment? Yes * Has this patient been hospitalized within the prior 30 days at any hospital? Yes Coverage Notice Reviewer: [id number] - Manuela Barton Notice Issued Date-Time: 08/10/2019 11:45 Notice Type: Patient Choice Letter Notice Delivered To: Family Member Relationship to Patient: Spouse Hvac Mechanical Engineer Name: [facility] Delivery Method: - Pao Days: Prior Verbal Notification: Recipient Understood Notice: Recipient Signature: Med Rec Note Co-signed by Attending: Coverage Notice Comment: Reviewer: [id number] - Alem Jay Notice Issued Date-Time: 08/14/2019 17:40 Notice Type: Patient Choice Letter Notice Delivered To: Family Member Relationship to Patient: Spouse Hvac Mechanical Engineer Name: NANCY ACOSTA Delivery Method: PHONE - Phone Pao Days: Prior Verbal Notification: Recipient Understood Notice: Yes Recipient Signature: Yes Med Rec Note Co-signed by Attending: Coverage Notice Comment: Reviewer: [id number] - Radha Monte Notice Issued Date-Time: 08/21/2019 15:00 Notice Type: Patient Choice Letter Notice Delivered To: Family Member Relationship to Patient: Spouse Hvac Mechanical Engineer Name: Nancy Acosta Delivery Method: HAND - Hand Delivered Pao Days: Prior Verbal Notification: Recipient Understood Notice: Yes Recipient Signature: Yes Med Rec Note Co-signed by Attending: Coverage Notice Comment: Patient Choice form for [facility] signed by patient's , Nancy Acosta. Original placed on the chart. Last DP export: 08/20/19 10:26 a Patient Name: LIAM ACOSTA Page [id number] at 1724 All edits/amendments must be made on the electronic document DICTATION DATE: 08/21/191722 DRAG SEINER: ANTONELLA 08/21/191722 RPT#: [id number] DC DATE: STATUS: ADM IN [facility] [address] [place] [address] END OF REPORT
[2019-08-21 17:52] VITALS: BP 113/74
[2019-08-21 20:00] VITALS: BP 102/63
--- NOTE | 2019-08-21 20:56 | NUR ---
PT ACCEPTED BY [facility]. DISCHARGE ORDER PER DR. RAMIREZ. PT WILL BE READMITTED TO INPATIENT HOSPICE.
--- NOTE | 2019-08-23 08:47 | MORECARE ---
CASE MANAGEMENT DISCHARGE SUMMARY PATIENT: LIAM HOLDER UNIT: [id number] ADM DATE: 08/04/19 AGE: 74 : 45 SEX: M ROOM/BED: D.2207 AUTHOR: EDUARDO DENNY PHYSICIAN: REFERRING PHYSICIAN: RYAN RAMIREZ MD DATE OF SERVICE: 08/23/19 Discharge Plan Patient Name: LIAM HOLDER Facility: [facility]:[place] : 1945 Planned Disposition: Home with Home Health Anticipated Discharge Date: Discharge Date: 08/21/2019 Expected LOS: Initial Reviewer: [email or web address] Initial Review Date: 08/04/2019 Generated: 08/23/19 9:47 am Comments DCP- Discharge Planning Updated by [id number]: Radha Monte on 08/21/19 4:[address] Ramirez spoke with CM regarding [facility] GIP order. Patient's , Nancy Holder signed the Patient Choice form for [facility]. Spouse states she wants him to stay in the same room here at [facility]. CM contacted Jodi with [facility], provided required information and will be here to visit with patient and for legal paperwork this afternoon. The patient has [facility], which may require prior authorization. Faxed the order, face sheet, progress notes to the [facility]. A packet of same information was left at the desk with the control panel operator crude unit, per Hospice request. Patient's nurse notified of above. CM will follow and assist PRN with DC plans/needs. Patient's spouse voices no other needs at this time. DCP- Discharge Planning Updated by [id number]: Manuela Barton on 08/20/19 10:[address] SPOKE WITH FAMILIY AT LENGTH AND THEY STILL DO NOT WANT HOSPICE AT THIS POINT THEY ARE HAPPY WITH THE CARE THAT THEY ARE RECEIVING DCP- Discharge Planning Updated by [email or web address]: Alem Jay on 08/16/19 1:[address] LATE ENTRY 08/15/19 CRYSTAL WITH [facility] MET WITH FAMILY LAST NIGHT AND FAMILY DECIDED TO POSTPONE HOSPICE AT THIS TIME. DCP- Discharge Planning Updated by [id number]: Alem Jay on 08/14/19 5:[address] CM received notice regarding hospice consult. CM contacted family daughter in law Lina Holder and Nancy (spouse) regarding hospice and whether wanting GIP or home hospice. Family decided they wanted GIP here at [facility]. SYED signed for [facility]. CM notified Crystal with [facility] for evaluation and admit if appropriate. Crystal will evaluate tonight and contact family. CM will continue to follow and assist as needed with discharge planning / needs. DCP- Discharge Planning Updated by [id number]: Manuela Barton on 08/10/19 11:[address] Patient Name: LIAM HOLDER Admission Status: ER Accout number: [id number] Admission Date: 08-04-2019 : 1945 Admission Diagnosis: Attending: RYAN RAMIREZ Current LOS: 6 Anticipated DC Date: Planned Disposition: Home with Home Health Primary Insurance: [employer] Discharge Planning Comments: CM met with patient/spouse, Nancy to complete initial dc planning assessment. CM educated patient on the CM role and verbal consent given by patient to complete assessment. Patient lives at home in a camper where he is dependent on everything but feeding himself. At discharge patient's plans to return home and feels this is a safe discharge. CM discussed availability of home health, rehab services, and medical equipment. Patient was recently [facility]. stated that she checked him out of [place] because "they left him slip out of a wheelchair" She stated that prior to the hospitalization on Jul 04 2019, he was walking and doing a lot for himself, now he needs help with everything. Patient does have a cane, wheelchair, walker and shower chair. She stated that he has [facility] and has "Home Care" that their daughter in law Lina is paid for 24 hours a week to help with the care for him. He has someone with him at all times and his son and daughter in law live up the hill and help with what ever they need. She does not drive, but her grandson and son take her anywhere she needs to go. She plans to take him home with and continue their current plan. She thinks it is a safe discharge. I am unsure this this is the safest plan for him, but will speak the MD about it. [facility] for [facility] and "Home care/ Elder Care" Signed and placed in chart. CM will continue to follow and will assist as needed with dc plans/needs. Medical Delivery Technician: Manuela Barton DCPIA - Discharge Planning Initial Assessment Updated by [email or web address]: Manuela Barton on 08/10/19 11:55 am * Is the patient Alert and Oriented? Yes * PCP JAMES * Pharmacy [facility] [place] * Preadmission Environment Home with Family * ADLs Partial Dependent * Partial ADLs (Assistance needed) Ambulation Bathing Dressing Medication Management Toileting * Equipment Cane Rolling Walker Shower Chair Walker Wheelchair * List name and contact numbers for known caregivers / representatives who currently or will assist patient after discharge: NANCY ()[phone] * Verbal permission to speak to the caregivers and representatives has been obtained from the patient. Yes * Community resources currently utilized [facility] * Please name any agencies selected above. [facility] ( DAUGHTER IN LAW, LINA) HELPS TAKE CARE OF HIM 24 HOURS A WEEK [facility] * Additional services required to return to the preadmission environment? Yes * Has this patient been hospitalized within the prior 30 days at any hospital? Yes Coverage Notice Reviewer: [email or web address] - Manuela Barton Notice Issued Date-Time: 08/10/2019 11:45 Notice Type: Patient Choice Letter Notice Delivered To: Family Member Relationship to Patient: Spouse Acid Crane Operator Name: [facility] Delivery Method: - Pao Days: Prior Verbal Notification: Recipient Understood Notice: Recipient Signature: Med Rec Note Co-signed by Attending: Coverage Notice Comment: Reviewer: [id number] - Alem Jay Notice Issued Date-Time: 08/14/2019 17:40 Notice Type: Patient Choice Letter Notice Delivered To: Family Member Relationship to Patient: Spouse Acid Crane Operator Name: NANCY HOLDER Delivery Method: PHONE - Phone Pao Days: Prior Verbal Notification: Recipient Understood Notice: Yes Recipient Signature: Yes Med Rec Note Co-signed by Attending: Coverage Notice Comment: Reviewer: [email or web address] Lissa Monte Notice Issued Date-Time: 08/21/2019 15:00 Notice Type: Patient Choice Letter Notice Delivered To: Family Member Relationship to Patient: Spouse Acid Crane Operator Name: Nancy Holder Delivery Method: HAND - Hand Delivered Pao Days: Prior Verbal Notification: Recipient Understood Notice: Yes Recipient Signature: Yes Med Rec Note Co-signed by Attending: Coverage Notice Comment: Patient Choice form for [facility] signed by patient's , Nancy Holder. Original placed on the chart. Last DP export: 08/21/19 4:24 p Patient Name: LIAM HOLDER Page [id number] at 0847 All edits/amendments must be made on the electronic document DICTATION DATE: 08/23/19846 SPOT MACHINE OPERATOR: ANTONELLA 08/23/19 RPT#: [id number] DC DATE:08/21/19 STATUS: DIS IN [facility] [address] [place] [address] END OF REPORT
== END 2019-08-21 21:00 | disposition hospice, inpatient (51) | DRG 559 ==
LOC: D.ER 14:17 → D.ICU 18:31 → D.MS 18:31 → D.ICU 08-13 14:19 → D.MS 08-17 16:24
PROVIDERS: Family Medicine; Internal Medicine Gastroenterology; Internal Medicine Hematology & Oncology; Orthopaedic Surgery; Radiology Diagnostic Radiology; ADMIT Family Medicine; ATTEND Family Medicine
PROC: 0S9B3ZX Drainage of Left Hip Joint, Percutaneous Approach, Diagnostic (ICD-10-PCS; 2019-08-05)
PROC: 05H533Z Insertion of Infusion Device into Right Subclavian Vein, Percutaneous Approach (ICD-10-PCS; principal; 2019-08-08)
PROC: 0DB48ZX Excision of Esophagogastric Junction, Via Natural or Artificial Opening Endoscopic, Diagnostic (ICD-10-PCS; 2019-08-11)
PROC: 0DB78ZX Excision of Stomach, Pylorus, Via Natural or Artificial Opening Endoscopic, Diagnostic (ICD-10-PCS; 2019-08-11)
DX: T84.84XA Pain due to internal orthopedic prosthetic devices, implants and grafts, initial encounter (principal); E43 Unspecified severe protein-calorie malnutrition; J18.9 Pneumonia, unspecified organism; J96.01 Acute respiratory failure with hypoxia; J96.02 Acute respiratory failure with hypercapnia; A41.9 Sepsis, unspecified organism; B37.0 Candidal stomatitis; I48.20 Chronic atrial fibrillation, unspecified; I69.351 Hemiplegia and hemiparesis following cerebral infarction affecting right dominant side; E87.2 Acidosis; N17.9 Acute kidney failure, unspecified; I50.30 Unspecified diastolic (congestive) heart failure; M00.052 Staphylococcal arthritis, left hip; E44.0 Moderate protein-calorie malnutrition; T84.52XA Infection and inflammatory reaction due to internal left hip prosthesis, initial encounter; E86.0 Dehydration; M21.372 Foot drop, left foot; D64.89 Other specified anemias; B95.62 Methicillin resistant Staphylococcus aureus infection as the cause of diseases classified elsewhere; Z66 Do not resuscitate; K21.9 Gastro-esophageal reflux disease without esophagitis; R53.81 Other malaise; R62.7 Adult failure to thrive

== ENCOUNTER 2019-08-21 20:42 | Inpatient (IN) | payer OTHER ==
[~2019-08-21] VITALS: Ht 175.3 cm; Wt 88.6 kg
[~2019-08-21 20:42] MED LIST changes: +OMEPRAZOLE20 M1 PO
--- NOTE | 2019-08-21 21:00 | NUR ---
PATIENT ADMITTED TO [facility] PER SERVICE OF DR STEPHENSON. B/P 97/60 P 99 R 22 SPO2 98 ON 5L PER HIGHFLOW.RCL TO RIGHT CHEST WITHOUT REDNESS OR EDEMA NOTED. EDEMA NOTED TO ALL EXTREMITIES. WEEPING NOTED TO LEFT ARM. ELKINS PATENT WITH DARK TEA URINE NOTED. TURNED AND POSITIONED FOR COMFORT. FAMILY AT BEDSIDE.
[2019-08-22 00:54] VITALS: BP 102/63; BMI 28.8
--- NOTE | 2019-08-22 09:18 | NUR ---
PATIENT UNRESPONSIVE WITH RESP EVEN W/O DYSPNEA. O2 5L N/C HIFLOW. ABDOMEN SOFT WITH BS HYPOACTIVE X4. DRESSING INTACT TO COCCYX WITH EDEMA 3+ NOTED TO BUE WITH WEEPING NOTED. ELKINS CATH INTACT WITH SEDEMENT NOTED. PERICARE DONE WITH INCONTINENT EPISODES AND REPOSITIONED FOR COMFORT. NO FACIAL GRIMACING NOTED AT THIS TIME. ENCOURAGED FAMILY TO USE CALL LIGHT FOR ASSSIT.CONTINUED HOSPICE CARE.
[2019-08-22 14:15] VITALS: BP 96/58
[2019-08-22 15:12] VITALS: Ht 175.3 cm; Wt 88.6 kg
[2019-08-22 20:00] VITALS: BP 89/44
--- NOTE | 2019-08-22 21:00 | NUR ---
EYES CLOSED RESP EVEN AND UNLABORED. O2 @ 5L PER HIGHFLOW. PATIENT RESPONDS TO TACTILE STIMULI.AT TIMES. TURNED AND POSITIONED FOR COMFORT. RCL INTACT WITHOUT REDNESS OR EDEMA NOTED. FAMILY REMAINS IN ROOM.
--- NOTE | 2019-08-23 02:29 | NUR ---
I have reviewed this patient and I concur with the Shift Assessment completed by the Licensed Practical Nurse today this shift.
--- NOTE | 2019-08-23 07:50 | NUR ---
REPORT RECIEVED ASSUMED CARE. PATIENT IN BED WITH IV INTACT. NO COMPLAINTS OR SIGNS OF DISTRESS. FAMILY AT BEDSIDE. CALL LIGHT WITHIN REACH.
[2019-08-23 09:09] VITALS: BP 106/62
[2019-08-23 12:49] VITALS: BP 100/61
--- NOTE | 2019-08-23 13:45 | NUR ---
SPOKE WITH HOSPICE NURSE ABOUT ELEVATED TEMP. STATED NOT TO TREAT AT THIS TIME DUE TO IT CAUSING INCREASED SECRETIONS. HOSPICE NURSE SPOKE TO FAMILY. UNCOVERED PATIENT A LITTLE AND WILL RETAKE TEMP. PATIENT IN BED WITH EYES CLOSED RESTING QUIETLY. ELKINS INTACT. 02 ON. CALL LIGHT WITHIN REACH.
--- NOTE | 2019-08-23 14:15 | NUR ---
PATIENT RECIEVED ATIVAN PER FAMILY REQUEST. IV INTACT. NO SIGNS OF DISTRESS. CALL LIGHT WITHIN REACH. FAMILY AT BEDSIDE.
[2019-08-23 16:01] VITALS: BP 96/50
--- NOTE | 2019-08-23 21:00 | NUR ---
RESTING IN BED COMFORTABLY. NC IN MOUTH @4.5L AND ELKINS IN PLACE. FAMILY AT BEDSIDE. DENIES NO NEEDS AT THIS TIME. CONTINUE PLAN OF CARE.
[2019-08-23 21:03] VITALS: BP 76/48
--- NOTE | 2019-08-24 11:00 | NUR ---
PATIENT BREATHS SHORTER AND LONGER APART. EXPLAINED TO THAT IT MAY NOT BE MUCH LONGER BEFORE PATIENT EXPIRES. VERBALIZED UNDERSTANDING. STATED SHE WOULD CALL THE KIDS. WILL CONTINUE TO MONITOR.
--- NOTE | 2019-08-24 11:15 | NUR ---
PATIENT BREATHING PICKED BACK UP AT THIS TIME. AT BEDSIDE. WILL CONTINUE TO MONITOR.
[2019-08-24 11:31] VITALS: BP 77/52
--- NOTE | 2019-08-24 11:35 | NUR ---
NO REPIRATIONS SEEN OR HEARD AND NOT PULSE FELT OR AUSCULTATED. NOTIFIED HOSPICE NURSE. STATED SHE WOULD BE HERE. FAMILY AT PATIENT BEDSIDE. CALL LIGHT WITHIN REACH.
--- NOTE | 2019-08-24 11:57 | NUR ---
PATIENT PRONOUNCED BY HOSPICE NURSE.
--- NOTE | 2019-08-24 13:15 | NUR ---
PATIENT BODY ESCORTED OUT OF HOSPITAL WITH HOME.
--- NOTE | 2019-08-24 16:52 | MORECARE ---
CASE MANAGEMENT DISCHARGE SUMMARY PATIENT: LIAM ACOSTA UNIT: [id number] ADM DATE: 08/21/19 AGE: 74 : 45 SEX: M ROOM/BED: D.2207 AUTHOR: EDUARDO DENNY PHYSICIAN: REFERRING PHYSICIAN: ARMIDA STEPHENSON MD DATE OF SERVICE: 08/24/19 Discharge Plan Patient Name: LIAM ACOSTA [facility] [facility] 1945 Planned Disposition: Hospice Medical Facility Anticipated Discharge Date: Discharge Date: 08/24/2019 Expected LOS: 0 Initial Reviewer: [email or web address] Initial Review Date: 08/21/2019 Generated: 08/24/19 5:52 pm Patient Name: LIAM ACOSTA Page [id number] at 1652 All edits/amendments must be made on the electronic document DICTATION DATE: 08/24/191651 BOX TOE CEMENTER: ANTONELLA 08/24/191651 RPT#: [id number] DC DATE:08/24/19 STATUS: DIS IN [facility] [address] [place] [address] END OF REPORT
== END 2019-08-24 13:15 | DRG 951 ==
LOC: D.MS 20:42
PROVIDERS: ADMIT Legal Medicine; ATTEND Legal Medicine
DX: Z51.5 Encounter for palliative care (principal)